=== PATIENT | female | born 1945 | race Caucasian/White ===

== ENCOUNTER 2024-12-17 13:37 | Outpatient (REF) | payer MEDICARE, SELFPAY ==
--- NOTE | ~2024-12-17 | XR_ITS ---
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 4 views lumbar spine Comparison: None Findings: Dextroscoliosis. Osteopenia. No acute fracture. Multilevel spondylosis with diffuse osteophytosis, facet arthropathy and degenerative disc disease. Intervertebral foraminal narrowing, pronounced at L4-L5 and L5-S1. Large colonic stool burden. IMPRESSION: Chronic changes without acute findings. This document has been electronically signed by: Ian Jackson MD on 12/18/2024 05:56:04
--- OUTSIDE RECORDS SUMMARY | 2024-12-17 15:54 | XMS_ITS | Encounter Summary ---
Author Organization [facility] Address [address] [place] [address] Care Team Providers Care Shingle Weaver Name Role Phone Warner Layne MD Primary Care Provider [phone] Edgar Gillette MD Unavailable [phone] Liz Wick MD Primary Care Provider [phone] Re Agarwal MD Primary Care Provider [phone] Reason for Visit * Reason Onset Date Comments medication problems 11/28/2022 Encounter Details Date Type Department Care Team Description 11/28/2022 Telephone Internal Medicine - [place] [address] [facility], [address] [place] [address] Warner Layne MD [address] [place], [place] [id number] medication problems Social History Tobacco Use Types Packs/Day Years Used Date Smoking Tobacco: Never Smokeless Tobacco: Never Alcohol Use Standard Drinks/Week Comments No 0 (1 standard drink = 0.6 oz pur e alcohol) Sex Assigned at Date Recorded Not on file Job Start Date Occupation Industry Not on file Not on file Not on file COVID-19 Exposure Response Date Recorded In the last 10 days, have yo u been in contact with someone who was confirmed or suspected to have Coronavirus/COVID-19? No / Unsure 11/14/2022 1:32 PM EST documented as of this encounter Miscellaneous Notes * Telephone Encounter - Celine Sherman - 11/28/2022 11:[address] Layne please advise patient states their Donezapil should be 10mg advised by patients neurologist however you sent in 5mg. * Telephone Encounter - Alanna Burris - 11/28/2022 11:00 AM EST Who is calling? The patient Name of the medication Donezapil What is the specific problem or interaction? Patient states neurologist Dr. Johnson wanted her on 10mg but Dr. Layne prescribed 5mg. Please advise. If the patient is having a problem with taking the med - how long has the problem been going on? N/A documented in this encounter Plan of Treatment Not on file documented as of this encounter Visit Diagnoses Not on filedocumented in this encounter Care Teams Shingle Weaver Relationship Specialty Start Date End Date Warner Layne MD PCP - General Internal Medicine 12/27/20 04/08/23 Liz Wick MD [address] [place] [address] PCP - General Internal Medicine 04/09/23 01/20/24 Re Agarwal MD [address] [place] [id number] PCP - General Internal Medicine 01/21/24 Edgar Gillette MD General Worker Cardiology 12/02/19 documented as of this encounter
--- OUTSIDE RECORDS SUMMARY | 2024-12-17 15:54 | XMS_ITS | Encounter Summary ---
Author Organization [facility] Address [address] [place] [address] Care Team Providers Care Manager Forms Name Role Phone Warner Layne MD Primary Care Provider [phone] Melissa Tapia MD Primary Care Provider [phone] Warner Layne MD Primary Care Provider [phone] Edgar Gillette MD Unavailable [phone] Liz Wick MD Primary Care Provider [phone] Re Agarwal MD Primary Care Provider [phone] Encounter Details Date Type Department Care Team Description 11/12/2019 Release of Information Medical Records [address] [place] [id number] Abstract, Provider Social History Tobacco Use Types Packs/Day Years Used Date Smoking Tobacco: Never Smokeless Tobacco: Never Alcohol Use Standard Drinks/Week Comments No 0 (1 standard drink = 0.6 oz pur e alcohol) Sex Assigned at Date Recorded Not on file Job Start Date Occupation Industry Not on file Not on file Not on file documented as of this encounter Plan of Treatment Not on file documented as of this encounter Visit Diagnoses Not on filedocumented in this encounter Care Teams Manager Forms Relationship Specialty Start Date End Date Warner Layne MD PCP - General Internal Medicine 08/25/19 12/22/20 Melissa Tapia MD PCP - General Internal Medicine 12/23/20 12/26/20 Warner Layne MD PCP - General Internal Medicine 12/27/20 04/08/23 Liz Wick MD [address] [place] [id number] PCP - General Internal Medicine 04/09/23 01/20/24 Re Agarwal MD [address] [place] [address] PCP - General Internal Medicine 01/21/24 Edgar Gillette MD Repairer Wood Furniture Cardiology 12/02/19 documented as of this encounter
--- OUTSIDE RECORDS SUMMARY | 2024-12-17 15:54 | XMS_ITS | Encounter Summary ---
Author Organization [facility] Address [address] [place] [address] Care Team Providers Care Tax Services Intern Name Role Phone Edgar Gillette MD Unavailable [phone] Liz Wick MD Primary Care Provider [phone] Re Agarwal MD Primary Care Provider [phone] Encounter Details Date Type Department Care Team Description 05/23/2023 Hospital Medical Records [address] [place] [id number] [address] Social History Tobacco Use Types Packs/Day Years [...] suspected to have Coronavirus/COVID-19? No / Unsure 05/22/2023 11:28 AM EDT documented as of this encounter Plan of Treatment Not on file documented as of this encounter Procedures Procedure Name Priority Date/Time Associated Diagnosis Comments OUTSIDE LAB Routine 05/24/2023 OUTSIDE EKG Routine 05/23/2023 OUTSIDE LAB Routine 05/23/2023 documented in this encounter Results * OUTSIDE LAB (05/24/2023) Provider Abstract LAB * OUTSIDE LAB (05/23/2023) Provider Abstract LAB * OUTSIDE EKG (05/23/2023) Provider Abstract CARDIOLOGY documented in this encounter Visit Diagnoses Not on filedocumented in this encounter Care Teams Tax Services Intern Relationship Specialty Start Date End Date Liz Wick MD [address] [place] [address] PCP - General Internal Medicine 04/09/23 01/20/24 Re Agarwal MD [address] [place] [address] PCP - General Internal Medicine 01/21/24 Edgar Gillette MD Community Association Manager Cardiology 12/02/19 documented as of this encounter
--- OUTSIDE RECORDS SUMMARY | 2024-12-17 15:54 | XMS_ITS | Encounter Summary ---
Author Organization [facility] Address [address] [place] [address] Care Team Providers Care Business Analytics Director Name Role Phone Edgar Gillette MD Unavailable [phone] Re Agarwal MD Primary Care Provider [phone] Reason for Visit * Reason Onset Date Comments Wellness Program Manager Feedback 04/02/2024 Neurology-Dr. Leni varma Encounter Details Date Type Department Care Team Description 04/02/2024 Telephone Adult Medicine [address] [place] [address] [address] Re Agarwal MD [address] [place] [address] Wellness Program Manager Feedback (Neurology-Dr. Joaquin) Social History Tobacco Use Types Packs/Day Years Used Date Smoking Tobacco: Never Smokeless Tobacco: Never Alcohol Use Standard Drinks/Week Comments No 0 (1 standard drink = 0.6 oz pur e alcohol) Sex Assigned at Date Recorded Not on file Job Start Date Occupation Industry Not on file Not on file Not on file documented as of this encounter Miscellaneous Notes * Telephone Encounter - Sonya Marquez - 04/04/2024 3:33 PM EDT Noted. * Telephone Encounter - Re Agarwal MD - 04/04/2024 3:20 PM EDT Will discuss with patient at upcoming appointment * Telephone Encounter - Sonya Marquez - 04/02/2024 11:[address] Agarwal, Recently patient was referred to Neurology-Dr. Joaquin for dx dementia hx . 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 Joaquin is no longer accepting new patients as he will be retiring in June 2024.I have closed referral. I do see that patient had an appt scheduled on 03/25/[address] Johnson but I am unsure if patient kept that appt. Patient had also been referred to [facility] but that referral was also closed as [facility] does not see for memory issues. I am unsure how you would like to proceed. Thanks, Sonya Referrals Automotive Fuel Systems Converter documented in this encounter Plan of Treatment Not on file documented as of this encounter Visit Diagnoses Not on filedocumented in this encounter Care Teams Business Analytics Director Relationship Specialty Start Date End Date Re Agarwal MD [address] [place] [address] PCP - General Internal Medicine 01/21/24 Edgar Gillette MD Traffic Workforce Representative Cardiology 12/02/19 documented as of this encounter
--- OUTSIDE RECORDS SUMMARY | 2024-12-17 15:54 | XMS_ITS | Encounter Summary ---
Author Organization [facility] Address [address] [place] [address] Care Team Providers Care Coroner Name Role Phone Warner Layne MD Primary Care Provider [phone] Melissa Tapia MD Primary Care Provider [phone] Warner Layne MD Primary Care Provider [phone] Edgar Gillette MD Unavailable [phone] Liz Wick MD Primary Care Provider [phone] Re Agarwal MD Primary Care Provider [phone] Reason for Visit * Reason Onset Date Comments other 01/07/2020 prescriptions Encounter Details Date Type Department Care Team Description 01/07/2020 Telephone Internal Medicine - [address], [address] [place] [address] Warner Layne MD [address] [place] [address] other (prescriptions) Social History Tobacco Use Types Packs/Day Years [...] encounter Miscellaneous Notes * Telephone Encounter - Shyanne Lynn M.A. - 01/12/2020 1:02 PM EDT Letter printed placed on provider folder for review and sign, please mail to patient * Telephone Encounter - Warner Layne MD - 01/12/2020 11:05 AM EDT Letter is fine * Telephone Encounter - Shyanne Lynn M.A. - 01/12/2020 10:51 AM EDT Contacted patient for a better understanding of what she want from us and she stated that she Needsa prescription for her otc medications, for her housing coust, but what I can do is to do a letter for her housing with a list of all of her otc medications Please let me know if you want me to do this letter instead witting a script for all of her otc medication * Telephone Encounter - Shyanne Lynn M.A. - 01/07/2020 11:20 AM EST I av do not understand her request * Telephone Encounter - Pepper Shearer - 01/07/2020 10:54 AM EST [facility] in [facility] has appointment 11:15 today Caller requesting call back from provider: Is the caller the patient? YES If caller is not the patient, what is the callers name? N/A Callers relationship to patient? 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 Message forwarded to nurse. documented in this encounter Plan of Treatment Not on file documented as of this encounter Visit Diagnoses Not on filedocumented in this encounter Care Teams Coroner Relationship Specialty Start Date End Date Warner Layne MD PCP - General Internal Medicine 08/25/19 12/22/20 Melissa Tapia MD PCP - General Internal Medicine 12/23/20 12/26/20 Warner Layne MD PCP - General Internal Medicine 12/27/20 04/08/23 Liz Wick MD [address] [place] [id number] PCP - General Internal Medicine 04/09/23 01/20/24 Re Agarwal MD [address] [place] [address] [id number] PCP - General Internal Medicine 01/21/24 Edgar Gillette MD Creative Writing Teacher Cardiology 12/02/19 documented as of this encounter
--- OUTSIDE RECORDS SUMMARY | 2024-12-17 15:54 | XMS_ITS | Encounter Summary ---
Author Organization [facility] Address [address] [place] [address] Care Team Providers Care Cath Laboratory Technician Name Role Phone Edgar Gillette MD Unavailable [phone] Re Agarwal MD Primary Care Provider [phone] Encounter Details Date Type Department Care Team Description 07/08/2024 Orders Only Medical Records [address] [place] [id number] Heber Harry DO Social History Tobacco Use Types Packs/Day Years [...] Name Priority Date/Time Associated Diagnosis Comments OUTSIDE MRI/MRA Routine 07/04/2024 documented in this encounter Results * OUTSIDE MRI/MRA (07/04/2024) Heber Harry DO RADIOLOGY documented in this encounter Visit Diagnoses Not on filedocumented in this encounter Care Teams Cath Laboratory Technician Relationship Specialty Start Date End Date Re Agarwal MD [address] [place] [address] PCP - General Internal Medicine 01/21/24 Edgar Gillette MD Silverware Supervisor Cardiology 12/02/19 documented as of this encounter
--- OUTSIDE RECORDS SUMMARY | 2024-12-17 15:54 | XMS_ITS | Encounter Summary ---
Author Organization [facility] Address [address] [place] [address] Care Team Providers Care Human Resources Benefits Assistant Name Role Phone Edgar Gillette MD Unavailable [phone] Re Agarwal MD Primary Care Provider [phone] Reason for Visit * Reason Onset Date Comments Rash 09/04/2024 Encounter Details Date Type Department Care Team Description 09/04/2024 Telephone Adult Medicine [address] [address] Re Agarwal MD [address] [place] [address] Rash Social History Tobacco Use Types Packs/Day Years [...] encounter Miscellaneous Notes * Telephone Encounter - Sumaya Jamil R.N. - 09/04/2024 4:05 PM EDT Pt will come in for labs . She is aware she has a Rx at the pharmacy She will f/u if no improvement * Telephone Encounter - Sumaya Jamil R.N. - 09/04/2024 12:02 PM EDT Pt was seen 08/[address] Agarwal for rash on her hands . Was to try triamcinolone and clortrimazole , she was referred to derm . Still has trash on her hands but has now =developed rash on her back and legs Pt also C/O a dog bite and she was given doxy Pt has had a rash on her upper back /shoulders and legs for 3 days, Pt has no chest pain or SOB, she is able to speak in full sentences has no wheezing or stridor, denies any difficulty swallowing, no swelling of face mouth or tongue, she has no joint pains, no N/V/Steve fever, denies any headache or ST, she is not dizzy, rash is red , very itchy ,flat in some areasand raised on others , not painful, has not tried home care Pt finished doxy yesterday Pt is using the ointment on her hands Advised home care following the Rash Protocol. RN reinforced telephone consultation and advice. Reviewed with the patient the signs and symptoms to watch for that would require immediate attention. If symptoms change, worsen or increase in intensity, to call back immediately. Message to dr Agawral * Telephone Encounter - Madhuri Alvarez - 09/04/2024 11:53 AM EDT Symptoms patient is presenting: rash on back and both legs, very itchy For ALL patients calling to schedule any appointment (routine, sick visit, follow up, consult, etc.) in the outpatient setting please ask the following questions: ?? Do you have fever of higher than 101, sore throat with difficulty swallowing or severe shortnessof breath? NO If YES to any of these above symptoms, send a message to triage and do not book. Red dot. If no, an audio or video visit should be booked. ?? Have you had close contact with someone with Coronavirus in the last 14 days? NO ?? Have you traveled abroad? NO ?? Have you traveled recently to another state outside of [place], [place], [place], [place], [place], [place], [place]? NO o If yes, did you quarantine for 14 days or have a negative covid test? NO If yes to any of the above, patient is not to be scheduled in office until after 14 day quarantine or negative covid test. If pain or injury related was it due to an accident at work or from a motor vehicle accident? NO If yes, gather 3rd democrat insurance information Date of accident/Injury: How long has patient had these symptoms?: week PCP: Re Agarwal Payor: ANUSHA/MEDICARE PPO / Plan: [facility] MDCR-ADV PPO $0 Sape [id number] / Product Type: MEDICARE [id number] documented in this encounter Plan of Treatment Not on file documented as of this encounter Results * CHLAMYDIA DNA PROBE, URINE (09/05/2024 11:13 AM EDT) CHLAMYDIA-URIN E NEGATIVE NEGATIVE 09/05/2024 4:44 PM EDT [facility] 09/05/2024 11:1 3 AM EDT 09/05/2024 11:13 AM EDT Narrative [facility] [employer] - 09/05/2024 4:44 PM EDT Release to patient->Immediate Re Agarwal MD LAB [employer] * GONORRHEA DNA PROBE, URINE (09/05/2024 11:13 AM EDT) GC-URINE NEGATIVE NEGATIVE 09/05/2024 4:44 PM EDT [facility] 09/05/2024 11:1 3 AM EDT 09/05/2024 11:13 AM EDT Narrative [facility] [employer] - 09/05/2024 4:44 PM EDT Release to patient->Immediate Re Agarwal MD LAB [employer] * (ABNORMAL) HERPES 1&2 AB IGG (09/05/2024 8:55 AM EDT) HERPES 1 ANTIBODY IGG POSITIVE(A) NEGATIVE 09/07/2024 12:20 PM EST [facility] HSV 1 IGG QUANT 30.90(H) <0.90 INDEX 09/07/2024 12:20 PM EST [facility] [facility] HERPES 2 ANTIBODY IGG NEGATIVE NEGATIVE 09/07/2024 12:20 PM EST [facility] [employer] HSV 2 IGG QUANT 0.09 <0.90 INDEX 09/07/2024 12:20 PM EST [facility] [employer] 09/05/2024 8:55 AM EDT 09/05/2024 8:56 AM EDT Narrative [facility] - 09/07/2024 12:20 PM EST Release to patient->Immediate Re Agarwal MD [facility] * (ABNORMAL) HSV IGM AB (09/05/2024 8:55 AM EDT) HERPES 1 AND 2 ANTIBODIES, IGM POSITIVE( A) NEGATIVE 09/07/2024 12:35 PM EST [facility] [employer] HSV 1 2 IGM QUANT 1.18(H) <0.90 INDEX 09/07/2024 12:35 PM EST [facility] [employer] 09/05/2024 8:55 AM EDT 09/05/2024 8:56 AM EDT Narrative [facility] [employer] - 09/07/2024 12:35 PM EST Release to patient->Immediate Re Agarwal MD LAB [facility] * (ABNORMAL) HEPATITIS PANEL (09/05/2024 8:55 AM EDT) Hepatitis B surface antibody NEGATIVE NEGATIVE 09/05/2024 1:55 PM EDT [facility] [employer] Hepatitis B surface antigen NEGATIVE NEGATIVE 09/05/2024 2:06 PM EDT [facility] Comment: Over the counter supplements containing high doses of biotin may interfere with this assay. ??If interference is suspected, patients shoud be retested after refraining from biotin supplements for 72 hours. Hepatitis C Virus Diagnostic NEGATIVE NEGATIVE 09/05/2024 2:34 PM EDT [facility] HEPATITIS A ANTIBODY TOTAL POSITIVE(A) NEGATIVE 09/05/2024 2:40 PM EDT [facility] Comment: Over the counter supplements containing high doses of biotin may interfere with this assay. ??If interference is suspected, patients shoud be retested after refraining from biotin supplements for 72 hours. HEPATITIS B CORE ANTIBODY POSITIVE(A) NEGATIVE 09/05/2024 2:41 PM EDT [facility] 09/05/2024 8:55 AM EDT 09/05/2024 8:56 AM EDT Narrative [employer] - 09/05/2024 2:41 PM EDT Release to patient->Immediate Re Agarwal MD LAB Performing Organization Address City/[facility]/ZIP Co de Phone Number [facility] * CHG ANTIBODY HIV-1&HIV-2 SINGLE RESULT (09/05/2024 8:55 AM EDT) [facility] HIV 1&2 ANTIBODY SCREEN NEGATIVE NEGATIVE 09/05/2024 2:35 PM EDT [facility] Comment: This assay is a 4th generation assay allowing for earlier detection of HIV infection by detecting the presence of the HIV-1 p24 antigen as well as the traditional antibodies to HIV type 1 (including group O) and type 2. ??Use of a 4th generation assay is the current CDC recommendation for HIV screening. 09/05/2024 8:55 AM EDT 09/05/2024 8:56 AM EDT Narrative [employer] - 09/05/2024 2:35 PM EDT Release to patient->Immediate Re Agarwal MD LAB [employer] documented in this encounter Visit Diagnoses Diagnosis Rash- Primary Rash and other nonspecific skin eruption Rash Rash and other nonspecific skin eruption documented in this encounter Care Teams Human Resources Benefits Assistant Relationship Specialty Start Date End Date Re Agarwal MD [address] [place] [id number] PCP - General Internal Medicine 01/21/24 Edgar Gillette MD Department Secretary Cardiology 12/02/19 documented as of this encounter
--- OUTSIDE RECORDS SUMMARY | 2024-12-17 15:54 | XMS_ITS | Encounter Summary ---
Author Organization [facility] Address [address] [place] [address] Care Team Providers Care Sales And Merchandising Representative Name Role Phone Warner Layne MD Primary Care Provider [phone] Edgar Gillette MD Unavailable [phone] Liz Wick MD Primary Care Provider [phone] Re Agarwal MD Primary Care Provider [phone] Encounter Details Date Type Department Care Team Description 05/20/2021 Telephone Adult Medicine [address] [address] Warner Layne MD [address] [place], [place] [id number] Social History Tobacco Use Types Packs/Day Years Used Date Smoking Tobacco: Never Smokeless Tobacco: Never Alcohol Use Standard Drinks/Week Comments No 0 (1 standard drink = 0.6 oz pur e alcohol) Sex Assigned at Date Recorded Not on file Job Start Date Occupation Industry Not on file Not on file Not on file COVID-19 Exposure Response Date Recorded In the last month, have you been in contact with someone who was confirmed or suspected to have Coronavirus / COVID-19? No / Unsure 04/28/2021 3:29 PM EDT documented as of this encounter Plan of Treatment Not on file documented as of this encounter Visit Diagnoses Not on filedocumented in this encounter Care Teams Sales And Merchandising Representative Relationship Specialty Start Date End Date Warner Layne MD PCP - General Internal Medicine 12/27/20 04/08/23 Liz Wick MD [address] [place] [address] PCP - General Internal Medicine 04/09/23 01/20/24 Re Agarwal MD [address] [place] [address] PCP - General Internal Medicine 01/21/24 Edgar Gillette MD Assistant Public Defender Cardiology 12/02/19 documented as of this encounter
--- OUTSIDE RECORDS SUMMARY | 2024-12-17 15:54 | XMS_ITS | Encounter Summary ---
Author Organization [facility] Address [address] [place] [address] Care Team Providers Care Associate Professor Of Theology Name Role Phone Warner Layne MD Primary Care Provider Melissa Tapia MD Primary Care Provider Warner Layne MD Primary Care Provider [phone] Edgar Gillette MD Unavailable [phone] Liz Wick MD Primary Care Provider [phone] Re Agarwal MD Primary Care Provider Reason for Visit * Reason Comments E-prescribe Rx Request Encounter Details Date Type Department Care Team Description 06/21/2020 Refill Internal Medicine - [address], [address] [place] [address] Pj Sunshine MD E-prescribe Rx Request Social History Tobacco Use Types Packs/Day Years [...] encounter Miscellaneous Notes * Telephone Encounter - Frances BlackmonP.NHeriberto - 06/25/2020 12:56 PM EDT Lab Results Component Value Date NA 140 04/27/2020 K 4.7 04/27/2020 CO2 26 04/27/2020 CL 107 04/27/2020 BUN 29 04/27/2020 CREAT 1.25 04/27/2020 GLU 102 04/27/2020 CA 10.0 04/27/2020 GFR 42 04/27/2020 * Telephone Encounter - Jillian Macias - 06/24/2020 4:36 PM EDT 02/25/2020 Left vociemail to call and schedule documented in this encounter Plan of Treatment Not on file documented as of this encounter Visit Diagnoses Not on filedocumented in this encounter Care Teams Associate Professor Of Theology Relationship Specialty Start Date End Date Warner Layne MD PCP - General Internal Medicine 08/25/19 12/22/20 Melissa Tapia MD PCP - General Internal Medicine 12/23/20 12/26/20 Warner Layne MD PCP - General Internal Medicine 12/27/20 04/08/23 Liz Wick MD [address] [place] [address] PCP - General Internal Medicine 04/09/23 01/20/24 Re Agarwal MD [address] [place] [address] PCP - General Internal Medicine 01/21/24 Edgar Gillette MD Jigman Cardiology 12/02/19 documented as of this encounter
--- OUTSIDE RECORDS SUMMARY | 2024-12-17 15:54 | XMS_ITS | Encounter Summary ---
Author Organization [facility] Address [address] [place] [address] Care Team Providers Care Supervisor Sandblaster Name Role Phone Edgar Gillette MD Unavailable [phone] Re Agarwal MD Primary Care Provider [phone] Encounter Details Date Type Department Care Team Description 06/03/2024 Rock Breaker Report Medical Records [address] [place] [address] Heber Harry DO Social History Tobacco Use [...] on filedocumented in this encounter Care Teams Supervisor Sandblaster Relationship Specialty Start Date End Date Re Agarwal MD [address] [place] [address] PCP - General Internal Medicine 01/21/24 Edgar Gillette MD Running Instructor Cardiology 12/02/19 documented as of this encounter
--- OUTSIDE RECORDS SUMMARY | 2024-12-17 15:54 | XMS_ITS | Encounter Summary ---
Author Organization [facility] Address [address] [place] [address] Care Team Providers Care Net Software Engineer Name Role Phone Warner Layne MD Primary Care Provider Melissa Tapia MD Primary Care Provider Warner Layne MD Primary Care Provider Edgar Gillette MD Unavailable [phone] Liz Wick MD Primary Care Provider Re Agarwal MD Primary Care Provider Reason for Visit * Reason Comments E-prescribe Rx Request Encounter Details Date Type Department Care Team Description 08/25/2020 Refill Internal Medicine - [address], [address] [place] [address] Warner Layne MD [address] [place] [address] E-prescribe Rx Request Social History Tobacco Use [...] encounter Miscellaneous Notes * Telephone Encounter - Reena Knowles M.A. - 08/27/2020 1:14 PM EDT Lab Results Component Value Date NA 140 04/27/2020 K 4.7 04/27/2020 CO2 26 04/27/2020 CL 107 04/27/2020 BUN 29 04/27/2020 CREAT 1.25 04/27/2020 GLU 102 04/27/2020 ALB 4.1 04/27/2020 SGOT 43 04/27/2020 SGPT 52 04/27/2020 TBILI 0.3 04/27/2020 ALKPHOS 114 04/27/2020 TP 7.9 04/27/2020 CA 10.0 04/27/2020 GFR 42 04/27/2020 * Telephone Encounter - Lydia Castillo - 08/27/2020 10:54 AM EDT [id number] documented in this encounter Plan of Treatment Not on file documented as of this encounter Visit Diagnoses Not on filedocumented in this encounter Care Teams Net Software Engineer Relationship Specialty Start Date End Date Warner Layne MD PCP - General Internal Medicine 08/25/19 12/22/20 Melissa Tapia MD PCP - General Internal Medicine 12/23/20 12/26/20 Warner Layne MD PCP - General Internal Medicine 12/27/20 04/08/23 Liz Wick MD [address] [place] [address] PCP - General Internal Medicine 04/09/23 01/20/24 Re Agarwal MD [address] [place] [address] PCP - General Internal Medicine 01/21/24 Edgar Gillette MD Oyster Culturist Cardiology 12/02/19 documented as of this encounter
--- OUTSIDE RECORDS SUMMARY | 2024-12-17 15:54 | XMS_ITS | Encounter Summary ---
Author Organization [facility] Address [address] [place] [address] Care Team Providers Care Playground Worker Name Role Phone Warner Layne MD Primary Care Provider [phone] Edgar Gillette MD Unavailable [phone] Liz Wick MD Primary Care Provider [phone] Re Agarwal MD Primary Care Provider [phone] Encounter Details Date Type Department Care Team Description 07/19/2021 Pilot Plant Research Technician Report Medical Records [address] [place] [address] Heber Harry DO Social History Tobacco Use [...] have Coronavirus / COVID-19? No / Unsure 06/28/2021 1:12 PM EDT documented as of this encounter Plan of Treatment Not on file documented as of this encounter Visit Diagnoses Not on filedocumented in this encounter Care Teams Playground Worker Relationship Specialty Start Date End Date Warner Layne MD PCP - General Internal Medicine 12/27/20 04/08/23 Liz Wick MD [address] [place], [place] [phone] PCP - General Internal Medicine 04/09/23 01/20/24 Re Agarwal MD [address] [place] [address] PCP - General Internal Medicine 01/21/24 Edgar Gillette MD Broadcast Supervisor Cardiology 12/02/19 documented as of this encounter
--- OUTSIDE RECORDS SUMMARY | 2024-12-17 15:54 | XMS_ITS | Clinical Summary ---
Author Organization [facility] Address [address] [place] [address] Phone Care Team Providers Care Director [employer] Name Role Phone Re Agarwal MD Primary Care Provider [phone] Allergies Active Allergy Reactions Criticality Noted Date [...] 03/14/2017 Overview (08/22/2024): 2016- urodynamic studies. Uro SYSTEMS INTEGRATION ENGINEER Venous insufficiency 03/14/2017 Overview (08/22/2024): 11/29/2015 Vascular [...] help her, in the past has seen [facility] and Dr. Harry, has [...] Patient had MRI lumbar spine 07/04/2024 at [facility] that shows severe degenerative disc disease L2-3 [...] online, it appears that Dr. Harry and [facility] did not recommend any [...] Description 10/24/2024 1:30 PM EST Consult Neurosurgery [place] [address] [place] [address] Rupinder De Los Santos PA Osteoarthritis of lumbar spine, unspecified spinal osteoarthritis complication status; Spondylosis of lumbar region without myelopathy or radiculopathy 10/21/2024 10:00 AM EST Office Visit Adult [address] [phone] Re Agarwal MD Annual physical exam (Primary Dx); Insomnia, unspecified type; Chronic midline low back pain without sciatica; Degeneration of intervertebral disc of lumbar region with discogenic back pain 09/24/2024 9:45 AM EST Office Visit Adult [address] [phone] Re Agarwal MD Osteoarthritis of lumbar spine, [...] incontinence 03/14/2017 2016- urody namic studies. Uro SYSTEMS INTEGRATION ENGINEER Venous insufficiency 03/14/2017 11/29/2015 V ascular Surgery [...] 11:30 AM EST Office Visit Adult Medicine Emily - [address] [phone] Re Agarwal MD [address] [place] [address] 08/19/2025 1:30 PM EDT Consult Nephrology [address] [phone] Wilbert Olmstead MD [address] [facility] [address] [place] [address] Health Maintenance Due Date Last [...] mmol/L LAB CHEMISTRY METHOD 10/13/2024 5:20 PM [facility] Potassium 4.7 3.5 - 5.5 mmol/L LAB CHEMISTRY METHOD 10/13/2024 5:20 PM [facility] Chloride 111(H) 96 - 110 mmol/L LAB CHEMISTRY METHOD 10/13/2024 5:20 PM [facility] CO2 26 21 - 32 mmol/L LAB CHEMISTRY METHOD 10/13/2024 5:20 PM [facility] Anion Gap 7 3 - 11 LAB CHEMISTRY METHOD 10/13/2024 5:20 PM [facility] Glucose 120(H) 70 - 100 mg/dL LAB CHEMISTRY METHOD 10/13/2024 5:20 PM [facility] BUN 31(H) 5 - 25 mg/dL LAB CHEMISTRY METHOD 10/13/2024 5:20 PM [facility] Creatinine 1.40(H) 0.50 - 1.10 mg/dL LAB CHEMISTRY METHOD 10/13/2024 5:20 PM [facility] eGFR 38(L) >=60 mL/min/1. 73m2 LAB CHEMISTRY METHOD 10/13/2024 5:20 PM [facility] Comment:Calculation based on the??Chronic Kidney Disease Epidemiology Collaboration (CKD-EPI) equation refit??without adjustment for race. BUN/Creatinine Ratio 22.1 LAB CHEMISTRY METHOD 10/13/2024 5:20 PM [facility] Calcium 10.3 8.5 - 10.5 mg/dL LAB CHEMISTRY METHOD 10/13/2024 5:20 PM [facility] Blood Venous blood specimen / Unknown Venipuncture / Unknown 10/13/2024 12:38 PM EST 10/13/2024 12:38 PM EST Re Agarwal MD LAB BLOOD ORDERABLES Final Result [facility] [address] [place] [address], [place] [phone] * Lipid panel (01/28/2024) LDL/HDL Ratio 3 [...] left femoral neck by WHO criteria. [facility] Department of Internal Medicine recommends using National [...] schedule based on joseph De La O., [facility] November 23, 2011 for patients with osteopenia [...] left femoral neck by WHO criteria. [facility] Department of Internal Medicine recommendsusing National Osteoporosis [...] Documents on File Type Date Recorded Patient Tabulating Supervisor Expl anation Health Care Decision (hx) 12/19/2017 [...] (hx) 12/19/2017 AD BURNETT DIRECTIVE Care Teams Director [employer] Relationship Specialty Start Date End Date Re Agarwal MD [address] [place] [address] PCP - General 01/21/24
--- OUTSIDE RECORDS SUMMARY | 2024-12-17 15:54 | XMS_ITS | Encounter Summary ---
Author Organization [facility] Address [address] [place] [address] Care Team Providers Care Ip Network Architect Name Role Phone Edgar Gillette MD Unavailable [phone] Liz Wick MD Primary Care Provider [phone] Re Agarwal MD Primary Care Provider [phone] Reason for Visit * Reason Comments E-prescribe Rx Request Encounter Details Date Type Department Care Team Description 05/02/2023 Refill Internal Medicine - [address], [address] [place] [address] Warner Layne MD [address] [place] [address] E-prescribe Rx Request Social History Tobacco Use [...] suspected to have Coronavirus/COVID-19? No / Unsure 05/02/2023 10:58 AM EDT documented as of this encounter Miscellaneous Notes * Telephone Encounter - Melissa Dumont PA-C - 05/03/2023 9:09 AM EDT Ok to fill. Arlin Marie * Telephone Encounter - Chanelle Ramirez M.A. - 05/03/2023 7:23 AM EDT Last office visit 04/13/23 Next office visit 10/16/23 * Telephone Encounter - Vasile Suarez - 05/02/2023 4:29 PM EDT Patient would like script to be: E-PRESCRIBED/FAXED TO PHARMACY WHEN WAS THE PATIENT'S LAST APPOINTMENT IN ADULT MEDICINE? 04/13/23 WHEN WAS THE LAST TIME THE PATIENT SAW THEIR PCP? 04/04/23 Does patient have an upcoming appointment? Yes 10/16/23 (THE MEDICATION REQUESTED IS ON THE MED LIST ABOVE) All of the medications requested were on the CURRENT MEDS list Did you check the Pharmacy information above?: YES Patient wants: 90 -day supply Is this a mail order prescription request ? NO If the refill is from a FAXED refill request what is the RX # listed on the fax? N/A Patients current insurance carrier is: Payor: ANUSHA/PPO POS / Plan: [place] PPO BLUE $10/$40 [place] [id number] / Product Type: PPO [id number] documented in this encounter Plan of Treatment Not on file documented as of this encounter Visit Diagnoses Not on filedocumented in this encounter Care Teams Ip Network Architect Relationship Specialty Start Date End Date Liz Wick MD [address] [place] [address] PCP - General Internal Medicine 04/09/23 01/20/24 Re Agarwal MD [address] [place] [address] PCP - General Internal Medicine 01/21/24 Edgar Gillette MD Sol[facility] Cardiology 12/02/19 documented as of this encounter
--- OUTSIDE RECORDS SUMMARY | 2024-12-17 15:54 | XMS_ITS | Encounter Summary ---
Author Organization [facility] Address [address] [place] [address] Care Team Providers Care Recreational Specialist Name Role Phone Edgar Gillette MD Unavailable [phone] Liz Wick MD Primary Care Provider [phone] Re Agarwal MD Primary Care Provider [phone] Encounter Details Date Type Department Care Team Description 11/07/2023 Telephone Adult Medicine [address] [address] Liz Wick MD [address] [place] [address] [phone] Social History Tobacco Use Types Packs/Day Years [...] on filedocumented in this encounter Care Teams Recreational Specialist Relationship Specialty Start Date End Date Liz Wick MD [address] [place] [id number] PCP - General Internal Medicine 04/09/23 01/20/24 Re Agarwal MD [address] [place] [address] PCP - General Internal Medicine 01/21/24 Edgar Gillette MD Arm Rest Builder Cardiology 12/02/19 documented as of this encounter
--- OUTSIDE RECORDS SUMMARY | 2024-12-17 15:54 | XMS_ITS | Encounter Summary ---
Author Organization [facility] Address [address] [place] [address] Care Team Providers Care Insole Tack Puller Hand Name Role Phone Warner Layne MD Primary Care Provider [phone] Melissa Tapia MD Primary Care Provider [phone] Warner Layne MD Primary Care Provider [phone] Edgar Gillette MD Unavailable [phone] Liz Wick MD Primary Care Provider [phone] Re Agarwal MD Primary Care Provider [phone] Encounter Details Date Type Department Care Team Description 01/10/2020 [facility] Medical Records [address] [place] [address] Vasiliy Pina, MAINTENANCE TRUCK DRIVER Social History Tobacco Use Types Packs/Day Years [...] on filedocumented in this encounter Care Teams Insole Tack Puller Hand Relationship Specialty Start Date End Date Warner Layne MD PCP - General Internal Medicine 08/25/19 12/22/20 Melissa Tapia MD PCP - General Internal Medicine 12/23/20 12/26/20 Warner Layne MD PCP - General Internal Medicine 12/27/20 04/08/23 Liz Wick MD [address] [place] [address] PCP - General Internal Medicine 04/09/23 01/20/24 Re Agarwal MD [address] [place] [address] PCP - General Internal Medicine 01/21/24 Edgar Gillette MD Immigration Manager Cardiology 12/02/19 documented as of this encounter
--- OUTSIDE RECORDS SUMMARY | 2024-12-17 15:54 | XMS_ITS | Clinical Summary ---
Author Organization [facility] Address [address] [facility] [address] [place] [address] Phone Care Team Providers Care Automotive Service Director Name Role Phone StefanoRe Primary Care Provider [phone] Allergies Active Allergy Reactions Criticality Noted Date [...] 03/14/2017 Overview (05/21/2024): 2016- urodynamic studies. Uro SPRAY TECHNICIAN Venous insufficiency 03/14/2017 Overview (05/21/2024): 11/29/2015 Vascular [...] patient's age to complete this topic Insurance [facility] PPO BLUE([id number]) [id number] MEDICAID [place] [address] [place] [address] [facility] PPO BLUE([id number]) [id number] MEDICAID [place] Care Teams Automotive Service Director Relationship Specialty Start Date End Date Re Agarwal PCP - General 02/07/24
--- OUTSIDE RECORDS SUMMARY | 2024-12-17 15:54 | XMS_ITS | Encounter Summary ---
Author Organization [facility] Address [address] [place] [address] Care Team Providers Care Pan Cleaner Name Role Phone Edgar Gillette MD Unavailable [phone] Liz Wick MD Primary Care Provider [phone] Re Agarwal MD Primary Care Provider [phone] Reason for Visit * Reason Onset Date Comments Blood Pressure Elevated 05/17/2023 Encounter Details Date Type Department Care Team Description 05/17/2023 Telephone Adult Medicine [address] [address] Liz Wick MD [address] [place] [address] [id number] Blood Pressure Elevated Social History Tobacco Use Types Packs/Day Years [...] Recorded In the last 10 days, have judy adams been in contact with someone who was confirmed or suspected to have Coronavirus/COVID-19? No / Unsure 05/18/2023 10:15 AM EDT documented as of this encounter Miscellaneous Notes * Telephone Encounter - Sumaya Jamil R.N. - 05/17/2023 11:08 AM EDT Pt states she went to [facility] and they took her bp and told her it was high ( she has alzhimers and does not recall the datails ) Bp [id number] Pt has no chest pain or SOB, denies any recent N/V/D or fever , has not had a cough. Pt has not hada headache , has no change in vision, pt has not had any weakness, or numbness, denies any dizziness, pt is oriented and speech is clear, pt has been taking all prescribed BP meds with no recent changes Advised home care following the HTN Protocol. RN reinforced telephone consultation and advice. Reviewed with the patient the signs and symptoms to watch for that would require immediate attention. Ifsymptoms change, worsen or increase in intensity, to call back immediately. Pt to see dr genoveva nixon at 10:30 * Telephone Encounter - Madhuri Nash - 05/17/2023 10:56 AM EDT Symptoms patient is presenting: PATIENT WENT TO URGENT CARE FOR ELEVATED BLOOD PRESSURE. For ALL patients calling to schedule any [...] traveled recently to another state outside of [place], [place], [place], [place], [place], [place], [place]? NO o If yes, did you quarantine [...] How long has patient had these symptoms?: 2 DAYS PCP: Liz Wick Payor: ANUSHA/PPO POS / Plan: BCBS PPO BLUE $10/$40 [place] [id number] / Product Type: PPO [id number] documented in this encounter Plan of Treatment Not on file documented as of this encounter Visit Diagnoses Not on filedocumented in this encounter Care Teams Pan Cleaner Relationship Specialty Start Date End Date Liz Wick MD [address] [place] [address] PCP - General Internal Medicine 04/09/23 01/20/24 Re Agarwal MD [address] [place] [address] PCP - General Internal Medicine 01/21/24 Edgar Gillette MD Electronic Typesetting Machine Operator Cardiology 12/02/19 documented as of this encounter
--- OUTSIDE RECORDS SUMMARY | 2024-12-17 15:54 | XMS_ITS | Encounter Summary ---
Author Organization [facility] Address [address] [place] [address] Care Team Providers Care Dip Brazier Name Role Phone Warner Layne MD Primary Care Provider Melissa Tapia MD Primary Care Provider Warner Layne MD Primary Care Provider [phone] Edgar Gillette MD Unavailable Liz Wick MD Primary Care Provider [phone] Re Agarwal MD Primary Care Provider [phone] Reason for Visit * Reason Onset Date Comments refill request 09/29/2019 Encounter Details Date Type Department Care Team Description 09/29/2019 Refill Adult Med - [place] [address] [place], [place] [phone] Warner Layne MD [address] [place], [place] [phone] refill request Social History Tobacco Use Types Packs/Day Years [...] encounter Miscellaneous Notes * Telephone Encounter - Luma Jarvis - 09/29/2019 1:15 PM EST Patient would like script to be: E-PRESCRIBED/FAXED TO PHARMACY When was the patients last office visit in Adult Medicine?: 08/25/19 When was the last time the patient saw their PCP? Same as above Does patient have an upcoming appointment? Yes 02/25/20 (THE MEDICATION IS NOT ON THE MED LIST AND IS IDENTIFIED BELOW): {MED LIST:[id number]) Med name: lisinopril Dosage: 10-12.5mg # of tablets: 30 Local pharmacy with request for 30 -day supply Instructions: 1 tab day Did you check the pharmacy information above?: YES Patients current insurance carrier: Payor: [facility]/MEDICARE PPO / Plan: [facility] MDCR- ADV PPO $20/$40 [place] / Product Type: MEDICARE [id number] documented in this encounter Plan of Treatment Not on file documented as of this encounter Visit Diagnoses Not on filedocumented in this encounter Care Teams Dip Brazier Relationship Specialty Start Date End Date Warner Layne MD PCP - General Internal Medicine 08/25/19 12/22/20 Melissa Tapia MD PCP - General Internal Medicine 12/23/20 12/26/20 Warner Layne MD PCP - General Internal Medicine 12/27/20 04/08/23 Liz Wick MD [address] [place] [address] [id number] PCP - General Internal Medicine 04/09/23 01/20/24 Re Agarwal MD [address] [place] [address] [phone] PCP - General Internal Medicine 01/21/24 Edgar Gillette MD Substation Operator Automatic Cardiology 12/02/19 documented as of this encounter
--- OUTSIDE RECORDS SUMMARY | 2024-12-17 15:54 | XMS_ITS | Encounter Summary ---
Author Organization [facility] Address [address] [place] [address] Care Team Providers Care Commercial Decorator Name Role Phone Edgar Gillette MD Unavailable [phone] Re Agarwal MD Primary Care Provider [phone] Reason for Visit * Reason Onset Date Comments Carpal Tunnel Syndrome 07/31/2024 Encounter Details Date Type Department Care Team Description 07/31/2024 Telephone Adult Medicine [address] [address] Re Agarwal MD [address] [place] [address] Carpal Tunnel Syndrome Social History Tobacco Use Types Packs/Day Years [...] Miscellaneous Notes * Telephone Encounter - Sumaya Loulou Parmar - 07/31/2024 2:18 PM EDT Pt was seen by dr Agarwal 1 mo ago for back pain, she does have hx of right carpal tunnel, is C/O numbness in Er entire hand , this is not new , she has had numbness in her hand and a burning pain for years, was seen by dr reyes in 10/2023 and had an injection, had some relief after the injection Pt is asking for a new referral to see dr reyes Pt has no chest pain or SOB, denies any N/V/D or fever, she has no other joint pains, her hand is not hot red or swollen, she is able to use her hand and has nl ROM but has burring pain if she moves her hand , has had this for many months, C/O tingling in her entire hand from the wrist down Does pt need to be seen for this, last visit with dr Agarwal was 1 mo ago * Telephone Encounter - Honey Hassan - 07/31/2024 1:31 PM EDT Symptoms patient is presenting: Patient calling in states she has RT hand carpal tunnel and wants to know if provider will refer her to a specialist. Requests call back For ALL patients calling to schedule any [...] traveled recently to another state outside of [place], [place], [place], [place], [place], [place], [place]? NO o If yes, did you quarantine [...] How long has patient had these symptoms?: PCP: Re Agarwal Payor: [employer]/MEDICARE PPO / Plan: [facility] MDCR-ADV PPO $0 [employer] [id number] / Product Type: MEDICARE [id number] documented in this encounter Plan of Treatment Not on file documented as of this encounter Visit Diagnoses Not on filedocumented in this encounter Care Teams Commercial Decorator Relationship Specialty Start Date End Date Re Agarwal MD [address] [place] [address] PCP - General Internal Medicine 01/21/24 Edgar Gillette MD Production Leader Cardiology 12/02/19 documented as of this encounter
--- OUTSIDE RECORDS SUMMARY | 2024-12-17 15:54 | XMS_ITS | Encounter Summary ---
Author Organization [facility] Address [address] [place] [address] Care Team Providers Care Termite Helper Name Role Phone Edgar Gillette MD Unavailable [phone] Re gAarwal MD Primary Care Provider [phone] Reason for Visit * Reason Onset Date Comments medication problems 06/20/2024 ramelteon (R OZEREM) 8 MG tablet Encounter Details Date Type Department Care Team Description 06/20/2024 Telephone Adult Medicine [address] [address] Re Agarwal MD [address] [place] [id number] medication problems (ramelteon (ROZEREM) 8 MG tablet) Social History Tobacco Use Types Packs/Day Years [...] encounter Miscellaneous Notes * Telephone Encounter - Re Agarwal MD - 07/22/2024 7:58 AM EDT Melatonin 10 mg daily prn insomnia sent * Telephone Encounter - Monty Ramirez - 06/20/2024 2:07 PM EDT INCOMING FAX FROM [facility] Name of the medication ramelteon (ROZEREM) 8 MG tablet What is the specific problem or interaction? Pharmacy requesting an alternative as this med isnt covered If the patient is having a problem with taking the med - how long has the problem been going on? N/A documented in this encounter Plan of Treatment Not on file documented as of this encounter Visit Diagnoses Not on filedocumented in this encounter Care Teams Termite Helper Relationship Specialty Start Date End Date Re Agarwal MD [address] [place] [address] PCP - General Internal Medicine 01/21/24 Edgar Gillette MD Lightning Rod Installer Cardiology 12/02/19 documented as of this encounter
--- OUTSIDE RECORDS SUMMARY | 2024-12-17 15:54 | XMS_ITS | Encounter Summary ---
Author Organization [facility] Address [address] [place] [address] Care Team Providers Care Insurance And Benefits Clerk Name Role Phone Warner Layne MD Primary Care Provider [phone] Edgar Gillette MD Unavailable [phone] Liz Wick MD Primary Care Provider [phone] Re Agarwal MD Primary Care Provider [phone] Reason for Referral * EXTERNAL (Priority) - [facility]: Authorized/Booked Specialty Diagnoses / Procedures Referred By Contac t Referred To Contact Cardiology Procedures REFERRAL TO CARDIOLOGY Warner Layne MD [address] [place] [address] [facility] Referral ID Status Reason Start Date Expiration Date V isits Requested Visits Authorized [id number] [facility]: Authorized/B ooked 05/20/2021 05/20/2022 1 1 Reason for Visit * Reason Onset Date Comments Advice 05/20/2021 Provider Call Back 05/20/2021 Encounter Details Date Type Department Care Team Description 05/20/2021 Telephone Adult Medicine [address] [address] Warner Layne MD [address] [place] [address] Advice; Provider Call Back Social History Tobacco Use Types Packs/Day Years [...] PM EDT documented as of this encounter Miscellaneous Notes * Telephone Encounter - Pilar Pa M.A. - 05/20/2021 3:27 PM EDT Please advice. * Telephone Encounter - Abbey Ricardo - 05/20/2021 1:48 PM EDT Caller requesting call back from provider: Is the caller the patient? YES If caller is not the patient, what is the callers name? Callers relationship to patient? If person calling is not the patient themselves, is there a verbal release in FYI or permanent comments for this person: NO Reason for call back: Wants to be tested for bicuspid aorta stenosis, her sister has it and, she was told that is heridatary. Please advice. Caller offered to speak with the nurse for assistance: YES Response: documented in this encounter Plan of Treatment Not on file documented as of this encounter Visit Diagnoses Not on filedocumented in this encounter Care Teams Insurance And Benefits Clerk Relationship Specialty Start Date End Date Warner Layne MD PCP - General Internal Medicine 12/27/20 04/08/23 Liz Wick MD [address] [place] [address] PCP - General Internal Medicine 04/09/23 01/20/24 Re Agarwal MD [address] [place] [address] PCP - General Internal Medicine 01/21/24 Edgar Gillette MD Development Team Lead Cardiology 12/02/19 documented as of this encounter
--- OUTSIDE RECORDS SUMMARY | 2024-12-17 15:54 | XMS_ITS | Encounter Summary ---
Author Organization [facility] Address [address] [place] [address] Care Team Providers Care Heavy Equipment Service Manager Name Role Phone Warner Layne MD Primary Care Provider [phone] Melissa Tapia MD Primary Care Provider [phone] Warner Layne MD Primary Care Provider [phone] Edgar Gillette MD Unavailable [phone] Liz Wick MD Primary Care Provider [phone] Re Agarwal MD Primary Care Provider [phone] Reason for Visit * Reason Comments E-prescribe Rx Request Encounter Details Date Type Department Care Team Description 01/16/2020 Refill Internal Medicine - [address], [address] [place] [address] Warner Layne MD [address] [place] [address] E-prescribe Rx Request Social History Tobacco Use [...] Telephone Encounter - Reena Knowles M.A. - 01/16/2020 2:49 PM EDT Refil sent to pcp * Telephone Encounter - Leigha Jalloh - 01/16/2020 1:30 PM EDT Patient would like script to be: E-PRESCRIBED/FAXED TO PHARMACY WHEN WAS THE PATIENT'S LAST APPOINTMENT IN ADULT MEDICINE? 01/14/2020 WHEN WAS THE LAST TIME THE PATIENT SAW THEIR PCP? Same as above Does patient have an upcoming appointment? Yes 02/25/2020 (THE MEDICATION REQUESTED IS ON THE MED LIST ABOVE) All of the medications requested were on the CURRENT MEDS list Did you check the Pharmacy information above?: YES Patient wants: 30 -day supply Is this a mail order prescription request ? NO If the refill is from a FAXED refill request what is the RX # listed on the fax? N/A Patients current insurance carrier is: Payor: [facility]/MEDICARE PPO / Plan: [facility] MDCR-ADV PPO $20/$40 [place] / Product Type: MEDICARE [id number] documented in this encounter Plan of Treatment Not on file documented as of this encounter Visit Diagnoses Not on filedocumented in this encounter Care Teams Heavy Equipment Service Manager Relationship Specialty Start Date End Date Warner Layne MD PCP - General Internal Medicine 08/25/19 12/22/20 Melissa Tapia MD PCP - General Internal Medicine 12/23/20 12/26/20 Warner Layne MD PCP - General Internal Medicine 12/27/20 04/08/23 Liz Wick MD [address] [place] [address] PCP - General Internal Medicine 04/09/23 01/20/24 Re Agarwal MD [address] [place] [address] PCP - General Internal Medicine 01/21/24 Edgar Gillette MD Medical Transcription Supervisor Cardiology 12/02/19 documented as of this encounter
--- OUTSIDE RECORDS SUMMARY | 2024-12-17 15:54 | XMS_ITS | Encounter Summary ---
Author Organization [facility] Address [address] [place] [address] Care Team Providers Care Art Director Name Role Phone Warner Layne MD Primary Care Provider Melissa Tapia MD Primary Care Provider Warner Layne MD Primary Care Provider [phone] Edgar Gillette MD Unavailable [phone] Liz Wick MD Primary Care Provider [phone] Re Agarwal MD Primary Care Provider Reason for Visit * Reason Comments E-prescribe Rx Request Encounter Details Date Type Department Care Team Description 07/07/2020 Refill Internal Medicine - [address], [address] [place] [address] Warner Layne MD [address] [place] [address] E-prescribe Rx Request Social History Tobacco Use [...] Telephone Encounter - Reena Knowles M.A. - 07/07/2020 3:14 PM EDT Lab Results Component Value Date NA 140 04/27/2020 K 4.7 04/27/2020 CO2 26 04/27/2020 CL 107 04/27/2020 BUN 29 04/27/2020 CREAT 1.25 04/27/2020 GLU 102 04/27/2020 ALB 4.1 04/27/2020 SGOT 43 04/27/2020 SGPT 52 04/27/2020 TBILI 0.3 04/27/2020 ALKPHOS 114 04/27/2020 TP 7.9 04/27/2020 CA 10.0 04/27/2020 GFR 42 04/27/2020 * Telephone Encounter - Eliane Miller - 07/07/2020 3:09 PM EDT JOSE 02/25/2020 NOV Could not leave a message on patient's phone, rang a lot then asked for an access code - need Return in about 4 months (around 06/26/2020). 90 day supply documented in this encounter Plan of Treatment Not on file documented as of this encounter Visit Diagnoses Not on filedocumented in this encounter Care Teams Art Director Relationship Specialty Start Date End Date Warner Layne MD PCP - General Internal Medicine 08/25/19 12/22/20 Melissa Tapia MD PCP - General Internal Medicine 12/23/20 12/26/20 Warner Layne MD PCP - General Internal Medicine 12/27/20 04/08/23 Liz Wick MD [address] [place] [address] PCP - General Internal Medicine 04/09/23 01/20/24 Re Agarwal MD [address] [place] [address] PCP - General Internal Medicine 01/21/24 Edgar Gillette MD Concession Cashier Cardiology 12/02/19 documented as of this encounter
--- OUTSIDE RECORDS SUMMARY | 2024-12-17 15:54 | XMS_ITS | Encounter Summary ---
Author Organization [facility] Address [address] [place] [address] Care Team Providers Care Lay Out And Detail Drafter Name Role Phone Warner Layne MD Primary Care Provider [phone] Edgar Gillette MD Unavailable [phone] Liz Wick MD Primary Care Provider [phone] Re Agarwal MD Primary Care Provider [phone] Reason for Visit * Reason Comments E-prescribe Rx Request Encounter Details Date Type Department Care Team Description 05/04/2021 Refill Internal Medicine - [place] [address] [facility], [address] [place] [address] Warner Layne MD [address] [place], [place] [id number] E-prescribe Rx Request Social History Tobacco Use [...] encounter Miscellaneous Notes * Telephone Encounter - Mimi Ware - 05/04/2021 8:44 AM EDT [place] 04/28/21Sep no appt booked documented in this encounter Plan of Treatment Not on file documented as of this encounter Visit Diagnoses Not on filedocumented in this encounter Care Teams Lay Out And Detail Drafter Relationship Specialty Start Date End Date Warner Layne MD PCP - General Internal Medicine 12/27/20 04/08/23 Liz Wick MD [address] [place] [address] PCP - General Internal Medicine 04/09/23 01/20/24 Re Agarwal MD [address] [place] [address] PCP - General Internal Medicine 01/21/24 Edgar Gillette MD Oracle R12 Developer Cardiology 12/02/19 documented as of this encounter
--- OUTSIDE RECORDS SUMMARY | 2024-12-17 15:54 | XMS_ITS | Encounter Summary ---
Author Organization [facility] Address [address] [place] [address] Care Team Providers Care Solar Mechanical Engineer Name Role Phone Edgar Gillette MD Unavailable [phone] Liz Wick MD Primary Care Provider [phone] Re Agarwal MD Primary Care Provider [phone] Encounter Details Date Type Department Care Team Description 10/17/2023 Framing Manager Report Medical Records [address] [place] [id number] [place] [address] Orthopedic, Surgeons Social History Tobacco Use Types Packs/Day Years [...] suspected to have Coronavirus/COVID-19? No / Unsure 09/18/2023 12:53 PM EST documented as of this encounter Plan of Treatment Not on file documented as of this encounter Visit Diagnoses Not on filedocumented in this encounter Care Teams Solar Mechanical Engineer Relationship Specialty Start Date End Date Liz Wick MD [address] [place] [id number] PCP - General Internal Medicine 04/09/23 01/20/24 Re Agarwal MD [address] [place] [address] [id number] PCP - General Internal Medicine 01/21/24 Edgar Gillette MD Hollock Maker Cardiology 12/02/19 documented as of this encounter
--- OUTSIDE RECORDS SUMMARY | 2024-12-17 15:54 | XMS_ITS | Encounter Summary ---
Author Organization [facility] Address [address] [place] [address] Care Team Providers Care Scarfer Operator Name Role Phone Bonnie Florez MD Primary Care Provider Unavail able Krista Warren MD Primary Care Provider Sparkle vailable Warner Layne MD Primary Care Provider [phone] Warner Layne MD Primary Care Provider [phone] Melissa Tapia MD Primary Care Provider Warner Layne MD Primary Care Provider Edgar Gillette MD Unavailable [phone] Liz Wick MD Primary Care Provider [phone] Re Agarwal MD Primary Care Provider [phone] Encounter Details Date Type Department Care Team Description 12/25/2016 Release of Information Medical Records [address] [place] [address] Abstract, Provider Social History Tobacco Use Types Packs/Day Years Used Date Smoking Tobacco: Never Smokeless Tobacco: Never Alcohol Use Standard Drinks/Week Comments Not Asked 0 (1 standard drink = 0.6 oz pur e alcohol) Sex Assigned at Date Recorded Not on file Job Start Date Occupation Industry Not on file Not on file Not on file documented as of this encounter Plan of Treatment Not on file documented as of this encounter Visit Diagnoses Not on filedocumented in this encounter Care Teams Scarfer Operator Relationship Specialty Start Date End Date Bonnie Florez MD PCP - General Internal Medicine 12/20/16 12/11/17 Krista Warren MD PCP - General Internal Medicine 10/10/18 Warner Layne MD PCP - General Internal Medicine 08/25/19 12/22/20 Warner Layne MD PCP - General 12/12/17 10/09/18 Melissa Tapia MD PCP - General Internal Medicine 12/23/20 12/26/20 Warner Layne MD PCP - General Internal Medicine 12/27/20 04/08/23 Liz Wick MD [address] [place] [id number] PCP - General Internal Medicine 04/09/23 01/20/24 Re Agarwal MD [address] [place] [address] PCP - General Internal Medicine 01/21/24 Edgar Gillette MD Shell Trim Operator Cardiology 12/02/19 documented as of this encounter
--- OUTSIDE RECORDS SUMMARY | 2024-12-17 15:54 | XMS_ITS | Encounter Summary ---
Author Organization [facility] Address [address] [place] [address] Care Team Providers Care Skill Labor Name Role Phone Warner Layne MD Primary Care Provider [phone] Edgar Gillette MD Unavailable [phone] Liz Wick MD Primary Care Provider [phone] Re Agarwal MD Primary Care Provider [phone] Reason for Visit * Reason Onset Date Comments refill request 05/10/2022 Encounter Details Date Type Department Care Team Description 05/10/2022 Refill Internal Medicine - [address], [address] [place] [address] Warner Layne MD [address] [place] [address] refill request Social History Tobacco Use Types [...] encounter Miscellaneous Notes * Telephone Encounter - Grant Ruff M.A. - 05/10/2022 11:16 AM EDT Rx last filled on 11/09/21 w/ refill rx pended fwd to dr layne * Telephone Encounter - Coleen Matute - 05/10/2022 10:53 AM EDT [place] 12/16/21 Next 05/15/22 documented in this encounter Plan of Treatment Not on file documented as of this encounter Visit Diagnoses Not on filedocumented in this encounter Care Teams Skill Labor Relationship Specialty Start Date End Date Warner Layne MD PCP - General Internal Medicine 12/27/20 04/08/23 Liz Wick MD [address] [place] [address] PCP - General Internal Medicine 04/09/23 01/20/24 Re Agarwal MD [address] [place] [address] PCP - General Internal Medicine 01/21/24 Edgar Gillette MD Medical Anthropology Director Cardiology 12/02/19 documented as of this encounter
--- OUTSIDE RECORDS SUMMARY | 2024-12-17 15:54 | XMS_ITS | Encounter Summary ---
Author Organization [facility] Address [address] [place] [address] Care Team Providers Care Hat Designer Name Role Phone Edgar Gillette MD Unavailable [phone] Liz Wick MD Primary Care Provider [phone] Re Agarwal MD Primary Care Provider [phone] Reason for Visit * Reason Comments E-prescribe Rx Request pantoprazole (PRO TONIX) 40 MG tablet Encounter Details Date Type Department Care Team Description 08/25/2023 Refill Adult Medicine [address] [address] Re Agarwal MD [address] [place] [address] [id number] E-prescribe Rx Request (pantoprazole (PROTONIX) 40 MG tablet) Social History Tobacco Use Types [...] suspected to have Coronavirus/COVID-19? No / Unsure 08/09/2023 8:57 AM EDT documented as of this encounter Miscellaneous Notes * Telephone Encounter - Riya Lerma M.A. - 08/30/2023 1:49 PM EDT refused * Telephone Encounter - Monty Ramirez - 08/30/2023 11:57 AM EDT Patient would like script to be: E-PRESCRIBED/FAXED TO PHARMACY WHEN WAS THE PATIENT'S LAST APPOINTMENT IN ADULT MEDICINE? 07/25/2023 WHEN WAS THE LAST TIME THE PATIENT SAW THEIR PCP? 06/01/2023 Does patient have an upcoming appointment? Yes 10/16/2023 (THE MEDICATION REQUESTED IS ON THE MED LIST ABOVE) All of the medications requested were on the CURRENT MEDS list Did you check the Pharmacy information above?: YES Patient wants: 90-day supply Is this a mail order prescription request ? NO If the refill is from a FAXED refill request what is the RX # listed on the fax? N/A Patients current insurance carrier is: Payor: [facility]/MEDICARE PPO / Plan: [facility] MDCR-ADV PPO $20/$40 [place] / Product Type: MEDICARE [id number] documented in this encounter Plan of Treatment Not on file documented as of this encounter Visit Diagnoses Diagnosis Primary hypertension Unspecified essential hypertension documented in this encounter Care Teams Hat Designer Relationship Specialty Start Date End Date Liz Wick MD [address] [place] [address] PCP - General Internal Medicine 04/09/23 01/20/24 Re Agarwal MD [address] [place] [address] PCP - General Internal Medicine 01/21/24 Edgar Gillette MD Wood Veneer Taper Cardiology 12/02/19 documented as of this encounter
--- OUTSIDE RECORDS SUMMARY | 2024-12-17 15:54 | XMS_ITS | Encounter Summary ---
Author Organization [facility] Address [address] [place] [address] Care Team Providers Care Mill Helper Name Role Phone Krista Warren MD Primary Care Provider Sparkle eddble Warner Layne MD Primary Care Provider Melissa Tapia MD Primary Care Provider Warner Layne MD Primary Care Provider Edgar Gillette MD Unavailable [phone] Liz Wick MD Primary Care Provider [phone] Re Agarwal MD Primary Care Provider [phone] Encounter Details Date Type Department Care Team Description 05/09/2019 Orders Only Gastroenterology - [place] [address] [facility] [address] [place] [id number] Rancho Tanner MD Flank pain Social History Tobacco Use Types Packs/Day Years [...] Procedure Name Priority Date/Time Associated Diagnosis Comments [facility] RENAL FUNCTION PANEL Routine 04/07/2019 Flank pain documented in this encounter Results * RENAL FUNCTION PANEL (04/07/2019) 04/07/2019 Rancho Tanner MD LAB [facility] [employer] documented in this encounter Visit Diagnoses Diagnosis Flank pain Abdominal pain, unspecified site documented in this encounter Care Teams Mill Helper Relationship Specialty Start Date End Date Krista Warren MD PCP - General Internal Medicine 10/10/18 Warner Layne MD PCP - General Internal Medicine 08/25/19 12/22/20 Melissa Tapia MD PCP - General Internal Medicine 12/23/20 12/26/20 Warner Layne MD PCP - General Internal Medicine 12/27/20 04/08/23 Liz Wick MD [address] [place] [address] [id number] PCP - General Internal Medicine 04/09/23 01/20/24 Re Agarwal MD [address] [place] [address] [id number] PCP - General Internal Medicine 01/21/24 Edgar Gillette MD Cement Handler Cardiology 12/02/19 documented as of this encounter
--- OUTSIDE RECORDS SUMMARY | 2024-12-17 15:54 | XMS_ITS | Encounter Summary ---
Author Organization [facility] Address [address] [place] [address] Care Team Providers Care Returned Goods Receiving Clerk Name Role Phone Warner Layne MD Primary Care Provider [phone] Edgar Gillette MD Unavailable [phone] Liz Wick MD Primary Care Provider [phone] Re Agarwal MD Primary Care Provider [phone] Reason for Visit * Reason Comments E-prescribe Rx Request Encounter Details Date Type Department Care Team Description 03/28/2021 Refill Internal Medicine - [address], [address] [place] [address] Warner Layne MD [address] [place], [place] [id number] E-prescribe Rx Request Social History Tobacco Use [...] on filedocumented in this encounter Care Teams Returned Goods Receiving Clerk Relationship Specialty Start Date End Date Warner Layne MD PCP - General Internal Medicine 12/27/20 04/08/23 Liz Wick MD [address] [place] [address] PCP - General Internal Medicine 04/09/23 01/20/24 Re Agarwal MD [address] [place] [address] PCP - General Internal Medicine 01/21/24 Edgar Gillette MD Engineering Lab Technician Cardiology 12/02/19 documented as of this encounter
--- OUTSIDE RECORDS SUMMARY | 2024-12-17 15:54 | XMS_ITS | Encounter Summary ---
Author Organization [facility] Address [address] [place] [address] Care Team Providers Care Oncology Transplant Network Manager Name Role Phone Warner Layne MD Primary Care Provider [phone] Edgar Gillette MD Unavailable [phone] Liz Wick MD Primary Care Provider [phone] Re Agarwal MD Primary Care Provider [phone] Encounter Details Date Type Department Care Team Description 06/14/2022 Commercial Real Estate Manager Report Medical Records [address] [place] [address] Carter Koenig Social History Tobacco Use Types Packs/Day Years [...] In the last 10 days, have judy u been in contact with someone who was confirmed or suspected to have Coronavirus/COVID-19? No / Unsure 05/15/2022 12:44 PM EDT documented as of this encounter Plan of Treatment Not on file documented as of this encounter Visit Diagnoses Not on filedocumented in this encounter Care Teams Oncology Transplant Network Manager Relationship Specialty Start Date End Date Warner Layne MD PCP - General Internal Medicine 12/27/20 04/08/23 Liz Wick MD [address] [place], [place] [phone] PCP - General Internal Medicine 04/09/23 01/20/24 Re Agarwal MD [address] [place] [address] PCP - General Internal Medicine 01/21/24 Edgar Gillette MD Deicer Finisher Cardiology 12/02/19 documented as of this encounter
--- OUTSIDE RECORDS SUMMARY | 2024-12-17 15:54 | XMS_ITS | Encounter Summary ---
Author Organization [facility] Address [address] [place] [address] Care Team Providers Care Publication Director Name Role Phone Edgar Gillette MD Unavailable [phone] Liz oTmas MD Primary Care Provider [phone] Re Agarwal MD Primary Care Provider [phone] Encounter Details Date Type Department Care Team Description 05/18/2023 Telephone Adult Medicine [address] [address] Liz Tomas MD [address] [place] [address] Social History Tobacco Use Types Packs/Day Years [...] Telephone Encounter - Sumaya Jamil R.N. - 05/18/2023 11:59 AM EDT Pt is here today for [facility] f/u , she had e;elevated BP at the [facility], pt is not sure about which meds she has been taking and she does not have meds with her , pt has had ongoing issues with confusion ( sees dr stoddard for dementia ) pt finds it difficult to respond and is not sure which meds she has been taking, has BP cuff at home but pt is not reliable to monitor her BP and access care if elevated . Spoke with sister in law jose, she is aware that pt is not taking meds as prescribed, she has all the meds in a drawer , she is definitely not taking her Aricept ( pt does not feel she needs it ) andis taking Prilosec but has no heartburn . She may or may not be taking atenolol Family to come in with her next week with meds and some kind of pill box, dr tomas with go over meds and we will set her up to assist her monitor meds and BP. She has homemaking help form [employer] and jose will call to see if she can get a GAS GOLF CART REPAIRER to help monitor her meds and BP readings Appointment for 05/22 at 11:30 documented in this encounter Plan of Treatment Not on file documented as of this encounter Visit Diagnoses Not on filedocumented in this encounter Care Teams Publication Director Relationship Specialty Start Date End Date Liz Tomas MD [address] [place] [address] PCP - General Internal Medicine 04/09/23 01/20/24 Re Agarwal MD [address] [place] [address] PCP - General Internal Medicine 01/21/24 Edgar Gillette MD Food And Beverage Intern Cardiology 12/02/19 documented as of this encounter
--- OUTSIDE RECORDS SUMMARY | 2024-12-17 15:54 | XMS_ITS | Encounter Summary ---
Author Organization [facility] Address [address] [place] [address] Care Team Providers Care Bean Picker Machine Operator Name Role Phone Krista Warren MD Primary Care Provider Sparkle evailable Warner Layne MD Primary Care Provider Melissa Tapia MD Primary Care Provider [phone] Warner Layne MD Primary Care Provider [phone] Edgar Gillette MD Unavailable [phone] Liz Wick MD Primary Care Provider [phone] Re Agarwal MD Primary Care Provider [phone] Encounter Details Date Type Department Care Team Description 05/01/2019 Transfer Records Medical Records [address] [place] [address] Gene Scales II Social History Tobacco Use Types Packs/Day Years [...] on filedocumented in this encounter Care Teams Bean Picker Machine Operator Relationship Specialty Start Date End Date Krista Warren MD PCP - General Internal Medicine 10/10/18 Warner Layne MD PCP - General Internal Medicine 08/25/19 12/22/20 Melissa Tapia MD PCP - General Internal Medicine 12/23/20 12/26/20 Warner Layne MD PCP - General Internal Medicine 12/27/20 04/08/23 Liz Wick MD [address] [place] [address] PCP - General Internal Medicine 04/09/23 01/20/24 Re Agarwal MD [address] [place] [address] PCP - General Internal Medicine 01/21/24 Edgar Gillette MD Secretary Cardiology 12/02/19 documented as of this encounter
--- OUTSIDE RECORDS SUMMARY | 2024-12-17 15:54 | XMS_ITS | Encounter Summary ---
Author Organization [facility] Address [address] [place] [address] Care Team Providers Care Neckties Painter Name Role Phone Edgar Gillette MD Unavailable [phone] Liz Wick MD Primary Care Provider [phone] Re Agarwal MD Primary Care Provider [phone] Encounter Details Date Type Department Care Team Description 10/22/2023 Pruner Report Medical Records [address] [place] [address] [facility] Social History Tobacco Use Types Packs/Day Years [...] on filedocumented in this encounter Care Teams Neckties Painter Relationship Specialty Start Date End Date Liz Wick MD [address] [place] [address] [phone] PCP - General Internal Medicine 04/09/23 01/20/24 Re Agarwal MD [address] [place] [address] [phone] PCP - General Internal Medicine 01/21/24 Edgar Gillette MD Associate Product Integrity Engineer Cardiology 12/02/19 documented as of this encounter
--- OUTSIDE RECORDS SUMMARY | 2024-12-17 15:54 | XMS_ITS | Encounter Summary ---
Author Organization [facility] Address [address] [place] [address] Care Team Providers Care Human Resources District Manager Name Role Phone Edgar Gillette MD Unavailable [phone] Re Agarwal MD Primary Care Provider Encounter Details Date Type Department Care Team Description 08/27/2024 Refill Adult Medicine [address] [address] Re Agarwal MD [address] [place] [address] Social History Tobacco Use Types Packs/Day Years [...] on filedocumented in this encounter Care Teams Human Resources District Manager Relationship Specialty Start Date End Date Re Agarwal MD [address] [place] [address] PCP - General Internal Medicine 01/21/24 Edgar Gillette MD Sleeper Cutter Cardiology 12/02/19 documented as of this encounter
--- OUTSIDE RECORDS SUMMARY | 2024-12-17 15:54 | XMS_ITS | Encounter Summary ---
Author Organization [facility] Address [address] [place] [address] Care Team Providers Care Lead Oracle Developer Name Role Phone Edgar Gillette MD Unavailable [phone] Liz Wick MD Primary Care Provider Re Agarwal MD Primary Care Provider [phone] Encounter Details Date Type Department Care Team Description 09/28/2023 Orders Only Medical Records [address] [place] [address] Social History Tobacco Use Types Packs/Day Years [...] Name Priority Date/Time Associated Diagnosis Comments OUTSIDE CT Routine 08/29/2023 OUTSIDE PLAIN FILM Routine 08/29/2023 documented in this encounter Results * OUTSIDE PLAIN FILM (08/29/2023) Chaz Chappell MD RADIOLOGY * OUTSIDE CT (08/29/2023) [employer] RADIOLOGY documented in this encounter Visit Diagnoses Not on filedocumented in this encounter Care Teams Lead Oracle Developer Relationship Specialty Start Date End Date Liz Wick MD [address] [place] [address] PCP - General Internal Medicine 04/09/23 01/20/24 Re Agarwal MD [address] [place] [address] PCP - General Internal Medicine 01/21/24 Edgar Gillette MD Call Worker Person Cardiology 12/02/19 documented as of this encounter
--- OUTSIDE RECORDS SUMMARY | 2024-12-17 15:54 | XMS_ITS | Encounter Summary ---
Author Organization [facility] Address [address] [place] [address] Care Team Providers Care Methods And Procedures Analyst Name Role Phone Warner Layne MD Primary Care Provider [phone] Melissa Tapia MD Primary Care Provider [phone] Warner Layne MD Primary Care Provider [phone] Edgar Gillette MD Unavailable [phone] Liz Wick MD Primary Care Provider [phone] Re Agarwal MD Primary Care Provider [phone] Reason for Visit * Reason Comments E-prescribe Rx Request Encounter Details Date Type Department Care Team Description 11/10/2020 Refill Internal Medicine - [address], [address] [place] [address] Warner Layne MD [address] [place] [address] E-prescribe Rx Request Social History Tobacco Use [...] have Coronavirus / COVID-19? No / Unsure 11/10/2020 10:20 AM EST documented as of this encounter Miscellaneous Notes * Telephone Encounter - Reena Knowles M.A. - 11/11/2020 11:50 AM EST Lab Results Component Value Date NA 141 10/12/2020 K 5.1 10/12/2020 CO2 30 10/12/2020 CL 106 10/12/2020 BUN 18 10/12/2020 CREAT 1.10 10/12/2020 GLU 97 10/12/2020 ALB 4.1 10/12/2020 SGOT 17 10/12/2020 SGPT 25 10/12/2020 TBILI 0.2 10/12/2020 ALKPHOS 81 10/12/2020 TP 7.8 10/12/2020 CA 10.2 10/12/2020 GFR 48 10/12/2020 * Telephone Encounter - Coleen Leyva - 11/11/2020 11:30 AM EST [place] 10/11/2020 Call patient no voice message available. FYI documented in this encounter Plan of Treatment Not on file documented as of this encounter Visit Diagnoses Not on filedocumented in this encounter Care Teams Methods And Procedures Analyst Relationship Specialty Start Date End Date Warner Layne MD PCP - General Internal Medicine 08/25/19 12/22/20 Melissa Tapia MD PCP - General Internal Medicine 12/23/20 12/26/20 Warner Layne MD PCP - General Internal Medicine 12/27/20 04/08/23 Liz Wick MD [address] [place] [address] [phone] PCP - General Internal Medicine 04/09/23 01/20/24 Re Agarwal MD [address] [place] [address] PCP - General Internal Medicine 01/21/24 Edgar Gillette MD Architectural Drafting Instructor Cardiology 12/02/19 documented as of this encounter
--- OUTSIDE RECORDS SUMMARY | 2024-12-17 15:54 | XMS_ITS | Encounter Summary ---
Author Organization [facility] Address [address] [place] [address] Care Team Providers Care Parts Driver Name Role Phone Edgar Gillette MD Unavailable [phone] Liz Wick MD Primary Care Provider [phone] Re Agarwal MD Primary Care Provider [phone] Reason for Visit * Reason Onset Date Comments Medication 09/05/2023 Encounter Details Date Type Department Care Team Description 09/05/2023 Telephone Adult Medicine [address] [address] Liz Wick MD [address] [place] [address] Medication Social History Tobacco Use Types Packs/Day Years [...] encounter Miscellaneous Notes * Telephone Encounter - Connie Crum M.A. - 09/06/2023 8:[address] Delano for FYI * Telephone Encounter - Jagruti Randle - 09/05/2023 3:59 PM EDT Atenolol was not prescribe by us. It was on patient med list. Only changes that was made at last visit was her Atorvastatin which was cut down to 20 mg. * Telephone Encounter - Connie Crum M.A. - 09/05/2023 3:29 PM EDT Please confirm if you want patient on amlodopine or atenolol. No new scripts were sent in at her appt on 08/09, but amlodopine was taken off her list and atenolol was added. Please send replies to the [place] for: Adult Medicine [facility] * Telephone Encounter - Connie Crum M.A. - 09/05/2023 3:23 PM EDT Call to patient, she only has 2 prescription bottles at home. Amlopidine Atorvastatin Pantoprazole No atenolol or donepezil. Awaiting call back from [facility] to confirm if this was changed in error. * Telephone Encounter - Madhuri Nash - 09/05/2023 1:45 PM EDT Patient is calling and wants to know if the provider want her to contiue taking Amlodipine and if provider will keep rpescribing it. documented in this encounter Plan of Treatment Not on file documented as of this encounter Visit Diagnoses Not on filedocumented in this encounter Care Teams Parts Driver Relationship Specialty Start Date End Date Liz Wick MD [address] [place] [address] PCP - General Internal Medicine 04/09/23 01/20/24 Re Agarwal MD [address] [place] [address] PCP - General Internal Medicine 01/21/24 Edgar Gillette MD Malted Milk Mixer Cardiology 12/02/19 documented as of this encounter
--- OUTSIDE RECORDS SUMMARY | 2024-12-17 15:55 | XMS_ITS | Encounter Summary ---
Author Organization [facility] Address [address] [place] [address] Care Team Providers Care Foreign Service Teacher Name Role Phone Edgar Gillette MD Unavailable [phone] Liz Wick MD Primary Care Provider [phone] Re Agarwal MD Primary Care Provider [phone] Encounter Details Date Type Department Care Team Description 05/23/2023 Hospital Medical Records [address] [place] [address] Jeniffer Allred NP Social History Tobacco Use Types Packs/Day Years [...] on filedocumented in this encounter Care Teams Foreign Service Teacher Relationship Specialty Start Date End Date Liz Wick MD [address] [place] [address] PCP - General Internal Medicine 04/09/23 01/20/24 Re Agarwal MD [address] [place] [address] [phone] PCP - General Internal Medicine 01/21/24 Edgar Gillette MD Gas Regulator Repairer Helper Cardiology 12/02/19 documented as of this encounter
--- OUTSIDE RECORDS SUMMARY | 2024-12-17 15:55 | XMS_ITS | Encounter Summary ---
Author Organization [facility] Address [address] [place] [address] Care Team Providers Care Conveyor Monitor Name Role Phone Virgie Concepcion MD Primary Care Provider Bonnie Florez MD Primary Care Provider Unavail able Krista Warren MD Primary Care Provider Sparkle vailable Warner Layne MD Primary Care Provider [phone] Warner Layne MD Primary Care Provider [phone] Melissa Tapia MD Primary Care Provider Warner Layne MD Primary Care Provider Edgar Gillette MD Unavailable [phone] Liz Wick MD Primary Care Provider [phone] Re Agarwal MD Primary Care Provider [phone] Encounter Details Date Type Department Care Team Description 03/31/2016 Hospital Medical Records [address] [place] [address] Oleksandr, Fernandez Social History Tobacco Use Types Packs/Day Years [...] on filedocumented in this encounter Care Teams Conveyor Monitor Relationship Specialty Start Date End Date Virgie Concepcion MD [address] [place] [address] PCP - General 09/04/1999 12/19/16 Bonnie Florez MD [address] [place] [address] 16948 PCP - General Internal Medicine 12/20/16 12/11/17 Krista Warren MD [address] [place] [address] 22988 PCP - General Internal Medicine 10/10/18 08/24/19 Warner Layne MD [address] [place] [address]53 PCP - General Internal Medicine 08/25/19 12/22/20 Warner Layne MD [address] [place] [address] 29525 PCP - General 12/12/17 10/09/18 Melissa Tapia MD [address] [place] [address] 09178 PCP - General Internal Medicine 12/23/20 12/26/20 Warner Layne MD [address] [place] [address] 46057 PCP - General Internal Medicine 12/27/20 04/08/23 Liz Wick MD [address] [place] [address] 40627 PCP - General Internal Medicine 04/09/23 01/20/24 Re Agarwal MD [address] [place] [address] PCP - General Internal Medicine 01/21/24 Edgar Gillette MD [address] [place] [address] Plastic Outfitter Cardiology 12/02/19 documented as of this encounter
--- OUTSIDE RECORDS SUMMARY | 2024-12-17 15:55 | XMS_ITS | Encounter Summary ---
Author Organization [facility] Address [address] [place] [address] Care Team Providers Care Director Talent Management Name Role Phone Virgie Concepcion MD Primary Care Provider [phone] Bonnie Florez MD Primary Care Provider Unavail able Krista Warren MD Primary Care Provider Sparkle vailable Warner Layne MD Primary Care Provider [phone] Warner Layne MD Primary Care Provider [phone] Melissa Tapia MD Primary Care Provider Warner Layne MD Primary Care Provider Edgar Gillette MD Unavailable [phone] Liz Wick MD Primary Care Provider [phone] Re Agarwal MD Primary Care Provider [phone] Encounter Details Date Type Department Care Team Description 06/13/2016 Hospital Medical Records [address] [place] [address] Ben Cook Social History Tobacco Use Types Packs/Day Years [...] on filedocumented in this encounter Care Teams Director Talent Management Relationship Specialty Start Date End Date Virgie Concepcion MD [address] [place] [address] PCP - General 09/04/1999 12/19/16 Bonnie Florez MD [address] [place] [address] 42032 PCP - General Internal Medicine 12/20/16 12/11/17 Krista Warren MD [address] [place] [address] 14613 PCP - General Internal Medicine 10/10/18 08/24/19 Warner Layne MD [address] [place] [address] 655[address] PCP - General Internal Medicine 08/25/19 12/22/20 Warner Layne MD [address] [place] [address] 12110 PCP - General 12/12/17 10/09/18 Melissa Tapia MD [address] [place] [address] 08935 PCP - General Internal Medicine 12/23/20 12/26/20 Warner Layne MD [address] [place] [address] 44548 PCP - General Internal Medicine 12/27/20 04/08/23 Liz Wick MD [address] [place] [address] 60533 PCP - General Internal Medicine 04/09/23 01/20/24 Re Agarwal MD [address] [place] [address] 31949 PCP - General Internal Medicine 01/21/24 Edgar Gillette MD [address] [place] [address] Industrial Economics Teacher Cardiology 12/02/19 documented as of this encounter
--- OUTSIDE RECORDS SUMMARY | 2024-12-17 15:55 | XMS_ITS | Encounter Summary ---
Author Organization [facility] Address [address] [place] [address] Care Team Providers Care Dishwashing Machine Operator Name Role Phone Edgar Gillette MD Unavailable [phone] Liz Wick MD Primary Care Provider [phone] Re Agarwal MD Primary Care Provider [phone] Encounter Details Date Type Department Care Team Description 05/24/2023 Hospital Medical Records [address] [place] [address] Miki James Social History Tobacco Use Types Packs/Day Years [...] on filedocumented in this encounter Care Teams Dishwashing Machine Operator Relationship Specialty Start Date End Date Liz Wick MD [address] [place] [address] [phone] PCP - General Internal Medicine 04/09/23 01/20/24 Re Agarwal MD [address] [place] [address] [phone] PCP - General Internal Medicine 01/21/24 Edgar Gillette MD Paint Crew Supervisor Cardiology 12/02/19 documented as of this encounter
--- OUTSIDE RECORDS SUMMARY | 2024-12-17 15:55 | XMS_ITS | Encounter Summary ---
Author Organization [facility] Address [address] [place] [address] Care Team Providers Care Professor Of Philosophy Name Role Phone Melissa Tapia MD Primary Care Provider [phone] Warner Layne MD Primary Care Provider [phone] Edgar Gillette MD Unavailable [phone] Liz Wick MD Primary Care Provider [phone] Re Agarwal MD Primary Care Provider [phone] Encounter Details Date Type Department Care Team Description 12/23/2020 Railroad Hand Report Medical Records [address] [place] [address] Kevin Joaquin MD Social History Tobacco Use Types Packs/Day Years [...] on filedocumented in this encounter Care Teams Professor Of Philosophy Relationship Specialty Start Date End Date Melissa Tapia MD PCP - General Internal Medicine 12/23/20 12/26/20 Warner Layne MD PCP - General Internal Medicine 12/27/20 04/08/23 Liz Wick MD [address] [place] [address] [phone] PCP - General Internal Medicine 04/09/23 01/20/24 Re Agarwal MD [address] [place] [address]327 PCP - General Internal Medicine 01/21/24 Edgar Gillette MD Residential Sales Cardiology 12/02/19 documented as of this encounter
--- OUTSIDE RECORDS SUMMARY | 2024-12-17 15:55 | XMS_ITS | Encounter Summary ---
Author Organization [facility] Address [address] [place] [address] Care Team Providers Care Supervisor Throwing Department Name Role Phone Warner Layne MD Primary Care Provider [phone] Edgar Gillette MD Unavailable [phone] Liz Wick MD Primary Care Provider [phone] Re Agarwal MD Primary Care Provider [phone] Reason for Visit * Reason Onset Date Comments Appointment-Internal Referral 02/14/2021 ysiatry Encounter Details Date Type Department Care Team Description 02/14/2021 Telephone Internal Medicine - [place] [address] [facility], [address] [place] [address] Warner Layne MD [address] [place], [place] [phone] Appointment-Internal Referral (Physiatry) Social History Tobacco Use Types Packs/Day Years [...] encounter Miscellaneous Notes * Telephone Encounter - Nicole Cortez - 02/14/2021 4:27 PM EDT Pt declined alexandre went to see Dr. Daley at [facility]. No appointment wanted in Physiatry. documented in this encounter Plan of Treatment Not on file documented as of this encounter Visit Diagnoses Not on filedocumented in this encounter Care Teams Supervisor Throwing Department Relationship Specialty Start Date End Date Warner Layne MD PCP - General Internal Medicine 12/27/20 04/08/23 Liz Wick MD [address] [place] [address] PCP - General Internal Medicine 04/09/23 01/20/24 Re Agarwal MD [address] [place] [address] PCP - General Internal Medicine 01/21/24 Edgar Gillette MD Credit Manager Cardiology 12/02/19 documented as of this encounter
--- OUTSIDE RECORDS SUMMARY | 2024-12-17 15:55 | XMS_ITS | Encounter Summary ---
Author Organization [facility] Address [address] [place] [address] Care Team Providers Care Clothing Trades Workers Name Role Phone Warner Lanye MD Primary Care Provider Melissa Tapia MD Primary Care Provider Warner Layne MD Primary Care Provider [phone] Edgar Gillette MD Unavailable [phone] Liz Wick MD Primary Care Provider [phone] Re Agarwal MD Primary Care Provider [phone] Reason for Visit * Reason Comments E-prescribe Rx Request Encounter Details Date Type Department Care Team Description 10/22/2020 Refill Internal Medicine - [address], [address] [place] [address] Warner Layne MD [address] [place] [address] E-prescribe Rx Request Social History Tobacco Use [...] have Coronavirus / COVID-19? No / Unsure 10/11/2020 1:03 PM EST documented as of this encounter Miscellaneous Notes * Telephone Encounter - Reena Knowles M.A. - 10/27/2020 10:00 AM EST Lab Results Component Value Date NA 141 10/12/2020 K 5.1 10/12/2020 CO2 30 10/12/2020 CL 106 10/12/2020 BUN 18 10/12/2020 CREAT 1.10 10/12/2020 GLU 97 10/12/2020 ALB 4.1 10/12/2020 SGOT 17 10/12/2020 SGPT 25 10/12/2020 TBILI 0.2 10/12/2020 ALKPHOS 81 10/12/2020 TP 7.8 10/12/2020 CA 10.2 10/12/2020 GFR 48 10/12/2020 * Telephone Encounter - Ernestine Wells - 10/27/2020 9:56 AM EST JOSE 10.11.20Sep No schedule out yet to book 30 day supply documented in this encounter Plan of Treatment Not on file documented as of this encounter Visit Diagnoses Not on filedocumented in this encounter Care Teams Clothing Trades Workers Relationship Specialty Start Date End Date Warner Layne MD PCP - General Internal Medicine 08/25/19 12/22/20 Melissa Tapia MD PCP - General Internal Medicine 12/23/20 12/26/20 Warner Layne MD PCP - General Internal Medicine 12/27/20 04/08/23 Liz Wick MD [address] [place] [address] PCP - General Internal Medicine 04/09/23 01/20/24 Re Agarwal MD [address] [place] [address] PCP - General Internal Medicine 01/21/24 Edgar Gillette MD Dater Assembler Cardiology 12/02/19 documented as of this encounter
== END 2024-12-17 13:38 | disposition home or self-care (01) ==
LOC: HO.HOSX 13:37
PROVIDERS: PCP Internal Medicine; Visit Provider Neurological Surgery
DX: M51.360 Other intervertebral disc degeneration, lumbar region with discogenic back pain only (principal); M46.1 Sacroiliitis, not elsewhere classified
CPT/HCPCS: 72110; 99202

== ENCOUNTER 2024-12-17 13:37 | Outpatient (AMB) | payer MEDICARE, SELFPAY ==
[2024-12-17 14:10] VITALS: BMI 21.9
--- NOTE | 2024-12-17 14:10 | A.SPINEOV_ITS ---
Vital Signs 12/17/24 14:10 Height 5 ft 7 in Weight 140 lb BMI 21.9 Intake Visit Reasons: DDD Intake Note: Ms. Sheldon is here today c/o severe back pain. Talent Partner Required: No Allergies ampicillin Allergy (Unknown, Verified 07/14/20 00:00) penicillin V Allergy (Unknown, Verified 07/14/20 00:00) Sulfa (Sulfonamide Antibiotics) Allergy (Unknown, Verified 07/14/20 00:00) Motrin Allergy (Unknown, Uncoded 07/14/20 00:00) Physical Exam Vital Signs: BMI result Body Mass Index 21.9 Assessment & Plan Assessment & Plan (1) Lumbar degenerative disc disease: Code(s): M51.369 - Other intervertebral disc degeneration, lumbar region without mention of lumbar back pain or lower extremity pain Category: Medical Qualifiers: Disc-related pain type: discogenic back pain only Qualified Code(s): M51.360 - Other intervertebral disc degeneration, lumbar region with discogenic back pain only Plan: Dear colleague On 12/17/2024, I saw Candy Sheldon, self-referred patient with a chief complaint of chronic back pain. HPI: This 79-year-old female suffering from excruciating back pain. It started approximately 10 years ago and since then the symptoms have progressed. She states that the pain is in the lumbar area going up to the thoracolumbar junction. The pain is always present. Flexion-extension are painful. Sitting for prolonged period of time is painful. Getting in out of a car is very painful. Sleeping on her sides is painful. She denies radiating pain down her legs. She tried injections in the past but is not sure what type of injections. She is currently taking naproxen which provide minimal relief. She has tried physical therapy in the past with had to be discontinued due to pain. PMH: Hypertension Medications: Naproxen Allergies: Novocain Social history: Lives by herself. Nonsmoker Physical Exam: Pleasant female in obvious agony. Height 5'7 weight 140 lb. No neurological deficits for motor or sensation. Straight leg raise produces pain in the right SI joint area. This pain on palpation of the bilateral SI joint regions. SI joint provocative tests are positive, more right than left. Radiological Studies: MRI done at [facility] on 07/17/2024 was compared to an MRI of March 2017 and show a stable severe degenerative disc disease L2-3 and L3-4 and a stable retrolisthesis at L2-L3. Dynamic x-rays today show a minimal degenerative scoliosis at L2-3, L3-4. Impression/Plan: This patient is suffering from chronic intractable back pain with a MRI showing stable severe degenerative disc disease L2-3 and L3-4. Hist ory and physical exam are more compatible with sacroiliitis. I would like to refer for a right SI joint block to confirm the diagnosis. Thank you for allowing me to participate in your patients care. total time spent was 50 minutes in counseling ,coordination of plan, personal review of imaging, surgical decision making and subsequent plan Shar Weeks MD, PhD Spine Fellowship Trained Neurosurgeon Director, [facility] (2) Bilateral sacroiliitis: Code(s): M46.1 - Sacroiliitis, not elsewhere classified Category: Medical Plan: f Orders: Orders XR lumbar spine 4V min Today M51.369 - Other intervertebral disc degeneration, lumbar region without mention of lumbar back pain or lower extremity pain Referrals Pain Management Referral M46.1 - Sacroiliitis, not elsewhere classified Coding Level of Care Code New Pt Level 4 (35929) Diagnoses Degeneration of intervertebral disc of lumbar region with discogenic back pain M51.360 Disc-related pain type: discogenic back pain only Bilateral sacroiliitis M46.1
--- OUTSIDE RECORDS SUMMARY | 2024-12-17 14:59 | XMS_ITS | Clinical Summary ---
Author Organization [facility] Address [address] [place] [address] Phone Care Team Providers Care Children'S Author Name Role Phone Re Agarwal MD Primary Care Provider Allergies Active Allergy Reactions Criticality Noted Date Comments Genaro Inhibitors 01/07/2020 Acetaminophen 11/16/2017 Raises liver function per pt Ampicillin 12/22/2016 Aspartame Other 12/22/2016 Upset stomach Clindamycin 04/04/2023 diarrhea Ibuprofen 11/16/2017 Nitrofurantoin 04/04/2023 diarrhea Penicillins 12/22/2016 Procaine Swelling 08/07/2019 Sertraline 04/04/2023 Sulfamethoxazole-Trimethopri m Anaphylaxis High 03/14/2017 Upset stomach Medications acetaminophen (TYLENOL 8 HOUR) 650 mg 8 hr tablet Take 1 Tablet by mouth every 8 hours as needed for Pain. 4 Active ascorbic acid (VITAMIN C) 250 MG chewable tablet Take by mouth. Activ e cyclobenzaprine (FLEXERIL) 5 mg tablet Take 1 Tablet by mouth daily as needed for Muscle spasms. 4 Active diclofenac (VOLTAREN) 50 mg EC tablet TAKE 1 TABLET BY MOUTH TWICE A DAY NEEDED FOR PAIN 4 Active gluc/chondr-msm 7/C/kory/boron (GLUCOSAMINE-CH ONDR, BOSWELLIA, ORAL) Take 2 Caps by mouth daily. Active MULTIVITAMIN ORAL Take 1 Tab by mouth daily. Active pantoprazole (PROTONIX) 40 mg EC tablet TAKE 1 TABLET BY MOUTH EVERY DAY 90 tablet 1 4 Active diclofenac (VOLTAREN) 1 % topical gel Apply 2 g topically 2 (two) times a day if needed (PAIN). 60 g 2 4 12/23/19 25 Active atenoloL (TENORMIN) 25 mg tablet TAKE 1 TABLET BY MOUTH EVERY DAY 90 tablet 5 Active traZODone (DESYREL) 50 mg tablet Take 1 tablet (50 mg total) by mouth at bedtime as needed for sleep. 30 tablet 2 4 01/20/20 25 Active lidocaine (LIDODERM) 5 % patchIndication s:Chronic midline low back pain without sciatica Apply 1 patch topically 1 (one) time each day if needed for mild pain or moderate pain. Apply to painful area 12 hours per day, remove for 12 hours. 30 each 2 4 Active amLODIPine (NORVASC) 5 mg tablet Take 1 tablet (5 mg total) by mouth 1 (one) time each day. 4 Active Active Problems Problem Noted Date Diagnosed Date Chronic low back pain 09/24/2024 Insomnia 09/24/2024 Dementia 01/25/2024 Small vessel disease, cerebrovascular 01/25/2024 Right carpal tunnel syndrome 05/04/2023 Trigger index finger of right hand 05/04/2023 Situational syncope 09/01/2021 Dark stools 08/11/2021 Syncope 08/11/2021 Cough 01/07/2020 Epistaxis 01/07/2020 C2 cervical fracture 08/29/2019 Overview (08/22/2024): After a fall 06/2016. Osteopenia 04/25/2017 Overview (08/22/2024): On recent DEXA 04/25/2017. Prior h/o osteoperosis Cataract 03/14/2017 Chronic left hip pain 03/14/2017 Fibromyalgia 03/14/2017 Hyperlipidemia 03/14/2017 Osteoarthritis 03/14/2017 Overview (08/22/2024): Lumbosacral Spine, Hips, Knees Short-term memory loss 03/14/2017 Overview (08/22/2024): 2008 - plan for Neuroscience referral.? Referral in 2016 Urinary incontinence 03/14/2017 Overview (08/22/2024): 2016- urodynamic studies. 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 Compression stockings Essential hypertension, benign 12/22/2016 Gastroesophageal reflux disease 12/22/2016 Severe episode of recurrent major depressive disorder, without psychotic features 12/22/2016 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 Assessment & Plan (10/24/2024 4:21 PM EST): Patient describes progressively worsening back pain since the 1970s, it is fairly central but also radiates across the transverse low back. She is fairly inactive due to the back pain, states most of the day she is either lying down on her sofa or sitting on the sofa, but does get up a few times throughout the day, occasionally does the stairs. She denies any radicular leg symptoms. She has issues with memory, was not able to answer most questions about her prior treatments, but did state years ago she had physical therapy that did not help her, in the past has seen [facility] and Dr. Harry, has had SI joint injections, lumbar cortisone injections, radiofrequency nerve root ablation, she states they have not helped her. She was prescribed Voltaren 50 mg twice daily which helps a little. She has not used the Voltaren gel, does not use lidocaine patches or any topical txs like Biofreeze. She rates her pain as a constant 10/10 all day long, she denies having pain in the morning that gets somewhat better after she is moving around for a while, states she literally just has 10 out of 10 pain in the morning and gets worse through the day. Patient had MRI lumbar spine 07/04/2024 at [facility] that shows severe degenerative disc disease L2-3 and L3-4, left foraminal L2-3 disc herniation, diffuse disc bulging L4-5 and L5-S1, multilevel facet arthropathy. No significant central stenosis. I reviewed the MRI images in detail with the patient and her family member on the computer. Dr. Grewal reviewed the MRI today as well. Ms. Salmon has severe constant daily low back pain, seems also to have bilateral SI joint pain. When she was here I had mention she may want to call Dr. Harry to see if she could get SI joint injections, after she left and I reviewed more notes online, it appears that Dr. Harry and [facility] did not recommend any additional injections since she did not see improvement with prior injections. They were recommending medical management. We talked about multiple conservative treatment options she could try like PT, aquatic PT, acupuncture, name provided. Patient has little interest in PT, states she would not do the exercises, will consider acupuncture. We talked about the importance of trying to stay active, good core strength to help back pain. Patient does not have any radicular leg symptoms that would be consistent with her foraminal stenosis, has multilevel degenerative changes that are contributing to her back pain, Dr. Grewal is not recommending any surgical intervention. All questions answered. I asked them to call with any additional questions or concerns. Encounters Date Type Department Care Team Description 10/24/2024 1:30 PM EST Consult Neurosurgery [place] [address] [place] [address] Rupinder De Los Santos PA Osteoarthritis of lumbar spine, unspecified spinal osteoarthritis complication status; Spondylosis of lumbar region without myelopathy or radiculopathy 10/21/2024 10:00 AM EST Office Visit Adult [address] [phone] Re Agarwal MD Annual physical exam (Primary Dx); Insomnia, unspecified type; Chronic midline low back pain without sciatica; Degeneration of intervertebral disc of lumbar region with discogenic back pain 09/24/2024 9:45 AM EST Office Visit Adult [address] [phone] Re Agarwal MD Osteoarthritis of lumbar spine, unspecified spinal osteoarthritis complication status (Primary Dx); Primary hypertension; Chronic low back pain, unspecified back pain laterality, unspecified whether sciatica present; Insomnia, unspecified type; Hyperlipidemia, unspecified hyperlipidemia type from Last 3 Months Immunizations Name Administration Dates Next Due Influenza trivalent, 0.5mL ( Fluad) 65yo and older 07/09/2019,08/06/2018,10/01/2017 Influenza trivalent, 0.5mL, preservative free (Fluarix; FluLaval; Fluzone) ages 6mo and older (Afluria) 3 years and older 06/30/2020 Moderna SARS-CoV-2 COVID-19, mRNA, LNP-S, preservative free 07/19/2022 Pneumococcal conjugate 13 va lent (Prevnar 13, PCV13) 2mo and older 07/09/2019 Pneumococcal polysaccharide 23 valent (Pneumovax 23) 2yo and older 05/17/2016 Surgical History Surgery Date Site/Laterality Comments BLADDER SUSPENSION 03/31/2016 COLONOSCOPY 2009 10 year repeat OTHER SURGICAL HISTORY 10/2015 Left WEDGE EXCISION SKIN NAIL FOLD CARPAL TUNNEL RELEASE Bilateral NECK SURGERY APPENDECTOMY SHOULDER SURGERY Left TONSILLECTOMY COLONOSCOPY 03/11/2019 Normal COLONOSCOPY 12/18/2017 hemorrhoids found on peranal exam, redundant colon. No specimens collected. Medical History Medical History Date Comments Family history of breast cancer 03/14/2017 Mother, sister Cataract 03/14/2017 Chronic left hip pain 03/14/2017 Short-term memory loss 03/14/2017 : 2008 - plan for Neuroscience referral.? Referral in 2015 Essential hypertension, benign 12/22/2016 Fibromyalgia 03/14/2017 Gastroesophageal reflux disease 12/22/2016 Hyperlipidemia 03/14/2017 Severe episode of recurrent major depressive disorder, without psychotic features (CMS/HCC) 12/22/2016 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 Urinary incontinence 03/14/2017 2016- urody namic studies. Uro MATERIAL CLERK Venous insufficiency 03/14/2017 11/29/2015 V ascular Surgery consult. Compression stockings Osteoarthritis 03/14/2017 Lumbosacral Spin e, Hips, Knees Osteopenia 04/25/2017 : On recent DEXA 04/25/2017. Prior h/o osteoperosis C2 cervical fracture (CMS/HCC) 08/29/2019 A fter a fall 06/2016. Family History Medical History Relation Name Comments Heart attack Brother Hypertension Father Bone Cancer, CA D Heart attack Mother DM, Breast Canc er Breast cancer Sister Relation Name Status Comments Brother Father Mother Sister Alive Social History Tobacco Use Types Packs/Day Years Used Date Smoking Tobacco: Never Smokeless Tobacco: Never Tobacco Cessation:Counseling Given: Not Answered Alcohol Use Standard Drinks/Week Comments No 0 (1 standard drink = 0.6 oz pur e alcohol) Comments Unknown Sex and Gender Information Value Date Recorded Sex Assigned at Not on file Legal Sex Female 2:07 PM EST Gender Identity Not on file Sexual Orientation Not on file Obstetrics History Last Filed Vital Signs Vital Sign Reading Time Taken Comments Blood Pressure 150/66 10/21/2024 10:03 AM EST Pulse 66 10/21/2024 10:03 AM EST Temperature 36.7 ??C (98 ??F) 10/21/2024 10:03 AM EST Respiratory Rate 12 10/21/2024 10:03 AM EST Oxygen Saturation - - Inhaled Oxygen Concentration - - Weight 66.9 kg (147 lb 6.4 oz) 10/24/2024 1:31 P M EST Height 162.6 cm (5' 4 ) 10/24/2024 1:31 PM EST Body Mass Index 25.3 10/24/2024 1:31 PM EST Plan of Treatment Upcoming Encounters Date Type Department Care Team (Late st Contact Info) Description 12/30/2024 11:30 AM EST Office Visit Adult Medicine [place] - [address] [phone] Re Agarwal MD [address] [place] [address] 08/19/2025 1:30 PM EDT Consult Nephrology [address] [phone] Wilbert Olmstead MD [address] [facility] [address] [place] [address] Health Maintenance Due Date Last Done Comments DTaP,Tdap,and Td Vaccines (1 - Tdap) 1952 Zoster Vaccines (1 of 2) 1995 RSV Immunization Patients 60+ Years Old (1 - 1-dose 75+ series) 2020 Depression Screening 10/14/2022 Falls Risk Assessment 10/14/2022 Hepatitis C Screening 10/14/2022 Medicare Annual Wellness Visit 10/14/2022 Social Influencers of Health Screening 10/14/2022 COVID-19 Vaccine ( season) 2024 05/28/2024, 09/03/2023, 07/19/2022, Additional history exists Influenza Vaccine (#1) 2025 , 07/09/2019, 08/06/2018, Additional history exists Postponed from 07/06/2024 (Patient Refused) Hypertension/CHF/CAD Annual BMP Blood Test 10/13/2025 10/13/2024, 08/27/2024, 08/15/2024, Additional history exists Osteoporosis Screening (Bone Density Screening) 04/25/2027 04/25/2017 Cholesterol Screening (Lipid Panel) 01/27/2029 01/28/2024 Pneumococcal Vaccine: 50+ Years Completed 07/09/2019, 05/17/2016 HIB Vaccines Aged Out No longer eligi ble based on patient's age to complete this topic HPV Vaccines Aged Out No longer eligi ble based on patient's age to complete this topic Hepatitis A Vaccines Aged Out No long er eligible based on patient's age to complete this topic Hepatitis B Vaccines Aged Out No long er eligible based on patient's age to complete this topic IPV Vaccines Aged Out No longer eligi ble based on patient's age to complete this topic MMR Vaccines Aged Out No longer eligi ble based on patient's age to complete this topic Meningococcal ACWY Vaccine Aged Out N o longer eligible based on patient's age to complete this topic Meningococcal B Vacine Aged Out No lo nger eligible based on patient's age to complete this topic RSV Immunization Patients Under 20 months Aged Out No longer eligible based on patient's age to complete this topic Varicella Vaccines Aged Out No longer eligible based on patient's age to complete this topic Procedures Procedure Name Priority Date/Time Associated Diagnosis Comments BASIC METABOLIC PANEL Routine 10/13/2024 12:38 PM EST Elevated serum creatinine LIPID PANEL Routine 01/28/2024 DXA BONE DENSITY STUDY 1+ SITS AXIAL SKEL Routine 04/25/2017 11:43 AM EDT Other specified personal risk factors, not elsewhere classified from Last 3 Months or Most Recently Relevant to Health Maintenance Results * (ABNORMAL) Basic metabolic panel (10/13/2024 12:38 PM EST) Sodium 144 133 - 145 mmol/L LAB CHEMISTRY METHOD 10/13/2024 5:20 PM [facility] Potassium 4.7 3.5 - 5.5 mmol/L LAB CHEMISTRY METHOD 10/13/2024 5:20 PM [facility] Chloride 111(H) 96 - 110 mmol/L LAB CHEMISTRY METHOD 10/13/2024 5:20 PM [facility] CO2 26 21 - 32 mmol/L LAB CHEMISTRY METHOD 10/13/2024 5:20 PM [facility] Anion Gap 7 3 - 11 LAB CHEMISTRY METHOD 10/13/2024 5:20 PM [facility] Glucose 120(H) 70 - 100 mg/dL LAB CHEMISTRY METHOD 10/13/2024 5:20 PM [facility] BUN 31(H) 5 - 25 mg/dL LAB CHEMISTRY METHOD 10/13/2024 5:20 PM [facility] Creatinine 1.40(H) 0.50 - 1.10 mg/dL LAB CHEMISTRY METHOD 10/13/2024 5:20 PM [facility] eGFR 38(L) >=60 mL/min/1. 73m2 LAB CHEMISTRY METHOD 10/13/2024 5:20 PM [facility] Comment:Calculation based on the??Chronic Kidney Disease Epidemiology Collaboration (CKD-EPI) equation refit??without adjustment for race. BUN/Creatinine Ratio 22.1 LAB CHEMISTRY METHOD 10/13/2024 5:20 PM [facility] Calcium 10.3 8.5 - 10.5 mg/dL LAB CHEMISTRY METHOD 10/13/2024 5:20 PM [facility] Blood Venous blood specimen / Unknown Venipuncture / Unknown 10/13/2024 12:38 PM EST 10/13/2024 12:38 PM EST Re Agarwal MD LAB BLOOD ORDERABLES Final Result [facility] [address] [place] [address], [place] [phone] * Lipid panel (01/28/2024) LDL/HDL Ratio 3 0 - 4 Triglycerides 84 0 - 150 mg/dL Cholesterol 131 0 - 200 mg/dL HDL 51 >=40 mg/dL LDL Cholesterol 64 0 - 100 mg/dL Blood Venous blood specimen / Unknown Nathan Provider LAB BLOOD ORDERABLES Tori l Result * DXA BONE DENSITY STUDY 1+ SITS AXIAL SKEL (04/25/2017 11:43 AM EDT) Anatomical Region Laterality Modality Bone Densitometr y 04/23/2017 2:19 PM EDT Narrative 04/25/2017 1:10 PM EDT DEXA SCAN: Lumbar Spine T-score is -0.4. ?? (SD relative to 20-29 y/o adult) Z-score is +1.9. ??(SD relative to age matched peers) This is considered normal bone density by WHO criteria. Left Femoral Neck T-score is -1.2. Z-score is +0.7. This is considered osteopenia by WHO criteria. Comparison exam(s): None available. IMPRESSION: Normal bone density throughout the lumbar spine with osteopenia measured at the left femoral neck by WHO criteria. The [facility] Department of Internal Medicine recommends using National Osteoporosis Foundation (NOF) guidelines in treatment decisions related to osteoporosis. NOF guidelines suggest considering treatment for postmenopausal women and men aged 50 or older presenting with the following: History of hip or vertebral fracture. T-score = -2.5 (DXA) at the femoral neck, total hip, or spine, after appropriate evaluation to exclude secondary causes. Low bone mass (T-score between -1.0 and -2.5 at the femoral neck or spine) AND a 10-year probability of a hip fracture = 3% OR a 10-year probability of a major osteoporosis-related fracture = 20% based on the [place]-adapted WHO algorithm Please note that all treatment decisions require clinical judgment and consideration of individual patient factors, including patient preferences, co-morbidities, previous drug use, risk factors not captured in the FRAX model (e.g., frailty, falls, vitamin D deficiency, increased bone turnover, interval significant decline in bone density) and possible under- or over-estimation of fracture risk by FRAX. Optional alternative screening schedule based on joseph De La O., [facility] November 23, 2011 for patients with osteopenia (based on hip BMD T-score) is as follows: * ??advanced osteopenia (T scores -2.00 to -2.49), BMD testing every year * ??moderate osteopenia (T scores -1.50 to -1.99), BMD testing every 5 years mild osteopenia or normal BMD (T scores -1.50 and higher), BMD testing every 15 years Procedure Note Lay Orellana, - 12/10/2023 DEXA SCAN: Lumbar Spine T-score is -0.4. (SD relative to 20-29 y/o adult) Z-score is +1.9. (SD relative to age matched peers) This is considered normal bone density by WHO criteria. Left Femoral Neck T-score is -1.2. Z-score is +0.7. This is considered osteopenia by WHO criteria. Comparison exam(s): None available. IMPRESSION: Normal bone density throughout the lumbar spine with osteopenia measuredat the left femoral neck by WHO criteria. The [facility] Department of Internal Medicine recommendsusing National Osteoporosis Foundation (NOF) guidelines in treatment decisions related toosteoporosis. NOF guidelines suggest considering treatment for postmenopausal women and menaged 50 or older presenting with the following: History of hip or vertebral fracture. T-score = -2.5 (DXA) at the femoral neck, total hip, or spine, afterappropriate evaluation to exclude secondary causes. Low bone mass (T-score between -1.0 and -2.5 at the femoral neck or spine)AND a 10-year probability of a hip fracture = 3% OR a 10-year probability of a majorosteoporosis-related fracture = 20% based on the [place]-adapted WHO algorithm Please note that all treatment decisions require clinical judgment andconsideration of individual patient factors, including patient preferences, co- morbidities,previous drug use, risk factors not captured in the FRAX model (e.g., frailty, falls, vitaminD deficiency, increased bone turnover, interval significant decline in bone density) andpossible under- or over-estimation of fracture risk by FRAX. Optional alternative screening schedule based on rosalina De La O al., NEJMJanuary 2011 for patients with osteopenia (based on hip BMD T-score) is as follows: * advanced osteopenia (T scores -2.00 to -2.49), BMD testing every year * moderate osteopenia (T scores -1.50 to -1.99), BMD testing every 5years mild osteopenia or normal BMD (T scores -1.50 and higher), BMD testingevery 15 years Bonnie Florez MD IMG DXA PROCEDURES Final Res ult from Last 3 Months or Most Recently Relevant to Health Maintenance Insurance BLUE CROSS - [place] MEDICARE ADVANTAGE Advance Directives Documents on File Type Date Recorded Patient Carbonation Tester Expl anation Health Care Decision (hx) 12/19/2017 AD BURNETT DIRECTIVE Health Care Decision (hx) 12/19/2017 AD BURNETT DIRECTIVE Health Care Decision (hx) 12/19/2017 AD BURNETT DIRECTIVE Health Care Decision (hx) 12/19/2017 AD BURNETT DIRECTIVE Health Care Decision (hx) 12/19/2017 AD BURNETT DIRECTIVE Health Care Decision (hx) 12/19/2017 AD BURNETT DIRECTIVE Health Care Decision (hx) 12/19/2017 AD BURNETT DIRECTIVE Health Care Decision (hx) 12/19/2017 AD BURNETT DIRECTIVE Health Care Decision (hx) 12/19/2017 AD BURNETT DIRECTIVE Health Care Decision (hx) 12/19/2017 AD BURNETT DIRECTIVE Health Care Decision (hx) 12/19/2017 AD BURNETT DIRECTIVE Health Care Decision (hx) 12/19/2017 AD BURNETT DIRECTIVE Care Teams Children'S Author Relationship Specialty Start Date End Date Re Agarwal MD [address] [place] [address] PCP - General 01/21/24
--- OUTSIDE RECORDS SUMMARY | 2024-12-17 14:59 | XMS_ITS | Clinical Summary ---
Author Organization [facility] Address [address] [facility] [address] [place] [address] Phone Care Team Providers Care Mail Forwarding System Markup Clerk Name Role Phone StefanoRe Primary Care Provider [phone] Allergies Active Allergy Reactions Criticality Noted Date Comments Genaro Inhibitors 01/07/2020 Acetaminophen 11/16/2017 Raises liver function per pt Raises liver function per pt Clindamycin 04/04/2023 diarrhea Ibuprofen 11/16/2017 Other Reaction(s): upset stomach Nitrofurantoin 04/04/2023 diarrhea Penicillins 12/22/2016 Other Reaction(s): stomach upset Procaine Swelling 08/07/2019 Sertraline 04/04/2023 Sulfamethoxazole-Trimethopri m Anaphylaxis High 03/14/2017 Other Reaction(s): stomach upset Upset stomach Medications losartan (COZAAR) 25 MG tablet Take 1 tablet by mouth 1 (one) time each day 01/25/2024 Active atenolol (TENORMIN) 25 MG tablet Take 1 tablet by mouth 1 (one) time each day 07/05/2017 Active pantoprazole (PROTONIX) 40 MG EC tablet Take 1 tablet by mouth 1 (one) time each day 09/19/2023 Active donepezil (ARICEPT) 10 MG tablet Take 1 tablet by mouth at bed time 09/12/2023 Active atorvastatin (LIPITOR) 20 MG tablet Take 1 tablet by mouth 1 (one) time each day 08/09/2023 Active ascorbic acid (VITAMIN C) 250 MG chewable tablet Chew 250 mg 1 (one) time each day Active Glucosamine-Cho ndroit-Vit C-Mn (Glucosamine Chondr 1500 Complx) capsule Take 2 capsules by mouth 1 (one) time each day Active MULTIPLE VITAMIN PO Take 1 tablet by mouth 1 (one) time each day Active Apoaequorin (PREVAGEN PO) Take 1 tablet by mouth 1 (one) time each day Active Active Problems Problem Noted Date Diagnosed Date Spinal stenosis 05/21/2024 Stage 3 chronic kidney disease, not otherwise sp ecified 05/21/2024 Hypertension 05/21/2024 Unspecified dementia, unspec ified severity, without behavioral disturbance, psychotic disturbance, mood disturbance, and anxiety 01/25/2024 Urinary incontinence 03/14/2017 Overview (05/21/2024): 2016- urodynamic studies. 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 Compression stockings Family History Medical History Relation Comments Heart disease Brother myocardial infar ction Cancer Father Bone Heart disease Father coronary artery disease Hypertension Father Cancer Mother Breast Diabetes Mother Heart disease Mother Myocardial infar ction Cancer Sister Breast Relation Status Comments Brother Father Mother Sister Social History Tobacco Use Types Packs/Day Years Used Date Smoking Tobacco: Never Smokeless Tobacco: Never Tobacco Cessation:Counseling Given: Not Answered Alcohol Use Standard Drinks/Week Comments Never 0 (1 standard drink = 0.6 oz pur e alcohol) Comments Unknown Sex and Gender Information Value Date Recorded Sex Assigned at Not on file Legal Sex Female 11:07 AM EDT Gender Identity Not on file Sexual Orientation Not on file Last Filed Vital Signs Vital Sign Reading Time Taken Comments Blood Pressure 165/77 05/22/2024 10:49 AM EDT Pulse 68 05/22/2024 10:49 AM EDT Temperature - - Respiratory Rate - - Oxygen Saturation 98% 05/22/2024 10:49 AM EDT Inhaled Oxygen Concentration - - Weight 71.3 kg (157 lb 3.2 oz) 05/22/2024 10:49 AM EDT Height 160 cm (5' 3 ) 05/22/2024 10:49 AM EDT Body Mass Index 27.85 05/22/2024 10:49 AM EDT Plan of Treatment Health Maintenance Due Date Last Done Comments Influenza Vaccine (#1) 2024 0, 07/09/2019, 08/06/2018, Additional history exists Pneumococcal Vaccine: 65+ Years Completed 07/09/2019, 05/17/2016 Hepatitis B Vaccine Aged Out No longe r eligible based on patient's age to complete this topic Insurance [facility] PPO BLUE([id number]) [id number] MEDICAID [place] [address] [place] [address] [facility] PPO BLUE([id number]) [id number] MEDICAID [place] Care Teams Mail Forwarding System Markup Clerk Relationship Specialty Start Date End Date Re Agarwal PCP - General 02/07/24
== END 2024-12-17 15:31 | disposition home or self-care (01) ==
PROVIDERS: PCP Internal Medicine; Visit Provider Neurological Surgery
DX: M51.360 Other intervertebral disc degeneration, lumbar region with discogenic back pain only (principal); M46.1 Sacroiliitis, not elsewhere classified
CPT/HCPCS: 99204

== ENCOUNTER → 2024-12-17 15:00 | Outpatient (BNV) | payer MEDICARE, SELFPAY | PROVIDERS: PCP Internal Medicine; Visit Provider Radiology Diagnostic Radiology | DX: M51.369 Other intervertebral disc degeneration, lumbar region without mention of lumbar back pain or lower extremity pain (principal) | CPT/HCPCS: 72110 ==

== ENCOUNTER 2025-01-02 09:38 | Outpatient (AMB) | payer MEDICARE, SELFPAY ==
--- NOTE | 2025-01-02 09:39 | MHC.OFFVIS ---
Vital Signs 01/02/25 09:41 Height 5 ft 7 in Weight 139 lb BMI 21.8 BP 153/53 H Blood Pressure Location Lt brachial Position Sitting Respiration 16 Pulse 56 Pulse Source Pulse Oximeter Pulse Oximetry (%) 98 Oxygen Delivery Method Room Air Intake Visit Reasons: Sacroiliitis, not elsewhere classified Cafeteria Cook Required: No Carburetor Rebuilder: Carburetor Rebuilder Present Accompanied by: Nelson Anglin Allergies ampicillin Allergy (Severe, Verified 01/02/25 09:43) Unknown penicillin V Allergy (Unknown, Verified 01/02/25 09:43) Unknown Sulfa (Sulfonamide Antibiotics) Allergy (Unknown, Verified 01/02/25 09:43) Unknown Medication List - Last Reconciled 01/02/25 by Jodee Jacques LPN atenolol 25 mg PO DAILY atorvastatin 20 mg PO DAILY pantoprazole mg PO DAILY trazodone 50 mg PO BEDTIME HPI HPI Sacroiliitis, not elsewhere classified: Details: History of Present Illness The patient is a 79-year-old female presenting with concerns related to chronic back pain and sacroiliitis. Her condition originated roughly 10 years ago, with gradual worsening over time. It is especially severe when the patient is seated for extended durations or when attempting to maneuver in and out of vehicles. Sleep quality is impacted due to pain when lying on either side. Despite ongoing use of naproxen, pain relief has been insufficient, and prior physical therapy did not result in improved outcomes. A notable finding from her spine clinic evaluation was significant disc degeneration and scoliosis at L2-3 and L3-4, alongside positive sacroiliac joint-related maneuvers indicating right-sided predominance in pain manifestation. Based on the cumulative findings, the patient was recommended for a diagnostic SI joint injection to better address the issue. During today?s visit, she was quite adamant on receiving on injection right here in the office therefore an alternative intervention using trigger point injections was proposed and undertaken to provide temporary symptomatic relief. Pain Description - Onset: Approximately 10 years ago - Quality: Excruciating and persistent - Location: Primarily low back, with exacerbation noted in right sacroiliac area - Worsened by: Prolonged sitting, getting in and out of a car, and sleeping on sides - Relieved by: Temporarily, following trigger point injections - Impact on function: Affects ability to sit for long periods and maneuver in vehicles, affecting sleep Physical Exam - Musculoskeletal- Tenderness to sueprficial palpation in the lumbar and sacroiliac joint areas, primarily on the right. Results - Sacroiliac joint maneuvers: Positive on the right side - Imaging: Severe degenerative disc disease and scoliosis noted at L2-3, L3-4 Pain Management - Affect: Patient expressed distress over pain interference with daily activities and recent emotional stressors. - Analgesia: Currently using naproxen with minimal relief. - Adverse Effects: Not discussed explicitly. - Activities of Daily Living: Pain limits mobility and comfort in various daily activities including sitting and sleeping. - Aberrant Drug Related Behaviors: No aberrant drug behaviors noted or discussed. PMH: Hypertension Medications: Naproxen Allergies: Novocain Social history: Lives by herself. Nonsmoker Physical Exam Vital Signs: Last Vital Signs Pulse 56 01/02/25 09:41 Resp 16 01/02/25 09:41 BP 153/53 H 01/02/25 09:41 Pulse Ox 98 01/02/25 09:41 Oxygen Delivery Method Room Air 01/02/25 09:41 BMI result Body Mass Index 21.8 Office Procedures Injection Trigger Point Multi Trigger Point Injections, Bilateral Pre-procedure diagnosis: Myofascial pain Post-procedure diagnosis: Myofascial pain Site and number of trigger points: Iliocostalis, multifidus, lat dorsi Solution: Total volume administered 10 ml (9 ml ropivacaine 0.25% + Kenalog 20mg) The procedure, its benefits, and its risks were explained to the patient and all questions were answered. A pulse oximeter monitor was attached and the patient was monitored throughout the procedure. Prior to the start of the procedure, a ?time out? was performed to confirm correct patient, procedure, and laterality. Trigger points were identified by manual palpation and marked. The skin was cleaned with Chloraprep. A 1.5 inch 25 G needle was used. Each of the trigger points were approximated and elevated in the direction away from the body. Dry needling then took place for five seconds. Approximately 0.5 ml to 1 ml of injectate was delivered to the trigger point followed by dry needling for five seconds. This process was repeated at each trigger point site. The patient tolerated the procedure well. The patient tolerated the procedure well, without complication. The patient denied any numbness, paresthesias, or weakness. Post-procedure vitals were recorded as part of the nursing discharge note in electronic medical record. Following a period of observation, the patient was discharged in stable condition with written discharge instructions. Trigger Point Multiple: 03492- Trigger point injection =/>3 Assessment & Plan Assessment & Plan (1) Bilateral sacroiliitis: Code(s): M46.1 - Sacroiliitis, not elsewhere classified Category: Medical (2) Lumbar degenerative disc disease: Code(s): M51.369 - Other intervertebral disc degeneration, lumbar region without mention of lumbar back pain or lower extremity pain Category: Medical Qualifiers: Disc-related pain type: discogenic back pain only Qualified Code(s): M51.360 - Other intervertebral disc degeneration, lumbar region with discogenic back pain only (3) Myofascial low back pain: Code(s): M54.50 - Low back pain, unspecified Category: Medical Plan Plan In today's session, I focused on addressing the patient's chronic sacroiliac pain exacerbated by underlining degenerative disc disease and scoliosis. Trigger point injections were provided in the office to help alleviate her symptoms in the short term. Arrangements for a diagnostic SI joint injection will be made to further assess and confirm the source of her chronic pain condition, pending insurance approval. Based upon the patient's response to today's interventions and future procedures, additional pain management strategies will be reevaluated. Patient was informed and verbally consented to the use of an ambient scribe for clinic note documentation during this visit. Discussion Notes During the consultation, I explained the rationale behind today's focus on trigger point injections as an interim measure for her sacroiliac joint pain. We discussed the procedural steps, potential outcomes, and the requirement for insurance clearance before the formal right SI joint injection. I clarified the distinction between today's procedure and a [id number] injection planned at the hospital. The patient was informed of potential timelines and expected changes post-treatment. I expressed empathy, acknowledging her current emotional state, particularly due to recent familial loss, committing to support her through phased interventions. Patient Instructions - Monitor pain levels and note any improvement following today?s injection. - Continue with current pain medication as prescribed. - Follow up with our office if symptoms worsen or do not improve as expected. - Await communication from our office regarding scheduling for the diagnostic sacroiliac joint injection. - Engage in daily activities as tolerated, avoiding those exacerbating the pain. - Consideration for emotional support services considering recent distressing events. Coding Level of Care Code New Pt Level 4 (75764) Diagnoses Bilateral sacroiliitis M46.1 Degeneration of intervertebral disc of lumbar region with discogenic back pain M51.360 Disc-related pain type: discogenic back pain only Myofascial low back pain M54.50 CPT Codes Details - Trigger Point Multiple: 77628- Trigger point injection =/>3 ([id number])
[2025-01-02 09:41] VITALS: BP 153/53; PULSE 56; RESP 16; O2SAT 98; BMI 21.8
--- OUTSIDE RECORDS SUMMARY | 2025-01-02 10:24 | XMS_ITS | Encounter Summary ---
Author Organization [facility] Address [address] [place] [address] Care Team Providers Care Flag Football Coach Name Role Phone Edgar Gillette MD Unavailable [phone] Liz Wick MD Primary Care Provider Re Agarwal MD Primary Care Provider [phone] Reason for Visit * Reason Onset Date Comments REFERRAL 09/18/2023 vna Encounter Details Date Type Department Care Team Description 09/18/2023 Telephone Adult Medicine [address] [address] Liz Wick MD [address] [place] [address] [phone] REFERRAL (vna) Social History Tobacco Use Types Packs/Day Years [...] encounter Miscellaneous Notes * Telephone Encounter - Darron Gonzalez L.P.NHeriberto - 09/18/2023 1:52 PM EST Home care referral received Waiting for office note to process referral documented in this encounter Plan of Treatment Not on file documented as of this encounter Visit Diagnoses Not on filedocumented in this encounter Care Teams Flag Football Coach Relationship Specialty Start Date End Date Liz Wick MD [address] [place] [address] PCP - General Internal Medicine 04/09/23 01/20/24 Re Agarwal MD [address] [place] [address] PCP - General Internal Medicine 01/21/24 Edgar Gillette MD Oracle Fusion Middleware Developer Cardiology 12/02/19 documented as of this encounter
--- OUTSIDE RECORDS SUMMARY | 2025-01-02 10:24 | XMS_ITS | Encounter Summary ---
Author Organization [facility] Address [address] [place] [address] Care Team Providers Care Spark Plug Tester Name Role Phone Warner Layne MD Primary Care Provider [phone] Melissa Tapia MD Primary Care Provider [phone] Warner Layne MD Primary Care Provider [phone] Edgar Gillette MD Unavailable [phone] Liz Wick MD Primary Care Provider [phone] Re Agarwal MD Primary Care Provider [phone] Encounter Details Date Type Department Care Team Description 12/02/2019 Sas Clinical Programmer Report Medical Records [address] [place] [address] Edgar Gillette MD [address] [place] [address] Social History Tobacco Use Types Packs/Day Years [...] on filedocumented in this encounter Care Teams Spark Plug Tester Relationship Specialty Start Date End Date Warner Layne MD PCP - General Internal Medicine 08/25/19 12/22/20 Melissa Tapia MD PCP - General Internal Medicine 12/23/20 12/26/20 Warner Layne MD PCP - General Internal Medicine 12/27/20 04/08/23 Liz Wick MD [address] [place] [address] PCP - General Internal Medicine 04/09/23 01/20/24 Re Agarwal MD [address] [place] [address] PCP - General Internal Medicine 01/21/24 Edgar Gillette MD Casing Wringer Operator Cardiology 12/02/19 documented as of this encounter
--- OUTSIDE RECORDS SUMMARY | 2025-01-02 10:24 | XMS_ITS | Encounter Summary ---
Author Organization [facility] Address [address] [place] [address] Care Team Providers Care Exhaust And Muffler Fitter Name Role Phone Warner Layne MD Primary Care Provider [phone] Melissa Tapia MD Primary Care Provider [phone] Warner Layne MD Primary Care Provider [phone] Edgar Gillette MD Unavailable [phone] Liz Wick MD Primary Care Provider [phone] Re Agarwal MD Primary Care Provider [phone] Reason for Visit * Reason Onset Date Comments other 01/07/2020 prescriptions Encounter Details Date Type Department Care Team Description 01/07/2020 Telephone Internal Medicine - [address], [address] [place] [address] Warner Layne MD [address] [place] [address] other (prescriptions) Social History Tobacco Use Types [...] - 01/07/2020 10:54 AM EST Patient in [facility] has appointment 11:15 today Caller requesting call [...] the counter medications that 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 Message forwarded to nurse. documented in this encounter Plan of Treatment Not on file documented as of this encounter Visit Diagnoses Not on filedocumented in this encounter Care Teams Exhaust And Muffler Fitter Relationship Specialty Start Date End Date Warner Layne MD PCP - General Internal Medicine 08/25/19 12/22/20 Melissa Tapia MD PCP - General Internal Medicine 12/23/20 12/26/20 Warner Layne MD PCP - General Internal Medicine 12/27/20 04/08/23 Liz Wick MD [address] [place] [address] [id number] PCP - General Internal Medicine 04/09/23 01/20/24 Re Agarwal MD [address] [place] [address] [id number] PCP - General Internal Medicine 01/21/24 Edgar Gillette MD Human Resources Benefits Manager Cardiology 12/02/19 documented as of this encounter
--- OUTSIDE RECORDS SUMMARY | 2025-01-02 10:24 | XMS_ITS | Encounter Summary ---
Author Organization [facility] Address [address] [place] [address] Care Team Providers Care Set Off Blocker Name Role Phone Warner Layne MD Primary Care Provider [phone] Melissa Tapia MD Primary Care Provider [phone] Warner Layne MD Primary Care Provider [phone] Edgar Gillette MD Unavailable [phone] Liz Wick MD Primary Care Provider [phone] Re Agarwal MD Primary Care Provider [phone] Reason for Visit * Reason Comments E-prescribe Rx Request Encounter Details Date Type Department Care Team Description 01/16/2020 Refill Internal Medicine - [address], [address] [place] [address] Warner Layne MD [address] [place] [address] E-prescribe Rx Request Social History Tobacco Use [...] N/A Patients current insurance carrier is: Payor: [facility]/MEDICARE PPO / Plan: [facility] MDCR-ADV PPO $20/$40 [place] / Product Type: MEDICARE [id number] documented in this encounter Plan of Treatment Not on file documented as of this encounter Visit Diagnoses Not on filedocumented in this encounter Care Teams Set Off Blocker Relationship Specialty Start Date End Date Warner Layne MD PCP - General Internal Medicine 08/25/19 12/22/20 Melissa Tapia MD PCP - General Internal Medicine 12/23/20 12/26/20 Warner Layne MD PCP - General Internal Medicine 12/27/20 04/08/23 Liz Wick MD [address] [place] [address] PCP - General Internal Medicine 04/09/23 01/20/24 Re Agarwal MD [address] [place] [address] PCP - General Internal Medicine 01/21/24 Edgar Gillette MD Putty Tinter Maker Cardiology 12/02/19 documented as of this encounter
--- OUTSIDE RECORDS SUMMARY | 2025-01-02 10:24 | XMS_ITS | Encounter Summary ---
Author Organization [facility] Address [address] [place] [address] Care Team Providers Care Kiln Repairer Name Role Phone Edgar Gillette MD Unavailable [phone] Liz Tomas MD Primary Care Provider [phone] Re Agarwal MD Primary Care Provider [phone] Encounter Details Date Type Department Care Team Description 05/18/2023 Telephone Adult Medicine [address] [address] Liz Tomas MD [address] [place] [address] Social History Tobacco Use Types Packs/Day Years [...] AM EDT Pt is here today for [facility] f/u , she had e;elevated BP at the [facility], pt is not sure about which meds [...] to see if she can get a SAP SENIOR DEVELOPER to help monitor her meds and BP readings Appointment for 05/22 at 11:30 documented in this encounter Plan of Treatment Not on file documented as of this encounter Visit Diagnoses Not on filedocumented in this encounter Care Teams Kiln Repairer Relationship Specialty Start Date End Date Liz Tomas MD [address] [place] [address] PCP - General Internal Medicine 04/09/23 01/20/24 Re Agarwal MD [address] [place] [address] PCP - General Internal Medicine 01/21/24 Edgar Gillette MD Mechanical Estimator Cardiology 12/02/19 documented as of this encounter
--- OUTSIDE RECORDS SUMMARY | 2025-01-02 10:24 | XMS_ITS | Encounter Summary ---
Author Organization [facility] Address [address] [place] [address] Care Team Providers Care Farm Operations Manager Name Role Phone Warner Layne MD Primary Care Provider [phone] Edgar Gillette MD Unavailable [phone] Liz Wick MD Primary Care Provider [phone] Re Agarwal MD Primary Care Provider [phone] Reason for Visit * Reason Comments E-prescribe Rx Request Encounter Details Date Type Department Care Team Description 09/17/2021 Refill Internal Medicine - [place] [address] [facility], [address] [place] [address] Warner Layne MD [address] [place] [address] E-prescribe Rx Request Social History Tobacco Use [...] have Coronavirus / COVID-19? No / Unsure 09/16/2021 7:31 AM EST documented as of this encounter Miscellaneous Notes * Telephone Encounter - Cristal Babb - 09/19/2021 11:50 AM EST BP Readings from Last 3 Encounters: 09/16/21 (!) 150/70 09/02/21 133/69 09/01/21 (!) 148/80 * Telephone Encounter - Alanna Burris - 09/19/2021 10:38 AM EST [place] 09/02/21 documented in this encounter Plan of Treatment Not on file documented as of this encounter Visit Diagnoses Not on filedocumented in this encounter Care Teams Farm Operations Manager Relationship Specialty Start Date End Date Warner Layne MD PCP - General Internal Medicine 12/27/20 04/08/23 Liz Wick MD [address] [place] [address] PCP - General Internal Medicine 04/09/23 01/20/24 Re Agarwal MD [address] [place] [address] PCP - General Internal Medicine 01/21/24 Edgar Gillette MD Ground Water Pump Installer Cardiology 12/02/19 documented as of this encounter
--- OUTSIDE RECORDS SUMMARY | 2025-01-02 10:24 | XMS_ITS | Encounter Summary ---
Author Organization [facility] Address [address] [place] [address] Care Team Providers Care Paraoptometric Name Role Phone Warner Layne MD Primary Care Provider [phone] Melissa Tapia MD Primary Care Provider Warner Layne MD Primary Care Provider [phone] Edgar Gillette MD Unavailable [phone] Liz Wick MD Primary Care Provider [phone] Re Agarwal MD Primary Care Provider [phone] Encounter Details Date Type Department Care Team Description 01/09/2020 Hospital Medical Records [address] [place] [address] Social History Tobacco Use Types Packs/Day Years [...] Name Priority Date/Time Associated Diagnosis Comments OUTSIDE EKG Routine 01/09/2020 OUTSIDE PLAIN FILM Routine 01/09/2020 documented in this encounter Results * OUTSIDE PLAIN FILM (01/09/2020) Provider Abstract RADIOLOGY * OUTSIDE EKG (01/09/2020) Provider Abstract CARDIOLOGY documented in this encounter Visit Diagnoses Not on filedocumented in this encounter Care Teams Paraoptometric Relationship Specialty Start Date End Date Warner Layne MD PCP - General Internal Medicine 08/25/19 12/22/20 Melissa Tapia MD PCP - General Internal Medicine 12/23/20 12/26/20 Warner Layne MD PCP - General Internal Medicine 12/27/20 04/08/23 Liz Wick MD [address] [place] [address] [id number] PCP - General Internal Medicine 04/09/23 01/20/24 Re Agarwal MD [address] [place] [address] PCP - General Internal Medicine 01/21/24 Edgar Gillette MD College Athlete Cardiology 12/02/19 documented as of this encounter
--- OUTSIDE RECORDS SUMMARY | 2025-01-02 10:24 | XMS_ITS | Encounter Summary ---
Author Organization [facility] Address [address] [place] [address] Care Team Providers Care Mandarin Chinese Teacher Name Role Phone Edgar Gillette MD Unavailable [phone] Re Agarwal MD Primary Care Provider [phone] Reason for Visit * Reason Onset Date Comments medication problems 06/20/2024 ramelteon (R OZEREM) 8 MG tablet Encounter Details Date Type Department Care Team Description 06/20/2024 Telephone Adult Medicine [address] [address] Re Agarwal MD [address] [place] [address] medication problems (ramelteon (ROZEREM) 8 MG tablet) [...] on filedocumented in this encounter Care Teams Mandarin Chinese Teacher Relationship Specialty Start Date End Date Re Agarwal MD [address] [place] [address] PCP - General Internal Medicine 01/21/24 Edgar Gillette MD Executive Sous Chef Cardiology 12/02/19 documented as of this encounter
--- OUTSIDE RECORDS SUMMARY | 2025-01-02 10:24 | XMS_ITS | Encounter Summary ---
Author Organization [facility] Address [address] [place] [address] Care Team Providers Care Electrical Engineering Manager Name Role Phone Warner Layne MD Primary Care Provider [phone] Edgar Gillette MD Unavailable [phone] Liz Wick MD Primary Care Provider [phone] Re Agarwal MD Primary Care Provider [phone] Encounter Details Date Type Department Care Team Description 08/31/2021 Orders Only Internal Medicine - [place] [address] [facility], [address] [place] [address] Warner Layne MD [address] [place], [place] [id number] Social History Tobacco Use Types Packs/Day Years [...] have Coronavirus / COVID-19? No / Unsure 09/01/2021 1:30 PM EDT documented as of this encounter Plan of Treatment Not on file documented as of this encounter Visit Diagnoses Not on filedocumented in this encounter Care Teams Electrical Engineering Manager Relationship Specialty Start Date End Date Warner Layne MD PCP - General Internal Medicine 12/27/20 04/08/23 Liz Wick MD [address] [place] [address] PCP - General Internal Medicine 04/09/23 01/20/24 Re Agarwal MD [address] [place] [address] PCP - General Internal Medicine 01/21/24 Edgar Gillette MD Customer Support Associate Cardiology 12/02/19 documented as of this encounter
--- OUTSIDE RECORDS SUMMARY | 2025-01-02 10:24 | XMS_ITS | Encounter Summary ---
Author Organization [facility] Address [address] [place] [address] Care Team Providers Care Geriatric Physician Name Role Phone Warner Layne MD Primary Care Provider Melissa Tapia MD Primary Care Provider Warner Layne MD Primary Care Provider [phone] Edgar Gillette MD Unavailable [phone] Liz Wick MD Primary Care Provider [phone] Re Agarwal MD Primary Care Provider Reason for Visit * Reason Comments E-prescribe Rx Request Encounter Details Date Type Department Care Team Description 07/07/2020 Refill Internal Medicine - [address], [address] [place] [address] Warner Layne MD [address] [place] [address] E-prescribe Rx Request Social History Tobacco Use [...] on filedocumented in this encounter Care Teams Geriatric Physician Relationship Specialty Start Date End Date Warner Layne MD PCP - General Internal Medicine 08/25/19 12/22/20 Melissa Tapia MD PCP - General Internal Medicine 12/23/20 12/26/20 Warner Layne MD PCP - General Internal Medicine 12/27/20 04/08/23 Liz Wick MD [address] [place] [address] PCP - General Internal Medicine 04/09/23 01/20/24 Re Agarwal MD [address] [place] [address] PCP - General Internal Medicine 01/21/24 Edgar Gillette MD [facility] 12/02/19 documented as of this encounter
--- OUTSIDE RECORDS SUMMARY | 2025-01-02 10:24 | XMS_ITS | Encounter Summary ---
Author Organization [facility] Address [address] [place] [address] Care Team Providers Care Research Clerk Name Role Phone Warner Layne MD Primary Care Provider [phone] Edgar Gillette MD Unavailable [phone] Liz Wick MD Primary Care Provider [phone] Re Agarwal MD Primary Care Provider [phone] Reason for Visit * Reason Comments E-prescribe Rx Request Encounter Details Date Type Department Care Team Description 06/14/2022 Refill Internal Medicine - [address], [address] [place] [address] Warner Layne MD [address] [place] [address] E-prescribe Rx Request Social History Tobacco Use [...] encounter Miscellaneous Notes * Telephone Encounter - Alberta Jackson - 06/15/2022 9:01 AM EDT Last ordered: 6 months ago by Warner Layne MD Last refill: 12/16/2021 * Telephone Encounter - Tracey Fernandez - 06/15/2022 8:52 AM EDT JOSE 05/15/22 NOV 10/16/22 documented in this encounter Plan of Treatment Not on file documented as of this encounter Visit Diagnoses Not on filedocumented in this encounter Care Teams Research Clerk Relationship Specialty Start Date End Date Warner Layne MD PCP - General Internal Medicine 12/27/20 04/08/23 Liz Wick MD [address] [place] [address] PCP - General Internal Medicine 04/09/23 01/20/24 Re Agarwal MD [address] [place] [address] PCP - General Internal Medicine 01/21/24 Edgar Gillette MD Abrasive Grader Cardiology 12/02/19 documented as of this encounter
--- OUTSIDE RECORDS SUMMARY | 2025-01-02 10:24 | XMS_ITS | Encounter Summary ---
Author Organization [facility] Address [address] [place] [address] Care Team Providers Care Residential Pest Control Technician Name Role Phone Warner Layne MD Primary Care Provider [phone] Edgar Gillette MD Unavailable [phone] Liz Wick MD Primary Care Provider [phone] Re Agarwal MD Primary Care Provider [phone] Encounter Details Date Type Department Care Team Description 11/28/2022 Orders Only Internal Medicine - [place] [address] [facility], [address] [place] [address] Warner Layne MD [address] [place], [place] [id number] Social History Tobacco Use Types Packs/Day Years [...] on filedocumented in this encounter Care Teams Residential Pest Control Technician Relationship Specialty Start Date End Date Warner Layne MD PCP - General Internal Medicine 12/27/20 04/08/23 Liz Wick MD [address] [place] [address] PCP - General Internal Medicine 04/09/23 01/20/24 Re Agarwal MD [address] [place] [address] PCP - General Internal Medicine 01/21/24 Edgar Gillette MD Lining Ironer Cardiology 12/02/19 documented as of this encounter
--- OUTSIDE RECORDS SUMMARY | 2025-01-02 10:24 | XMS_ITS | Clinical Summary ---
Author Organization [facility] Address [address] [facility] [address] [place] [address] Phone Care Team Providers Care Motion Picture Equipment Supervisor Name Role Phone StefanoeR Primary Care Provider [phone] Allergies Active Allergy Reactions Criticality Noted Date [...] 03/14/2017 Overview (05/21/2024): 2016- urodynamic studies. 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
--- OUTSIDE RECORDS SUMMARY | 2025-01-02 10:24 | XMS_ITS | Encounter Summary ---
Author Organization [facility] Address [address] [place] [address] Care Team Providers Care Supervisor Boiler Repair Name Role Phone Warner Layne MD Primary Care Provider [phone] Edgar Gillette MD Unavailable [phone] Liz Wick MD Primary Care Provider [phone] Re Agarwal MD Primary Care Provider [phone] Encounter Details Date Type Department Care Team Description 08/30/2022 Orders Only Internal Medicine - [place] [address] [facility], [address] [place] [address] Warner Layne MD [address] [place], [place] [id number] Social History Tobacco Use Types Packs/Day Years [...] suspected to have Coronavirus/COVID-19? No / Unsure 08/14/2022 10:44 AM EDT documented as of this encounter Plan of Treatment Not on file documented as of this encounter Visit Diagnoses Not on filedocumented in this encounter Care Teams Supervisor Boiler Repair Relationship Specialty Start Date End Date Warner Layne MD PCP - General Internal Medicine 12/27/20 04/08/23 Liz Wick MD [address] [place] [address] PCP - General Internal Medicine 04/09/23 01/20/24 Re Agarwal MD [address] [place] [address] PCP - General Internal Medicine 01/21/24 Edgar Gillette MD Pole Peeling Machine Operator Helper Cardiology 12/02/19 documented as of this encounter
--- OUTSIDE RECORDS SUMMARY | 2025-01-02 10:24 | XMS_ITS | Encounter Summary ---
Author Organization [facility] Address [address] [place] [address] Care Team Providers Care Cloth Bale Header Name Role Phone Edgar Gillette MD Unavailable [phone] Re Agarwal MD Primary Care Provider [phone] Encounter Details Date Type Department Care Team Description 06/03/2024 Cutting Pressman Report Medical Records [address] [place] [address] Heber Harry DO Social History Tobacco Use [...] on filedocumented in this encounter Care Teams Cloth Bale Header Relationship Specialty Start Date End Date Re Agarwal MD [address] [place] [address] PCP - General Internal Medicine 01/21/24 Edgar Gillette MD Incoming Freight Clerk Cardiology 12/02/19 documented as of this encounter
--- OUTSIDE RECORDS SUMMARY | 2025-01-02 10:24 | XMS_ITS | Clinical Summary ---
Author Organization [facility] Address [address] [place] [address] Care Team Providers Care Wafer Fab Technician Name Role Phone Edgar Gillette MD Unavailable [phone] Re Agarwal MD Primary Care Provider [phone] Allergies Active Allergy Reactions Severity Noted Date Comments Genaro Inhibitors 01/07/2020 Acetaminophen 11/16/2017 Raises liver function per pt Ampicillin 12/22/2016 Sulfamethoxazole W/Trimethoprim Anaphylaxis 03/14/2017 Upset stomach Clindamycin 04/04/2023 diarrhea Ibuprofen 11/16/2017 Aspartame-Fd&C Yellow #6-Ibuprofen OTHER 12/22/2016 Upset stomach Nitrofurantoin 04/04/2023 diarrhea Procaine Swelling/Edema 08/07/2019 Penicillins 12/22/2016 Sertraline 04/04/2023 Medications Medication Sig Dispensed Refills Start Date End Date Status Multiple Vitamin (MULTIVITAMINS OR) Take 1 Tab by mouth daily. 0 Active Glucosamine-Chondroit -Vit C-Mn (GLUCOSAMINE CHONDR 1500 COMPLX) Cap Take 2 Caps by mouth daily. 0 Active Ascorbic Acid (Vitamin C) 250 MG Chew Tab Take by mouth. 0 Active pantoprazole (PROTONIX) 40 MG tablet TAKE 1 TABLET BY MOUTH EVERY DAY 90 Tablet 1 03/10/2024 Active atenolol (TENORMIN) 25 MG tablet Take 1 Tablet by mouth daily. 90 Tablet 1 05/26/2024 Active OMEPRAZOLE OR Take by mouth. 0 Active cyclobenzaprine (FLEXERIL) 5 MG tablet Take 1 Tablet by mouth daily as needed for Muscle spasms. 20 Tablet 0 06/17/2024 Active atorvastatin (LIPITOR) 20 MG tabletIndications:Mix ed hyperlipidemia TAKE 1 TABLET BY MOUTH EVERY DAY 90 Tablet 1 08/15/2024 Active triamcinolone (KENALOG) 0.5 % ointment Apply 1 g topically 2 times daily. 60 g 1 08/27/2024 Active ramelteon (ROZEREM) 8 MG tablet Take 1 Tablet by mouth at bedtime as needed for Sleep. 90 Tablet 0 08/27/2024 Active Diclofenac Sodium 1 % Gel Apply 1 Applicator topically 2 times daily as needed (pain). 100 g 3 08/27/2024 Active acetaminophen (Tylenol 8 Hour Arthritis Pain) 650 MG CR tablet Take 1 Tablet by mouth every 8 hours as needed for Pain. 90 Tablet 1 08/27/2024 Active Melatonin 10 MG Tab Take 1 Tablet by mouth daily. 90 Tablet 0 08/28/2024 Active clotrimazole (LOTRIMIN) 1 % cream 1 g BID for rash of left hand 30 g 1 09/03/2024 08/29/2025 Active Active Problems Problem Noted Date Chronic insomnia 08/27/2024 Dog bite 08/27/2024 Small vessel disease, cerebrovascular Dementia 01/25/2024 Right carpal tunnel syndrome 05/04/2023 Trigger index finger of right hand 05/04 Family history of premature CAD 09/01/20 Situational syncope 09/01/2021 Syncope 08/11/2021 Dark stools 08/11/2021 Epistaxis 01/07/2020 Cough 01/07/2020 C2 cervical fracture 08/29/2019 Overview: After a fall 06/2016. Osteopenia 04/25/2017 Overview: On recent DEXA 04/25/2017. Prior h/o osteoperosis Osteoarthritis 03/14/2017 Overview: Lumbosacral Spine, Hips, Knees Family history of breast cancer 03/14/20 17 Overview: Mother, sister Hyperlipidemia 03/14/2017 Cataract 03/14/2017 Chronic left hip pain 03/14/2017 Short-term memory loss 03/14/2017 Overview: 2008 - plan for Neuroscience referral.? Referral in 2016 Urinary incontinence 03/14/2017 Overview: 2016- urodynamic studies. 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 Compression stockings Severe episode of recurrent major depressive disorder, without psychotic features 12/22/2016 Essential hypertension, benign 7 Spondylosis of lumbar region without mye lopathy or radiculopathy 12/22/2016 Gastroesophageal reflux disease 12/22/19 17 Resolved Problems Problem Noted Date Resolved Date Colonoscopy refused 09/04/2017 08/07/2019 Overview: Patient was referred, they rescheduled and never contacted GI again. All attempts exhausted Osteoporosis 12/22/2016 04/25/2017 Immunizations Name Administration Dates Next Due COVID-19 (Pfizer) 09/03/2023 Influenza (>6 Months) Split Preservative Free 06/30/2020 Influenza vaccine high dose age 65 and over 02/2019,08/06/2018,10/01/2017 Pneumoccoccal(Adult) Polysaccharide PPSV23 05/17 Pneumococcal Conjugate PCV-13 07/09/2019 Family History Medical History Relation Name Comments [place] Brother Hypertension Father Bone Cancer, CA D [place] Mother DM, Breast Canc er CA Breast Sister Relation Name Status Comments Brother Father [...] file Not on file Not on file Last Filed Vital Signs Vital Sign Reading Time Taken Comments Blood Pressure 140/64 08/27/2024 8:12 AM EDT Pulse 68 08/27/2024 8:12 AM EDT Temperature 36.4 ??C (97.5 ??F) 08/27/2024 8:12 AM ED T Respiratory Rate 12 08/27/2024 8:12 AM EDT Oxygen Saturation 97% 06/17/2024 9:57 AM EDT Inhaled Oxygen Concentration - - Weight 70.3 kg (155 lb) 08/27/2024 8:12 AM EDT Height 160 cm (5' 3 ) 08/27/2024 8:12 AM EDT Body Mass Index 27.46 08/27/2024 8:12 AM EDT Plan of Treatment Health Maintenance Due Date Last Done Comments MAMMOGRAM 05/24/2017 05/24/2016 (Refused) BONE DENSITY SCREENING 04/25/2019 7, 04/25/2017, 01/15/2013 (External Completion) Covid-19 Vaccine ( season) 2024 09/03/2023, 07/19/2022 BMI CHECK/ADVISE 11/05/2024 08/27/2024, , 04/29/2024, Additional history exists INFLUENZA (#1) 2025 06/30/2020, 02/2019, 08/06/2018, Additional history exists Postponed from 07/06/2024 (Patient Refused) SHINGLES VACCINE (1 of 2) 10/21/2025 Po stponed from 1995 (Other Circumstances) DTAP/TDAP/TD (2 - Td or Tdap) 04/23/2027 04/23/2017 (Refused) CHOLESTEROL SCREENING 01/27/2029 01/28/2024 , 06/15/2023, 08/14/2022, Additional history exists PNEUMOCOCCAL VACCINE Completed 07/09/2019, 05/17/20 16 Care Teams Wafer Fab Technician Relationship Specialty Start Date End Date Re Agarwal MD [address] [place] [address] PCP - General Internal Medicine 01/21/24 Edgar Gillette MD Student Records Specialist Cardiology 12/02/19
--- OUTSIDE RECORDS SUMMARY | 2025-01-02 10:24 | XMS_ITS | Encounter Summary ---
Author Organization [facility] Address [address] [place] [address] Care Team Providers Care Nursery Rn Name Role Phone Warner Layne MD Primary Care Provider [phone] Edgar Gillette MD Unavailable [phone] Liz Wick MD Primary Care Provider [phone] Re Agarwal MD Primary Care Provider [phone] Encounter Details Date Type Department Care Team Description 06/14/2022 Cage/Vault Supervisor Report Medical Records [address] [place] [address] Carter Koenig Social History Tobacco Use Types [...] on filedocumented in this encounter Care Teams Nursery Rn Relationship Specialty Start Date End Date Warner Layne MD PCP - General Internal Medicine 12/27/20 04/08/23 Liz Wick MD [address] [place], [place] [phone] PCP - General Internal Medicine 04/09/23 01/20/24 Re Agarwal MD [address] [place] [address] PCP - General Internal Medicine 01/21/24 Edgar Gillette MD It Architecture Analyst Cardiology 12/02/19 documented as of this encounter
--- OUTSIDE RECORDS SUMMARY | 2025-01-02 10:24 | XMS_ITS | Encounter Summary ---
Author Organization [facility] Address [address] [place] [address] Care Team Providers Care Oncology Pharmacist Name Role Phone Edgar Gillette MD Unavailable [phone] Re Agarwal MD Primary Care Provider [phone] Reason for Visit * Reason Onset Date Comments Carpal Tunnel Syndrome 07/31/2024 Encounter Details Date Type Department Care Team Description 07/31/2024 Telephone Adult Medicine [address] [address] Re Agarwal MD [address] [place] [address] Carpal Tunnel Syndrome Social History Tobacco Use [...] traveled recently to another state outside of [place], [place], [place], [place], [place], [place], [place]? NO o If yes, did you quarantine [...] vehicle accident? NO If yes, gather 3rd green party insurance information Date of accident/Injury: How long has patient had these symptoms?: PCP: Re Agarwal Payor: [employer]/MEDICARE PPO / Plan: [facility] MDCR-ADV PPO $0 [employer] [id number] / Product Type: MEDICARE [id number] documented in this encounter Plan of Treatment Not on file documented as of this encounter Visit Diagnoses Not on filedocumented in this encounter Care Teams Oncology Pharmacist Relationship Specialty Start Date End Date Re Agarwal MD [address] [place] [address] PCP - General Internal Medicine 01/21/24 Edgar Gillette MD Wet Mixer Cardiology 12/02/19 documented as of this encounter
--- OUTSIDE RECORDS SUMMARY | 2025-01-02 10:24 | XMS_ITS | Encounter Summary ---
Author Organization [facility] Address [address] [place] [address] Care Team Providers Care Leather Finisher Name Role Phone Warner Layne MD Primary Care Provider Melissa Tapia MD Primary Care Provider [phone] Warner Layne MD Primary Care Provider [phone] Edgar Gillette MD Unavailable [phone] Liz Wick MD Primary Care Provider [phone] Re Agarwal MD Primary Care Provider Encounter Details Date Type Department Care Team Description 09/21/2020 Greeting Card Editor Report Medical Records [address] [place] [address] Abstract, Provider Social History Tobacco Use Types [...] on filedocumented in this encounter Care Teams Leather Finisher Relationship Specialty Start Date End Date Warner Layne MD PCP - General Internal Medicine 08/25/19 12/22/20 Melissa Tapia MD PCP - General Internal Medicine 12/23/20 12/26/20 Warner Layne MD PCP - General Internal Medicine 12/27/20 04/08/23 Liz Wick MD [address] [place] [address] PCP - General Internal Medicine 04/09/23 01/20/24 Re Agarwal MD [address] [place] [address] PCP - General Internal Medicine 01/21/24 Edgar Gillette MD Assembler Trim Cardiology 12/02/19 documented as of this encounter
--- OUTSIDE RECORDS SUMMARY | 2025-01-02 10:24 | XMS_ITS | Encounter Summary ---
Author Organization [facility] Address [address] [place] [address] Care Team Providers Care Load Manager Name Role Phone Edgar Gillette MD Unavailable [phone] Re Agarwal MD Primary Care Provider [phone] Encounter Details Date Type Department Care Team Description 07/08/2024 Orders Only Medical Records [address] [place] [address] Heber Harry DO Social History Tobacco Use [...] on filedocumented in this encounter Care Teams Load Manager Relationship Specialty Start Date End Date Re Agarwal MD [address] [place] [address] PCP - General Internal Medicine 01/21/24 Edgar Gillette MD Social Worker Assistant Cardiology 12/02/19 documented as of this encounter
--- OUTSIDE RECORDS SUMMARY | 2025-01-02 10:24 | XMS_ITS | Encounter Summary ---
Author Organization [facility] Address [address] [place] [address] Care Team Providers Care Customer Agent Name Role Phone Warner Layne MD Primary Care Provider [phone] Edgar Gillette MD Unavailable [phone] Liz Wick MD Primary Care Provider [phone] Re Agarwal MD Primary Care Provider [phone] Reason for Visit * Reason Comments E-prescribe Rx Request Encounter Details Date Type Department Care Team Description 11/06/2021 Refill Internal Medicine - [place] [address] [facility], [address] [place] [address] Warner Layne MD [address] [place], [place] [id number] E-prescribe Rx Request Social History Tobacco Use [...] encounter Miscellaneous Notes * Telephone Encounter - Giulia Huggins - 11/07/2021 1:50 PM EST Patient would like script to be: E-PRESCRIBED/FAXED TO PHARMACY WHEN WAS THE PATIENT'S LAST APPOINTMENT WITH THE PRESCRIBING PROVIDER? 09-02-2021 Does patient have an upcoming appointment? No will schedule today (THE MEDICATION REQUESTED IS ON THE MED LIST ABOVE) Did you check the Pharmacy information above?: YES Patient wants: 90 -day supply Is this a mail order prescription request ? NO Patients current insurance carrier is: [place] / Plan: BCBS PPO BLUE $10/$40 [place] [id number] / Product Type: PPO [id number] documented in this encounter Plan of Treatment Not on file documented as of this encounter Visit Diagnoses Not on filedocumented in this encounter Care Teams Customer Agent Relationship Specialty Start Date End Date Warner Layne MD PCP - General Internal Medicine 12/27/20 04/08/23 Liz Wick MD [address] [place] [address] PCP - General Internal Medicine 04/09/23 01/20/24 Re Agarwal MD [address] [place] [address] PCP - General Internal Medicine 01/21/24 Edgar Gillette MD Machining Technician Cardiology 12/02/19 documented as of this encounter
--- OUTSIDE RECORDS SUMMARY | 2025-01-02 10:24 | XMS_ITS | Encounter Summary ---
Author Organization [facility] Address [address] [place] [address] Care Team Providers Care Milking Machine Technician Name Role Phone Edgar Gillette MD Unavailable [phone] Liz Wick MD Primary Care Provider [phone] Re Agarwal MD Primary Care Provider [phone] Reason for Visit * Reason Comments E-prescribe Rx Request pantoprazole (PRO TONIX) 40 MG tablet Encounter Details Date Type Department Care Team Description 08/25/2023 Refill Adult Medicine [address] [address] Re Agarwal MD [address] [place] [address] [id number] E-prescribe Rx Request (pantoprazole (PROTONIX) 40 MG [...] N/A Patients current insurance carrier is: Payor: [facility]/MEDICARE PPO / Plan: [facility] MDCR-ADV PPO $20/$40 [place] / Product Type: MEDICARE [id number] documented in this encounter Plan of Treatment Not on file documented as of this encounter Visit Diagnoses Diagnosis Primary hypertension Unspecified essential hypertension documented in this encounter Care Teams Milking Machine Technician Relationship Specialty Start Date End Date Liz Wick MD [address] [place] [address] PCP - General Internal Medicine 04/09/23 01/20/24 Re Agarwal MD [address] [place] [address] PCP - General Internal Medicine 01/21/24 Edgar Gillette MD Industrial Paramedic Cardiology 12/02/19 documented as of this encounter
--- OUTSIDE RECORDS SUMMARY | 2025-01-02 10:24 | XMS_ITS | Encounter Summary ---
Author Organization [facility] Address [address] [place] [address] Care Team Providers Care Fx Artist Name Role Phone Warner Layne MD Primary Care Provider [phone] Edgar Gillette MD Unavailable [phone] Liz Wick MD Primary Care Provider [phone] Re Agarwal MD Primary Care Provider [phone] Reason for Visit * Reason Onset Date Comments refill request 05/30/2022 Encounter Details Date Type Department Care Team Description 05/30/2022 Refill Internal Medicine - [place] [address] [facility], [address] [place] [address] Warner Layne MD [address] [place], [place] [phone] refill request Social History Tobacco Use Types [...] encounter Miscellaneous Notes * Telephone Encounter - Eliane Miller - 05/31/2022 10:26 AM EDT Patient called office regarding the prescription for Celebrex. Patient spoke to pharmacy who told her script still reads 1 tablet a day for pain. Patient would like it noted that on somedays when thepain is worse she has to take an additional tablet. Patient asks if the directions need to reflect this - two as needed? Pharmacy told patient to contact PCP regarding this. Please revise the directions on prescription so patient can knot picker cloth from pharmacy today. * Telephone Encounter - Alberta Jackson - 05/30/2022 12:59 PM EDT 90 day script pended * Telephone Encounter - Giulia Huggins - 05/30/2022 12:02 PM EDT Patient states dr. Layne was only going to order this medication once as patient receives this medication from spine doctor However patient did not keep appt with specialist and request dr. Layne reorder celebrex 200 mg againPatient would like script to be: E-PRESCRIBED/FAXED TO PHARMACY WHEN WAS THE PATIENT'S LAST APPOINTMENT WITH THE PRESCRIBING PROVIDER? 05-15-2022 Does patient have an upcoming appointment? Yes 10-16-2022 (THE MEDICATION REQUESTED IS ON THE MED LIST ABOVE) One or some of the medications requested were on the HISTORICAL MED list Did you check the Pharmacy information above?: Patient wants: 90 -day supply Is this a mail order prescription request ? NO Patients current insurance carrier is: Payor: ANUSHA/PPO POS / Plan: KAMILA VILCHISO BLUE $10/$40 [place] [id number] / Product Type: PPO [id number] documented in this encounter Plan of Treatment Not on file documented as of this encounter Visit Diagnoses Not on filedocumented in this encounter Care Teams Fx Artist Relationship Specialty Start Date End Date Warner Layne MD PCP - General Internal Medicine 12/27/20 04/08/23 Liz Wick MD [address] [place] [address] PCP - General Internal Medicine 04/09/23 01/20/24 Re Agarwal MD [address] [place] [address] PCP - General Internal Medicine 01/21/24 Edgar Gillette MD Four Slide Machine Setter Cardiology 12/02/19 documented as of this encounter
--- OUTSIDE RECORDS SUMMARY | 2025-01-02 10:24 | XMS_ITS | Encounter Summary ---
Author Organization [facility] Address [address] [place] [address] Care Team Providers Care Husbandry Technician Name Role Phone Edgar Gillette MD Unavailable [phone] Liz Wick MD Primary Care Provider [phone] Re Agarwal MD Primary Care Provider [phone] Reason for Visit * Reason Onset Date Comments other 09/18/2023 Encounter Details Date Type Department Care Team Description 09/18/2023 Telephone Adult Medicine [address] [phone] Liz Wick MD [address] [place] [address] [phone] other Social History Tobacco Use Types Packs/Day Years [...] encounter Miscellaneous Notes * Telephone Encounter - Jacinda Babb - 09/18/2023 3:53 PM EST Spoke to patient previous to obtain information for orthopedica visit, Patient will see Dr Jules Daley on 10/17 at [facility] * Telephone Encounter - Pepper Cohn - 09/18/2023 3:08 PM EST Patient states she had seen Dr Wick today and she asked her to call back with some information butpatient can't remember what she wanted her to call back for or about ?? She is asking that someone call her back to help documented in this encounter Plan of Treatment Not on file documented as of this encounter Visit Diagnoses Not on filedocumented in this encounter Care Teams Husbandry Technician Relationship Specialty Start Date End Date Liz Wick MD [address] [place] [address] PCP - General Internal Medicine 04/09/23 01/20/24 Re Agarwal MD [address] [place] [address] PCP - General Internal Medicine 01/21/24 Edgar Gillette MD Scratcher Tender Cardiology 12/02/19 documented as of this encounter
--- OUTSIDE RECORDS SUMMARY | 2025-01-02 10:24 | XMS_ITS | Encounter Summary ---
Author Organization [facility] Address [address] [place] [address] Care Team Providers Care Deicer Tester Name Role Phone Warner Layne MD Primary Care Provider [phone] Melissa Tapia MD Primary Care Provider [phone] Warner Layne MD Primary Care Provider [phone] Edgar Gillette MD Unavailable [phone] Liz Wick MD Primary Care Provider [phone] Re Agarwal MD Primary Care Provider [phone] Encounter Details Date Type Department Care Team Description 01/09/2020 [facility] Medical Records [address] [place] [address] Nargis Celaya Social History Tobacco Use Types Packs/Day Years [...] on filedocumented in this encounter Care Teams Deicer Tester Relationship Specialty Start Date End Date Warner Layne MD PCP - General Internal Medicine 08/25/19 12/22/20 Melissa Tapia MD PCP - General Internal Medicine 12/23/20 12/26/20 Warner Layne MD PCP - General Internal Medicine 12/27/20 04/08/23 Liz Wick MD [address] [place] [address] PCP - General Internal Medicine 04/09/23 01/20/24 Re Agarwal MD [address] [place] [address] PCP - General Internal Medicine 01/21/24 Edgar Gillette MD Security Inspector Cardiology 12/02/19 documented as of this encounter
--- OUTSIDE RECORDS SUMMARY | 2025-01-02 10:24 | XMS_ITS | Encounter Summary ---
Author Organization [facility] Address [address] [place] [address] Care Team Providers Care Electronic Technologist Name Role Phone Edgar Gillette MD Unavailable [phone] Liz Wick MD Primary Care Provider [phone] Re Agarwal MD Primary Care Provider [phone] Encounter Details Date Type Department Care Team Description 11/07/2023 Telephone Adult Medicine [address] [address] Liz Wick MD [address] [place] [address] [phone] Social History Tobacco Use Types Packs/Day Years [...] on filedocumented in this encounter Care Teams Electronic Technologist Relationship Specialty Start Date End Date Lzi Wick MD [address] [place] [address] [phone] PCP - General Internal Medicine 04/09/23 01/20/24 Re Agarwal MD [address] [place] [address] PCP - General Internal Medicine 01/21/24 Edgar Gillette MD Business Continuity Management Director Cardiology 12/02/19 documented as of this encounter
--- OUTSIDE RECORDS SUMMARY | 2025-01-02 10:24 | XMS_ITS | Encounter Summary ---
Author Organization [facility] Address [address] [place] [address] Care Team Providers Care Cut Off Worker Name Role Phone Edgar Gillette MD Unavailable [phone] Liz Wick MD Primary Care Provider [phone] Re Agarwal MD Primary Care Provider [phone] Encounter Details Date Type Department Care Team Description 09/20/2023 Telephone Adult Medicine [address] [address] Liz Wick MD [address] [place] [address] Social History Tobacco Use Types Packs/Day Years [...] Telephone Encounter - Sumaya Jamil R.N. - 09/20/2023 11:11 AM EST Pt is aware that [facility] cannot come in to see pt , she is not homebound. * Telephone Encounter - German Mix - 09/20/2023 11:07 AM EST Patient calling back * Telephone Encounter - Darron Gonzalez L.P.N. - 09/20/2023 10:36 AM EST Spoke with Yessy at [facility] the nurse when out this morning the patient is not home bound Refuses sajan home bound Under insurance regulations patient has to discharge Patient must be homebound in order to receive home care services You may want to consider outpatient PT and OT You would need to send a referral documented in this encounter Plan of Treatment Not on file documented as of this encounter Visit Diagnoses Not on filedocumented in this encounter Care Teams Cut Off Worker Relationship Specialty Start Date End Date Liz Wick MD [address] [place] [address] PCP - General Internal Medicine 04/09/23 01/20/24 Re Agarwal MD [address] [place] [address] PCP - General Internal Medicine 01/21/24 Edgar Gillette MD Gospel Singer Cardiology 12/02/19 documented as of this encounter
--- OUTSIDE RECORDS SUMMARY | 2025-01-02 10:24 | XMS_ITS | Encounter Summary ---
Author Organization [facility] Address [address] [place] [address] Care Team Providers Care Manager Salt Name Role Phone Warner Layne MD Primary Care Provider [phone] Edgar Gillette MD Unavailable [phone] Liz Wick MD Primary Care Provider [phone] Re Agarwal MD Primary Care Provider [phone] Reason for Visit * Reason Onset Date Comments Medication 01/04/2023 Encounter Details Date Type Department Care Team Description 01/04/2023 Telephone Internal Medicine - [address], [address] [place] [address] Warner Layne MD [address] [place] [address] Medication Social History Tobacco Use Types Packs/Day [...] * Telephone Encounter - Giulia Huggins - 01/09/2023 9:53 AM EST Contacted patient and scheduled appt audio re: NOT sleeping * Telephone Encounter - Warner Layne MD - 01/08/2023 4:35 PM EST Book an audio/video visit with any provider soon or go to an urgent care * Telephone Encounter - Carmen Cortez MA - 01/08/2023 3:[address] Layne pt needs medication for her difficulty sleeping * Telephone Encounter - Giulia Huggins - 01/08/2023 3:04 PM EST Was a medication ordered for patient with sleep issues? * Telephone Encounter - Giulia Huggins - 01/05/2023 3:07 PM EST Unable to sleep - needs a medication sent today - requested this yesterday * Telephone Encounter - Suzanne Brandon - 01/05/2023 2:26 PM EST Patient called back about this. Would like something to help her sleep. * Telephone Encounter - Giulia Huggins - 01/05/2023 10:27 AM EST Patient called again today - - no response from yesterday Unable to sleep - request medication today - Contact patient once med Is sent * Telephone Encounter - Giulia Huggins - 01/04/2023 9:51 AM EST Patient called difficulty sleep for the past 3 weeks- What medication can be perscribed for her - she did try over the counter medication Contact patient today. documented in this encounter Plan of Treatment Not on file documented as of this encounter Visit Diagnoses Not on filedocumented in this encounter Care Teams Manager Salt Relationship Specialty Start Date End Date Warner Layne MD PCP - General Internal Medicine 12/27/20 04/08/23 Liz Wick MD [address] [place] [address] PCP - General Internal Medicine 04/09/23 01/20/24 Re Agarwal MD [address] [place] [address] PCP - General Internal Medicine 01/21/24 Edgar Gillette MD Roll On Worker Cardiology 12/02/19 documented as of this encounter
--- OUTSIDE RECORDS SUMMARY | 2025-01-02 10:24 | XMS_ITS | Encounter Summary ---
Author Organization [facility] Address [address] [place] [address] Care Team Providers Care Plastics Engineering Teacher Name Role Phone Edgar Gillette MD Unavailable [phone] Liz Wick MD Primary Care Provider [phone] Re Agarwal MD Primary Care Provider [phone] Reason for Visit * Reason Comments E-prescribe Rx Request atenolol (TENORMI N) 25 MG tablet Encounter Details Date Type Department Care Team Description 10/31/2023 Refill Adult Medicine [facility] [address] [place] [address] Melissa Dumont PA-C [address] [place] [address] [phone] E-prescribe Rx Request (atenolol (TENORMIN) 25 MG tablet) Social History Tobacco Use Types [...] Telephone Encounter - Riya Lerma M.A. - 10/31/2023 1:39 PM EST Lab Results Component Value Date NA 139 06/15/2023 K 5.2 06/15/2023 CO2 29 06/15/2023 CL 106 06/15/2023 BUN 23 06/15/2023 CREAT 1.06 06/15/2023 GLU 101 06/15/2023 CA 9.9 06/15/2023 GFR 54 06/15/2023 Pending appt 12/2023 Last appt 10/16/23 * Telephone Encounter - Monty Ramirez - 10/31/2023 1:31 PM EST REFILL NOT APPROPRIATE documented in this encounter Plan of Treatment Not on file documented as of this encounter Visit Diagnoses Not on filedocumented in this encounter Care Teams Plastics Engineering Teacher Relationship Specialty Start Date End Date Liz Wick MD [address] [place] [address] PCP - General Internal Medicine 04/09/23 01/20/24 Re Agarwal MD [address] [place] [address] PCP - General Internal Medicine 01/21/24 Edgar Gillette MD Account Executive Cardiology 12/02/19 documented as of this encounter
--- OUTSIDE RECORDS SUMMARY | 2025-01-02 10:25 | XMS_ITS | Encounter Summary ---
Author Organization [facility] Address [address] [place] [address] Care Team Providers Care Supervisor Coin Machine Name Role Phone Warner Layne MD Primary Care Provider [phone] Edgar Gillette MD Unavailable [phone] Liz Wick MD Primary Care Provider [phone] Re Agarwal MD Primary Care Provider [phone] Reason for Visit * Reason Comments E-prescribe Rx Request Encounter Details Date Type Department Care Team Description 03/28/2021 Refill Internal Medicine - [address], [address] [place] [address] Warner Layne MD [address] [place], [place] [phone] E-prescribe Rx Request Social History Tobacco Use [...] filedocumented in this encounter Care Teams Supervisor Coin Machine Relationship Specialty Start Date End Date Warner Layne MD PCP - General Internal Medicine 12/27/20 04/08/23 Liz Wick MD [address] [place] [address] PCP - General Internal Medicine 04/09/23 01/20/24 Re Agarwal MD [address] [place] [address] PCP - General Internal Medicine 01/21/24 Edgar Gillette MD Director Safety Council Cardiology 12/02/19 documented as of this encounter
--- OUTSIDE RECORDS SUMMARY | 2025-01-02 10:25 | XMS_ITS | Encounter Summary ---
Author Organization [facility] Address [address] [place] [address] Care Team Providers Care Tailings Dam Laborer Name Role Phone Virgie Concepcion MD Primary Care Provider Bonnie Florez MD Primary Care Provider Unavail able Krista Warren MD Primary Care Provider Sparkle vailable Warner Layne MD Primary Care Provider [phone] Warner Layne MD Primary Care Provider [phone] Melissa Tapia MD Primary Care Provider Warner Layne MD Primary Care Provider Edgar Gillette MD Unavailable [phone] Liz Wick MD Primary Care Provider [phone] Re Agarwal MD Primary Care Provider [phone] Encounter Details Date Type Department Care Team Description 03/31/2016 Hospital Medical Records [address] [place] [address] Oleksandr, Fernandez Social History Tobacco Use Types [...] on filedocumented in this encounter Care Teams Tailings Dam Laborer Relationship Specialty Start Date End Date Virgie Concepcion MD [address] [place] [address] PCP - General 09/04/1999 12/19/16 Bonnie Florez MD [address] [place] [address] PCP - General Internal Medicine 12/20/16 12/11/17 Krista Warren MD [address] [place] [address] PCP - General Internal Medicine 10/10/18 08/24/19 Warner Layne MD [address] [place] [address] PCP - General Internal Medicine 08/25/19 12/22/20 Warner Layne MD [address] [place] [address] PCP - General 12/12/17 10/09/18 Melissa Tapia MD [address] [place] [address] PCP - General Internal Medicine 12/23/20 12/26/20 Warner Layne MD [address] [place] [address] PCP - General Internal Medicine 12/27/20 04/08/23 Liz Wick MD [address] [place] [address] PCP - General Internal Medicine 04/09/23 01/20/24 Re Agarwal MD [address] [place] [address] PCP - General Internal Medicine 01/21/24 Edgar Gillette MD [address] [place] [address] Chief Payroll Clerk Cardiology 12/02/19 documented as of this encounter
--- OUTSIDE RECORDS SUMMARY | 2025-01-02 10:25 | XMS_ITS | Encounter Summary ---
Author Organization [facility] Address [address] [place] [address] Care Team Providers Care Melangeur Operator Name Role Phone Warner Layne MD Primary Care Provider [phone] Edgar Gillette MD Unavailable [phone] Liz Wick MD Primary Care Provider [phone] Re Agarwal MD Primary Care Provider [phone] Encounter Details Date Type Department Care Team Description 02/10/2021 Drafter Geological Report Medical Records [address] [place] [address] Jules Daley Social History Tobacco Use Types Packs/Day Years [...] have Coronavirus / COVID-19? No / Unsure 01/12/2021 10:20 AM EST documented as of this encounter Plan of Treatment Not on file documented as of this encounter Visit Diagnoses Not on filedocumented in this encounter Care Teams Melangeur Operator Relationship Specialty Start Date End Date Warner Layne MD PCP - General Internal Medicine 12/27/20 04/08/23 Liz Wick MD [address] [place], [place] [phone] PCP - General Internal Medicine 04/09/23 01/20/24 Re Agarwal MD [address] [place] [address] PCP - General Internal Medicine 01/21/24 Edgar Gillette MD Switch Operators Supervisor Cardiology 12/02/19 documented as of this encounter
--- OUTSIDE RECORDS SUMMARY | 2025-01-02 10:25 | XMS_ITS | Encounter Summary ---
Author Organization [facility] Address [address] [place] [address] Care Team Providers Care Solutions Architect Consultant Name Role Phone Edgar Gillette MD Unavailable [phone] Liz Wick MD Primary Care Provider [phone] Re Agarwal MD Primary Care Provider [phone] Encounter Details Date Type Department Care Team Description 05/23/2023 Hospital Medical Records [address] [place] [address] Miki James Social History Tobacco Use Types [...] on filedocumented in this encounter Care Teams Solutions Architect Consultant Relationship Specialty Start Date End Date Liz Wick MD [address] [place] [address] [phone] PCP - General Internal Medicine 04/09/23 01/20/24 Re Agarwal MD [address] [place] [address] [id number] PCP - General Internal Medicine 01/21/24 Edgar Gillette MD Pressure Tester Cardiology 12/02/19 documented as of this encounter
--- OUTSIDE RECORDS SUMMARY | 2025-01-02 10:25 | XMS_ITS | Encounter Summary ---
Author Organization [facility] Address [address] [place] [address] Care Team Providers Care Gis Technician Name Role Phone Krista Warren MD Primary Care Provider Sparkle eddble Warner Layne MD Primary Care Provider [phone] Melissa Tapia MD Primary Care Provider [phone] Warner Layne MD Primary Care Provider [phone] Edgar Gillette MD Unavailable [phone] Liz Wick MD Primary Care Provider [phone] Re Agarwal MD Primary Care Provider [phone] Encounter Details Date Type Department Care Team Description 10/17/2018 Transfer Records Medical Records [address] [place] [address] Abstract, Provider Social History Tobacco Use Types [...] on filedocumented in this encounter Care Teams Gis Technician Relationship Specialty Start Date End Date Krista Warren MD PCP - General Internal Medicine 10/10/18 Warner Layne MD PCP - General Internal Medicine 08/25/19 12/22/20 Melissa Tapia MD PCP - General Internal Medicine 12/23/20 12/26/20 Warner Layne MD PCP - General Internal Medicine 12/27/20 04/08/23 Liz Wick MD [address] [place] [address] PCP - General Internal Medicine 04/09/23 01/20/24 Re Agarwal MD [address] [place] [address] PCP - General Internal Medicine 01/21/24 Edgar Gillette MD Assistant Bookkeeper Cardiology 12/02/19 documented as of this encounter
--- OUTSIDE RECORDS SUMMARY | 2025-01-02 10:25 | XMS_ITS | Encounter Summary ---
Author Organization [facility] Address [address] [place] [address] Care Team Providers Care Dance Critic Name Role Phone Warner Layne MD Primary Care Provider [phone] Edgar Gillette MD Unavailable [phone] Liz Wick MD Primary Care Provider [phone] Re Agarwal MD Primary Care Provider [phone] Reason for Visit * Reason Onset Date Comments Appointment-Internal Referral 02/14/2021 ysiatry Encounter Details Date Type Department Care Team Description 02/14/2021 Telephone Internal Medicine - [place] [address] [facility], [address] [place] [address] Warner Layne MD [address] [place], [place] [phone] Appointment-Internal Referral (Physiatry) Social History Tobacco Use [...] alexandre went to see Dr. Daley at [facility]. No appointment wanted in Physiatry. documented in this encounter Plan of Treatment Not on file documented as of this encounter Visit Diagnoses Not on filedocumented in this encounter Care Teams Dance Critic Relationship Specialty Start Date End Date Warner Layne MD PCP - General Internal Medicine 12/27/20 04/08/23 Liz Wick MD [address] [place] [address] PCP - General Internal Medicine 04/09/23 01/20/24 Re Agarwal MD [address] [place] [address] PCP - General Internal Medicine 01/21/24 Edgar Gillette MD Pantograph I Engraver Cardiology 12/02/19 documented as of this encounter
--- OUTSIDE RECORDS SUMMARY | 2025-01-02 10:25 | XMS_ITS | Encounter Summary ---
Author Organization [facility] Address [address] [place] [address] Care Team Providers Care Bottle House Quality Control Technician Name Role Phone Warner Layne MD Primary Care Provider [phone] Edgar Gillette MD Unavailable [phone] Liz Wick MD Primary Care Provider [phone] Re Agarwal MD Primary Care Provider [phone] Reason for Visit * Reason Onset Date Comments refill request 03/28/2021 Encounter Details Date Type Department Care Team Description 03/28/2021 Telephone Internal Medicine - [place] [address] [facility], [address] [place] [address] Warner Layne MD [address] [place], [place] [phone] refill request Social History Tobacco Use Types [...] encounter Miscellaneous Notes * Telephone Encounter - Jose Alejandro Trinidad - 03/28/2021 2:18 PM EDT [place] 02/09/21 Nov 04/28/21 BP Readings from Last 3 Encounters: 01/12/21 (!) 150/80 11/16/20 (!) 154/64 11/10/20 110/80 * Telephone Encounter - Mimi Ware - 03/28/2021 10:11 AM EDT [place] 02/09/21 Nov 04/28/21 documented in this encounter Plan of Treatment Not on file documented as of this encounter Visit Diagnoses Not on filedocumented in this encounter Care Teams Bottle House Quality Control Technician Relationship Specialty Start Date End Date Warner Layne MD PCP - General Internal Medicine 12/27/20 04/08/23 Liz Wick MD [address] [place] [address] PCP - General Internal Medicine 04/09/23 01/20/24 Re Agarwal MD [address] [place] [address] PCP - General Internal Medicine 01/21/24 Edgar Gillette MD Commercial Art Instructor Cardiology 12/02/19 documented as of this encounter
--- OUTSIDE RECORDS SUMMARY | 2025-01-02 10:25 | XMS_ITS | Encounter Summary ---
Author Organization [facility] Address [address] [place] [address] Care Team Providers Care Vaccine Key Customer Leader Name Role Phone Warner Layne MD Primary Care Provider [phone] Edgar Gillette MD Unavailable [phone] Liz Wick MD Primary Care Provider [phone] Re Agarwal MD Primary Care Provider [phone] Encounter Details Date Type Department Care Team Description 05/20/2021 Telephone Adult Medicine [address] [address] Warner Layne MD [address] [place], [place] [id number] Social History Tobacco Use Types Packs/Day Years [...] on filedocumented in this encounter Care Teams Vaccine Key Customer Leader Relationship Specialty Start Date End Date Warner Layne MD PCP - General Internal Medicine 12/27/20 04/08/23 Liz Wick MD [address] [place] [address] PCP - General Internal Medicine 04/09/23 01/20/24 Re Agarwal MD [address] [place] [address] PCP - General Internal Medicine 01/21/24 Edgar Gillette MD Fixed Income Manager Cardiology 12/02/19 documented as of this encounter
--- OUTSIDE RECORDS SUMMARY | 2025-01-02 10:25 | XMS_ITS | Encounter Summary ---
Author Organization [facility] Address [address] [place] [address] Care Team Providers Care Cork Mixer Name Role Phone Edgar Gillette MD Unavailable [phone] Liz Wick MD Primary Care Provider [phone] Re Agarwal MD Primary Care Provider [phone] Encounter Details Date Type Department Care Team Description 05/23/2023 Orders Only Medical Records [address] [place] [address] Abstract, Provider Social History Tobacco Use Types [...] Date/Time Associated Diagnosis Comments OUTSIDE CT Routine 05/23/2023 OUTSIDE PLAIN FILM Routine 05/23/2023 documented in this encounter Results * OUTSIDE CT (05/23/2023) Provider Abstract RADIOLOGY * OUTSIDE PLAIN FILM (05/23/2023) Provider Abstract RADIOLOGY documented in this encounter Visit Diagnoses Not on filedocumented in this encounter Care Teams Cork Mixer Relationship Specialty Start Date End Date Liz Wick MD [address] [place] [address] PCP - General Internal Medicine 04/09/23 01/20/24 Re Agarwal MD [address] [place] [address] PCP - General Internal Medicine 01/21/24 Edgar Gillette MD Manager Corporate Marketing Cardiology 12/02/19 documented as of this encounter
--- OUTSIDE RECORDS SUMMARY | 2025-01-02 10:25 | XMS_ITS | Encounter Summary ---
Author Organization [facility] Address [address] [place] [address] Care Team Providers Care Wood Polisher Name Role Phone Krista Warren MD Primary Care Provider Sparkle eddble Warner Layne MD Primary Care Provider Melissa Tapia MD Primary Care Provider Warner Layne MD Primary Care Provider Edgar Gillette MD Unavailable [phone] Liz Wick MD Primary Care Provider [phone] Re Agarwal MD Primary Care Provider [phone] Encounter Details Date Type Department Care Team Description 05/09/2019 Orders Only Gastroenterology - [place] [address] [facility] [address] [place] [phone] Rancho Tanner MD Flank pain Social History [...] Procedure Name Priority Date/Time Associated Diagnosis Comments [facility] RENAL FUNCTION PANEL Routine 04/07/2019 Flank pain documented in this encounter Results * RENAL FUNCTION PANEL (04/07/2019) 04/07/2019 Rancho Tanner MD LAB [facility] [employer] documented in this encounter Visit Diagnoses Diagnosis Flank pain Abdominal pain, unspecified site documented in this encounter Care Teams Wood Polisher Relationship Specialty Start Date End Date Krista Warren MD PCP - General Internal Medicine 10/10/18 Warner Layne MD PCP - General Internal Medicine 08/25/19 12/22/20 Melissa Tapia MD PCP - General Internal Medicine 12/23/20 12/26/20 Warner Layne MD PCP - General Internal Medicine 12/27/20 04/08/23 Liz Wick MD [address] [place] [address] [id number] PCP - General Internal Medicine 04/09/23 01/20/24 Re Agarwal MD [address] [place] [address] [phone] PCP - General Internal Medicine 01/21/24 Edgar Gillette MD Pipeline Maintenance Supervisor Cardiology 12/02/19 documented as of this encounter
--- OUTSIDE RECORDS SUMMARY | 2025-01-02 10:25 | XMS_ITS | Encounter Summary ---
Author Organization [facility] Address [address] [place] [address] Care Team Providers Care Jute Bag Cutting Machine Operator Name Role Phone Edgar Gillette MD Unavailable [phone] Liz Wick MD Primary Care Provider [phone] Re Agarwal MD Primary Care Provider [phone] Encounter Details Date Type Department Care Team Description 05/16/2023 Drawer Liner Report Medical Records [address] [place] [address] Abstract, Provider Social History Tobacco Use Types [...] on filedocumented in this encounter Care Teams Jute Bag Cutting Machine Operator Relationship Specialty Start Date End Date Liz Wick MD [address] [place] [address] [phone] PCP - General Internal Medicine 04/09/23 01/20/24 Re Agarwal MD [address] [place] [phone] PCP - General Internal Medicine 01/21/24 Edgar Gillette MD Industrial Hygiene Engineer Cardiology 12/02/19 documented as of this encounter
--- OUTSIDE RECORDS SUMMARY | 2025-01-02 10:25 | XMS_ITS | Clinical Summary ---
Author Organization [facility] Address [address] [place] [address] Phone Care Team Providers Care Filemaker Developer Name Role Phone Re Agarwal MD Primary [...] every 8 hours as needed for Pain. 04/29/20 24 Active ascorbic acid (VITAMIN C) 250 MG chewable tablet Take by mouth. Active cyclobenzaprine (FLEXERIL) 5 mg tablet Take 1 Tablet by mouth daily as needed for Muscle spasms. 06/17/20 24 Active diclofenac (VOLTAREN) 50 mg EC tablet TAKE 1 TABLET BY MOUTH TWICE A DAY NEEDED FOR PAIN 08/13/20 24 Active gluc/chondr-msm 7/C/kory/boron (GLUCOSAMINE-MAURA , DESTINY, ORAL) Take 2 Caps by mouth daily. Active MULTIVITAMIN ORAL Take 1 Tab by mouth daily. Active pantoprazole (PROTONIX) 40 mg EC tablet TAKE 1 TABLET BY MOUTH EVERY DAY 90 tablet 1 09/16/20 24 Active lidocaine (LIDODERM) 5 % patchIndications: Chronic midline low back pain without sciatica Apply 1 patch topically 1 (one) time each day if needed for mild pain or moderate pain. Apply to painful area 12 hours per day, remove for 12 hours. 30 each 2 10/21/20 24 Active atenoloL (TENORMIN) 25 mg tablet TAKE 1 TABLET BY MOUTH EVERY DAY 90 tablet 12/30/19 Active atorvastatin (LIPITOR) 20 mg tabletIndications :Mixed hyperlipidemia TAKE 1 TABLET BY MOUTH EVERY DAY 90 tablet 1 12/29/19 25 Active traZODone (DESYREL) 50 mg tablet Take 1 tablet (50 mg total) by mouth at bedtime as needed for sleep. 30 tablet 2 12/30/19 25 2024 Active amLODIPine (NORVASC) 5 mg tablet Take 1 tablet (5 mg total) by mouth 1 (one) time each day. 90 each 12/30/19 25 2024 Active diclofenac (VOLTAREN) 1 % topical gel Apply 2 g topically 2 (two) times a day if needed (PAIN). 60 g 2 09/24/20 24 2024 atenoloL (TENORMIN) 25 mg tablet TAKE 1 TABLET BY MOUTH EVERY DAY 90 tablet 11/11/19 25 2024 Discontinued traZODone (DESYREL) 50 mg tablet Take 1 tablet (50 mg total) by mouth at bedtime as needed for sleep. 30 tablet 2 10/21/20 24 2024 Discontinued(R eorder) amLODIPine (NORVASC) 5 mg tablet Take 1 tablet (5 mg total) by mouth 1 (one) time each day. 12/08/19 24 2024 Discontinued(R eorder) Active Problems Problem Noted Date Diagnosed Date [...] plan for Neuroscience referral.? Referral in 2015 Urinary incontinence 03/14/2017 Overview (08/22/2024): 2015- urodynamic studies. Uro HAND CLERICAL VERIFIER Venous insufficiency 03/14/2017 Overview (08/22/2024): 11/29/2015 Vascular [...] help her, in the past has seen [facility] and Dr. Harry, has [...] Patient had MRI lumbar spine 07/04/2024 at [facility] that shows severe degenerative disc disease L2-3 [...] online, it appears that Dr. Harry and [facility] did not recommend any [...] Encounters Date Type Department Care Team Description 12/30/2024 11:30 AM EST Office Visit Adult Medicine [address] [address] Re Agarwal MD Essential hypertension, benign (Primary Dx); Insomnia, unspecified type; Hyperlipidemia, unspecified hyperlipidemia type 10/24/2024 1:30 PM EST Consult Neurosurgery [facility] [address] [place] [phone] Rupinder De Los Santos PA Osteoarthritis of lumbar spine, unspecified spinal osteoarthritis complication status; Spondylosis of lumbar region without myelopathy or radiculopathy 10/21/2024 10:00 AM EST Office Visit [address] [address] Re Agarwal MD Annual physical exam (Primary Dx); Insomnia, unspecified type; Chronic midline low back pain without sciatica; Degeneration of intervertebral disc of lumbar region with discogenic back pain from Last 3 Months Immunizations Name Administration [...] pain 03/14/2017 Short-term memory loss 03/14/2017 : 2009 - plan for Neuroscience referral.? Referral in 2016 Essential hypertension, benign 12/22/2016 Fibromyalgia 03/14/2017 Gastroesophageal reflux disease 12/22/2016 Hyperlipidemia 03/14/2017 Severe episode of recurrent major depressive disorder, without psychotic features (CMS/HCC) 12/22/2016 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 Urinary incontinence 03/14/2017 2016- urody namic studies. Uro HAND CLERICAL VERIFIER Venous insufficiency 03/14/2017 11/29/2015 V ascular Surgery [...] Sign Reading Time Taken Comments Blood Pressure 162/69 12/30/2024 11:47 AM EST Pulse 55 12/30/2024 11:10 AM EST Temperature 36.4 ??C (97.6 ??F) 12/30/2024 11:[address] Respiratory Rate 12 12/30/2024 11:10 AM EST Oxygen Saturation - - Inhaled Oxygen Concentration - - Weight 64 kg (141 lb) 12/30/2024 11:10 AM EST Height 162.6 cm (5' 4 ) 12/30/2024 11:10 AM EST Body Mass Index 24.2 12/30/2024 11:10 AM EST Plan of Treatment Upcoming Encounters Date Type Department Care Team (Late st Contact Info) Description 08/19/2025 1:30 PM EDT [facility] [address] [place] [phone] Wilbert Olmstead MD [address] [facility] [address] [place] [phone] Health Maintenance Due Date Last Done Comments DTaP,Tdap,and Td Vaccines (1 - Tdap) 1964 Zoster Vaccines (1 of 2) 1995 RSV [...] Basic metabolic panel (10/13/2024 12:38 PM EST) Pathologist [facility] Sodium 144 133 - 145 mmol/L LAB CHEMISTRY METHOD 10/13/2024 5:20 PM [facility] Potassium 4.7 3.5 - 5.5 mmol/L LAB CHEMISTRY METHOD 10/13/2024 5:20 PM [facility] Chloride 111(H) 96 - 110 mmol/L LAB CHEMISTRY METHOD 10/13/2024 5:20 PM [facility] CO2 26 21 - 32 mmol/L LAB CHEMISTRY METHOD 10/13/2024 5:20 PM [facility] Anion Gap 7 3 - 11 LAB CHEMISTRY METHOD 10/13/2024 5:20 PM [facility] Glucose 120(H) 70 - 100 mg/dL LAB CHEMISTRY METHOD 10/13/2024 5:20 PM [facility] BUN 31(H) 5 - 25 mg/dL LAB CHEMISTRY METHOD 10/13/2024 5:20 PM [facility] Creatinine 1.40(H) 0.50 - 1.10 mg/dL LAB CHEMISTRY METHOD 10/13/2024 5:20 PM [facility] eGFR 38(L) >=60 mL/min/1. 73m2 LAB CHEMISTRY METHOD 10/13/2024 5:20 PM [facility] Comment:Calculation based on the??Chronic Kidney Disease Epidemiology Collaboration (CKD-EPI) equation refit??without adjustment for race. BUN/Creatinine Ratio 22.1 LAB CHEMISTRY METHOD 10/13/2024 5:20 PM EST [facility] Calcium 10.3 8.5 - 10.5 mg/dL LAB CHEMISTRY METHOD 10/13/2024 5:20 PM EST [facility] Blood Venous blood specimen / Unknown Venipuncture / Unknown 10/13/2024 12:38 PM EST 10/13/2024 12:38 PM EST Re Agarwal MD LAB BLOOD ORDERABLES Final Result [facility] [address] [place] [address], [place] [phone] * Lipid panel (01/28/2024) LDL/HDL Ratio 3 0 - 4 Triglycerides 84 0 - 150 mg/dL Cholesterol 131 0 - 200 mg/dL HDL 51 >=40 mg/dL LDL Cholesterol 64 0 - 100 mg/dL Blood Venous blood specimen / Unknown Nathan Montano MD LAB BLOOD ORDERABLES Tori l Result * [...] left femoral neck by WHO criteria. [facility] Department of Internal Medicine recommends using [...] schedule based on joseph De La O., [facility] November 23, 2011 for patients with osteopenia (based on hip BMD T-score) is as follows: * ??advanced osteopenia (T scores -2.00 to -2.49), BMD testing every year * ??moderate osteopenia (T scores -1.50 to -1.99), BMD testing every 5 years mild osteopenia or normal BMD (T scores -1.50 and higher), BMD testing every 15 years Procedure Note Lay Orellana, DO - 12/10/2023 DEXA SCAN: Lumbar Spine T-score [...] left femoral neck by WHO criteria. [facility] Department of Internal Medicine recommendsusing National [...] based on rosalina De La O al., [facility] for patients with osteopenia (based on hip BMD T-score) is as follows: * advanced osteopenia (T scores -2.00 to -2.49), BMD testing every year * moderate osteopenia (T scores -1.50 to -1.99), BMD testing every 5years mild osteopenia or normal BMD (T scores -1.50 and higher), BMD testingevery 15 years Bonnie Florez MD IM DXA PROCEDURES Final Res ult from Last 3 Months or Most Recently Relevant to Health Maintenance Insurance [employer]UE [employer] - [place] MEDICARE ADVANTAGE Advance Directives Documents on File Type Date Recorded Patient Maintenance Planner Expl anation Health Care Decision (hx) 12/19/2017 [...] (hx) 12/19/2017 AD BURNETT DIRECTIVE Care Teams Filemaker Developer Relationship Specialty Start Date End Date Re Agarwal MD [address] [place] [address] PCP - General 01/21/24
--- OUTSIDE RECORDS SUMMARY | 2025-01-02 10:25 | XMS_ITS | Encounter Summary ---
Author Organization [facility] Address [address] [place] [address] Care Team Providers Care Forming And Assembling Supervisor Name Role Phone Edgar Gillette MD Unavailable [phone] Liz Wick MD Primary Care Provider [phone] Re Agarwal MD Primary Care Provider [phone] Encounter Details Date Type Department Care Team Description 05/23/2023 Hospital Medical Records [address] [place] [id number] [place] [address] Social History Tobacco Use Types Packs/Day Years [...] on filedocumented in this encounter Care Teams Forming And Assembling Supervisor Relationship Specialty Start Date End Date Liz Wick MD [address] [place] [address] PCP - General Internal Medicine 04/09/23 01/20/24 Re Agarwal MD [address] [place] [address] PCP - General Internal Medicine 01/21/24 Edgar Gillette MD Transmission Supervisor Cardiology 12/02/19 documented as of this encounter
--- OUTSIDE RECORDS SUMMARY | 2025-01-02 10:25 | XMS_ITS | Encounter Summary ---
Author Organization [facility] Address [address] [place] [address] Care Team Providers Care Picking Belt Operator Name Role Phone Virgie Concepcion MD Primary Care Provider [phone] Bonnie Florez MD Primary Care Provider Unavail able Krista Warren MD Primary Care Provider Sparkle vailable Warner Layne MD Primary Care Provider Warner Layne MD Primary Care Provider Melissa Tapia MD Primary Care Provider Warner Layne MD Primary Care Provider Edgar Gillette MD Unavailable Liz Wick MD Primary Care Provider Re Agarwal MD Primary Care Provider Encounter Details Date Type Department Care Team Description 06/09/2013 SCAN Medical Records [address] [place] [address] Abstract, Provider Social History Tobacco Use Types Packs/Day Years Used Date Smoking Tobacco: Never Assessed Sex Assigned at Date Recorded Not on file Job Start Date Occupation Industry Not on file Not on file Not on file documented as of this encounter Plan of Treatment Not on file documented as of this encounter Procedures Procedure Name Priority Date/Time Associated Diagnosis Comments OUTSIDE VASCULAR STUDY Routine 06/09/2013 documented in this encounter Results * OUTSIDE VASCULAR STUDY (06/09/2013) Provider Default CARDIOLOGY documented in this encounter Visit Diagnoses Not on filedocumented in this encounter Care Teams Picking Belt Operator Relationship Specialty Start Date End Date Virgie Concepcion MD [address] [place] [address] PCP - General 09/04/1999 12/19/16 Bonnie Florez MD [address] [place] [address] PCP - General Internal Medicine 12/20/16 12/11/17 Krista Warren MD [address] [place] [address] PCP - General Internal Medicine 10/10/18 08/24/19 Warner Layne MD [address] [place] [address] PCP - General Internal Medicine 08/25/19 12/22/20 Warner Layne MD [address] [place] [address] PCP - General 12/12/17 10/09/18 Melissa Tapia MD [address] [place] [address] PCP - General Internal Medicine 12/23/20 12/26/20 Warner Layne MD [address] [place] [address] PCP - General Internal Medicine 12/27/20 04/08/23 Liz Wick MD [address] [place] [address] PCP - General Internal Medicine 04/09/23 01/20/24 Re Agarwal MD [address] [place] [address] PCP - General Internal Medicine 01/21/24 Edgar Gillette MD [address] [place] [address] Criminal Investigator Cardiology 12/02/19 documented as of this encounter
--- OUTSIDE RECORDS SUMMARY | 2025-01-02 10:25 | XMS_ITS | Encounter Summary ---
Author Organization [facility] Address [address] [place] [address] Care Team Providers Care Position Classifier Name Role Phone Virgie Concepcion MD Primary Care Provider Bonnie Florez MD Primary Care Provider Unavail able Krista Warren MD Primary Care Provider Sparkle vailable Warner Layne MD Primary Care Provider [phone] Warner Layne MD Primary Care Provider [phone] Mleissa Tapia MD Primary Care Provider Warner Layne MD Primary Care Provider Edgar Gillette MD Unavailable [phone] Liz Wick MD Primary Care Provider [phone] Re Agarwal MD Primary Care Provider [phone] Encounter Details Date Type Department Care Team Description 03/21/2016 Hospital Medical Records [address] [place] [address] Oleksandr, Fernandez Social History Tobacco Use Types [...] on filedocumented in this encounter Care Teams Position Classifier Relationship Specialty Start Date End Date Virgie Concepcion MD [address] [place] [address] PCP - General 09/04/1999 12/19/16 Bonnie Florez MD [address] [place] [address] PCP - General Internal Medicine 12/20/16 12/11/17 Krista Warren MD [address] [place] [address] PCP - General Internal Medicine 10/10/18 08/24/19 Warner Layne MD [address] [place] [address] PCP - General Internal Medicine 08/25/19 12/22/20 Warner Layne MD [address] [place] [address] PCP - General 12/12/17 10/09/18 Melissa Tapia MD [address] [place] [address] PCP - General Internal Medicine 12/23/20 12/26/20 Warner Layne MD [address] [place] [address] PCP - General Internal Medicine 12/27/20 04/08/23 Liz Wick MD [address] [place] [address] PCP - General Internal Medicine 04/09/23 01/20/24 Re Agarwal MD [address] [place] [address] PCP - General Internal Medicine 01/21/24 Edgar Gillette MD [address] [place] [address] Multicultural Services Librarian Cardiology 12/02/19 documented as of this encounter
--- OUTSIDE RECORDS SUMMARY | 2025-01-02 10:25 | XMS_ITS | Encounter Summary ---
Author Organization [facility] Address [address] [place] [address] Care Team Providers Care Button Breaker Name Role Phone Warner Layne MD Primary Care Provider Melissa Tapia MD Primary Care Provider [phone] Warner Layne MD Primary Care Provider [phone] Edgar Gillette MD Unavailable [phone] Liz Wick MD Primary Care Provider [phone] Re Agarwal MD Primary Care Provider [phone] Reason for Visit * Reason Comments E-prescribe Rx Request Encounter Details Date Type Department Care Team Description 10/22/2020 Refill Internal Medicine - [address], [address] [place] [address] Warner Layne MD [address] [place] [address] E-prescribe Rx Request Social History Tobacco Use [...] Miscellaneous Notes * Telephone Encounter - Reena Knolwes M.A. - 10/27/2020 10:00 AM EST Lab [...] on filedocumented in this encounter Care Teams Button Breaker Relationship Specialty Start Date End Date Warner Layne MD PCP - General Internal Medicine 08/25/19 12/22/20 Melissa Tapia MD PCP - General Internal Medicine 12/23/20 12/26/20 Warner Layne MD PCP - General Internal Medicine 12/27/20 04/08/23 Liz Wick MD [address] [place] [address] PCP - General Internal Medicine 04/09/23 01/20/24 Re Agarwal MD [address] [place] [address] PCP - General Internal Medicine 01/21/24 Edgar Gillette MD Washroom Cleaner Cardiology 12/02/19 documented as of this encounter
--- OUTSIDE RECORDS SUMMARY | 2025-01-02 10:25 | XMS_ITS | Encounter Summary ---
Author Organization [facility] Address [address] [place] [address] Care Team Providers Care Hands And Dial Inspector Name Role Phone Warner Layne MD Primary Care Provider [phone] Edgar Gillette MD Unavailable [phone] Liz Wick MD Primary Care Provider [phone] Re Agarwal MD Primary Care Provider [phone] Reason for Visit * Reason Comments E-prescribe Rx Request Encounter Details Date Type Department Care Team Description 06/19/2021 Refill Internal Medicine - [place] [address] [facility], [address] [place] [address] Warner Layne MD [address] [place] [address] E-prescribe Rx Request Social History Tobacco Use [...] Miscellaneous Notes * Telephone Encounter - Cristal THOMAS - 06/23/2021 10:41 AM EDT BP Readings from Last 3 Encounters: 04/28/21 (!) 148/80 01/12/21 (!) 150/80 11/16/20 (!) 154/64 * Telephone Encounter - Yvonne TuckerlionBraden - 06/22/2021 3:29 PM EDT [place] 06/03/21 documented in this encounter Plan of Treatment Not on file documented as of this encounter Visit Diagnoses Not on filedocumented in this encounter Care Teams Hands And Dial Inspector Relationship Specialty Start Date End Date Warner Layne MD PCP - General Internal Medicine 12/27/20 04/08/23 Liz Wick MD [address] [place] [address] PCP - General Internal Medicine 04/09/23 01/20/24 Re Agarwal MD [address] [place] [address] PCP - General Internal Medicine 01/21/24 Edgar Gillette MD Acetylene Cutter Cardiology 12/02/19 documented as of this encounter
--- OUTSIDE RECORDS SUMMARY | 2025-01-02 10:25 | XMS_ITS | Encounter Summary ---
Author Organization [facility] Address [address] [place] [address] Care Team Providers Care Machine Assembler Supervisor Name Role Phone Melissa Tapia MD Primary Care Provider [phone] Warner Layne MD Primary Care Provider [phone] Edgar Gillette MD Unavailable [phone] Liz Wick MD Primary Care Provider [phone] Re Agarwal MD Primary Care Provider [phone] Encounter Details Date Type Department Care Team Description 12/23/2020 Retail Sales Advisor Report Medical Records [address] [place] [address] Kevin Joaquin MD Social History Tobacco Use [...] on filedocumented in this encounter Care Teams Machine Assembler Supervisor Relationship Specialty Start Date End Date Melissa Tapia MD PCP - General Internal Medicine 12/23/20 12/26/20 Warner Layne MD PCP - General Internal Medicine 12/27/20 04/08/23 Liz Wick MD [address] [place] [address] [phone] PCP - General Internal Medicine 04/09/23 01/20/24 Re Agarwal MD [address] [place] [address] PCP - General Internal Medicine 01/21/24 Edgar Gillette MD Customer Energy Specialist Cardiology 12/02/19 documented as of this encounter
--- OUTSIDE RECORDS SUMMARY | 2025-01-02 10:25 | XMS_ITS | Encounter Summary ---
Author Organization [facility] Address [address] [place] [address] Care Team Providers Care Manager Business Intelligence Name Role Phone Bonnie Florez MD Primary Care Provider Unavail able Krista Warren MD Primary Care Provider Sparkle vailable Warner Layne MD Primary Care Provider [phone] Warner Layne MD Primary Care Provider [phone] Melissa Tapia MD Primary Care Provider Warner Layne MD Primary Care Provider Edgar Gillette MD Unavailable [phone] Liz Wick MD Primary Care Provider [phone] Re Agarwal MD Primary Care Provider [phone] Encounter Details Date Type Department Care Team Description 12/25/2016 Release of Information Medical Records [address] [place] [id number] Abstract, Provider Social History Tobacco Use Types [...] filedocumented in this encounter Care Teams Manager Business Intelligence Relationship Specialty Start Date End Date Bonnie [...] Internal Medicine 12/27/20 04/08/23 Liz Wick MD [address] [place] [address] [id number] PCP - General Internal Medicine 04/09/23 01/20/24 Re Agarwal MD [address] [place] [address] PCP - General Internal Medicine 01/21/24 Edgar Gillette MD Telescope Operator Cardiology 12/02/19 documented as of this encounter
--- OUTSIDE RECORDS SUMMARY | 2025-01-02 10:25 | XMS_ITS | Encounter Summary ---
Author Organization [facility] [place] [address] Care Team Providers Care Punch Machine Operator Name Role Phone Re Agarwal MD Primary Care Provider [phone] Reason for Visit * Reason Comments Follow-up Discuss refills Encounter Details Date Type Department Care Team (Late st Contact Info) Description 12/30/2024 11:30 AM EST Office Visit Adult Medicine [facility] [place] [address] [place] [address] Re Agarwal MD [address] [place] [address] Essential hypertension, benign (Primary Dx); Insomnia, unspecified type; Hyperlipidemia, unspecified hyperlipidemia type Social History Tobacco Use Types Packs/Day Years Used Date Smoking Tobacco: Never Smokeless Tobacco: Never Alcohol Use Standard Drinks/Week Comments No 0 (1 standard drink = 0.6 oz pur e alcohol) Comments Unknown Sex and Gender Information Value Date Recorded Sex Assigned at Not on file Legal Sex Female 2:07 PM EST Gender Identity Not on file Sexual Orientation Not on file documented as of this encounter Last Filed Vital Signs Vital Sign Reading [...] Mass Index 24.2 12/30/2024 11:10 AM EST documented in this encounter Patient Instructions * Attachments The following attachments cannot be sent through Care Everywhere. * Diet: DASH (Honduran) * Grieving (Actual/Anticipated) (Honduran) documented in this encounter Ordered Prescriptions Prescription Sig Dispense Quantity Refills Last Filled Start Date End Date amLODIPine (NORVASC) 5 mg tablet Take 1 tablet (5 mg total) by mouth 1 (one) time each day. 90 each 12/30/2024 traZODone (DESYREL) 50 mg tablet Take 1 tablet (50 mg total) by mouth at bedtime as needed for sleep. 30 tablet 2 12/30/2024 5 documented in this encounter Progress Notes * Re Agarwal MD - 12/30/2024 11:30 AM EST PLEASE CALL OFFICE IF BLOOD PRESSURE GREATER THAN 140/90 MEASURE BLOOD PRESSURE DAILY (SIT RELAXED FOR 15 MINUTES BEFORE MEASURING BLOOD PRESSURE) AND WRITEDOWN THE BLOOD PRESSURE READINGS * Re Agarwal MD - 12/30/2024 11:30 AM EST CHIEF COMPLAINT: Follow-up (Discuss refills) IDENTIFIER: Candy Sheldon is a 79 y.o. old female. HPI: 79 yo F comes for follow up: HTN Insmonia Hyperlipidemia ROS: The remainder of review of systems is noncontributory. PAST MEDICAL HISTORY: Patient Active Problem List Diagnosis Date Noted Chronic low back pain 09/24/2024 Insomnia 09/24/2024 Dementia ([facility]) 01/25/2024 Small vessel disease, cerebrovascular 01/25/2024 Right carpal tunnel syndrome 05/04/2023 Trigger index finger of right hand 05/04/2023 Situational syncope 09/01/2021 Dark stools 08/11/2021 Syncope 08/11/2021 Cough 01/07/2020 Epistaxis 01/07/2020 C2 cervical fracture ([facility] [place]) 08/29/2019 Osteopenia 04/25/2017 Cataract 03/14/2017 Chronic left hip pain 03/14/2017 Fibromyalgia 03/14/2017 Hyperlipidemia 03/14/2017 Osteoarthritis 03/14/2017 Short-term memory loss 03/14/2017 Urinary incontinence 03/14/2017 Venous insufficiency 03/14/2017 Essential hypertension, benign 12/22/2016 Gastroesophageal reflux disease 12/22/2016 Severe episode of recurrent major depressive disorder, without psychotic features ([facility]) 12/22/2016 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 SOCIAL HISTORY: Social History Tobacco Use Smoking status: Never Smokeless tobacco: Never Substance Use Topics Alcohol use: No FAMILY HISTORY: Family Status Relation Name Status Mother (Not Specified) Father (Not Specified) Brother (Not Specified) Sister Alive No partnership data on file Family History Problem Relation Name Age of Onset Heart attack Mother DM, Breast Cancer Hypertension Father Bone Cancer, CAD Heart attack Brother Breast cancer Sister ACTIVE MEDICATIONS: Outpatient Medications Marked as Taking for the 12/30/24 encounter (Office Visit) with Re Agarwal MD Medication Sig Dispense Refill acetaminophen (TYLENOL 8 HOUR) 650 mg 8 hr tablet Take 1 Tablet by mouth every 8 hours as needed for Pain. amLODIPine (NORVASC) 5 mg tablet Take 1 tablet (5 mg total) by mouth 1 (one) time each day. 90 each0 ascorbic acid (VITAMIN C) 250 MG chewable tablet Take by mouth. atorvastatin (LIPITOR) 20 mg tablet TAKE 1 TABLET BY MOUTH EVERY DAY 90 tablet 1 cyclobenzaprine (FLEXERIL) 5 mg tablet Take 1 Tablet by mouth daily as needed for Muscle spasms. diclofenac (VOLTAREN) 50 mg EC tablet TAKE 1 TABLET BY MOUTH TWICE A DAY NEEDED FOR PAIN gluc/chondr-msm 7/C/kory/boron (GLUCOSAMINE-CHONDR, BOSWELLIA, ORAL) Take 2 Caps by mouth daily. lidocaine (LIDODERM) 5 % patch Apply 1 patch topically 1 (one) time each day if needed for mild pain or moderate pain. Apply to painful area 12 hours per day, remove for 12 hours. 30 each 2 MULTIVITAMIN ORAL Take 1 Tab by mouth daily. pantoprazole (PROTONIX) 40 mg EC tablet TAKE 1 TABLET BY MOUTH EVERY DAY 90 tablet 1 traZODone (DESYREL) 50 mg tablet Take 1 tablet (50 mg total) by mouth at bedtime as needed for sleep. 30 tablet 2 [DISCONTINUED] amLODIPine (NORVASC) 5 mg tablet Take 1 tablet (5 mg total) by mouth 1 (one) time each day. [DISCONTINUED] atenoloL (TENORMIN) 25 mg tablet TAKE 1 TABLET BY MOUTH EVERY DAY 90 tablet 0 [DISCONTINUED] traZODone (DESYREL) 50 mg tablet Take 1 tablet (50 mg total) by mouth at bedtime as needed for sleep. 30 tablet 2 ALLERGIES: Sulfamethoxazole-trimethoprim, Genaro inhibitors, Acetaminophen, Ampicillin, Aspartame, Clindamycin, Ibuprofen, Nitrofurantoin, Penicillins, Procaine, and Sertraline PHYSICAL EXAM: Blood pressure (!) 162/69, pulse 55, temperature 36.4 ??C (97.6 ??F), resp. rate 12, height 1.626 m(64 ), weight 64 kg (141 lb). Body mass index is 24.2 kg/m??. BMI is 18.5 to 24.9 (within the normal range) and will be followed APPEARANCE: Alert and in no acute distress HEART: RRR with normal S1 and S2, no murmurs, no gallops, no JVD appreciated LUNG: clear to auscultation bilaterally IMPRESSION: 1. Essential hypertension, benign 2. Insomnia, unspecified type 3. Hyperlipidemia, unspecified hyperlipidemia type PLAN: 79 yo F comes for follow up: HTN Insmonia Hyperlipidemia #Hypertension, uncontrolled #Hyperlipidemia #Insomnia Plan: Patient will continue with amlodipine 5 mg daily for hypertension (refill sent) Patient will continue with atenolol 25 mg daily (refill sent) for hypertension Patient will continue with Lipitor 20 mg daily for hyperlipidemia Patient was given refill for trazodone 50 mg nightly as needed for insomnia #Grieving Plan: Patient given information regarding grieving (patient's son recently ) No orders of the defined types were placed in this encounter. ADDITIONAL ORDERS: None Re Agarwal MD on 12/30/2024 at 1:01 PM EST documented in this encounter Plan of Treatment Upcoming Encounters Date Type Department Care Team (Late st Contact Info) Description 08/19/2025 1:30 PM EDT Consult Nephrology - [place] [address] [place] [address] Wilbert Olmstead MD [address] [place] [address] documented as of this encounter Visit Diagnoses Diagnosis Essential hypertension, benign- Primary Insomnia, unspecified type Hyperlipidemia, unspecified hyperlipidemia type documented in this encounter Discontinued Medications Medication Sig Discontinue Reason Start Date End Da te traZODone (DESYREL) 50 mg tablet Take 1 tablet (50 mg total) by mouth at bedtime as needed for sleep. Reorder 10/21/2024 12/30/2024 amLODIPine (NORVASC) 5 mg tablet Take 1 tablet (5 mg total) by mouth 1 (one) time each day. Reorder 12/08/2023 12/30/2024 documented as of this encounter Care Teams Punch Machine Operator Relationship Specialty Start Date End Date Re Agarwal MD [address] [place] [address] PCP - General 01/21/24 documented as of this encounter
== END 2025-01-02 10:42 | disposition home or self-care (01) ==
PROVIDERS: PCP Internal Medicine; Referring Provider Neurological Surgery; Visit Provider Internal Medicine
DX: M46.1 Sacroiliitis, not elsewhere classified (principal); M51.360 Other intervertebral disc degeneration, lumbar region with discogenic back pain only; M79.18 Myalgia, other site
CPT/HCPCS: 20553; 99204

== ENCOUNTER → 2025-01-02 09:38 | Outpatient (BNVA) | payer MEDICARE, SELFPAY | PROVIDERS: PCP Internal Medicine; Referring Provider Neurological Surgery; Visit Provider Internal Medicine | DX: M46.1 Sacroiliitis, not elsewhere classified (principal); M79.18 Myalgia, other site; M51.360 Other intervertebral disc degeneration, lumbar region with discogenic back pain only; M54.50 Low back pain, unspecified | CPT/HCPCS: 20553; 99202; J2795; J3301 ==

== ENCOUNTER 2025-03-19 06:15 | Outpatient (REF) | payer MEDICARE, SELFPAY ==
--- NOTE | ~2025-03-19 | FL_ITS ---
EXAMINATION: FL GUIDANCE ONLY HISTORY: M46.1 - Sacroiliitis, not elsewhere classified COMPARISON: None available. TECHNIQUE: Fluoroscopy time: 0.1 minutes. Cumulative Dose: 2.97 mGy. DAP: 0.0235 mGym2 Images: 2. FINDINGS: Fluoroscopic spot films of the pelvis demonstrate a needle in the region of the the right sacroiliac joint. FL/FL guidance in treatment room IMPRESSION: Fluoroscopy during procedure. Please see procedure report for additional information. Electronically signed by: Ben Mejia MD 03/19/2025 11:46 AM EDT
--- OUTSIDE RECORDS SUMMARY | 2025-03-19 06:18 | XMS_ITS | Encounter Summary ---
Author Organization [facility] Address [address] [place] [address] Care Team Providers Care Video Production Assistant Name Role Phone Edgar Gillette MD Unavailable [phone] Liz Wick MD Primary Care Provider [phone] Re Agarwal MD Primary Care Provider [phone] Encounter Details Date Type Department Care Team Description 11/07/2023 Telephone Adult Medicine [address] [address] Liz Wick MD [address] [place] [address] [phone] Social History Tobacco Use Types Packs/Day Years [...] on filedocumented in this encounter Care Teams Video Production Assistant Relationship Specialty Start Date End Date Liz Wick MD [address] [place] [address] [phone] PCP - General Internal Medicine 04/09/23 01/20/24 Re Agarwal MD [address] [place] [address] PCP - General Internal Medicine 01/21/24 Edgar Gillette MD Polarity Tester Cardiology 12/02/19 documented as of this encounter
--- OUTSIDE RECORDS SUMMARY | 2025-03-19 06:18 | XMS_ITS | Encounter Summary ---
Author Organization [facility] Address [address] [place] [address] Care Team Providers Care Correctional Officer Captain Name Role Phone Warner Layne MD Primary Care Provider [phone] Edgar Gillette MD Unavailable [phone] Liz Wick MD Primary Care Provider [phone] Re Agarwal MD Primary Care Provider [phone] Reason for Referral * EXTERNAL (Priority) - [facility]: Authorized/Booked Specialty Diagnoses / Procedures Referred By Contac t Referred To Contact Cardiology Procedures REFERRAL TO CARDIOLOGY Warner Layne MD [address] [place] [address] [facility] Referral ID Status Reason Start Date Expiration Date V isits Requested Visits Authorized [id number] [facility]: Authorized/B ooked 05/20/2021 05/20/2022 1 1 Reason for Visit * Reason Onset Date Comments Advice 05/20/2021 Provider Call Back 05/20/2021 Encounter Details Date Type Department Care Team Description 05/20/2021 Telephone Adult Medicine [address] [address] Warner Layne MD [address] [place] [address] Advice; Provider Call Back Social History Tobacco [...] on filedocumented in this encounter Care Teams Correctional Officer Captain Relationship Specialty Start Date End Date Warner Layne MD PCP - General Internal Medicine 12/27/20 04/08/23 Liz Wick MD [address] [place] [address] PCP - General Internal Medicine 04/09/23 01/20/24 Re Agarwal MD [address] [place] [address] PCP - General Internal Medicine 01/21/24 Edgar Gillette MD School Principal Cardiology 12/02/19 documented as of this encounter
--- OUTSIDE RECORDS SUMMARY | 2025-03-19 06:18 | XMS_ITS | Encounter Summary ---
Author Organization [facility] Address [address] [place] [address] Care Team Providers Care Leasing Coordinator Name Role Phone Edgar Gillette MD Unavailable [phone] Liz Wick MD Primary Care Provider [phone] Re Agarwal MD Primary Care Provider [phone] Encounter Details Date Type Department Care Team Description 10/17/2023 Electroplater Apprentice Report Medical Records [address] [place] [address] [place] [address] Orthopedic, Surgeons Social History Tobacco Use Types [...] on filedocumented in this encounter Care Teams Leasing Coordinator Relationship Specialty Start Date End Date Liz Wick MD [address] [place] [address] [phone] PCP - General Internal Medicine 04/09/23 01/20/24 Re Agarwal MD [address] [place] [address] [phone] PCP - General Internal Medicine 01/21/24 Edgar Gillette MD Range Operator Cardiology 12/02/19 documented as of this encounter
--- OUTSIDE RECORDS SUMMARY | 2025-03-19 06:18 | XMS_ITS | Encounter Summary ---
Author Organization [facility] Address [address] [place] [address] Care Team Providers Care Oxyhydrogen Welder Name Role Phone Warner Layne MD Primary Care Provider [phone] Edgar Gillette MD Unavailable [phone] Liz Wick MD Primary Care Provider [phone] Re Agarwal MD Primary Care Provider [phone] Reason for Visit * Reason Comments E-prescribe Rx Request Encounter Details Date Type Department Care Team Description 06/10/2022 Refill Internal Medicine - [place] [address] [facility], [address] [place], [place] [id number] Grace Shin PA-C [address] [place] [phone] E-prescribe Rx Request Social History Tobacco Use [...] * Telephone Encounter - Cristal Babb - 06/12/2022 2:48 PM EDT BP Readings from Last 3 Encounters: 05/15/22 (!) 148/78 12/16/21 (!) 142/68 09/16/21 (!) 150/70 * Telephone Encounter - Aida Prasad - 06/12/2022 2:01 PM EDT [place]-05/15/2022 Nov-10/16/2022 documented in this encounter Plan of Treatment Not on file documented as of this encounter Visit Diagnoses Not on filedocumented in this encounter Care Teams Oxyhydrogen Welder Relationship Specialty Start Date End Date Warner Layne MD PCP - General Internal Medicine 12/27/20 04/08/23 Liz Wick MD [address] [place] [address] PCP - General Internal Medicine 04/09/23 01/20/24 Re Agarwal MD [address] [place] [address] PCP - General Internal Medicine 01/21/24 Edgar Gillette MD Casing Tester Cardiology 12/02/19 documented as of this encounter
--- OUTSIDE RECORDS SUMMARY | 2025-03-19 06:18 | XMS_ITS | Encounter Summary ---
Author Organization [facility] Address [address] [place] [address] Care Team Providers Care Retail Selling Specialist Name Role Phone Warner Layne MD Primary Care Provider [phone] Edgar Gillette MD Unavailable [phone] Liz Wick MD Primary Care Provider [phone] Re Agarwal MD Primary Care Provider [phone] Encounter Details Date Type Department Care Team Description 06/14/2022 Fluid Power Mechanic Report Medical Records [address] [place] [address] Carter Koenig Social History Tobacco Use Types [...] on filedocumented in this encounter Care Teams Retail Selling Specialist Relationship Specialty Start Date End Date Warner Layne MD PCP - General Internal Medicine 12/27/20 04/08/23 Liz Wick MD [address] [place], [place] [phone] PCP - General Internal Medicine 04/09/23 01/20/24 Re Agarwal MD [address] [place] [address] PCP - General Internal Medicine 01/21/24 Edgar Gillette MD Transcription Typist Cardiology 12/02/19 documented as of this encounter
--- OUTSIDE RECORDS SUMMARY | 2025-03-19 06:18 | XMS_ITS | Encounter Summary ---
Author Organization [facility] Address [address] [place] [address] Care Team Providers Care Wheelman Name Role Phone Edgar Gillette MD Unavailable [phone] Liz Wick MD Primary Care Provider [phone] Re Agarwal MD Primary Care Provider [phone] Reason for Visit * Reason Onset Date Comments other 09/18/2023 Encounter Details Date Type Department Care Team Description 09/18/2023 Telephone Adult Medicine [address] [phone] Liz Wick MD [address] [place] [address] [phone] other Social History Tobacco Use Types Packs/Day [...] see Dr Jules Daley on 10/17 at [facility] * Telephone Encounter - Pepper Cohn [...] on filedocumented in this encounter Care Teams Wheelman Relationship Specialty Start Date End Date Liz Wick MD [address] [place] [address] PCP - General Internal Medicine 04/09/23 01/20/24 Re Agarwal MD [address] [place] [address] PCP - General Internal Medicine 01/21/24 Edgar Gillette MD Focused Factory Manager Cardiology 12/02/19 documented as of this encounter
--- OUTSIDE RECORDS SUMMARY | 2025-03-19 06:18 | XMS_ITS | Encounter Summary ---
Author Organization [facility] Address [address] [place] [address] Care Team Providers Care Applied Technologist Name Role Phone Warner Layne MD Primary Care Provider Melissa Tapia MD Primary Care Provider Warner Layne MD Primary Care Provider [phone] Edgar Gillette MD Unavailable [phone] Liz Wick MD Primary Care Provider [phone] Re Agarwal MD Primary Care Provider Reason for Visit * Reason Comments E-prescribe Rx Request Encounter Details Date Type Department Care Team Description 06/21/2020 Refill Internal Medicine - [address], [address] [place] [address] Pj Sunshine MD E-prescribe Rx Request Social [...] on filedocumented in this encounter Care Teams Applied Technologist Relationship Specialty Start Date End Date Warner Layne MD PCP - General Internal Medicine 08/25/19 12/22/20 Melissa Tapia MD PCP - General Internal Medicine 12/23/20 12/26/20 Warner Layne MD PCP - General Internal Medicine 12/27/20 04/08/23 Liz Wick MD [address] [place] [address] PCP - General Internal Medicine 04/09/23 01/20/24 Re Agarwal MD [address] [place] [address] PCP - General Internal Medicine 01/21/24 Edgar Gillette MD Cnc Lathe Programmer Cardiology 12/02/19 documented as of this encounter
--- OUTSIDE RECORDS SUMMARY | 2025-03-19 06:18 | XMS_ITS | Encounter Summary ---
Author Organization [facility] Address [address] [place] [address] Care Team Providers Care Immigration Case Manager Name Role Phone Warner Layne MD Primary Care Provider [phone] Edgar Gillette MD Unavailable [phone] Liz Wick MD Primary Care Provider [phone] Re Agarwal MD Primary Care Provider [phone] Reason for Visit * Reason Onset Date Comments refill request 05/30/2022 Encounter Details Date Type Department Care Team Description 05/30/2022 Refill Internal Medicine - [place] [address] [facility], [address] [place] [address] Warner Layne MD [address] [place], [place] [phone] refill request Social History Tobacco Use Types [...] the directions on prescription so patient can car pick up driver from pharmacy today. * Telephone Encounter - [...] POS / Plan: [employer]IL[employer] BLUE $10/$40 [place] [id number] / Product Type: PPO [id number] documented in this encounter Plan of Treatment Not on file documented as of this encounter Visit Diagnoses Not on filedocumented in this encounter Care Teams Immigration Case Manager Relationship Specialty Start Date End Date Warner Layne MD PCP - General Internal Medicine 12/27/20 04/08/23 Liz Wick MD [address] [place] [address] PCP - General Internal Medicine 04/09/23 01/20/24 Re Agarwal MD [address] [place] [address] PCP - General Internal Medicine 01/21/24 Edgar Gillette MD Financial Recording Clerk Cardiology 12/02/19 documented as of this encounter
--- OUTSIDE RECORDS SUMMARY | 2025-03-19 06:18 | XMS_ITS | Encounter Summary ---
Author Organization [facility] Address [address] [place] [address] Care Team Providers Care Building Rigger Name Role Phone Edgar Gillette MD Unavailable [phone] Liz Wick MD Primary Care Provider [phone] Re Agarwal MD Primary Care Provider [phone] Encounter Details Date Type Department Care Team Description 09/28/2023 Orders Only Medical Records [address] [place] [address] Social History Tobacco Use Types Packs/Day Years [...] Chappell MD RADIOLOGY * OUTSIDE CT (08/29/2023) [facility] RADIOLOGY documented in this encounter Visit Diagnoses Not on filedocumented in this encounter Care Teams Building Rigger Relationship Specialty Start Date End Date Liz Wick MD [address] [place] [address] PCP - General Internal Medicine 04/09/23 01/20/24 Re Agarwal MD [address] [place] [address] PCP - General Internal Medicine 01/21/24 Edgar Gillette MD Armature Coil Winder Cardiology 12/02/19 documented as of this encounter
--- OUTSIDE RECORDS SUMMARY | 2025-03-19 06:18 | XMS_ITS | Clinical Summary ---
Author Organization [facility] Address [address] [place] [address] Care Team Providers Care Scrum Product Owner Name Role Phone Edgar Gillette MD Unavailable [phone] Re Agarwal MD Primary Care Provider [phone] Allergies Active Allergy Reactions Severity Noted Date [...] incontinence 03/14/2017 Overview: 2016- urodynamic studies. Uro SUPERVISOR LAST MODEL DEPARTMENT Fibromyalgia 03/14/2017 Venous insufficiency 03/14/2017 Overview: 11/29/2015 [...] Family History Medical History Relation Name Comments [place] Brother Hypertension Father Bone Cancer, [place] D [place] Mother DM, Breast Canc er [place] Breast [...] 08/27/2024, , 04/29/2024, Additional history exists INFLUENZA (Season Ended) 2025 020, 07/09/2019, 08/06/2018, Additional history exists SHINGLES VACCINE (1 of 2) 10/21/2025 Po stponed from 1995 (Other Circumstances) DTAP/TDAP/TD (2 - Td or Tdap) 04/23/2027 04/23/2017 (Refused) CHOLESTEROL SCREENING 01/27/2029 01/28/2024 , 06/15/2023, 08/14/2022, Additional history exists PNEUMOCOCCAL VACCINE Completed 07/09/2019, 05/17/20 16 Care Teams Scrum Product Owner Relationship Specialty Start Date End Date Re Agarwal MD [address] [place] [address] PCP - General Internal Medicine 01/21/24 Edgar Gillette MD Solaris Administrator Cardiology 12/02/19
--- OUTSIDE RECORDS SUMMARY | 2025-03-19 06:18 | XMS_ITS | Encounter Summary ---
Author Organization [facility] Address [address] [place] [address] Care Team Providers Care Millinery Department Manager Name Role Phone Warner Layne MD Primary Care Provider [phone] Melissa Tapia MD Primary Care Provider [phone] Warner Layne MD Primary Care Provider [phone] Edgar Gillette MD Unavailable [phone] Liz Wick MD Primary Care Provider [phone] Re Agarwal MD Primary Care Provider [phone] Reason for Visit * Reason Comments E-prescribe Rx Request Encounter Details Date Type Department Care Team Description 01/16/2020 Refill Internal Medicine - [address], [address] [place] [address] Warner Layne MD [address] [place] [address] E-prescribe Rx Request Social History Tobacco Use [...] N/A Patients current insurance carrier is: Payor: [facility]/MEDICARE PPO / Plan: [facility] MDCR-ADV PPO $20/$40 [place] / Product Type: MEDICARE [id number] documented in this encounter Plan of Treatment Not on file documented as of this encounter Visit Diagnoses Not on filedocumented in this encounter Care Teams Millinery Department Manager Relationship Specialty Start Date End Date Warner Layne MD PCP - General Internal Medicine 08/25/19 12/22/20 Melissa Tapia MD PCP - General Internal Medicine 12/23/20 12/26/20 Warner Layne MD PCP - General Internal Medicine 12/27/20 04/08/23 Liz Wick MD [address] [place] [address] PCP - General Internal Medicine 04/09/23 01/20/24 Re Agarwal MD [address] [place] [address] PCP - General Internal Medicine 01/21/24 Edgar Gillette MD Pin Inserter Regulator Cardiology 12/02/19 documented as of this encounter
--- OUTSIDE RECORDS SUMMARY | 2025-03-19 06:18 | XMS_ITS | Encounter Summary ---
Author Organization [facility] Address [address] [place] [address] Care Team Providers Care Cook Helper Pastry Name Role Phone Warner Layne MD Primary Care Provider [phone] Edgar Gillette MD Unavailable [phone] Liz Wick MD Primary Care Provider [phone] Re Agarwal MD Primary Care Provider [phone] Encounter Details Date Type Department Care Team Description 08/17/2022 Telephone Internal Medicine - [place] [address] [facility], [address] [place] [address] Warner Layne MD [address] [place], [place] [id number] Social History Tobacco Use Types Packs/Day Years [...] encounter Miscellaneous Notes * Telephone Encounter - Latha Diaz M.A. - 08/17/2022 1:55 PM EDT [place] [facility] [place] documented in this encounter Plan of Treatment Not on file documented as of this encounter Visit Diagnoses Not on filedocumented in this encounter Care Teams Cook Helper Pastry Relationship Specialty Start Date End Date Warner Layne MD PCP - General Internal Medicine 12/27/20 04/08/23 Liz Wick MD [address] [place] [address] [id number] PCP - General Internal Medicine 04/09/23 01/20/24 Re Agarwal MD [address] [place] [address] PCP - General Internal Medicine 01/21/24 Edgar Gillette MD Distribution Lead Cardiology 12/02/19 documented as of this encounter
--- OUTSIDE RECORDS SUMMARY | 2025-03-19 06:18 | XMS_ITS | Encounter Summary ---
Author Organization [facility] Address [address] [place] [address] Care Team Providers Care Blast Furnace Supervisor Name Role Phone Edgar Gillette MD Unavailable [phone] Re Agarwal MD Primary Care Provider [phone] Reason for Visit * Reason Onset Date Comments Nurse Triage Follow-up 08/26/2024 Deep red rashes left hand on her thumb and middle fingers Encounter Details Date Type Department Care Team Description 08/26/2024 Telephone Adult Medicine [address] [address] Re Agarwal MD [address] [place] [address] Nurse Triage Follow-up (Deep red rashes left hand on her thumb and middle fingers ) Social History Tobacco Use Types Packs/Day Years [...] Telephone Encounter - Sumaya Jamil R.N. - 08/26/2024 1:57 PM EDT Pt has had a rash on her hands for 2 weeks . Has dry irritated skin which is painful Pt has no chest pain or SOB, she is able to speak in full sentences has no wheezing or stridor, denies any difficulty swallowing, no swelling of face mouth or tongue, she has no joint pains, no N/V/Steve fever, denies any headache or ST, she is not dizzy, rash is red , itchy ,flat in some areas and raised on others , not painful, has tried home care Pt denies any new meds, foods or products Advised home care following the Rash Protocol. RN reinforced telephone consultation and advice. Reviewed with the patient the signs and symptoms to watch for that would require immediate attention. If symptoms change, worsen or increase in intensity, to call back immediately. Pt to see dr Agarwal tomorrow at 8:45 * Telephone Encounter - Karen Hightower - 08/26/2024 1:19 PM EDT Pt is calling due to having two deep red rashes on her left hand she states they have been there for two weeks and that she has tried everything over the counter. Pt states that the rashes are amlittle painful the phone got cought off so I could not finish asking her. documented in this encounter Plan of Treatment Not on file documented as of this encounter Visit Diagnoses Not on filedocumented in this encounter Care Teams Blast Furnace Supervisor Relationship Specialty Start Date End Date Re Agarwal MD [address] [place] [address] PCP - General Internal Medicine 01/21/24 Edgar Gillette MD Collar Separator Cardiology 12/02/19 documented as of this encounter
--- OUTSIDE RECORDS SUMMARY | 2025-03-19 06:18 | XMS_ITS | Encounter Summary ---
Author Organization [facility] Address [address] [place] [address] Care Team Providers Care Brick Washer Name Role Phone Edgar Gillette MD Unavailable [phone] Liz Wick MD Primary Care Provider [phone] Re Agarwal MD Primary Care Provider [phone] Encounter Details Date Type Department Care Team Description 05/23/2023 Hospital Medical Records [address] [place] [id number] [place] [address] Social History Tobacco Use Types Packs/Day Years [...] on filedocumented in this encounter Care Teams Brick Washer Relationship Specialty Start Date End Date Liz Wick MD [address] [place] [address] PCP - General Internal Medicine 04/09/23 01/20/24 Re Agarwal MD [address] [place] [address] PCP - General Internal Medicine 01/21/24 Edgar Gillette MD Picc Nurse Cardiology 12/02/19 documented as of this encounter
--- OUTSIDE RECORDS SUMMARY | 2025-03-19 06:18 | XMS_ITS | Encounter Summary ---
Author Organization [facility] Address [address] [place] [address] Care Team Providers Care Product Safety Lead Name Role Phone Edgar Gillette MD Unavailable [phone] Liz Wick MD Primary Care Provider [phone] Re Agarwal MD Primary Care Provider [phone] Encounter Details Date Type Department Care Team Description 05/23/2023 Orders Only Medical Records [address] [place] [address] Abstract, Provider Social History Tobacco Use Types [...] on filedocumented in this encounter Care Teams Product Safety Lead Relationship Specialty Start Date End Date Liz Wick MD [address] [place] [address] PCP - General Internal Medicine 04/09/23 01/20/24 Re Agarwal MD [address] [place] [address] PCP - General Internal Medicine 01/21/24 Edgar Gillette MD Marketing/Sales Person Cardiology 12/02/19 documented as of this encounter
--- OUTSIDE RECORDS SUMMARY | 2025-03-19 06:18 | XMS_ITS | Encounter Summary ---
Author Organization [facility] Address [address] [place] [address] Care Team Providers Care Hydraulic Pile Hammer Operator Name Role Phone Warner Layne MD Primary Care Provider Melissa Tapia MD Primary Care Provider Warner Layne MD Primary Care Provider [phone] Edgar Gillette MD Unavailable [phone] Liz Wick MD Primary Care Provider [phone] Re Agarwal MD Primary Care Provider [phone] Reason for Visit * Reason Onset Date Comments refill request 09/29/2019 Encounter Details Date Type Department Care Team Description 09/29/2019 Refill Adult Med - [place] [address] [place], [place] [phone] Warner Layne MD [address] [place], [place] [phone] refill request Social History Tobacco Use Types [...] MED LIST AND IS IDENTIFIED BELOW): {MED LIST:58790) Med name: lisinopril Dosage: 10-12.5mg # of tablets: 30 Local pharmacy with request for 30 -day supply Instructions: 1 tab day Did you check the pharmacy information above?: YES Patients current insurance carrier: Payor: [facility]/MEDICARE PPO / Plan: [facility] MDCR- ADV PPO $20/$40 [place] / Product Type: MEDICARE [id number] documented in this encounter Plan of Treatment Not on file documented as of this encounter Visit Diagnoses Not on filedocumented in this encounter Care Teams Hydraulic Pile Hammer Operator Relationship Specialty Start Date End Date Warner Layne MD PCP - General Internal Medicine 08/25/19 12/22/20 Melissa Tapia MD PCP - General Internal Medicine 12/23/20 12/26/20 Warner Layne MD PCP - General Internal Medicine 12/27/20 04/08/23 Liz Wick MD [address] [place] [address] [phone] PCP - General Internal Medicine 04/09/23 01/20/24 Re Agarwal MD [address] [place] [address] [phone] PCP - General Internal Medicine 01/21/24 Edgar Gillette MD Industrial Workers Cardiology 12/02/19 documented as of this encounter
--- OUTSIDE RECORDS SUMMARY | 2025-03-19 06:18 | XMS_ITS | Encounter Summary ---
Author Organization [facility] Address [address] [place] [address] Care Team Providers Care Woven Paper Hat Mender Name Role Phone Warner Layne MD Primary Care Provider [phone] Melissa Tapia MD Primary Care Provider [phone] Warner Layne MD Primary Care Provider [phone] Edgar Gillette MD Unavailable [phone] Liz Wick MD Primary Care Provider [phone] Re Agarwal MD Primary Care Provider [phone] Encounter Details Date Type Department Care Team Description 01/09/2020 [facility] Medical Records [address] [place] [address] Nargis Celaya Social History Tobacco Use Types [...] on filedocumented in this encounter Care Teams Woven Paper Hat Mender Relationship Specialty Start Date End Date Warner Layne MD PCP - General Internal Medicine 08/25/19 12/22/20 Melissa Tapia MD PCP - General Internal Medicine 12/23/20 12/26/20 Warner Layne MD PCP - General Internal Medicine 12/27/20 04/08/23 Liz Wick MD [address] [place] [address] PCP - General Internal Medicine 04/09/23 01/20/24 Re Agarwal MD [address] [place] [address] PCP - General Internal Medicine 01/21/24 Edgar Gillette MD Ultrasonic Hand Solderer Cardiology 12/02/19 documented as of this encounter
--- OUTSIDE RECORDS SUMMARY | 2025-03-19 06:18 | XMS_ITS | Encounter Summary ---
Author Organization [facility] Address [address] [place] [address] Care Team Providers Care Stemhole Borer Name Role Phone Warner Layne MD Primary Care Provider [phone] Edgar Gillette MD Unavailable [phone] Liz Wick MD Primary Care Provider [phone] Re Agarwal MD Primary Care Provider [phone] Encounter Details Date Type Department Care Team Description 02/10/2021 Nut Chopper Report Medical Records [address] [place] [address] Jules Daley Social History Tobacco Use Types [...] on filedocumented in this encounter Care Teams Stemhole Borer Relationship Specialty Start Date End Date Warner Layne MD PCP - General Internal Medicine 12/27/20 04/08/23 Liz Wick MD [address] [place], [place] [phone] PCP - General Internal Medicine 04/09/23 01/20/24 Re Agarwal MD [address] [place] [address] PCP - General Internal Medicine 01/21/24 Edgar Gillette MD Hole Digger Cardiology 12/02/19 documented as of this encounter
--- OUTSIDE RECORDS SUMMARY | 2025-03-19 06:18 | XMS_ITS | Encounter Summary ---
Author Organization [facility] Address [address] [place] [address] Care Team Providers Care Automation/Controls Manager Name Role Phone Edgar Gillette MD Unavailable [phone] Liz Wick MD Primary Care Provider [phone] Re Agarwal MD Primary Care Provider [phone] Encounter Details Date Type Department Care Team Description 05/16/2023 Wool Hat Finisher Report Medical Records [address] [place] [address] Abstract, Provider Social History Tobacco Use Types [...] on filedocumented in this encounter Care Teams Automation/Controls Manager Relationship Specialty Start Date End Date Liz Wick MD [address] [place] [address] [phone] PCP - General Internal Medicine 04/09/23 01/20/24 Re Agarwal MD [address] [place] [address] PCP - General Internal Medicine 01/21/24 Edgar Gillette MD Elastic Attacher Coverstitch Cardiology 12/02/19 documented as of this encounter
--- OUTSIDE RECORDS SUMMARY | 2025-03-19 06:18 | XMS_ITS | Encounter Summary ---
Author Organization [facility] Address [address] [place] [address] Care Team Providers Care Adjunct Physical Education Instructor Name Role Phone Edgar Gillette MD Unavailable [phone] Liz Wick MD Primary Care Provider [phone] Re Agarwal MD Primary Care Provider [phone] Reason for Visit * Reason Comments E-prescribe Rx Request atenolol (TENORMI N) 25 MG tablet Encounter Details Date Type Department Care Team Description 10/31/2023 Refill Adult Medicine [facility] [address] [place] [address] Melissa Dumont PA-C [address] [place] [address] [phone] E-prescribe Rx Request (atenolol (TENORMIN) 25 MG [...] on filedocumented in this encounter Care Teams Adjunct Physical Education Instructor Relationship Specialty Start Date End Date Liz Wick MD [address] [place] [address] PCP - General Internal Medicine 04/09/23 01/20/24 Re Agarwal MD [address] [place] [address] PCP - General Internal Medicine 01/21/24 Edgar Gillette MD Wheelage Clerk Cardiology 12/02/19 documented as of this encounter
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
--- OUTSIDE RECORDS SUMMARY | 2025-03-19 06:18 | XMS_ITS | Encounter Summary ---
Author Organization [facility] Address [address] [place] [address] Care Team Providers Care Agricultural Real Estate Agent Name Role Phone Edgar Gillette MD Unavailable [phone] Re Agarwal MD Primary Care Provider [phone] Encounter Details Date Type Department Care Team Description 07/14/2024 Small Animal Veterinarian Report Medical Records [address] [place] [address] Heber Harry DO Social History Tobacco Use [...] on filedocumented in this encounter Care Teams Agricultural Real Estate Agent Relationship Specialty Start Date End Date Re Agarwal MD [address] [place] [address] PCP - General Internal Medicine 01/21/24 Egdar Gillette MD Credit Specialist Cardiology 12/02/19 documented as of this encounter
--- OUTSIDE RECORDS SUMMARY | 2025-03-19 06:18 | XMS_ITS | Encounter Summary ---
Author Organization [facility] Address [address] [place] [address] Care Team Providers Care Property Custodian Name Role Phone Warner Layne MD Primary Care Provider Melissa Tapia MD Primary Care Provider Warner Layne MD Primary Care Provider Edgar Gillette MD Unavailable [phone] Liz Wick MD Primary Care Provider Re Agarwal MD Primary Care Provider Encounter Details Date Type Department Care Team Description 05/19/2020 Telephone Vascular Surgery - [place] [address] [facility] [address] [place] [address] Avery Sage MD [facility] [address] [facility] [address] [place] [address] Social History Tobacco Use Types Packs/Day Years [...] on filedocumented in this encounter Care Teams Property Custodian Relationship Specialty Start Date End Date Warner Layne MD PCP - General Internal Medicine 08/25/19 12/22/20 Melissa Tapia MD PCP - General Internal Medicine 12/23/20 12/26/20 Warner Layne MD PCP - General Internal Medicine 12/27/20 04/08/23 Liz Wick MD [address] [place] [address] PCP - General Internal Medicine 04/09/23 01/20/24 Re Agarwal MD [address] [place] [address] PCP - General Internal Medicine 01/21/24 Edgar Gillette MD Management Psychologist Cardiology 12/02/19 documented as of this encounter
--- OUTSIDE RECORDS SUMMARY | 2025-03-19 06:18 | XMS_ITS | Encounter Summary ---
Author Organization [facility] Address [address] [place] [address] Care Team Providers Care Educational Technology Coordinator Name Role Phone Virgie Concepcion MD Primary Care Provider Bonnie Florez MD Primary Care Provider Unavail able Krista Warren MD Primary Care Provider Sparkle vailable Warner Layne MD Primary Care Provider Warner Layne MD Primary Care Provider Melissa Tapia MD Primary Care Provider Warner Layne MD Primary Care Provider Edgar Gillette MD Unavailable [phone] Liz Wick MD Primary Care Provider Re Agarwal MD Primary Care Provider Encounter Details Date Type Department Care Team Description 06/09/2013 [facility]AN Medical Records [address] [place] [address] Abstract, Provider Social History Tobacco Use Types [...] on filedocumented in this encounter Care Teams Educational Technology Coordinator Relationship Specialty Start Date End Date Virgie Concepcion MD [address] [place] [address] PCP - General 09/04/1999 12/19/16 Bonnie Florez MD [address] [place] [address] PCP - General Internal Medicine 12/20/16 12/11/17 Krista Warren MD [address] [place] [address] PCP - General Internal Medicine 10/10/18 08/24/19 Warner Layne MD [address] [place] [address] PCP - General Internal Medicine 08/25/19 12/22/20 Warner Layne MD [address] [place] [address] PCP - General 12/12/17 10/09/18 Melissa Tapia MD [address] [place] [address] PCP - General Internal Medicine 12/23/20 12/26/20 Warner Layne MD [address] [place] [address]75 PCP - General Internal Medicine 12/27/20 04/08/23 Liz Wick MD [address] [place] [address] PCP - General Internal Medicine 04/09/23 01/20/24 Re Agarwal MD [address] [place] [address] PCP - General Internal Medicine 01/21/24 Edgar Gillette MD [address] [place] [address] Plastic Production Machine Setter Cardiology 12/02/19 documented as of this encounter
--- OUTSIDE RECORDS SUMMARY | 2025-03-19 06:18 | XMS_ITS | Encounter Summary ---
Author Organization [facility] Address [address] [place] [address] Care Team Providers Care Java Tech Lead Name Role Phone Warner Layne MD Primary Care Provider Melissa Tapia MD Primary Care Provider Warner Layne MD Primary Care Provider [phone] Edgar Gillette MD Unavailable [phone] Liz Wick MD Primary Care Provider [phone] Re Agarwal MD Primary Care Provider [phone] Reason for Visit * Reason Comments E-prescribe Rx Request Encounter Details Date Type Department Care Team Description 12/22/2020 Refill Internal Medicine - [address], [address] [place] [address] Warner Layne MD [address] [place] [address] E-prescribe Rx Request Social History Tobacco Use [...] Miscellaneous Notes * Telephone Encounter - Frances Hadley L.P.N. - 12/28/2020 8:40 AM EST BP Readings from Last 5 Encounters: 11/16/20 (!) 154/64 11/10/20 110/80 12/08/20 (!) 165/90 10/11/20 138/80 06/03/20 118/74 Lab Results Component Value Date NA 141 10/12/2020 K 5.1 10/12/2020 CO2 30 10/12/2020 CL 106 10/12/2020 BUN 18 10/12/2020 CREAT 1.10 10/12/2020 GLU 97 10/12/2020 CA 10.2 10/12/2020 GFR 48 10/12/2020 * Telephone Encounter - Leigha Jalloh - 12/27/2020 4:06 PM EST Patient would like script to be: E-PRESCRIBED/FAXED TO PHARMACY WHEN WAS THE PATIENT'S LAST APPOINTMENT IN ADULT MEDICINE? 10/11/2020 WHEN WAS THE LAST TIME THE PATIENT SAW THEIR PCP? Same as above Does patient have an upcoming appointment? Yes 01/07/2021 (THE MEDICATION REQUESTED IS ON THE MED [...] N/A Patients current insurance carrier is: [place] / Plan: [facility] MDCR-ADV PPO $20/$40 [place] / Product Type: MEDICARE [id number] documented in this encounter Plan of Treatment Not on file documented as of this encounter Visit Diagnoses Not on filedocumented in this encounter Care Teams Java Tech Lead Relationship Specialty Start Date End Date Warner Layne MD PCP - General Internal Medicine 08/25/19 12/22/20 Melissa Tapia MD PCP - General Internal Medicine 12/23/20 12/26/20 Warner Layne MD PCP - General Internal Medicine 12/27/20 04/08/23 Liz Wick MD [address] [place] [address] [phone] PCP - General Internal Medicine 04/09/23 01/20/24 Re Agarwal MD [address] [place] [address] PCP - General Internal Medicine 01/21/24 Edgar Gillette MD Licensed Acupuncturist Cardiology 12/02/19 documented as of this encounter
--- OUTSIDE RECORDS SUMMARY | 2025-03-19 06:18 | XMS_ITS | Encounter Summary ---
Author Organization [facility] Address [address] [place] [address] Care Team Providers Care Pickle Pumper Name Role Phone Warner Layne MD Primary Care Provider Melissa Tapia MD Primary Care Provider [phone] Warner Layne MD Primary Care Provider [phone] Edgar Gillette MD Unavailable [phone] Liz Wick MD Primary Care Provider [phone] Re Agarwal MD Primary Care Provider Encounter Details Date Type Department Care Team Description 09/21/2020 Launch Manager Report Medical Records [address] [place] [address] Abstract, Provider Social History Tobacco Use Types [...] on filedocumented in this encounter Care Teams Pickle Pumper Relationship Specialty Start Date End Date Warner Layne MD PCP - General Internal Medicine 08/25/19 12/22/20 Melissa Tapia MD PCP - General Internal Medicine 12/23/20 12/26/20 Warner Layne MD PCP - General Internal Medicine 12/27/20 04/08/23 Liz Wick MD [address] [place] [address] PCP - General Internal Medicine 04/09/23 01/20/24 Re Agarwal MD [address] [place] [address] PCP - General Internal Medicine 01/21/24 Edgar Gillette MD Address Change Clerk Cardiology 12/02/19 documented as of this encounter
--- OUTSIDE RECORDS SUMMARY | 2025-03-19 06:18 | XMS_ITS | Encounter Summary ---
Author Organization [facility] Address [address] [place] [address] Care Team Providers Care Horticultural Services Supervisor Name Role Phone Virgie Concepcion MD Primary Care Provider Bonnie Florez MD Primary Care Provider Unavail able Krista Warren MD Primary Care Provider Sparkle vailable Warner Layne MD Primary Care Provider [phone] Warner Layne MD Primary Care Provider [phone] Melissa Tapia MD Primary Care Provider Warner Layne MD Primary Care Provider Edgar Gillette MD Unavailable [phone] Liz Wick MD Primary Care Provider [phone] Re Agarwal MD Primary Care Provider [phone] Encounter Details Date Type Department Care Team Description 03/31/2016 Hospital Medical Records [address] [place] [address] Oleksandr, Fernandez Social History Tobacco Use Types [...] on filedocumented in this encounter Care Teams Horticultural Services Supervisor Relationship Specialty Start Date End Date Virgie Concepcion MD [address] [place] [address] PCP - General 09/04/1999 12/19/16 Bonnie Florez MD [address] [place] [address] PCP - General Internal Medicine 12/20/16 12/11/17 Krista Warren MD [address] [place] [address] PCP - General Internal Medicine 10/10/18 08/24/19 Warner Layne MD [address] [place] [address] PCP - General Internal Medicine 08/25/19 12/22/20 Warner Layne MD [address] [place] [address] 57696 PCP - General 12/12/17 10/09/18 Melissa Tapia MD [address] [place] [address] 388[address] PCP - General Internal Medicine 12/23/20 12/26/20 Warner Layne MD [address] [place] [address] PCP - General Internal Medicine 12/27/20 04/08/23 Liz Wick MD [address] [place] [address] PCP - General Internal Medicine 04/09/23 01/20/24 Re Agarwal MD [address] [place] [address] PCP - General Internal Medicine 01/21/24 Edgar Gillette MD [address] [place] [address] Buffing Wheel Presser Cardiology 12/02/19 documented as of this encounter
--- OUTSIDE RECORDS SUMMARY | 2025-03-19 06:18 | XMS_ITS | Encounter Summary ---
Author Organization [facility] Address [address] [place] [address] Care Team Providers Care Drive Worker Name Role Phone Virgie Concepcion MD Primary Care Provider Bonnie Florez MD Primary Care Provider Unavail able Krista Warren MD Primary Care Provider Sparkle vailable Warner Layne MD Primary Care Provider Warner Layne MD Primary Care Provider [phone] Melissa Tapia MD Primary Care Provider Warner Layne MD Primary Care Provider Edgar Gillette MD Unavailable [phone] Liz Wick MD Primary Care Provider [phone] Re Agarwal MD Primary Care Provider [phone] Encounter Details Date Type Department Care Team Description 03/21/2016 Hospital Medical Records [address] [place] [address] Oleksandr, Fernandez Social History Tobacco Use Types [...] on filedocumented in this encounter Care Teams Drive Worker Relationship Specialty Start Date End Date Virgie Concepcion MD [address] [place] [address] 84906 PCP - General 09/04/1999 12/19/16 Bonnie Florez MD [address] [place] [address] 66725 PCP - General Internal Medicine 12/20/16 12/11/17 Krista Warren MD [address] [place] [address] 76516 PCP - General Internal Medicine 10/10/18 08/24/19 Warner Layne MD [address] [place] [address] 77752 PCP - General Internal Medicine 08/25/19 12/22/20 Warner Layne MD [address] [place] [address] 02285 PCP - General 12/12/17 10/09/18 Melissa Tapia MD [address] [place] [address] 46113 PCP - General Internal Medicine 12/23/20 12/26/20 Warner Layne MD [address] [place] [address] 54730 PCP - General Internal Medicine 12/27/20 04/08/23 Liz Wick MD [address] [place] [address] 47991 PCP - General Internal Medicine 04/09/23 01/20/24 Re Agarwal MD [address] [place] [address] 03497 PCP - General Internal Medicine 01/21/24 Edgar Gillette MD [address] [place] [address] Technical Support Engineer Cardiology 12/02/19 documented as of this encounter
--- OUTSIDE RECORDS SUMMARY | 2025-03-19 06:18 | XMS_ITS | Encounter Summary ---
Author Organization [facility] Address [address] [place] [address] Care Team Providers Care Conductor Freight Name Role Phone Warner Layne MD Primary Care Provider [phone] Edgar Gillette MD Unavailable [phone] Liz Wick MD Primary Care Provider [phone] Re Agarwal MD Primary Care Provider [phone] Encounter Details Date Type Department Care Team Description 04/18/2022 Crystalizer Tender Report Medical Records [address] [place] [address] Ben Cook Social History Tobacco Use Types [...] on filedocumented in this encounter Care Teams Conductor Freight Relationship Specialty Start Date End Date Warner Layne MD PCP - General Internal Medicine 12/27/20 04/08/23 Liz Wick MD [address] [place] [address] 52748 PCP - General Internal Medicine 04/09/23 01/20/24 Re Agarwal MD [address] [place] [address] [id number] PCP - General Internal Medicine 01/21/24 Edgar Gillette MD Youth Care Specialist Cardiology 12/02/19 documented as of this encounter
--- OUTSIDE RECORDS SUMMARY | 2025-03-19 06:18 | XMS_ITS | Encounter Summary ---
Author Organization [facility] Address [address] [place] [address] Care Team Providers Care Housekeeping Manager Name Role Phone Edgar Gillette MD Unavailable [phone] Liz Wick MD Primary Care Provider [phone] Re Agarwal MD Primary Care Provider [phone] Reason for Visit * Reason Comments E-prescribe Rx Request Encounter Details Date Type Department Care Team Description 09/19/2023 Refill Adult Medicine [address] [address] Re Agarwal MD [address] [place] [address] E-prescribe Rx Request Social History Tobacco Use [...] Telephone Encounter - Melissa Dumont PA-C - 09/19/2023 2:43 PM EST Ok to fill. FrankArlin * Telephone Encounter - Chanelle Ramirez M.A. - 09/19/2023 2:24 PM EST Last office visit 09/18/23 Next office visit 10/16/23 documented in this encounter Plan of Treatment Not on file documented as of this encounter Visit Diagnoses Not on filedocumented in this encounter Care Teams Housekeeping Manager Relationship Specialty Start Date End Date Liz Wick MD [address] [place] [address] 10848 PCP - General Internal Medicine 04/09/23 01/20/24 Re Agarwal MD [address] [place] [address] 37842 PCP - General Internal Medicine 01/21/24 Edgar Gillette MD Liberal Arts Dean Cardiology 12/02/19 documented as of this encounter
--- OUTSIDE RECORDS SUMMARY | 2025-03-19 06:18 | XMS_ITS | Encounter Summary ---
Author Organization [facility] Address [address] [place] [address] Care Team Providers Care Hip Hop Dancer Name Role Phone Edgar Gillette MD Unavailable [phone] Liz Wick MD Primary Care Provider [phone] Re Agarwal MD Primary Care Provider [phone] Reason for Visit * Reason Onset Date Comments Medication 09/10/2023 Provider Call Back 09/10/2023 Encounter Details Date Type Department Care Team Description 09/10/2023 Telephone Adult Medicine [address] [address] Liz Wick MD [address] [place] [address] [phone] Medication; Provider Call Back Social History Tobacco Use [...] suspected to have Coronavirus/COVID-19? No / Unsure 09/12/2023 2:48 PM EST documented as of this encounter Miscellaneous Notes * Telephone Encounter - Nicole Lawson L.P.N. - 09/11/2023 12:50 PM EST Pt needs an er fu there are no apt in her care team Please advise if I can us a non care team slot Pt needs to be seen sooner than later * Telephone Encounter - Patricia Dumont PA-C - 09/11/2023 12:46 PM EST Appt will only be for medication and she will absolutely need to bring in all her med bottles with her to appt. * Telephone Encounter - Nicole Lawson L.P.N. - 09/11/2023 12:11 PM EST Spoke with pt she is confused about her meds She states she fell a few times a couple weeks ago She states her neck And shoulder are bothering her She did hit her head states she was seen at the er [facility] had ct scan Was neg states she has a hard time remembering things Pt states she thinks it was the later part of aug was not sure Will you see her for er fu as well as a med check apt There are no sooner apt to book with care team please let me know * Telephone Encounter - Patricia Dumont PA-C - 09/11/2023 12:06 PM EST I have sent a prescription for amlodipine 2.5 mg daily. I also called patient's pharmacy to inquireabout her medication filling habits. It appears that she filled Aricept on 07/24 for 3-month supply,atorvastatin in May for 3 months, atenolol in May for 3 months, amlodipine in June for 3 months, Protonix in June for 3 months as well. Pharmacist states most recently, she has filled prescriptions for ibuprofen and amoxicillin. Patient will need sooner appointment to review her medications and check her blood pressure. Patient will need to bring in all of her medication bottles that she has at home to this visit. * Telephone Encounter - Jacinda Babb - 09/11/2023 10:05 AM EST Spoke to patient Blood pressure was 147 / 64 She took it again it was 136/65 States she has not taken anything for bp as she has none left please advise * Telephone Encounter - Jacinda Babb - 09/11/2023 9:13 AM EST Call to patient she states she has taken blood pressure, but doesn't know what the numbers mean, when asked what they were, she states she does not know. I advised patient to take her bp with her machine and I will contact her back. She then asks me if anyone is going to do anything about her bloodpressure? I expalined to her, thus is why I asked her to check her bp-reitrated I will call her baack and the numbers I was looking for etc * Telephone Encounter - Liz Wick MD - 09/10/2023 11:54 AM EST Patient had requested atenolol which was not on her medication list, she was meant to be on amlodipine but patient insisted that she was on atenolol and there was a confusion regarding what medication she is actually on and if it was changed by cardiology. Upon talking to cardiology patient broughtin a list which mention atenolol while she was meant to be on amlodipine so we are not really sure what patient is exactly taking due to her history of dementia. We have tried to talk to her family however we have not been able to get in touch with any of her family members. Since there is a confusion regarding patient's medications, I would advise her to bring in her medication bottles that she has at home. Has she checked her blood pressure at home? If it is elevated then we can start amlodipine 2.5 daily until she sees us * Telephone Encounter - Chanelle Ramirez M.A. - 09/10/2023 11:[address] Wick, Pt does not know why she is not on blood pressure medication anymore. PLEASE SEE PATRICIA DUMONT'S NOTE FROM 07/25/23 Should pt be on Amlodipine? * Telephone Encounter - Eusebia Roblero - 09/10/2023 10:51 AM EST Caller requesting call back from provider: Is the caller the patient? YES If caller is not the patient, what is the callers name? N/A Callers relationship to patient? N/A If person calling is not the patient themselves, is there a verbal release in FYI or permanent comments for this person: NO Reason for call back: Patient states sheb has no medication prescribed snymore for BP. Would like acall back to discuss why. Caller offered to speak with the nurse for assistance: YES Response: Patient offered to speak with nurse for assistance and patient agreed. Message forwarded to nurse. documented in this encounter Plan of Treatment Not on file documented as of this encounter Visit Diagnoses Not on filedocumented in this encounter Care Teams Hip Hop Dancer Relationship Specialty Start Date End Date Liz Wick MD [address] [place] [address] PCP - General Internal Medicine 04/09/23 01/20/24 Re Agarwal MD [address] [place] [address] PCP - General Internal Medicine 01/21/24 Edgar Gillette MD Fiber Design Engineer Cardiology 12/02/19 documented as of this encounter
--- OUTSIDE RECORDS SUMMARY | 2025-03-19 06:18 | XMS_ITS | Encounter Summary ---
Author Organization [facility] Address [address] [place] [address] Care Team Providers Care Residential Collections Name Role Phone Warner Layne MD Primary Care Provider [phone] Melissa Tapia MD Primary Care Provider [phone] Warner Layne MD Primary Care Provider [phone] Edgar Gillette MD Unavailable [phone] Liz Wick MD Primary Care Provider [phone] Re Agarwal MD Primary Care Provider [phone] Encounter Details Date Type Department Care Team Description 11/12/2019 Release of Information Medical Records [address] [place] [address] Abstract, Provider Social History Tobacco Use Types [...] filedocumented in this encounter Care Teams Residential Collections Relationship Specialty Start Date End Date Warner Layne MD PCP - General Internal Medicine 08/25/19 12/22/20 Melissa Tapia MD PCP - General Internal Medicine 12/23/20 12/26/20 Warner Layne MD PCP - General Internal Medicine 12/27/20 04/08/23 Liz Wick MD [address] [place] [address] 89693 PCP - General Internal Medicine 04/09/23 01/20/24 Re Agarwal MD [address] [place] [address]41 PCP - General Internal Medicine 01/21/24 Edgar Gillette MD Sewer Pipe Press Operator Cardiology 12/02/19 documented as of this encounter
--- OUTSIDE RECORDS SUMMARY | 2025-03-19 06:18 | XMS_ITS | Encounter Summary ---
Author Organization [facility] Address [address] [place] [address] Care Team Providers Care Icebox Man Name Role Phone Warner Layne MD Primary Care Provider Melissa Tapia MD Primary Care Provider Warner Layne MD Primary Care Provider Edgar Gillette MD Unavailable [phone] Liz Wick MD Primary Care Provider Re Agarwal MD Primary Care Provider Reason for Visit * Reason Comments E-prescribe Rx Request Encounter Details Date Type Department Care Team Description 08/25/2020 Refill Internal Medicine - [address], [address] [place] [address] Warner Layne MD [address] [place] [address] E-prescribe Rx Request Social History Tobacco Use [...] on filedocumented in this encounter Care Teams Icebox Man Relationship Specialty Start Date End Date Warner Layne MD PCP - General Internal Medicine 08/25/19 12/22/20 Melissa Tapia MD PCP - General Internal Medicine 12/23/20 12/26/20 Warner Layne MD PCP - General Internal Medicine 12/27/20 04/08/23 Liz Wick MD [address] [place] [address] PCP - General Internal Medicine 04/09/23 01/20/24 Re Agarwal MD [address] [place] [address]598 PCP - General Internal Medicine 01/21/24 Edgar Gillette MD Cracker Sprayer Cardiology 12/02/19 documented as of this encounter
--- OUTSIDE RECORDS SUMMARY | 2025-03-19 06:18 | XMS_ITS | Encounter Summary ---
Author Organization [facility] Address [address] [place] [address] Care Team Providers Care Bingo Attendant Name Role Phone Warner Layne MD Primary Care Provider [phone] Edgar Gillette MD Unavailable [phone] Liz Wick MD Primary Care Provider [phone] Re Agarwal MD Primary Care Provider [phone] Encounter Details Date Type Department Care Team Description 08/30/2022 Orders Only Internal Medicine - [place] [address] [facility], [address] [place] [address] Warner Layne MD [address] [place], [place] [id number] Social History Tobacco Use Types Packs/Day Years [...] on filedocumented in this encounter Care Teams Bingo Attendant Relationship Specialty Start Date End Date Warner Layne MD PCP - General Internal Medicine 12/27/20 04/08/23 Liz Wick MD [address] [place] [address] PCP - General Internal Medicine 04/09/23 01/20/24 Re Agarwal MD [address] [place] [address] PCP - General Internal Medicine 01/21/24 Edgar Gillette MD Diet Attendant Cardiology 12/02/19 documented as of this encounter
--- OUTSIDE RECORDS SUMMARY | 2025-03-19 06:18 | XMS_ITS | Encounter Summary ---
Author Organization [facility] Address [address] [place] [address] Care Team Providers Care Shaving Machine Operator Name Role Phone Virgie Concepcion MD Primary Care Provider Bonnie Florez MD Primary Care Provider Unavail able Krista Warren MD Primary Care Provider Sparkle vailable Warner Layne MD Primary Care Provider [phone] Warner Layne MD Primary Care Provider [phone] Melissa Tapia MD Primary Care Provider Warner Layne MD Primary Care Provider Edgar Gillette MD Unavailable [phone] Liz Wick MD Primary Care Provider [phone] Re Agarwal MD Primary Care Provider [phone] Encounter Details Date Type Department Care Team Description 03/31/2016 Hospital Medical Records [address] [place] [address] Oleksandr, Fernandez Social History Tobacco Use Types [...] on filedocumented in this encounter Care Teams Shaving Machine Operator Relationship Specialty Start Date End Date Virgie Concepcion MD [address] [place] [address] PCP - General 09/04/1999 12/19/16 Bonnie Florez MD [address] [place] [address]157 PCP - General Internal Medicine 12/20/16 12/11/17 Krista Warren MD [address] [place] [address] PCP - General Internal Medicine 10/10/18 08/24/19 Warner Layne MD [address] [place] [address]2744 PCP - General Internal Medicine 08/25/19 12/22/20 Warner Layne MD [address] [place] [address] 92438 PCP - General 12/12/17 10/09/18 Melissa Tapia MD [address] [place] [address] 29123 PCP - General Internal Medicine 12/23/20 12/26/20 Warner Layne MD [address] [place] [address] 07726 PCP - General Internal Medicine 12/27/20 04/08/23 Liz Wick MD [address] [place] [address] PCP - General Internal Medicine 04/09/23 01/20/24 Re Agarwal MD [address] [place] [address] 22346 PCP - General Internal Medicine 01/21/24 Edgar Gillette MD [address] [place] [address] Lasting Machine Operator Hand Method Cardiology 12/02/19 documented as of this encounter
--- OUTSIDE RECORDS SUMMARY | 2025-03-19 06:18 | XMS_ITS | Encounter Summary ---
Author Organization [facility] Address [address] [place] [address] Care Team Providers Care Second Crusher Name Role Phone Edgar Gillette MD Unavailable [phone] Liz Wick MD Primary Care Provider [phone] Re Agarwal MD Primary Care Provider [phone] Reason for Visit * Reason Comments E-prescribe Rx Request Encounter Details Date Type Department Care Team Description 05/02/2023 Refill Internal Medicine - [place] [address] [facility], [address] [place] [address] Warner Layne MD [address] [place] [address] E-prescribe Rx Request Social History Tobacco Use [...] POS / Plan: [employer] PPO BLUE $10/$40 [place] [id number] / Product Type: PPO [id number] documented in this encounter Plan of Treatment Not on file documented as of this encounter Visit Diagnoses Not on filedocumented in this encounter Care Teams Second Crusher Relationship Specialty Start Date End Date Liz Wick MD [address] [place] [address]60 PCP - General Internal Medicine 04/09/23 01/20/24 Re Agarwal MD [address] [place] [address]16 PCP - General Internal Medicine 01/21/24 Edgar Gillette MD Wood Gang Sawyer Cardiology 12/02/19 documented as of this encounter
--- OUTSIDE RECORDS SUMMARY | 2025-03-19 06:18 | XMS_ITS | Encounter Summary ---
Author Organization [facility] Address [address] [place] [address] Care Team Providers Care Brine Tank Tender Name Role Phone Warner Layne MD Primary Care Provider [phone] Edgar Gillette MD Unavailable [phone] Liz Wick MD Primary Care Provider [phone] Re Agarwal MD Primary Care Provider [phone] Reason for Visit * Reason Onset Date Comments Medication 09/11/2022 Encounter Details Date Type Department Care Team Description 09/11/2022 Telephone Internal Medicine - [place] [address] [facility], [address] [place] [address] Warner Layne MD [address] [place] [address] Medication Social History Tobacco Use Types Packs/Day [...] * Telephone Encounter - Celine Sherman - 09/12/2022 2:35 PM EST Roverto Cervantes see message down below * Telephone Encounter - Alanna Burris - 09/11/2022 11:30 AM EST Patient called, states had surgery for spine and has discontinued taking celecoxib as she is no longer in pain. FYI. documented in this encounter Plan of Treatment Not on file documented as of this encounter Visit Diagnoses Not on filedocumented in this encounter Care Teams Brine Tank Tender Relationship Specialty Start Date End Date Warner Layne MD PCP - General Internal Medicine 12/27/20 04/08/23 Liz Wick MD [address] [place] [address] [id number] PCP - General Internal Medicine 04/09/23 01/20/24 Re Agarwal MD [address] [place] [address]90 PCP - General Internal Medicine 01/21/24 Edgar Gillette MD Hoisting Engineer Pile Driving Cardiology 12/02/19 documented as of this encounter
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
--- OUTSIDE RECORDS SUMMARY | 2025-03-19 06:18 | XMS_ITS | Encounter Summary ---
Author Organization [facility] Address [address] [place] [address] Care Team Providers Care Door Puller Name Role Phone Warner Layne MD Primary Care Provider Melissa Tapia MD Primary Care Provider [phone] Warner Layne MD Primary Care Provider [phone] Edgar Gillette MD Unavailable [phone] Liz Wick MD Primary Care Provider [phone] Re Agarwal MD Primary Care Provider [phone] Encounter Details Date Type Department Care Team Description 10/13/2020 Orders Only Internal Medicine - [address], [address] [place] [address] Warner Layne MD [address] [place] [address] Social History Tobacco Use Types Packs/Day Years [...] on filedocumented in this encounter Care Teams Door Puller Relationship Specialty Start Date End Date Warner Layne MD PCP - General Internal Medicine 08/25/19 12/22/20 Melissa Tapia MD PCP - General Internal Medicine 12/23/20 12/26/20 Warner Layne MD PCP - General Internal Medicine 12/27/20 04/08/23 Liz Wick MD [address] [place] [address] [id number] PCP - General Internal Medicine 04/09/23 01/20/24 Re Agarwal MD [address] [place] [address] [phone] PCP - General Internal Medicine 01/21/24 Edgar Gillette MD Appliance Counselor Cardiology 12/02/19 documented as of this encounter
--- OUTSIDE RECORDS SUMMARY | 2025-03-19 06:19 | XMS_ITS | Encounter Summary ---
Author Organization [facility] Address [address] [place] [address] Care Team Providers Care Tube Building Machine Operator Name Role Phone Bonnie Florez MD Primary Care Provider Unavail able Krista Warren MD Primary Care Provider Sparkle vailable Warner Layne MD Primary Care Provider [phone] Warner Layne MD Primary Care Provider [phone] Melissa Tapia MD Primary Care Provider Warner Layne MD Primary Care Provider Edgar Gillette MD Unavailable [phone] Liz Wick MD Primary Care Provider [phone] Re Agarwal MD Primary Care Provider [phone] Encounter Details Date Type Department Care Team Description 12/25/2016 Release of Information Medical Records [address] [place] [address] Abstract, Provider Social History Tobacco Use Types [...] on filedocumented in this encounter Care Teams Tube Building Machine Operator Relationship Specialty Start Date End [...] Internal Medicine 12/27/20 04/08/23 Liz Wick MD [address] [place] [address] [id number] PCP - General Internal Medicine 04/09/23 01/20/24 Re Agarwal MD [address] [place] [address] PCP - General Internal Medicine 01/21/24 Edgar Gillette MD Manager Generation Cardiology 12/02/19 documented as of this encounter
--- OUTSIDE RECORDS SUMMARY | 2025-03-19 06:19 | XMS_ITS | Encounter Summary ---
Author Organization [facility] Address [address] [place] [address] Care Team Providers Care Order Administrator Name Role Phone Krista Warren MD Primary Care Provider Sparkle evailable Warner Layne MD Primary Care Provider Melissa Tapia MD Primary Care Provider [phone] Warner Layne MD Primary Care Provider [phone] Edgar Gillette MD Unavailable [phone] Liz Wick MD Primary Care Provider [phone] Re Agarwal MD Primary Care Provider [phone] Encounter Details Date Type Department Care Team Description 05/01/2019 Transfer Records Medical Records [address] [place] [id number] Gene Scales II Social History Tobacco Use [...] on filedocumented in this encounter Care Teams Order Administrator Relationship Specialty Start Date End Date Krista Warren MD PCP - General Internal Medicine 10/10/18 Warner Layne MD PCP - General Internal Medicine 08/25/19 12/22/20 Melissa Tapia MD PCP - General Internal Medicine 12/23/20 12/26/20 Warner Layne MD PCP - General Internal Medicine 12/27/20 04/08/23 Liz Wick MD [address] [place] [address] PCP - General Internal Medicine 04/09/23 01/20/24 Re Agarwal MD [address] [place] [address] PCP - General Internal Medicine 01/21/24 Edgar Gillette MD Pollution Control Technician Cardiology 12/02/19 documented as of this encounter
--- OUTSIDE RECORDS SUMMARY | 2025-03-19 06:19 | XMS_ITS | Clinical Summary ---
Author Organization [facility] Address [address] [place] [address] Phone Care Team Providers Care Call Or Contact Centre Manager Name Role Phone Re Agarwal MD Primary [...] NEEDED FOR PAIN 08/13/20 24 Active gluc/chondr-msm 7/C/kroy/boron (GLUCOSAMINE-MAURA , DESTINY, ORAL) Take 2 Caps by mouth daily. Active MULTIVITAMIN ORAL Take 1 Tab by mouth daily. Active lidocaine (LIDODERM) 5 % patchIndications: Chronic midline low back pain without sciatica Apply 1 patch topically 1 (one) time each day if needed for mild pain or moderate pain. Apply to painful area 12 hours per day, remove for 12 hours. 30 each 2 10/21/20 24 Active atenoloL (TENORMIN) 25 mg tablet TAKE 1 TABLET BY MOUTH EVERY DAY 90 tablet 12/30/19 25 Active atorvastatin (LIPITOR) 20 mg tabletIndications :Mixed hyperlipidemia TAKE 1 TABLET BY MOUTH EVERY DAY 90 tablet 1 12/29/19 25 Active traZODone (DESYREL) 50 mg tablet Take 1 tablet (50 mg total) by mouth at bedtime as needed for sleep. 30 tablet 2 12/30/19 25 025 Active amLODIPine (NORVASC) 5 mg tablet TAKE 1 TABLET BY MOUTH 1 TIME EACH DAY. 90 tablet 02/21/20 25 Active pantoprazole (PROTONIX) 40 mg EC tablet TAKE 1 TABLET BY MOUTH EVERY DAY 90 tablet 02/21/20 25 Active hydrALAZINE (APRESOLINE) 25 mg tablet Take 1 tablet (25 mg total) by mouth 3 (three) times a day. 270 each 03/03/20 25 026 Active pantoprazole (PROTONIX) 40 mg EC tablet TAKE 1 TABLET BY MOUTH EVERY DAY 90 tablet 1 09/16/20 24 025 Discontinued amLODIPine (NORVASC) 5 mg tablet Take 1 tablet (5 mg total) by mouth 1 (one) time each day. 90 each 12/30/19 25 025 Discontinued Active Problems Problem Noted Date Diagnosed Date History of depression 02/27/2025 Elevated serum creatinine 02/27/2025 Prediabetes 02/27/2025 Pedal edema 02/27/2025 Hand paresthesia 02/27/2025 Leg swelling 02/27/2025 Chronic low back pain 09/24/2024 Insomnia 09/24/2024 Dementia ([facility] V24, [facility] V28) 01/25/2024 Small vessel disease, cerebrovascular 01/25/2024 Right carpal tunnel syndrome 05/04/2023 Trigger index finger of right hand 05/04/2023 Situational syncope 09/01/2021 Dark stools 08/11/2021 Syncope 08/11/2021 Cough 01/07/2020 Epistaxis 01/07/2020 C2 cervical fracture ([facility] V24, [facility] V28) 08/29/2019 Overview (08/22/2024): After a fall 06/2016. Osteopenia 04/25/2017 Overview (08/22/2024): On recent DEXA 04/25/2017. Prior h/o osteoperosis Cataract 03/14/2017 Chronic left hip pain 03/14/2017 Fibromyalgia 03/14/2017 Hyperlipidemia 03/14/2017 Osteoarthritis 03/14/2017 Overview (08/22/2024): Lumbosacral Spine, Hips, Knees Short-term memory loss 03/14/2017 Overview (08/22/2024): 2008 - plan for Neuroscience referral.? Referral in 2015 Urinary incontinence 03/14/2017 Overview (08/22/2024): 2015- urodynamic studies. Uro PEARL GLUE DRIER Venous insufficiency 03/14/2017 Overview (08/22/2024): 11/29/2015 Vascular Surgery consult. Compression stockings Essential hypertension, benign 12/22/2016 Gastroesophageal reflux disease 12/22/2016 Severe episode of recurrent major depressive disorder, without psychotic features ([facility] V24, [facility] V28) 12/22/2016 Spondylosis of lumbar region without myelopathy [...] help her, in the past has seen [facility] and Dr. Azimov, has had SI joint injections, lumbar cortisone [...] Patient had MRI lumbar spine 07/04/2024 at [facility] that shows severe degenerative disc disease [...] online, it appears that Dr. Harry and spine and sports did not recommend any [...] Encounters Date Type Department Care Team Description 03/12/2025 Telephone Neurosurgery [place] - [address] [place] [address] Allegra Mc MA Appointment (Received referral from PCP office for consultation. Called Pt and scheduled with PA 03/04/25. Pt was unable to keep appt as she was very ill vomiting that morning. Family called and asked to cancel and reschedule in several days. Called Pt today, 03/12/25 to reschedule. Pt stated she was going to [place] for injection, she believed. She declined making appt at this time. Asked that she call, should she like, in future. ) 03/02/2025 10:45 AM EDT - 03/02/2025 11:59 PM EDT Hospital Encounter Radiology Department - [address] [phone] Leg swelling Discharge Disposition: Home or Self Care 03/02/2025 Telephone Adult [address] [phone] Re Agarwal MD provider call back 02/27/2025 9:30 AM EDT - 02/27/2025 11:59 PM EDT Hospital Encounter XRAY [address] [phone] Pain in both hands; Hand paresthesia Discharge Disposition: Home or Self Care 02/27/2025 8:30 AM EDT Office Visit [address] [phone] Re Agarwal MD Primary hypertension (Primary Dx); Gastroesophageal reflux disease, unspecified whether esophagitis present; History of depression; Chronic midline low back pain without sciatica; Osteoarthritis of lumbar spine, unspecified spinal osteoarthritis complication status; Elevated serum creatinine; Prediabetes; Pain in both hands; Hand paresthesia; Leg swelling; Hyperlipidemia, unspecified hyperlipidemia type; Pedal edema; Memory loss 12/30/2024 11:30 AM EST Office Visit [address] [phone] Re Agarwal MD Essential hypertension, benign (Primary [...] recurrent major depressive disorder, without psychotic features ([facility] V24, [facility] V28) 12/22/2016 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 Urinary incontinence 03/14/2017 2016- urody namic studies. Uro PEARL GLUE DRIER Venous insufficiency 03/14/2017 11/29/2015 V ascular Surgery consult. Compression stockings Osteoarthritis 03/14/2017 Lumbosacral Spin e, Hips, Knees Osteopenia 04/25/2017 : On recent DEXA 04/25/2017. Prior h/o osteoperosis C2 cervical fracture (CMS/ C V24, [facility] V28) 08/29/2019 After a fall 06/2016. Family History Medical History [...] Sign Reading Time Taken Comments Blood Pressure 132/60 02/27/2025 8:59 AM EDT Pulse 60 02/27/2025 8:20 AM EDT Temperature 36.3 ??C (97.4 ??F) 02/27/2025 8:20 AM ED T Respiratory Rate 12 12/30/2024 11:10 AM EST Oxygen Saturation - - Inhaled Oxygen Concentration - - Weight 66.7 kg (147 lb) 02/27/2025 8:20 AM EDT Height 162.6 cm (5' 4 ) 02/27/2025 8:20 AM EDT Body Mass Index 25.23 02/27/2025 8:20 AM EDT Plan of Treatment Upcoming Encounters Date Type Department Care Team (Late st Contact Info) Description 05/29/2025 10:00 AM EDT Office Visit [facility] - [address] [phone] Re Agarwal MD [address] [place] [address] 06/04/2025 10:30 AM EDT Telemedicine [facility] [place] [facility] [address] [place] [phone] Marce Lemons MD [address] [place] [address] 08/19/2025 1:30 PM EDT Consult Nephrology - [address] [phone] Wilbert Olmstead MD [address] [facility] [address] [place] [phone] Health Maintenance Due Date Last Done Comments DTaP,Tdap,and Td Vaccines (1 - Tdap) 1964 Zoster Vaccines (1 of 2) 1995 RSV Immunization Adult Patients (1 - 1-dose 75+ series) 2020 Depression Screening 10/14/2022 Falls Risk Assessment 10/14/2022 Hepatitis C Screening 10/14/2022 Medicare Annual Wellness Visit 10/14/2022 Social Influencers of Health Screening 10/14/2022 COVID-19 Vaccine ( season) 2024 05/28/2024, 09/03/2023, 07/19/2022, Additional history exists Influenza Vaccine (Season Ended) 2025 06/30/2020, 07/09/2019, 08/06/2018, Additional history exists Hypertension/CHF/CAD Annual BMP Blood Test 02/25/2026 02/25/2025, 10/13/2024, 08/27/2024, Additional history exists Osteoporosis Screening (Bone Density Screening) 04/25/2027 04/25/2017 Cholesterol Screening (Lipid Panel) 02/25/2030 02/25/2025, 01/28/2024 Pneumococcal Vaccine: 50+ Years Completed 07/09/2019, [...] age to complete this topic Meningococcal B Vaccine Aged Out No l onger eligible based on patient's age to complete this topic RSV Immunization Patients Under 20 months Aged Out No longer eligible based on patient's age to complete this topic Varicella Vaccines Aged Out No longer eligible based on patient's age to complete this topic Procedures Procedure Name Priority Date/Time Associated Diagnosis Comments VAS US DUPLEX LOWER EXT VENOUS BILAT STAT 03/02/2025 11:12 AM EDT Leg swelling MICROALBUMIN CREATININE URINE RATIO Routine 02/27/2025 10:09 AM EDT Elevated serum creatinine XR HAND 3+ VIEWS BILAT Routine 9:51 AM EDT Pain in both hands Hand paresthesia COMPREHENSIVE METABOLIC PANEL Routine 02/25/2025 12:36 PM EDT Annual physical exam LIPID PANEL WITH REFLEX TO DIRECT LDL Routine 02/25/2025 12:36 PM EDT Annual physical exam THYROID STIMULATING HORMONE WITH REFLEX TO FREE T4 AND FREE T3 Routine 02/25/2025 12:36 PM EDT Annual physical exam HEMOGLOBIN A1C Routine 02/25/2025 12:36 PM EDT Annual physical exam DXA BONE DENSITY STUDY 1+ SITS AXIAL SKEL Routine 04/25/2017 11:43 AM EDT Other specified personal risk factors, not elsewhere classified from Last 3 Months or Most Recently Relevant to Health Maintenance Results * Vascular US duplex lower extremity venous bilateral (03/02/2025 11:12 AM EDT) Anatomical Region Laterality Modality Vascular, Abdomen Ultrasound 03/02/2025 11:1 5 AM EDT Impressions 03/02/2025 11:16 AM EDT No evidence of femoro-popliteal deep venous thrombosis bilaterally. -------- FINAL REPORT -------- Dictated By: Bennett Ochoa Dictated Date: 03/02/2025 11:15 ET Assigned Physician: Bennett Ochoa Reviewed and Electronically Signed By: Bennett Ochoa Signed Date: 03/02/2025 11:16 ET Workstation ID: [id number] Transcribed By: Self Edit Transcribed Date: 03/02/2025 11:15 ET Narrative 03/02/2025 11:16 AM EDT EXAM: GRAYSCALE, COLOR AND DOPPLER VENOUS ULTRASOUND OF THE BILATERAL LOWER EXTREMITIES History: leg swelling evaluate DVT Comparison: No prior similar exams are available for comparison. Technique: Hung-scale, color and pulsed wave Doppler images were obtained. FINDINGS: Unremarkable respiratory variation is present in the common femoral veins. Normal venous flow and compression is demonstrated in the common femoral veins, femoral veins and popliteal veins to the level of the trifurcation. The visualized posterior tibial veins and peroneal veins are patent. Procedure Note Bennett Ochoa MD - 03/02/2025 EXAM: GRAYSCALE, COLOR AND DOPPLER VENOUS ULTRASOUND OF THE BILATERALLOWER EXTREMITIES History: leg swelling evaluate DVT Comparison: No prior similar exams are available for comparison. Technique: Hung-scale, color and pulsed wave Doppler images wereobtained. FINDINGS: Unremarkable respiratory variation is present in the common femoral veins.Normal venous flow and compression is demonstrated in the common femoralveins, femoral veins and popliteal veins to the level of the trifurcation.The visualized posterior tibial veins and peroneal veins are patent. IMPRESSION: No evidence of femoro-popliteal deep venous thrombosis bilaterally. -------- FINAL REPORT -------- Dictated By: Bennett Ochoa Dictated Date: 03/02/2025 11:15 ET Assigned Physician: Bennett Ochoa Reviewed and Electronically Signed By: Bennett Ochoa Signed Date: 03/02/2025 11:16 ET Workstation ID: [id number] Transcribed By: Self Edit Transcribed Date: 03/02/2025 11:15 ET us Re Agarwal MD CV VASCULAR PROCEDURES Tori l Result * Microalbumin creatinine urine ratio (02/27/2025 10:09 AM EDT) Creatinine, Urine 106.0 mg/dL LAB CHEMISTRY METHOD 02/27/2025 2:26 PM EDT [facility] Microalb, Ur 25.5 0.0 - 29.0 mg/L LAB CHEMISTRY METHOD 02/27/2025 2:26 PM EDT [facility] Microalb/Creat Ratio 24 <30 mg/g creat LAB CHEMISTRY METHOD 02/27/2025 2:26 PM EDT [facility] Urine Urine specimen obtained by clean catch procedure / Unknown Non-blood Collection / Unknown 02/27/2025 10:09 AM EDT 02/27/2025 10:09 AM EDT us Re Agarwal MD LAB URINE ORDERABLES Final Result [facility] [address] [place] [address], [place] [phone] * XR Hand 3+ Views bilat (02/27/2025 9:51 AM EDT) Anatomical Region Laterality Modality Upper Extremities, Hand Bilateral Radiogra phic Imaging 02/27/2025 11:2 8 AM EDT Narrative 02/27/2025 11:30 AM EDT Bilateral hands, 3 views of each. History paresthesia. There is no evidence of acute fractures or dislocations. There are are subtle soft tissue calcifications in the regions of the metacarpophalangeal joints ??of the right second third fourth and fifth fingers and left fourth finger. There are mild degenerative changes in the DIP joints of multiple digits. There are mild degenerative changes in the first carpometacarpal joints, slightly more prominent on the right. CONCLUSIONS: No evidence of fractures or dislocations. Mild multisite degenerative changes. Subtle periarticular soft tissue calcifications in the region of the metacarpophalangeal joints as detailed. -------- FINAL REPORT -------- Dictated By: Leandra Recio Dictated Date: 02/27/2025 11:28 ET Assigned Physician: Leandra Recio Reviewed and Electronically Signed By: Leandra Recio Signed Date: 02/27/2025 11:30 ET Workstation ID: [id number] Transcribed By: Self Edit Transcribed Date: 02/27/2025 11:28 ET Procedure Note Leandra Recio MD - 02/27/2025 Bilateral hands, 3 views of each. History paresthesia. There is no evidence of acute fractures or dislocations. There are aresubtle soft tissue calcifications in the regions of themetacarpophalangeal joints of the right second third fourth and fifthfingers and left fourth finger. There are mild degenerative changes in theDIP joints of multiple digits. There are mild degenerative changes in thefirst carpometacarpal joints, slightly more prominent on the right. CONCLUSIONS: No evidence of fractures or dislocations. Mild multisitedegenerative changes. Subtle periarticular soft tissue calcifications inthe region of the metacarpophalangeal joints as detailed. -------- FINAL REPORT -------- Dictated By: Leandra Recio Dictated Date: 02/27/2025 11:28 ET Assigned Physician: Leandra Recio Reviewed and Electronically Signed By: Leandra Recio Signed Date: 02/27/2025 11:30 ET Workstation ID: [id number] Transcribed By: Self Edit Transcribed Date: 02/27/2025 11:28 ET Re Agarwal MD IMG XR PROCEDURES Final Res ult * Thyroid stimulating hormone with reflex to free t4 and free t3 (02/25/2025 12:36 PM EDT) [facility] TSH 2.73 0.40 - 4.00 mcIU/mL LAB CHEMISTRY METHOD 02/25/2025 5:23 PM EDT [facility] Blood Venous blood specimen / Unknown Venipuncture / Unknown 02/25/2025 12:36 PM EDT 02/25/2025 12:36 PM EDT Re Agarwal MD LAB BLOOD ORDERABLES Final Result [facility] [address] [place] [address], [place] [phone] * Lipid panel with reflex to direct LDL (02/25/2025 12:36 PM EDT) Cholesterol 131 0 - 200 mg/dL LAB CHEMISTRY METHOD 02/25/2025 5:02 PM EDT [facility] Triglycerides 110 0 - 150 mg/dL LAB CHEMISTRY METHOD 02/25/2025 5:02 PM EDT [facility] HDL 45 >=40 mg/dL LAB CHEMISTRY METHOD 02/25/2025 5:02 PM EDT [facility] LDL Calculated 64 0 - 100 mg/dL LAB CHEMISTRY METHOD 02/25/2025 5:02 PM EDT [facility] VLDL Cholesterol González 22 mg/dL LAB CHEMISTRY METHOD 02/25/2025 5:02 PM EDT [facility] Non HDL Chol. (LDL+VLDL) 86 <145 mg/dL LAB CHEMISTRY METHOD [facility]2025 [facility] Chol/HDL Ratio 2.9 0.0 - 4.4 LAB CHEMISTRY METHOD 02/25/2025 5:02 PM EDT [facility] Blood Venous blood specimen / Unknown Venipuncture / Unknown 02/25/2025 12:36 PM EDT 02/25/2025 12:36 PM EDT Re Agarwal MD LAB BLOOD ORDERABLES Final Result [facility] [address] [place] [address], * Hemoglobin A1c (02/25/2025 12:36 PM EDT) Pathologist [facility] Hemoglobin A1C 5.9 <6.5 % LAB CHEMISTRY METHOD 02/25/2025 8:02 PM EDT [facility] Mean Bld Glu Estim. 123 mg/dL LAB CHEMISTRY METHOD 02/25/2025 8:02 PM EDT [facility] Blood Venous blood specimen / Unknown Venipuncture / Unknown 02/25/2025 12:36 PM EDT 02/25/2025 12:36 PM EDT us Re Agarwal MD LAB BLOOD ORDERABLES Final Result [facility] [address] [place] [address], [place] [phone] * (ABNORMAL) Comprehensive metabolic panel (02/25/2025 12:36 PM EDT) Pathologist [facility] Sodium 143 133 - 145 mmol/L LAB CHEMISTRY METHOD 02/25/2025 5:01 PM [facility] Potassium 4.7 3.5 - 5.5 mmol/L LAB CHEMISTRY METHOD 02/25/2025 5:01 PM [facility] Chloride 107 96 - 110 mmol/L LAB CHEMISTRY METHOD 02/25/2025 5:01 PM [facility] CO2 30 21 - 32 mmol/L LAB CHEMISTRY METHOD 02/25/2025 5:01 PM [facility] Anion Gap 6 3 - 11 LAB CHEMISTRY METHOD 02/25/2025 5:01 PM [facility] Glucose 105(H) 70 - 100 mg/dL LAB CHEMISTRY METHOD 02/25/2025 5:01 PM [facility] BUN 34(H) 5 - 25 mg/dL LAB CHEMISTRY METHOD 02/25/2025 5:01 PM [facility] Creatinine 1.19(H) 0.50 - 1.10 mg/dL LAB CHEMISTRY METHOD 02/25/2025 5:01 PM [facility] eGFR 47(L) >=60 mL/min/1. 73m2 LAB CHEMISTRY METHOD 02/25/2025 5:01 PM [facility] Comment:Calculation based on the??Chronic Kidney Disease Epidemiology Collaboration (CKD-EPI) equation refit??without adjustment for race. BUN/Creatinine Ratio 28.6 LAB CHEMISTRY METHOD 02/25/2025 5:01 PM EDT [facility] Calcium 9.8 8.5 - 10.5 mg/dL LAB CHEMISTRY METHOD 02/25/2025 5:01 PM EDT [facility] AST (SGOT) 15 10 - 42 unit/L LAB CHEMISTRY METHOD 02/25/2025 5:01 PM [facility] ALT (SGPT) 17 10 - 60 unit/L LAB CHEMISTRY METHOD 02/25[facility]2025 5:01 PM [facility] Alkaline Phosphatase 68 42 - 121 unit/L LAB CHEMISTRY METHOD 02/25/2025 5:01 PM [facility] Total Protein 7.1 6.0 - 8.0 g/dL LAB CHEMISTRY METHOD 02/25/2025 5:01 PM [facility] Albumin 4.1 3.2 - 5.0 g/dL LAB CHEMISTRY METHOD 02/25/2025 5:01 PM [facility] Total Bilirubin 0.6 0.0 - 1.4 mg/dL LAB CHEMISTRY METHOD 02/25/2025 5:01 PM [facility] Blood Venous blood specimen / Unknown Venipuncture / Unknown 02/25/2025 12:36 PM EDT 02/25/2025 12:36 PM EDT us Re Agarwal MD LAB BLOOD ORDERABLES Final Result [facility] [address] [place] [address], * DXA BONE DENSITY STUDY 1+ SITS [...] left femoral neck by WHO criteria. [facility] Department of Internal Medicine recommends [...] testing every 15 years Procedure Note Lay Orellana DO - 12/10/2023 DEXA SCAN: Lumbar Spine [...] left femoral neck by WHO criteria. The [facility] Department of Internal Medicine recommendsusing [...] schedule based on joseph De La O., NEJJanuary 2011 for patients with osteopenia (based on [...] Documents on File Type Date Recorded Patient Workers Compensation Examiner Expl anation Health Care Decision (hx) 12/19/2017 [...] (hx) 12/19/2017 AD BURNETT DIRECTIVE Care Teams Call Or Contact Centre Manager Relationship Specialty Start Date End Date Re Agarwal MD [address] [facility] [place] [address] PCP - General 01/21/24
--- OUTSIDE RECORDS SUMMARY | 2025-03-19 06:19 | XMS_ITS | Encounter Summary ---
Author Organization [facility] Address [address] [place] [address] Care Team Providers Care Infantry Operations Specialist Name Role Phone Bonnie Florez MD Primary Care Provider Unavail able Krista Warren MD Primary Care Provider Sparkle vailable Warner Layne MD Primary Care Provider [phone] Warner Layne MD Primary Care Provider [phone] Melissa Tapia MD Primary Care Provider Warner Layne MD Primary Care Provider [phone] Edgar Gillette MD Unavailable [phone] Liz Wick MD Primary Care Provider [phone] Re Agarwal MD Primary Care Provider [phone] Encounter Details Date Type Department Care Team Description 02/14/2017 Accounting Intern Report Medical Records [address] [place] [id number] Dangelo Elkins MD Social History Tobacco Use Types Packs/Day [...] on filedocumented in this encounter Care Teams Infantry Operations Specialist Relationship Specialty Start Date End Date Bonnie [...] Internal Medicine 12/27/20 04/08/23 Liz Wick MD [address] [place] [id number] PCP - General Internal Medicine 04/09/23 01/20/24 Re Agarwal MD [address] [place] [address] PCP - General Internal Medicine 01/21/24 Edgar Gillette MD Resource Conservation Manager Cardiology 12/02/19 documented as of this encounter
--- OUTSIDE RECORDS SUMMARY | 2025-03-19 06:19 | XMS_ITS | Encounter Summary ---
Author Organization [facility] Address [address] [place] [address] Care Team Providers Care Broadcast Designer Name Role Phone Warner Layne MD Primary Care Provider [phone] Edgar Gillette MD Unavailable [phone] Liz Wick MD Primary Care Provider [phone] Re Agarwal MD Primary Care Provider [phone] Encounter Details Date Type Department Care Team Description 07/19/2021 Glass Technician/Installer Report Medical Records [address] [place] [id number] Heber Harry DO Social History Tobacco Use [...] on filedocumented in this encounter Care Teams Broadcast Designer Relationship Specialty Start Date End Date Warner Layne MD PCP - General Internal Medicine 12/27/20 04/08/23 Liz Wick MD [address] [place], [place] [id number] PCP - General Internal Medicine 04/09/23 01/20/24 Re Agarwal MD [address] [place] [id number] PCP - General Internal Medicine 01/21/24 Edgar Gillette MD [place] [facility] 12/02/19 documented as of this encounter
--- OUTSIDE RECORDS SUMMARY | 2025-03-19 06:19 | XMS_ITS | Encounter Summary ---
Author Organization [facility] Address [address] [place] [address] Care Team Providers Care Special Agent Fbi Name Role Phone Krista Warren MD Primary Care Provider Sparkle eddble Warner Layne MD Primary Care Provider Melissa Tapia MD Primary Care Provider Warner Layne MD Primary Care Provider Edgar Gillette MD Unavailable [phone] Liz Wick MD Primary Care Provider [phone] Re Agarwal MD Primary Care Provider [phone] Encounter Details Date Type Department Care Team Description 05/09/2019 Orders Only Gastroenterology - [place] 175 [facility] [address] [place] [id number] Rancho Tanner MD Flank pain Social History [...] Procedure Name Priority Date/Time Associated Diagnosis Comments [facility] RENAL FUNCTION PANEL Routine 04/07/2019 Flank pain documented in this encounter Results * RENAL FUNCTION PANEL (04/07/2019) 04/07/2019 Rancho Tanner MD LAB [facility] [place] [address] documented in this encounter Visit Diagnoses Diagnosis Flank pain Abdominal pain, unspecified site documented in this encounter Care Teams Special Agent Fbi Relationship Specialty Start Date End Date Krista Warren MD PCP - General Internal Medicine 10/10/18 Warner Layne MD PCP - General Internal Medicine 08/25/19 12/22/20 Melissa Tapia MD PCP - General Internal Medicine 12/23/20 12/26/20 Warner Layne MD PCP - General Internal Medicine 12/27/20 04/08/23 Liz Wick MD [address] [place] [address] [id number] PCP - General Internal Medicine 04/09/23 01/20/24 Re Agarwal MD [address] [place] [address] [phone] PCP - General Internal Medicine 01/21/24 Edgar Gillette MD Bacteriologist Food Cardiology 12/02/19 documented as of this encounter
== END 2025-03-19 06:16 | disposition home or self-care (01) ==
LOC: CF 06:15
PROVIDERS: Visit Provider Internal Medicine
DX: M46.1 Sacroiliitis, not elsewhere classified (principal)
CPT/HCPCS: 27096; J2003; J2795

== ENCOUNTER 2025-03-19 09:21 | Outpatient (AMB) | payer MEDICARE, SELFPAY ==
--- NOTE | 2025-03-19 09:29 | MHC.OFFVIS ---
Vital Signs 03/19/25 09:30 03/19/25 10:40 BP 166/78 H 140/76 H Blood Pressure Location Lt brachial Lt brachial Position Sitting Sitting Respiration 16 16 Pulse 58 60 Pulse Source Pulse Oximeter Pulse Oximeter Pulse Oximetry (%) 99 100 Oxygen Delivery Method Room Air Room Air Intake Visit Reasons: Right Dx SIJ inj Coordinator Of Rehabilitation Services Required: No Allergies ampicillin Allergy (Severe, Verified 03/19/25 09:32) Unknown penicillin V Allergy (Unknown, Verified 03/19/25 09:32) Unknown Sulfa (Sulfonamide Antibiotics) Allergy (Unknown, Verified 03/19/25 09:32) Unknown Medication List - Last Reconciled 03/19/25 by Jodee Jacques LPN atenolol 25 mg PO DAILY atorvastatin 20 mg PO DAILY pantoprazole mg PO DAILY trazodone 50 mg PO BEDTIME HPI HPI Right Dx SIJ inj: Details: Patient presents for scheduled procedure. Denies any recent cough, cold, infection, fever or other significant changes in medical history since last office visit. Reports pain on the left side and would like to proceed with a left diagnostic injection today. She has previously received ropivacaine without any problems. Physical Exam Vital Signs: Last Vital Signs Pulse 58 03/19/25 09:30 Resp 16 03/19/25 09:30 BP 166/78 H 03/19/25 09:30 Pulse Ox 99 03/19/25 09:30 Oxygen Delivery Method Room Air 03/19/25 09:30 Office Procedures AMB Joint Injection/Aspiration Joint Injection/Aspiration Details: Sacroiliac Joint Injection, Left The procedure, its benefits, and its risks were explained and written informed consent was obtained from the patient. Immediately prior to starting the procedure, a time-out safety check was conducted. The patient's identification, procedure name, procedure site, and procedure laterality were confirmed with the patient. ? Patient was placed prone on the fluoroscopy table and the lumbosacral area was prepped using ChloraPrep and draped with sterile draped in standard fashion. The C-arm was rotated in a contralateral oblique fashion until the medial border of the iliac crest no longer foreshadowed the posterior sacroiliac joint line. The skin and subcutaneous tissue was anesthetized using 1 mL of 0.75% plain lidocaine with 1.5-inch 25-gauge needle in the middle region of the joint line.? A 3.5-inch 22-gauge spinal needle with small bend on the tip was slowly advanced towards the joint line, coaxial to the x-ray beam. Once bony content was obtained, the needle was easily slid into the intra-articular space.? Intra-articular needle position was confirmed using lateral fluoroscopy.? A total volume of 2.5mL 0.5% of ropivacaine was injected intra-articularly. The stylet was reinserted and needle was removed. The patient tolerated the procedure well. Patient denied any lower extremity weakness or numbness. Patient was observed for 30 min and was discharged after fulfilling the standard discharge criteria. Coding 24762 - Sacroiliac Procedure code (CPT) selection complete Assessment & Plan Assessment & Plan (1) Bilateral sacroiliitis: Code(s): M46.1 - Sacroiliitis, not elsewhere classified Category: Medical Plan Patient is status post left diagnostic sacroiliac joint injection. Patient tolerated procedure well and was discharged home in stable condition with discharge instructions. All questions were answered. We will follow-up via telephone or in clinic to assess response to therapy. A follow-up appointment was made during today's visit. Orders: Orders [place] guidance in treatment room Today Criselda Warren APRN, CREDIT ADMINISTRATION MANAGER M46.1 - Sacroiliitis, not elsewhere classified AMB Joint Injection/Aspiration Today Delgado Smith MD M46.1 - Sacroiliitis, not elsewhere classified Coding Level of Care Code Procedure Only Diagnoses Bilateral sacroiliitis M46.1 CPT Codes Coding - Joint 9: 59680 - Sacroiliac ([id number])
[2025-03-19 09:30] VITALS: BP 166/78; PULSE 58; RESP 16; O2SAT 99
--- OUTSIDE RECORDS SUMMARY | 2025-03-19 09:56 | XMS_ITS | Encounter Summary ---
Author Organization [facility] Address [address] [place] [address] Care Team Providers Care Bottom Brusher Name Role Phone Warner Layne MD Primary Care Provider [phone] Edgar Gillette MD Unavailable [phone] Liz Wick MD Primary Care Provider [phone] Re Agarwal MD Primary Care Provider [phone] Encounter Details Date Type Department Care Team Description 08/17/2022 Telephone Internal Medicine - [place] 175 [facility], [address] [place] [address] Warner Layne MD [address] [place], [place] [phone] Social History Tobacco Use Types Packs/Day Years [...] 08/17/2022 1:55 PM EDT Unable to leave [facility], phone just rang documented in this encounter Plan of Treatment Not on file documented as of this encounter Visit Diagnoses Not on filedocumented in this encounter Care Teams Bottom Brusher Relationship Specialty Start Date End Date Warner Layne MD PCP - General Internal Medicine 12/27/20 04/08/23 Liz Wick MD [address] [place] [address] [id number] PCP - General Internal Medicine 04/09/23 01/20/24 Re Agarwal MD [address] [place] [address] PCP - General Internal Medicine 01/21/24 Edgar Gillette MD Casing In Line Setter Cardiology 12/02/19 documented as of this encounter
--- OUTSIDE RECORDS SUMMARY | 2025-03-19 09:56 | XMS_ITS | Encounter Summary ---
Author Organization [facility] Address [address] [place] [address] Care Team Providers Care Tubing Assembler Name Role Phone Warner Layne MD Primary Care Provider [phone] Melissa Tapia MD Primary Care Provider [phone] Warner Layne MD Primary Care Provider [phone] Edgar Gillette MD Unavailable [phone] Liz Wick MD Primary Care Provider [phone] Re Agarwal MD Primary Care Provider [phone] Encounter Details Date Type Department Care Team Description 12/02/2019 Senior Clinician Report Medical Records [address] [place] [address] Edgar Gillette MD [address] [place] [address] Social History Tobacco Use Types Packs/Day Years [...] on filedocumented in this encounter Care Teams Tubing Assembler Relationship Specialty Start Date End Date Warner Layne MD PCP - General Internal Medicine 08/25/19 12/22/20 Melissa Tapia MD PCP - General Internal Medicine 12/23/20 12/26/20 Warner Layne MD PCP - General Internal Medicine 12/27/20 04/08/23 Liz Wick MD [address] [place] [address] PCP - General Internal Medicine 04/09/23 01/20/24 Re Agarwal MD [address] [place] [address] PCP - General Internal Medicine 01/21/24 Edgar Gillette MD Typesetting Machine Operator/Tender Cardiology 12/02/19 documented as of this encounter
--- OUTSIDE RECORDS SUMMARY | 2025-03-19 09:56 | XMS_ITS | Encounter Summary ---
Author Organization [facility] Address [address] [place] [address] Care Team Providers Care Full Service Vending Driver Name Role Phone Edgar Gillette MD Unavailable [phone] Re Agarwal MD Primary Care Provider [phone] Encounter Details Date Type Department Care Team Description 06/03/2024 Enrober Report Medical Records [address] [place] [address] Heber Harry DO Social History Tobacco Use [...] on filedocumented in this encounter Care Teams Full Service Vending Driver Relationship Specialty Start Date End Date Re Agarwal MD [address] [place] [address] PCP - General Internal Medicine 01/21/24 Edgar Gillette MD Statistical Methods Professor Cardiology 12/02/19 documented as of this encounter
--- OUTSIDE RECORDS SUMMARY | 2025-03-19 09:56 | XMS_ITS | Encounter Summary ---
Author Organization [facility] Address [address] [place] [address] Care Team Providers Care Surveyor Name Role Phone Edgar Gillette MD Unavailable [phone] Liz Wick MD Primary Care Provider [phone] Re Agarwal MD Primary Care Provider [phone] Encounter Details Date Type Department Care Team Description 10/17/2023 Foot Specialist Report Medical Records [address] [place] [id number] [place] [address] Orthopedic, Surgeons Social History Tobacco Use Types [...] on filedocumented in this encounter Care Teams Surveyor Relationship Specialty Start Date End Date Liz Wick MD [address] [place] [address] [id number] PCP - General Internal Medicine 04/09/23 01/20/24 Re Agarwal MD [address] [place] [address] [phone] PCP - General Internal Medicine 01/21/24 Edgar Gillette MD Sr. Operations Manager Cardiology 12/02/19 documented as of this encounter
--- OUTSIDE RECORDS SUMMARY | 2025-03-19 09:56 | XMS_ITS | Encounter Summary ---
Author Organization [facility] Address [address] [place] [address] Care Team Providers Care Facilities Clerk Name Role Phone Warner Layne MD Primary Care Provider [phone] Edgar Gillette MD Unavailable [phone] Liz Wick MD Primary Care Provider [phone] Re Agarwal MD Primary Care Provider [phone] Reason for Visit * Reason Comments E-prescribe Rx Request Encounter Details Date Type Department Care Team Description 06/14/2022 Refill Internal Medicine - [address], [address] [place] [address] Warner Layne MD [address] [place] [address] E-prescribe Rx Request Social History Tobacco Use [...] on filedocumented in this encounter Care Teams Facilities Clerk Relationship Specialty Start Date End Date Warner Layne MD PCP - General Internal Medicine 12/27/20 04/08/23 Liz Wick MD [address] [place] [address] PCP - General Internal Medicine 04/09/23 01/20/24 Re Agarwal MD [address] [place] [address] PCP - General Internal Medicine 01/21/24 Edgar Gillette MD Whitewasher Cardiology 12/02/19 documented as of this encounter
--- OUTSIDE RECORDS SUMMARY | 2025-03-19 09:56 | XMS_ITS | Encounter Summary ---
Author Organization [facility] Address [address] [place] [address] Care Team Providers Care Underwear Finisher Name Role Phone Warner Layne MD Primary Care Provider [phone] Edgar Gillette MD Unavailable [phone] Liz Wick MD Primary Care Provider [phone] Re Agarwal MD Primary Care Provider [phone] Reason for Visit * Reason Onset Date Comments refill request 05/10/2022 Encounter Details Date Type Department Care Team Description 05/10/2022 Refill Internal Medicine - [address], [address] [place] [address] Warner Layne MD [address] [place] [address] refill request Social History Tobacco Use Types [...] on filedocumented in this encounter Care Teams Underwear Finisher Relationship Specialty Start Date End Date Warner Layne MD PCP - General Internal Medicine 12/27/20 04/08/23 Liz Wick MD [address] [place] [address] PCP - General Internal Medicine 04/09/23 01/20/24 Re Agarwal MD [address] [place] [address] PCP - General Internal Medicine 01/21/24 Edgar Gillette MD Aws Solution Architect Cardiology 12/02/19 documented as of this encounter
--- OUTSIDE RECORDS SUMMARY | 2025-03-19 09:56 | XMS_ITS | Encounter Summary ---
Author Organization [facility] Address [address] [place] [address] Care Team Providers Care Act English Tutor Name Role Phone Edgar Gillette MD Unavailable [phone] Liz Wick MD Primary Care Provider [phone] Re Agarwal MD Primary Care Provider [phone] Encounter Details Date Type Department Care Team Description 10/22/2023 Pot Operator Report Medical Records [address] [place] [address] [address] [facility] Social History Tobacco Use Types [...] on filedocumented in this encounter Care Teams Act English Tutor Relationship Specialty Start Date End Date Liz Wick MD [address] [place] [address] PCP - General Internal Medicine 04/09/23 01/20/24 Re Agarwal MD [address] [place] [address] [phone] PCP - General Internal Medicine 01/21/24 Edgar Gillette MD Coffee Farmer Cardiology 12/02/19 documented as of this encounter
--- OUTSIDE RECORDS SUMMARY | 2025-03-19 09:56 | XMS_ITS | Encounter Summary ---
Author Organization [facility] Address [address] [place] [address] Care Team Providers Care Seam Closer Name Role Phone Warner Layne MD Primary Care Provider [phone] Edgar Gillette MD Unavailable [phone] Liz Wick MD Primary Care Provider [phone] Re Agarwal MD Primary Care Provider [phone] Reason for Visit * Reason Onset Date Comments refill request 05/30/2022 Encounter Details Date Type Department Care Team Description 05/30/2022 Refill Internal Medicine - [place] 175 [facility], [address] [place] [address] Warner Layne MD [address] [place], [place] [id number] refill request Social History Tobacco Use Types [...] the directions on prescription so patient can package pick up from pharmacy today. * Telephone Encounter - [...] POS / Plan: [employer] BLUE $10/$40 [place] [id number] / Product Type: PPO [id number] documented in this encounter Plan of Treatment Not on file documented as of this encounter Visit Diagnoses Not on filedocumented in this encounter Care Teams Seam Closer Relationship Specialty Start Date End Date Warner Layne MD PCP - General Internal Medicine 12/27/20 04/08/23 Liz Wick MD [address] [place] [address] PCP - General Internal Medicine 04/09/23 01/20/24 Re Agarwal MD [address] [place] [address] PCP - General Internal Medicine 01/21/24 Edgar Gillette MD Laborer Petroleum Refinery Cardiology 12/02/19 documented as of this encounter
--- OUTSIDE RECORDS SUMMARY | 2025-03-19 09:56 | XMS_ITS | Encounter Summary ---
Author Organization [facility] Address [address] [place] [address] Care Team Providers Care Sql Tech Name Role Phone Edgar Gillette MD Unavailable [phone] Liz Wick MD Primary Care Provider [phone] Re Agarwal MD Primary Care Provider [phone] Reason for Visit * Reason Comments E-prescribe Rx Request Encounter Details Date Type Department Care Team Description 09/19/2023 Refill Adult Medicine [address] [address] Re Agarwal MD [address] [place] [address] E-prescribe Rx Request Social History Tobacco Use [...] on filedocumented in this encounter Care Teams Sql Tech Relationship Specialty Start Date End Date Liz Wick MD [address] [place] [address] PCP - General Internal Medicine 04/09/23 01/20/24 Re Agarwal MD [address] [place] [address] PCP - General Internal Medicine 01/21/24 Edgar Gillette MD Irrigation Manager Cardiology 12/02/19 documented as of this encounter
--- OUTSIDE RECORDS SUMMARY | 2025-03-19 09:56 | XMS_ITS | Encounter Summary ---
Author Organization [facility] Address [address] [place] [address] Care Team Providers Care Mental Health Aides Teacher Name Role Phone Warner Layne MD Primary Care Provider [phone] Edgar Gillette MD Unavailable [phone] Liz Wick MD Primary Care Provider [phone] Re Agarwal MD Primary Care Provider [phone] Reason for Visit * Reason Comments E-prescribe Rx Request Encounter Details Date Type Department Care Team Description 09/17/2021 Refill Internal Medicine - [place] 175 [facility], [address] [place] [address] Warner Layne MD [address] [place] [address] E-prescribe Rx Request Social History Tobacco Use [...] on filedocumented in this encounter Care Teams Mental Health Aides Teacher Relationship Specialty Start Date End Date Warner Layne MD PCP - General Internal Medicine 12/27/20 04/08/23 Liz Wick MD [address] [place] [address] PCP - General Internal Medicine 04/09/23 01/20/24 Re Agarwal MD [address] [place] [address] PCP - General Internal Medicine 01/21/24 Edgar Gillette MD Wire Products Inspector Cardiology 12/02/19 documented as of this encounter
--- OUTSIDE RECORDS SUMMARY | 2025-03-19 09:56 | XMS_ITS | Encounter Summary ---
Author Organization [facility] Address [address] [place] [address] Care Team Providers Care Insulation Technician Name Role Phone Edgar Gillette MD Unavailable [phone] Liz Wick MD Primary Care Provider [phone] Re Agarwal MD Primary Care Provider [phone] Reason for Visit * Reason Onset Date Comments other 09/18/2023 Encounter Details Date Type Department Care Team Description 09/18/2023 Telephone Adult Medicine [address] [phone] Liz Wick MD [address] [place] [address] [phone] other Social History Tobacco Use Types Packs/Day [...] see Dr Jules Daley on 10/17 at [facility] * Telephone Encounter - Pepper Cohn - [...] on filedocumented in this encounter Care Teams Insulation Technician Relationship Specialty Start Date End Date Liz Wick MD [address] [place] [address] PCP - General Internal Medicine 04/09/23 01/20/24 Re Agarwal MD [address] [place] [address] PCP - General Internal Medicine 01/21/24 Edgar Gillette MD Air Cargo Ground Crew Supervisor Cardiology 12/02/19 documented as of this encounter
--- OUTSIDE RECORDS SUMMARY | 2025-03-19 09:56 | XMS_ITS | Clinical Summary ---
Author Organization [facility] Address [address] [facility] [address] [place] [address] Phone Care Team Providers Care Technical Business Systems Analyst Name Role Phone StefanoRe Primary Care Provider [phone] Allergies Active Allergy Reactions Criticality Noted Date [...] 03/14/2017 Overview (05/21/2024): 2016- urodynamic studies. 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 WORKER Venous insufficiency 03/14/2017 Overview (05/21/2024): 11/29/2015 Vascular [...] Due Date Last Done Comments Influenza Vaccine (Season Ended) 2025 06/30/2020, 07/09/2019, 08/06/2018, Additional history exists Pneumococcal Vaccine: 50+ Years Completed 07/09/2019, 05/17/2016 Hepatitis B Vaccine Aged Out No longe r eligible based on patient's age to complete this topic Insurance [address] [place] [address] [facility] PPO Blue([id number]) Member Subscriber Plan / Payer (Ef fective 2009-Present) Name:Candy Sheldon Relation to Subscriber:Self Name:Candy Sheldon Payer ID:[id number] (NAIC) Type:Not on file Address: [facility] [address] [place] [id number] Medicaid [place] [address] [place] [address] [facility] PPO Blue([id number]) Medicaid [place] Care Teams Technical Business Systems Analyst Relationship Specialty Start Date End Date Re Agarwal PCP - General 02/07/24
--- OUTSIDE RECORDS SUMMARY | 2025-03-19 09:56 | XMS_ITS | Encounter Summary ---
Author Organization [facility] Address [address] [place] [address] Care Team Providers Care Dictaphone Mechanic Name Role Phone Edgar Gillette MD Unavailable [phone] Liz Wick MD Primary Care Provider [phone] Re Agarwal MD Primary Care Provider [phone] Reason for Visit * Reason Comments E-prescribe Rx Request pantoprazole (PRO TONIX) 40 MG tablet Encounter Details Date Type Department Care Team Description 08/25/2023 Refill Adult Medicine [address] [address] Re Agarwal MD [address] [place] [address] [phone] E-prescribe Rx Request (pantoprazole (PROTONIX) 40 MG [...] N/A Patients current insurance carrier is: Payor: [facility]/MEDICARE PPO / Plan: [facility] MDCR-ADV PPO $20/$40 [place] / Product Type: MEDICARE [id number] documented in this encounter Plan of Treatment Not on file documented as of this encounter Visit Diagnoses Diagnosis Primary hypertension Unspecified essential hypertension documented in this encounter Care Teams Dictaphone Mechanic Relationship Specialty Start Date End Date Liz Wick MD [address] [place] [address] PCP - General Internal Medicine 04/09/23 01/20/24 Re Agarwal MD [address] [place] [address] PCP - General Internal Medicine 01/21/24 Edgar Gillette MD Syrup Filterer Cardiology 12/02/19 documented as of this encounter
--- OUTSIDE RECORDS SUMMARY | 2025-03-19 09:56 | XMS_ITS | Encounter Summary ---
Author Organization [facility] Address [address] [place] [address] Care Team Providers Care Tobacco Dipper Name Role Phone Warner Layne MD Primary Care Provider [phone] Edgar Gillette MD Unavailable [phone] Liz Wick MD Primary Care Provider [phone] Re Agarwal MD Primary Care Provider [phone] Encounter Details Date Type Department Care Team Description 06/14/2022 Dynamometer Tester Report Medical Records [address] [place] [address] Carter Koenig Social History Tobacco Use Types [...] on filedocumented in this encounter Care Teams Tobacco Dipper Relationship Specialty Start Date End Date Warner Layne MD PCP - General Internal Medicine 12/27/20 04/08/23 Liz Wick MD [address] [place], [place] [phone] PCP - General Internal Medicine 04/09/23 01/20/24 Re Agarwal MD [address] [place] [address] PCP - General Internal Medicine 01/21/24 Edgar Gillette MD Commanding Officer Garage Cardiology 12/02/19 documented as of this encounter
--- OUTSIDE RECORDS SUMMARY | 2025-03-19 09:56 | XMS_ITS | Encounter Summary ---
Author Organization [facility] Address [address] [place] [address] Care Team Providers Care Rotary Adjuster Name Role Phone Edgar Gillette MD Unavailable [phone] Liz Wick MD Primary Care Provider [phone] Re Agarwal MD Primary Care Provider [phone] Reason for Visit * Reason Onset Date Comments Medication 09/10/2023 Provider Call Back 09/10/2023 Encounter Details Date Type Department Care Team Description 09/10/2023 Telephone Adult Medicine [address] [address] Liz Wick MD [address] [place] [address] [id number] Medication; Provider Call Back Social History Tobacco [...] on filedocumented in this encounter Care Teams Rotary Adjuster Relationship Specialty Start Date End Date Liz Wick MD [address] [place] [address] PCP - General Internal Medicine 04/09/23 01/20/24 Re Agarwal MD [address] [place] [address] PCP - General Internal Medicine 01/21/24 Edgar Gillette MD Offset Plate Maker Cardiology 12/02/19 documented as of this encounter
--- OUTSIDE RECORDS SUMMARY | 2025-03-19 09:56 | XMS_ITS | Encounter Summary ---
Author Organization [facility] Address [address] [place] [address] Care Team Providers Care Dairy Manager Name Role Phone Warner Layne MD Primary Care Provider [phone] Melissa Tapia MD Primary Care Provider [phone] Warner Layne MD Primary Care Provider [phone] Edgar Gillette MD Unavailable [phone] Liz Wick MD Primary Care Provider [phone] Re Agarwal MD Primary Care Provider [phone] Encounter Details Date Type Department Care Team Description 11/12/2019 Release of Information Medical Records [address] [place] [address] Abstract, Provider Social History Tobacco Use Types [...] on filedocumented in this encounter Care Teams Dairy Manager Relationship Specialty Start Date End Date Warner Layne MD PCP - General Internal Medicine 08/25/19 12/22/20 Melissa Tapia MD PCP - General Internal Medicine 12/23/20 12/26/20 Warner Layne MD PCP - General Internal Medicine 12/27/20 04/08/23 Liz Wick MD [address] [place] [address] PCP - General Internal Medicine 04/09/23 01/20/24 Re Agarwal MD [address] [place] [address] PCP - General Internal Medicine 01/21/24 Edgar Gillette MD Pan Cleaner Cardiology 12/02/19 documented as of this encounter
--- OUTSIDE RECORDS SUMMARY | 2025-03-19 09:56 | XMS_ITS | Encounter Summary ---
Author Organization [facility] Address [address] [place] [address] Care Team Providers Care Mold Cleaner Name Role Phone Edgar Gillette MD Unavailable [phone] Liz Wick MD Primary Care Provider [phone] Re Agarwal MD Primary Care Provider [phone] Encounter Details Date Type Department Care Team Description 09/28/2023 Orders Only Medical Records [address] [place] [address] Social History Tobacco Use Types Packs/Day Years [...] Chappell MD RADIOLOGY * OUTSIDE CT (08/29/2023) [facility] RADIOLOGY documented in this encounter Visit Diagnoses Not on filedocumented in this encounter Care Teams Mold Cleaner Relationship Specialty Start Date End Date Liz Wick MD [address] [place] [address] PCP - General Internal Medicine 04/09/23 01/20/24 Re Agarwal MD [address] [place] [address] PCP - General Internal Medicine 01/21/24 Edgar Gillette MD Human Services Instructor Cardiology 12/02/19 documented as of this encounter
--- OUTSIDE RECORDS SUMMARY | 2025-03-19 09:56 | XMS_ITS | Encounter Summary ---
Author Organization [facility] Address [address] [place] [address] Care Team Providers Care Bullet Lubricating Machine Operator Name Role Phone Edgar Gillette MD Unavailable [phone] Re Agarwal MD Primary Care Provider [phone] Reason for Visit * Reason Onset Date Comments Electricians Top Helper Feedback 04/02/2024 Neurology-Dr. Leni varma Encounter Details Date Type Department Care Team Description 04/02/2024 Telephone Adult Medicine [address] [address] Re Agarwal MD [address] [place] [address] Electricians Top Helper Feedback (Neurology-Dr. Joaquin) Social History Tobacco Use [...] Neurology-Dr. Joaquin for dx dementia hx . [facility] dept has been informed that Dr. Joaquin is no longer accepting new patients as he will be retiring in June 2024.I have closed referral. I do see that patient had an appt scheduled on 03/25/[address] Johnson but I am unsure if patient kept that appt. Patient had also been referred to [facility] but that referral was also closed as [facility] does not see for memory issues. I am unsure how you would like to proceed. Thanks, Sonya Referrals Manager Of Security documented in this encounter Plan of Treatment Not on file documented as of this encounter Visit Diagnoses Not on filedocumented in this encounter Care Teams Bullet Lubricating Machine Operator Relationship Specialty Start Date End Date Re Agarwal MD [address] [place] [address] PCP - General Internal Medicine 01/21/24 Edgar Gillette MD Casino Runner Cardiology 12/02/19 documented as of this encounter
--- OUTSIDE RECORDS SUMMARY | 2025-03-19 09:57 | XMS_ITS | Encounter Summary ---
Author Organization [facility] Address [address] [place] [address] Care Team Providers Care Senior Investment Analyst Name Role Phone Warner Layne MD Primary Care Provider [phone] Edgar Gillette MD Unavailable [phone] Liz Wick MD Primary Care Provider [phone] Re Agarwal MD Primary Care Provider [phone] Reason for Visit * Reason Onset Date Comments medication problems 11/28/2022 Encounter Details Date Type Department Care Team Description 11/28/2022 Telephone Internal Medicine - [place] [facility], [address] [place] [address] Warner Layne MD [address] [place], [place] [id number] medication problems Social History Tobacco Use Types [...] on filedocumented in this encounter Care Teams Senior Investment Analyst Relationship Specialty Start Date End Date Warner Layne MD PCP - General Internal Medicine 12/27/20 04/08/23 Liz Wick MD [address] [place] [address] PCP - General Internal Medicine 04/09/23 01/20/24 Re Agarwal MD [address] [place] [address] PCP - General Internal Medicine 01/21/24 Edgar Gillette MD Offset Plate Maker Cardiology 12/02/19 documented as of this encounter
--- OUTSIDE RECORDS SUMMARY | 2025-03-19 09:57 | XMS_ITS | Encounter Summary ---
Author Organization [facility] Address [address] [place] [address] Care Team Providers Care Study Coordinator Name Role Phone Krista Warren MD Primary Care Provider Sparkle evailable Warner Layne MD Primary Care Provider Melissa Tapia MD Primary Care Provider [phone] Warner Layne MD Primary Care Provider [phone] Edgar Gillette MD Unavailable [phone] Liz Wick MD Primary Care Provider [phone] Re Agarwal MD Primary Care Provider [phone] Encounter Details Date Type Department Care Team Description 05/01/2019 Transfer Records Medical Records [address] [place] [address] Gene Scales II Social History Tobacco Use [...] on filedocumented in this encounter Care Teams Study Coordinator Relationship Specialty Start Date End Date Krista Warren MD PCP - General Internal Medicine 10/10/18 Warner Layne MD PCP - General Internal Medicine 08/25/19 12/22/20 Melissa Tapia MD PCP - General Internal Medicine 12/23/20 12/26/20 Warner Layne MD PCP - General Internal Medicine 12/27/20 04/08/23 Liz Wick MD [address] [place] [address] PCP - General Internal Medicine 04/09/23 01/20/24 Re Agarwal MD [address] [place] [address] PCP - General Internal Medicine 01/21/24 Edgar Gillette MD Dog Behaviorist Cardiology 12/02/19 documented as of this encounter
--- OUTSIDE RECORDS SUMMARY | 2025-03-19 09:57 | XMS_ITS | Encounter Summary ---
Author Organization [facility] Address [address] [place] [address] Care Team Providers Care Paving Contractor Name Role Phone Edgar Gillette MD Unavailable [phone] Liz Wick MD Primary Care Provider [phone] Re Agarwal MD Primary Care Provider [phone] Encounter Details Date Type Department Care Team Description 05/23/2023 Orders Only Medical Records [address] [place] [address] Abstract, Provider Social History Tobacco Use Types [...] on filedocumented in this encounter Care Teams Paving Contractor Relationship Specialty Start Date End Date Liz Wick MD [address] [place] [address] PCP - General Internal Medicine 04/09/23 01/20/24 Re Agarwal MD [address] [place] [address] PCP - General Internal Medicine 01/21/24 Edgar Gillette MD Air Chipper Cardiology 12/02/19 documented as of this encounter
--- OUTSIDE RECORDS SUMMARY | 2025-03-19 09:57 | XMS_ITS | Encounter Summary ---
Author Organization [facility] Address [address] [place] [address] Care Team Providers Care Technology Risk Intern Name Role Phone Warner Layne MD Primary Care Provider [phone] Melissa Tapia MD Primary Care Provider [phone] Warner Layne MD Primary Care Provider [phone] Edgar Gillette MD Unavailable [phone] Liz Wick MD Primary Care Provider [phone] Re Agarwal MD Primary Care Provider [phone] Encounter Details Date Type Department Care Team Description 12/21/2020 Button Attaching Machine Operator Report Medical Records [address] [place] [address] Kevin Joaquin MD Social History Tobacco Use [...] on filedocumented in this encounter Care Teams Technology Risk Intern Relationship Specialty Start Date End Date Warner Layne MD PCP - General Internal Medicine 08/25/19 12/22/20 Melissa Tapia MD PCP - General Internal Medicine 12/23/20 12/26/20 Warner Layne MD PCP - General Internal Medicine 12/27/20 04/08/23 Liz Wick MD [address] [place] [address] PCP - General Internal Medicine 04/09/23 01/20/24 Re Agarwal MD [address] [place] [address] PCP - General Internal Medicine 01/21/24 Edgar Gillette MD Hazardous Material Technician Cardiology 12/02/19 documented as of this encounter
--- OUTSIDE RECORDS SUMMARY | 2025-03-19 09:57 | XMS_ITS | Encounter Summary ---
Author Organization [facility] Address [address] [place] [address] Care Team Providers Care Printed Circuit Board Panels Plater Name Role Phone Bonnie Florez MD Primary Care Provider Unavail able Krista Warren MD Primary Care Provider Sparkle vailable Warner Layne MD Primary Care Provider [phone] Warner Layne MD Primary Care Provider [phone] Melissa Tapia MD Primary Care Provider Warner Layne MD Primary Care Provider Edgar Gillette MD Unavailable [phone] Liz Wick MD Primary Care Provider [phone] Re Agarwal MD Primary Care Provider [phone] Encounter Details Date Type Department Care Team Description 12/25/2016 Release of Information Medical Records [address] [place] [address] Abstract, Provider Social History Tobacco Use Types [...] on filedocumented in this encounter Care Teams Printed Circuit Board Panels Plater Relationship Specialty Start Date End Date Bonnie [...] Medicine 12/27/20 04/08/23 Liz Wick MD [address] [place] [address] [id number] PCP - General Internal Medicine 04/09/23 01/20/24 Re Agarwal MD [address] [place] [address] PCP - General Internal Medicine 01/21/24 Edgar Gillette MD Simulation Tech Cardiology 12/02/19 documented as of this encounter
--- OUTSIDE RECORDS SUMMARY | 2025-03-19 09:57 | XMS_ITS | Encounter Summary ---
Author Organization [facility] Address [address] [place] [address] Care Team Providers Care Retail And Restaurant Name Role Phone Edgar Gillette MD Unavailable [phone] Re Agarwal MD Primary Care Provider [phone] Encounter Details Date Type Department Care Team Description 07/08/2024 Orders Only Medical Records [address] [place] [address] Heber Harry DO Social History Tobacco Use [...] filedocumented in this encounter Care Teams Retail And Restaurant Relationship Specialty Start Date End Date Re Agarwal MD [address] [place] [address] PCP - General Internal Medicine 01/21/24 Edgar Gillette MD Cylinder Handler Cardiology 12/02/19 documented as of this encounter
--- OUTSIDE RECORDS SUMMARY | 2025-03-19 09:57 | XMS_ITS | Encounter Summary ---
Author Organization [facility] Address [address] [place] [address] Care Team Providers Care Postulant Name Role Phone Virgie Concepcion MD Primary Care Provider Bonnie Florez MD Primary Care Provider Unavail able Krista Warren MD Primary Care Provider Sparkle vailable Warner Layne MD Primary Care Provider [phone] Warner Layne MD Primary Care Provider [phone] Melissa Tapia MD Primary Care Provider Warner Layne MD Primary Care Provider Edgar Gillette MD Unavailable [phone] Liz Wick MD Primary Care Provider [phone] Re Agarwal MD Primary Care Provider [phone] Encounter Details Date Type Department Care Team Description 03/31/2016 Hospital Medical Records [address] [place] [address] Oleksandr, Fernandez Social History Tobacco Use Types [...] on filedocumented in this encounter Care Teams Postulant Relationship Specialty Start Date End Date Virgie Concepcion MD [address] [place] [address] PCP - General 09/04/1999 12/19/16 Bonnie Florez MD [address] [place] [address] PCP - General Internal Medicine 12/20/16 12/11/17 Krista Warren MD [address] [place] [address] PCP - General Internal Medicine 10/10/18 08/24/19 Warner Layne MD [address] [place] [address] PCP - General Internal Medicine 08/25/19 12/22/20 Warner Layne MD [address] [place] [address] PCP - General 12/12/17 10/09/18 Melissa Tapia MD [address] [place] [address] PCP - General Internal Medicine 12/23/20 12/26/20 Warner Layne MD [address] [place] [address] PCP - General Internal Medicine 12/27/20 04/08/23 Liz Wick MD [address] [place] [address] PCP - General Internal Medicine 04/09/23 01/20/24 Re Agarwal MD [address] [place] [address] PCP - General Internal Medicine 01/21/24 Edgar Gillette MD [address] [place] [address] Weaver Axminster Cardiology 12/02/19 documented as of this encounter
--- OUTSIDE RECORDS SUMMARY | 2025-03-19 09:57 | XMS_ITS | Encounter Summary ---
Author Organization [facility] Address [address] [place] [address] Care Team Providers Care Chronometer Tester Name Role Phone Warner Layne MD Primary Care Provider [phone] Edgar Gillette MD Unavailable [phone] Liz Wick MD Primary Care Provider [phone] Re Agarwal MD Primary Care Provider [phone] Encounter Details Date Type Department Care Team Description 11/28/2022 Orders Only Internal Medicine - [place] [address] [facility], [address] [place] [address] Warner Layne MD [address] [place], [place] [id number] Social History Tobacco Use Types Packs/Day Years [...] on filedocumented in this encounter Care Teams Chronometer Tester Relationship Specialty Start Date End Date Warner Layne MD PCP - General Internal Medicine 12/27/20 04/08/23 Liz Wick MD [address] [place] [address] PCP - General Internal Medicine 04/09/23 01/20/24 Re Agarwal MD [address] [place] [address] PCP - General Internal Medicine 01/21/24 Edgar Gillette MD Floor Layer Tile Cardiology 12/02/19 documented as of this encounter
--- OUTSIDE RECORDS SUMMARY | 2025-03-19 09:57 | XMS_ITS | Encounter Summary ---
Author Organization [facility] Address [address] [place] [address] Care Team Providers Care Bridge Toll Collector Name Role Phone Warner Layne MD Primary Care Provider Melissa Tapia MD Primary Care Provider Warner Layne MD Primary Care Provider [phone] Edgar Gillette MD Unavailable [phone] Liz Wick MD Primary Care Provider [phone] Re Agarwal MD Primary Care Provider Reason for Visit * Reason Comments E-prescribe Rx Request Encounter Details Date Type Department Care Team Description 06/21/2020 Refill Internal Medicine - [address], [address] [place] [address] Pj Sunshine MD E-prescribe Rx Request Social [...] on filedocumented in this encounter Care Teams Bridge Toll Collector Relationship Specialty Start Date End Date Warner Layne MD PCP - General Internal Medicine 08/25/19 12/22/20 Melissa Tapia MD PCP - General Internal Medicine 12/23/20 12/26/20 Warner Layne MD PCP - General Internal Medicine 12/27/20 04/08/23 Liz Wick MD [address] [place] [address] PCP - General Internal Medicine 04/09/23 01/20/24 Re Agarwal MD [address] [place] [address] PCP - General Internal Medicine 01/21/24 Edgar Gillette MD Varnish Dipper Cardiology 12/02/19 documented as of this encounter
--- OUTSIDE RECORDS SUMMARY | 2025-03-19 09:57 | XMS_ITS | Encounter Summary ---
Author Organization [facility] Address [address] [place] [address] Care Team Providers Care Access Services Assistant Name Role Phone Edgar Gillette MD Unavailable [phone] Re Agarwal MD Primary Care Provider [phone] Reason for Visit * Reason Onset Date Comments medication problems 06/20/2024 ramelteon (R OZEREM) 8 MG tablet Encounter Details Date Type Department Care Team Description 06/20/2024 Telephone Adult Medicine [address] [address] Re Agarwal MD [address] [place] [address] medication problems (ramelteon (ROZEREM) 8 MG tablet) [...] on filedocumented in this encounter Care Teams Access Services Assistant Relationship Specialty Start Date End Date Re Agarwal MD [address] [place] [address] PCP - General Internal Medicine 01/21/24 Edgar Gillette MD Fisher Cardiology 12/02/19 documented as of this encounter
--- OUTSIDE RECORDS SUMMARY | 2025-03-19 09:57 | XMS_ITS | Encounter Summary ---
Author Organization [facility] Address [address] [place] [address] Care Team Providers Care C Iron Worker Name Role Phone Warner Layne MD Primary Care Provider [phone] Edgar Gillette MD Unavailable [phone] Liz Wick MD Primary Care Provider [phone] Re Agarwal MD Primary Care Provider [phone] Encounter Details Date Type Department Care Team Description 08/30/2022 Orders Only Internal Medicine - [place] [address] [facility], [address] [place] [address] Warner Layne MD [address] [place], [place] [address] Social History Tobacco Use Types Packs/Day Years [...] on filedocumented in this encounter Care Teams C Iron Worker Relationship Specialty Start Date End Date Warner Layne MD PCP - General Internal Medicine 12/27/20 04/08/23 Liz Wick MD [address] [place] [address] PCP - General Internal Medicine 04/09/23 01/20/24 Re Agarwal MD [address] [place] [address] PCP - General Internal Medicine 01/21/24 Edgar Gillette MD Instrumentation And Controls Technician Cardiology 12/02/19 documented as of this encounter
--- OUTSIDE RECORDS SUMMARY | 2025-03-19 09:57 | XMS_ITS | Encounter Summary ---
Author Organization [facility] Address [address] [place] [address] Care Team Providers Care Manager Retirement Name Role Phone Warner Layne MD Primary Care Provider [phone] Edgar Gillette MD Unavailable [phone] Liz Wick MD Primary Care Provider [phone] Re Agarwal MD Primary Care Provider [phone] Encounter Details Date Type Department Care Team Description 05/20/2021 Telephone Adult Medicine [address] [address] Warner Layne MD [address] [place], [place] [phone] Social History Tobacco Use Types Packs/Day Years [...] filedocumented in this encounter Care Teams Manager Retirement Relationship Specialty Start Date End Date Warner Layne MD PCP - General Internal Medicine 12/27/20 04/08/23 Liz Wick MD [address] [place] [address] PCP - General Internal Medicine 04/09/23 01/20/24 Re Agarwal MD [address] [place] [address] PCP - General Internal Medicine 01/21/24 Edgar Gillette MD Ict Business Analyst Cardiology 12/02/19 documented as of this encounter
--- OUTSIDE RECORDS SUMMARY | 2025-03-19 09:57 | XMS_ITS | Encounter Summary ---
Author Organization [facility] Address [address] [place] [address] Care Team Providers Care Nursing Clerk Name Role Phone Warner Layne MD Primary Care Provider [phone] Melissa Tapia MD Primary Care Provider [phone] Warner Layne MD Primary Care Provider [phone] Edgar Gillette MD Unavailable [phone] Liz Wick MD Primary Care Provider [phone] Re Agarwal MD Primary Care Provider [phone] Encounter Details Date Type Department Care Team Description 01/10/2020 [facility] Medical Records [address] [place] [address] Vasiliy Pina, VICE CHANCELLOR Social History Tobacco Use Types Packs/Day Years [...] on filedocumented in this encounter Care Teams Nursing Clerk Relationship Specialty Start Date End Date Warner Layne MD PCP - General Internal Medicine 08/25/19 12/22/20 Melissa Tapia MD PCP - General Internal Medicine 12/23/20 12/26/20 Warner Layne MD PCP - General Internal Medicine 12/27/20 04/08/23 Liz Wick MD [address] [place] [address] PCP - General Internal Medicine 04/09/23 01/20/24 Re Agarwal MD [address] [place] [address] PCP - General Internal Medicine 01/21/24 Edgar Gillette MD Drywaller Cardiology 12/02/19 documented as of this encounter
--- OUTSIDE RECORDS SUMMARY | 2025-03-19 09:57 | XMS_ITS | Encounter Summary ---
Author Organization [facility] Address [address] [place] [address] Care Team Providers Care Music Leader Name Role Phone Edgar Gillette MD Unavailable [phone] Liz Wick MD Primary Care Provider [phone] Re Agarwal MD Primary Care Provider [phone] Encounter Details Date Type Department Care Team Description 05/23/2023 Hospital Medical Records [address] [place] [address] Miki James Social History Tobacco Use Types [...] on filedocumented in this encounter Care Teams Music Leader Relationship Specialty Start Date End Date Liz Wick MD [address] [place] [address] [phone] PCP - General Internal Medicine 04/09/23 01/20/24 Re Agarwal MD [address] [place] [address] [id number] PCP - General Internal Medicine 01/21/24 Edgar Gillette MD Cabin Furnishings Installer Cardiology 12/02/19 documented as of this encounter
--- OUTSIDE RECORDS SUMMARY | 2025-03-19 09:57 | XMS_ITS | Encounter Summary ---
Author Organization [facility] Address [address] [place] [address] Care Team Providers Care Annual Campaign Manager Name Role Phone Edgar Gillette MD Unavailable [phone] Liz Wick MD Primary Care Provider [phone] Re Agarwal MD Primary Care Provider [phone] Encounter Details Date Type Department Care Team Description 05/23/2023 Hospital Medical Records [address] [place] [address] Jeniffer Allred NP Social History Tobacco Use [...] on filedocumented in this encounter Care Teams Annual Campaign Manager Relationship Specialty Start Date End Date Liz Wick MD [address] [place] [address] PCP - General Internal Medicine 04/09/23 01/20/24 Re Agarwal MD [address] [place] [address] [phone] PCP - General Internal Medicine 01/21/24 Edgar Gillette MD Videographer Cardiology 12/02/19 documented as of this encounter
--- OUTSIDE RECORDS SUMMARY | 2025-03-19 09:57 | XMS_ITS | Encounter Summary ---
Author Organization [facility] Address [address] [place] [address] Care Team Providers Care Beading Machine Operator Name Role Phone Warner Layne MD Primary Care Provider Melissa Tapia MD Primary Care Provider Warner Layne MD Primary Care Provider [phone] Edgar Gillette MD Unavailable [phone] Liz Wick MD Primary Care Provider [phone] Re Agarwal MD Primary Care Provider [phone] Encounter Details Date Type Department Care Team Description 10/13/2020 Orders Only Internal Medicine - [address], [address] [place] [address] Warner Layne MD [address] [place] [address] Social History Tobacco Use Types Packs/Day Years [...] on filedocumented in this encounter Care Teams Beading Machine Operator Relationship Specialty Start Date End Date Warner Layne MD PCP - General Internal Medicine 08/25/19 12/22/20 Melissa Tapia MD PCP - General Internal Medicine 12/23/20 12/26/20 Warner Layne MD PCP - General Internal Medicine 12/27/20 04/08/23 Liz Wick MD [address] [place] [address] [id number] PCP - General Internal Medicine 04/09/23 01/20/24 Re Agarwal MD [address] [place] [address] [id number] PCP - General Internal Medicine 01/21/24 Edgar Gillette MD Dairy Frozen Manager Cardiology 12/02/19 documented as of this encounter
--- OUTSIDE RECORDS SUMMARY | 2025-03-19 09:57 | XMS_ITS | Encounter Summary ---
Author Organization [facility] Address [address] [place] [address] Care Team Providers Care Mechanical Technologist Name Role Phone Warner Layne MD Primary Care Provider Melissa Tapia MD Primary Care Provider [phone] Warner Layne MD Primary Care Provider Edgar Gillette MD Unavailable [phone] Liz Wick MD Primary Care Provider Re Agarwal MD Primary Care Provider Reason for Visit * Reason Comments E-prescribe Rx Request Encounter Details Date Type Department Care Team Description 08/25/2020 Refill Internal Medicine - [address], [address] [place] [address] Warner Layne MD [address] [place] [address] E-prescribe Rx Request Social History Tobacco Use [...] on filedocumented in this encounter Care Teams Mechanical Technologist Relationship Specialty Start Date End Date Warner Layne MD PCP - General Internal Medicine 08/25/19 12/22/20 Melissa Tapia MD PCP - General Internal Medicine 12/23/20 12/26/20 Warner Layne MD PCP - General Internal Medicine 12/27/20 04/08/23 Liz Wick MD [address] [place] [address] PCP - General Internal Medicine 04/09/23 01/20/24 Re Agarwal MD [address] [place] [address] PCP - General Internal Medicine 01/21/24 Edgar Gillette MD Turbine Technician Cardiology 12/02/19 documented as of this encounter
--- OUTSIDE RECORDS SUMMARY | 2025-03-19 09:57 | XMS_ITS | Clinical Summary ---
Author Organization [facility] Address [address] [place] [address] Care Team Providers Care Depositing Machine Operator Name Role Phone Edgar Gillette MD Unavailable [phone] Re Agarwal MD Primary Care Provider [phone] Allergies Active Allergy Reactions Severity Noted Date [...] incontinence 03/14/2017 Overview: 2016- urodynamic studies. Uro DATA SUPPORT ANALYST Fibromyalgia 03/14/2017 Venous insufficiency 03/14/2017 Overview: 11/29/2015 [...] Family History Medical History Relation Name Comments [place] Brother Hypertension Father Bone Cancer, CA D [place] Mother DM, Breast Canc er [place] Breast [...] VACCINE Completed 07/09/2019, 05/17/20 16 Care Teams Depositing Machine Operator Relationship Specialty Start Date End Date Re Agarwal MD [address] [place] [address] PCP - General Internal Medicine 01/21/24 Edgar Gillette MD Recreation Facilities Supervisor Cardiology 12/02/19
--- OUTSIDE RECORDS SUMMARY | 2025-03-19 09:57 | XMS_ITS | Encounter Summary ---
Author Organization [facility] Address [address] [place] [address] Care Team Providers Care Wool Broker Name Role Phone Warner Layne MD Primary Care Provider Melissa Tapia MD Primary Care Provider [phone] Warner Layne MD Primary Care Provider Edgar Gillette MD Unavailable [phone] Liz Wick MD Primary Care Provider Re Agarwal MD Primary Care Provider Encounter Details Date Type Department Care Team Description 05/19/2020 Telephone Vascular Surgery - [place] [address] [facility] [address] [place] [address] Avery Sage MD [facility] [address] [facility] [address] [place] [address] Social History Tobacco Use Types [...] on filedocumented in this encounter Care Teams Wool Broker Relationship Specialty Start Date End Date Warner Layne MD PCP - General Internal Medicine 08/25/19 12/22/20 Melissa Tapia MD PCP - General Internal Medicine 12/23/20 12/26/20 Warner Layne MD PCP - General Internal Medicine 12/27/20 04/08/23 Liz Wick MD [address] [place] [address] PCP - General Internal Medicine 04/09/23 01/20/24 Re Agarwal MD [address] [place] [address] PCP - General Internal Medicine 01/21/24 Edgar Gillette MD Business Objects Developer Cardiology 12/02/19 documented as of this encounter
--- OUTSIDE RECORDS SUMMARY | 2025-03-19 09:57 | XMS_ITS | Encounter Summary ---
Author Organization [facility] Address [address] [place] [address] Care Team Providers Care Safety Fire Boss Name Role Phone Krista Warren MD Primary Care Provider Sparkle evailable Warner Layne MD Primary Care Provider Melissa Tapia MD Primary Care Provider [phone] Warner Layne MD Primary Care Provider Edgar Gillette MD Unavailable [phone] Liz Wick MD Primary Care Provider [phone] Re Agarwal MD Primary Care Provider [phone] Encounter Details Date Type Department Care Team Description 03/26/2019 Orders Only Gastroenterology - [place] [address] [facility] [address] [place] [id number] Rancho Tanner MD Equivocal imaging test findings (Primary Dx); Flank pain Social History Tobacco Use Types [...] documented as of this encounter Results * RENAL FUNCTION PANEL (04/07/2019) 04/07/2019 Rancho Tanner MD LAB AD[facility]A CASTELAN documented in this encounter Visit Diagnoses Diagnosis Equivocal imaging test findings- Primary Other nonspecific (abnormal) findings on radiological and other examinations of body structure Flank pain Abdominal pain, unspecified site documented in this encounter Care Teams Safety Fire Boss Relationship Specialty Start Date End Date Krista Warren MD PCP - General Internal Medicine 10/10/18 Warner Layne MD PCP - General Internal Medicine 08/25/19 12/22/20 Melissa Tapia MD PCP - General Internal Medicine 12/23/20 12/26/20 Warner Layne MD PCP - General Internal Medicine 12/27/20 04/08/23 Liz Wick MD [address] [place] [id number] PCP - General Internal Medicine 04/09/23 01/20/24 Re Agarwal MD [address] [place] [address] PCP - General Internal Medicine 01/21/24 Edgar Gillette MD Electric Organ Inspector And Repairer Cardiology 12/02/19 documented as of this encounter
--- OUTSIDE RECORDS SUMMARY | 2025-03-19 09:57 | XMS_ITS | Encounter Summary ---
Author Organization [facility] Address [address] [place] [address] Care Team Providers Care Recycling Crew Supervisor Name Role Phone Warner Layne MD Primary Care Provider [phone] Edgar Gillette MD Unavailable [phone] Liz Wick MD Primary Care Provider [phone] Re Agarwal MD Primary Care Provider [phone] Reason for Visit * Reason Comments E-prescribe Rx Request Encounter Details Date Type Department Care Team Description 06/19/2021 Refill Internal Medicine - [place] [address] [facility], [address] [place] [address] Warner Layne MD [address] [place] [address] E-prescribe Rx Request Social History Tobacco Use [...] on filedocumented in this encounter Care Teams Recycling Crew Supervisor Relationship Specialty Start Date End Date Warner Layne MD PCP - General Internal Medicine 12/27/20 04/08/23 Liz Wick MD [address] [place] [address] PCP - General Internal Medicine 04/09/23 01/20/24 Re Agarwal MD [address] [place] [address] PCP - General Internal Medicine 01/21/24 Edgar Gillette MD Barrel Liner Cardiology 12/02/19 documented as of this encounter
--- OUTSIDE RECORDS SUMMARY | 2025-03-19 09:57 | XMS_ITS | Encounter Summary ---
Author Organization [facility] Address [address] [place] [address] Care Team Providers Care Talk Show Host Name Role Phone Warner Layne MD Primary Care Provider [phone] Edgar Gillette MD Unavailable [phone] Liz Wick MD Primary Care Provider [phone] Re Agarwal MD Primary Care Provider [phone] Reason for Visit * Reason Comments E-prescribe Rx Request Encounter Details Date Type Department Care Team Description 05/04/2021 Refill Internal Medicine - [place] [address] [facility], [address] [place] [address] Warner Layne MD [address] [place], [place] [id number] E-prescribe Rx Request Social History Tobacco Use [...] on filedocumented in this encounter Care Teams Talk Show Host Relationship Specialty Start Date End Date Warner Layne MD PCP - General Internal Medicine 12/27/20 04/08/23 Liz Wick MD [address] [place] [address] PCP - General Internal Medicine 04/09/23 01/20/24 Re Agarwal MD [address] [place] [address] PCP - General Internal Medicine 01/21/24 Edgar Gillette MD Balloon Tester Cardiology 12/02/19 documented as of this encounter
--- OUTSIDE RECORDS SUMMARY | 2025-03-19 09:57 | XMS_ITS | Clinical Summary ---
Author Organization [facility] Address [address] [facility] [place] [address] Phone Care Team Providers Care Housesmith Name Role Phone Re Agarwal MD Primary [...] low back pain 09/24/2024 Insomnia 09/24/2024 Dementia ([facility] V24, [facility] V28) 01/25/2024 Small vessel disease, cerebrovascular 01/25/2024 Right carpal tunnel syndrome 05/04/2023 Trigger index finger of right hand 05/04/2023 Situational syncope 09/01/2021 Dark stools 08/11/2021 Syncope 08/11/2021 Cough 01/07/2020 Epistaxis 01/07/2020 C2 cervical fracture ([facility] V24, [facility] V28) 08/29/2019 Overview (08/22/2024): After a fall 06/2016. Osteopenia 04/25/2017 Overview (08/22/2024): On recent DEXA 04/25/2017. Prior h/o osteoperosis Cataract 03/14/2017 Chronic left hip pain 03/14/2017 Fibromyalgia 03/14/2017 Hyperlipidemia 03/14/2017 Osteoarthritis 03/14/2017 Overview (08/22/2024): Lumbosacral Spine, Hips, Knees Short-term memory loss 03/14/2017 Overview (08/22/2024): 2008 - plan for Neuroscience referral.? Referral in 2015 Urinary incontinence 03/14/2017 Overview (08/22/2024): 2015- urodynamic studies. Uro COOLING TOWER TECHNICIAN Venous insufficiency 03/14/2017 Overview (08/22/2024): 11/29/2015 Vascular Surgery consult. Compression stockings Essential hypertension, benign 12/22/2016 Gastroesophageal reflux disease 12/22/2016 Severe episode of recurrent major depressive disorder, without psychotic features ([facility] V24, [facility] V28) 12/22/2016 Spondylosis of lumbar region without [...] help her, in the past has seen [facility] and Dr. Azimov, has [...] Patient had MRI lumbar spine 07/04/2024 at [facility] that shows severe degenerative disc disease L2-3 [...] Department Care Team Description 03/12/2025 Telephone Neurosurgery [place] - [address] [place] [address] Allegra Mc [place] Appointment (Received referral from PCP office for consultation. Called Pt and scheduled with PA 03/04/25. Pt was unable to keep appt as she was very ill vomiting that morning. Family called and asked to cancel and reschedule in several days. Called Pt today, 03/12/25 to reschedule. Pt stated she was going to [place] for injection, she believed. She declined making appt at this time. Asked that she call, should she like, in future. ) 03/02/2025 10:45 AM EDT - 03/02/2025 11:59 PM EDT Hospital Encounter Radiology Department - [address] [phone] Leg swelling Discharge Disposition: Home or Self Care 03/02/2025 Telephone Adult [address] [phone] Re Agarwal MD provider call back 02/27/2025 9:30 AM EDT - 02/27/2025 11:59 PM EDT Hospital Encounter XRAY [address] [phone] Pain in both hands; Hand paresthesia Discharge Disposition: Home or Self Care 02/27/2025 8:30 AM EDT Office Visit [address] [phone] Re Agarwal MD Primary hypertension (Primary Dx); Gastroesophageal reflux disease, unspecified whether esophagitis present; History of depression; Chronic midline low back pain without sciatica; Osteoarthritis of lumbar spine, unspecified spinal osteoarthritis complication status; Elevated serum creatinine; Prediabetes; Pain in both hands; Hand paresthesia; Leg swelling; Hyperlipidemia, unspecified hyperlipidemia type; Pedal edema; Memory loss 12/30/2024 11:30 AM EST Office Visit [address] [phone] Re Agarwal MD Essential hypertension, benign (Primary [...] recurrent major depressive disorder, without psychotic features ([facility] V24, [facility] V28) 12/22/2016 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 Urinary incontinence 03/14/2017 2016- urody namic studies. Uro COOLING TOWER TECHNICIAN Venous insufficiency 03/14/2017 11/29/2015 V ascular Surgery consult. Compression stockings Osteoarthritis 03/14/2017 Lumbosacral Spin e, Hips, Knees Osteopenia 04/25/2017 : On recent DEXA 04/25/2017. Prior h/o osteoperosis C2 cervical fracture (CMS/ C V24, [facility] V28) 08/29/2019 After a fall 06/2016. Family [...] Office Visit [facility] [place] - [address] [phone] Re Agarwal MD [address] [place] [address] 06/04/2025 10:30 AM EDT Telemedicine [facility] [place] [facility] [place] [address] [place] [phone] Marce Lemons MD [address] [place] [address] 08/19/2025 1:30 PM EDT Consult Nephrology - [address] [phone] Wilbert Olmstead MD [address] [facility] 200 [place] [address] Health Maintenance Due Date Last Done Comments [...] [place] Reviewed and Electronically Signed By: Bennett Ochao Signed Date: 03/02/2025 11:16 ET Workstation ID: [id number] Transcribed By: Self Edit Transcribed Date: 03/02/2025 [...] Signed Date: 03/02/2025 11:16 ET Workstation ID: [id number] Transcribed By: Self Edit Transcribed Date: 03/02/2025 11:15 ET us Re Agarwal MD CV VASCULAR PROCEDURES Tori l Result * Microalbumin creatinine urine ratio (02/27/2025 10:09 AM EDT) Creatinine, Urine 106.0 mg/dL LAB CHEMISTRY METHOD 02/27/2025 2:26 PM EDT [facility] Microalb, Ur 25.5 0.0 - 29.0 mg/L LAB CHEMISTRY METHOD 02/27/2025 2:26 PM EDT [facility] Microalb/Creat Ratio 24 <30 mg/g creat LAB CHEMISTRY METHOD 02/27/2025 2:26 PM EDT [facility] Urine Urine specimen obtained by clean catch procedure / Unknown Non-blood Collection / Unknown 02/27/2025 10:09 AM EDT 02/27/2025 10:09 AM EDT us Re Agarwal MD LAB URINE ORDERABLES Final Result [facility] [address] [place] [address], [place] [phone] * XR Hand 3+ Views bilat (02/27/2025 [...] Signed Date: 02/27/2025 11:30 ET Workstation ID: [id number] Transcribed By: Self Edit Transcribed Date: 02/27/2025 [...] Signed Date: 02/27/2025 11:30 ET Workstation ID: [id number] Transcribed By: Self Edit Transcribed Date: 02/27/2025 11:28 ET Re Agarwal MD IMG XR PROCEDURES Final Res ult * Thyroid stimulating hormone with reflex to free t4 and free t3 (02/25/2025 12:36 PM EDT) [facility] TSH 2.73 0.40 - 4.00 mcIU/mL LAB CHEMISTRY METHOD 02/25/2025 5:23 PM EDT [facility] Blood Venous blood specimen / Unknown Venipuncture / Unknown 02/25/2025 12:36 PM EDT 02/25/2025 12:36 PM EDT Re Agarwal MD LAB BLOOD ORDERABLES Final Result [facility] [address] [place] [address], [place] [phone] * Lipid panel with reflex to direct LDL (02/25/2025 12:36 PM EDT) Cholesterol 131 0 - 200 mg/dL LAB CHEMISTRY METHOD 02/25/2025 5:02 PM EDT [facility] Triglycerides 110 0 - 150 mg/dL LAB CHEMISTRY METHOD 02/25/2025 5:02 PM EDT [facility] HDL 45 >=40 mg/dL LAB CHEMISTRY METHOD 02/25/2025 5:02 PM EDT [facility] LDL Calculated 64 0 - 100 mg/dL LAB CHEMISTRY METHOD 02/25/2025 5:02 PM EDT [facility] VLDL Cholesterol González 22 mg/dL LAB CHEMISTRY METHOD 02/25/2025 5:02 PM EDT [facility] Non HDL Chol. (LDL+VLDL) 86 <145 mg/dL LAB [facility] Chol/HDL Ratio 2.9 0.0 - 4.4 LAB CHEMISTRY METHOD 02/25/2025 5:02 PM EDT [facility] Blood Venous blood specimen / Unknown Venipuncture / Unknown 02/25/2025 12:36 PM EDT 02/25/2025 12:36 PM EDT Re Agarwal MD LAB BLOOD ORDERABLES Final Result [facility] [address] [place] [address], * Hemoglobin A1c (02/25/2025 12:36 PM EDT) Pathologist [facility] Hemoglobin A1C 5.9 <6.5 % LAB CHEMISTRY METHOD 02/25/2025 8:02 PM EDT [facility] Mean Bld Glu Estim. 123 mg/dL LAB CHEMISTRY METHOD 02/25/2025 8:02 PM EDT [facility] Blood Venous blood specimen / Unknown Venipuncture / Unknown 02/25/2025 12:36 PM EDT 02/25/2025 12:36 PM EDT us Re Agarwal MD LAB BLOOD ORDERABLES Final Result [facility] [address] [place] [address], [place] [phone] * (ABNORMAL) Comprehensive metabolic panel (02/25/2025 12:36 PM EDT) Pathologist [facility] Sodium 143 133 - 145 mmol/L LAB CHEMISTRY METHOD 02/25/2025 5:01 PM [facility] Potassium 4.7 3.5 - 5.5 mmol/L LAB CHEMISTRY METHOD 02/25/2025 5:01 PM [facility] Chloride 107 96 - 110 mmol/L LAB CHEMISTRY METHOD 02/25/2025 5:01 PM [facility] CO2 30 21 - 32 mmol/L LAB CHEMISTRY METHOD 02/25/2025 5:01 PM [facility] Anion Gap 6 3 - 11 LAB CHEMISTRY METHOD 02/25/2025 5:01 PM [facility] Glucose 105(H) 70 - 100 mg/dL LAB CHEMISTRY METHOD 02/25/2025 5:01 PM [facility] BUN 34(H) 5 - 25 mg/dL LAB CHEMISTRY METHOD 02/25/2025 5:01 PM [facility] Creatinine 1.19(H) 0.50 - 1.10 mg/dL LAB CHEMISTRY METHOD 02/25/2025 5:01 PM [facility] eGFR 47(L) >=60 mL/min/1. 73m2 LAB CHEMISTRY METHOD 02/25/2025 5:01 PM [facility] Comment:Calculation based on the??Chronic Kidney Disease Epidemiology Collaboration (CKD-EPI) equation refit??without adjustment for race. BUN/Creatinine Ratio 28.6 LAB CHEMISTRY METHOD 02/25/2025 5:01 PM EDT [facility] Calcium 9.8 8.5 - 10.5 mg/dL LAB CHEMISTRY METHOD 02/25/2025 5:01 PM EDT [facility] AST (SGOT) 15 10 - 42 unit/L LAB CHEMISTRY METHOD 02/25/2025 5:01 PM [facility] ALT (SGPT) 17 10 - 60 unit/L LAB CHE[facility]STRY [facility] Alkaline Phosphatase 68 42 - 121 unit/L LAB CHEMISTRY METHOD [facility]/25/2025 5:[facility] Total Protein 7.1 6.0 - 8.0 g/dL LAB CHEMISTRY METHOD 02/25/2025 5:01 PM [facility] Albumin 4.1 3.2 - 5.0 g/dL LAB CHEMISTRY METHOD 02/25/2025 5:01 PM [facility] Total Bilirubin 0.6 0.0 - 1.4 mg/dL LAB CHEMISTRY METHOD 02/25/2025 5:01 PM [facility] Blood Venous blood specimen / Unknown Venipuncture / Unknown 02/25/2025 12:36 PM EDT 02/25/2025 12:36 PM EDT us Re Agarwal MD LAB BLOOD ORDERABLES Final Result [facility] [address] [place] [address], * DXA BONE DENSITY STUDY 1+ SITS [...] left femoral neck by WHO criteria. [facility] Department of Internal Medicine recommends using [...] schedule based on joseph De La O., [facility] November 23, 2011 for patients [...] left femoral neck by WHO criteria. [facility] Department of Internal Medicine recommendsusing National [...] Documents on File Type Date Recorded Patient Pharmacy Billing Adjudicator Expl anation Health Care Decision (hx) 12/19/2017 [...] (hx) 12/19/2017 AD BURNETT DIRECTIVE Care Teams Housesmith Relationship Specialty Start Date End Date Re Agarwal MD [address] [facility] [place] [address] PCP - General 01/21/24
--- OUTSIDE RECORDS SUMMARY | 2025-03-19 09:57 | XMS_ITS | Encounter Summary ---
Author Organization [facility] Address [address] [place] [address] Care Team Providers Care Ice Carver Name Role Phone Edgar Gillette MD Unavailable [phone] Liz Wick MD Primary Care Provider [phone] Re Agarwal MD Primary Care Provider [phone] Reason for Visit * Reason Comments E-prescribe Rx Request Encounter Details Date Type Department Care Team Description 04/28/2023 Refill Internal Medicine - [address], [address] [place] [address] Warner Layne MD [address] [place] [address] E-prescribe Rx Request Social History Tobacco Use [...] suspected to have Coronavirus/COVID-19? No / Unsure 04/13/2023 11:19 AM EDT documented as of this encounter Miscellaneous Notes * Telephone Encounter - Ayana Cleveland - 04/30/2023 8:26 AM EDT JOSE 04/04/23 NOV 10/16/23 documented in this encounter Plan of Treatment Not on file documented as of this encounter Visit Diagnoses Not on filedocumented in this encounter Care Teams Ice Carver Relationship Specialty Start Date End Date Liz Wick MD [address] [place] [address] PCP - General Internal Medicine 04/09/23 01/20/24 Re Agarwal MD [address] [place] [address] PCP - General Internal Medicine 01/21/24 Edgar Gillette MD Acid Cutter Cardiology 12/02/19 documented as of this encounter
--- OUTSIDE RECORDS SUMMARY | 2025-03-19 09:57 | XMS_ITS | Encounter Summary ---
Author Organization [facility] Address [address] [place] [address] Care Team Providers Care Learning Support Aide Name Role Phone Virgie Concepcion MD Primary Care Provider [phone] Bonnie Florez MD Primary Care Provider Unavail able Krista Warren MD Primary Care Provider Sparkle vailable Warner Layne MD Primary Care Provider [phone] Warner Layne MD Primary Care Provider [phone] Melissa Tapia MD Primary Care Provider Warner Layne MD Primary Care Provider Edgar Gillette MD Unavailable Liz Wick MD Primary Care Provider [phone] Re Agarwal MD Primary Care Provider [phone] Encounter Details Date Type Department Care Team Description 06/13/2016 Hospital Medical Records [address] [place] [address] Ben Cook Social History Tobacco Use Types [...] on filedocumented in this encounter Care Teams Learning Support Aide Relationship Specialty Start Date End Date Virgie Concepcion MD [address] [place] [address] PCP - General 09/04/1999 12/19/16 Bonnie Florez MD [address] [place] [address] PCP - General Internal Medicine 12/20/16 12/11/17 Krista Warren MD [address] [place] [address] PCP - General Internal Medicine 10/10/18 08/24/19 Warner Layne MD [address] [place] [address] PCP - General Internal Medicine 08/25/19 12/22/20 Warner Layne MD [address] [place] [address] PCP - General 12/12/17 10/09/18 Melissa Tapia MD [address] [place] [address] PCP - General Internal Medicine 12/23/20 12/26/20 Warner Layne MD [address] [place] [address] PCP - General Internal Medicine 12/27/20 04/08/23 Liz Wick MD [address] [place] [address] PCP - General Internal Medicine 04/09/23 01/20/24 Re Agarwal MD [address] [place] [address] PCP - General Internal Medicine 01/21/24 Edgar Gillette MD [address] [place] [address] Tuckpointer Cleaner Caulker Cardiology 12/02/19 documented as of this encounter
--- OUTSIDE RECORDS SUMMARY | 2025-03-19 09:57 | XMS_ITS | Encounter Summary ---
Author Organization [facility] Address [address] [place] [address] Care Team Providers Care Taxonomy Teacher Name Role Phone Warner Layne MD Primary Care Provider Melissa Tapia MD Primary Care Provider Warner Layne MD Primary Care Provider [phone] Edgar Gillette MD Unavailable [phone] Liz Wick MD Primary Care Provider [phone] Re Agarwal MD Primary Care Provider Reason for Visit * Reason Comments E-prescribe Rx Request Encounter Details Date Type Department Care Team Description 07/07/2020 Refill Internal Medicine - [address], [address] [place] [address] Warner Layne MD [address] [place] [address] E-prescribe Rx Request Social History Tobacco Use [...] on filedocumented in this encounter Care Teams Taxonomy Teacher Relationship Specialty Start Date End Date Warner Layne MD PCP - General Internal Medicine 08/25/19 12/22/20 Melissa Tapia MD PCP - General Internal Medicine 12/23/20 12/26/20 Warner Layne MD PCP - General Internal Medicine 12/27/20 04/08/23 Liz Wick MD [address] [place] [address] PCP - General Internal Medicine 04/09/23 01/20/24 Re Agarwal MD [address] [place] [address] PCP - General Internal Medicine 01/21/24 Edgar Gillette MD Horse Wrangler Cardiology 12/02/19 documented as of this encounter
--- OUTSIDE RECORDS SUMMARY | 2025-03-19 09:57 | XMS_ITS | Encounter Summary ---
Author Organization [facility] Address [address] [place] [address] Care Team Providers Care Trimmer Sawyer Name Role Phone Warner Layne MD Primary Care Provider [phone] Edgar Gillette MD Unavailable [phone] Liz Wick MD Primary Care Provider [phone] Re Agarwal MD Primary Care Provider [phone] Reason for Referral * EXTERNAL (Priority) - [facility]: Authorized/Booked Specialty Diagnoses / Procedures Referred By Contac t Referred To Contact Cardiology Procedures REFERRAL TO CARDIOLOGY Warner Layne MD [address] [place] [address] [facility] Referral ID Status Reason Start Date Expiration Date V isits Requested Visits Authorized [id number] [facility]: Authorized/B ooked 05/20/2021 05/20/2022 1 1 Reason for Visit * Reason Onset Date Comments Advice 05/20/2021 Provider Call Back 05/20/2021 Encounter Details Date Type Department Care Team Description 05/20/2021 Telephone Adult Medicine [address] [address] Warner Layne MD [address] [place] [address] Advice; Provider Call Back Social History Tobacco [...] on filedocumented in this encounter Care Teams Trimmer Sawyer Relationship Specialty Start Date End Date Warner Layne MD PCP - General Internal Medicine 12/27/20 04/08/23 Liz Wick MD [address] [place] [address] PCP - General Internal Medicine 04/09/23 01/20/24 Re Agarwal MD [address] [place] [address] PCP - General Internal Medicine 01/21/24 Edgar Gillette MD Energy Risk Management Analyst Cardiology 12/02/19 documented as of this encounter
--- OUTSIDE RECORDS SUMMARY | 2025-03-19 09:57 | XMS_ITS | Encounter Summary ---
Author Organization [facility] Address [address] [place] [address] Care Team Providers Care Wrapper Stemmer Operator Name Role Phone Warner Layne MD Primary Care Provider [phone] Melissa Tapia MD Primary Care Provider [phone] Warner Layne MD Primary Care Provider [phone] Edgar Gillette MD Unavailable [phone] Liz Wick MD Primary Care Provider [phone] Re Agarwal MD Primary Care Provider [phone] Reason for Visit * Reason Comments E-prescribe Rx Request Encounter Details Date Type Department Care Team Description 11/10/2020 Refill Internal Medicine - [address], [address] [place] [address] Warner Layne MD [address] [place] [address] E-prescribe Rx Request Social History Tobacco Use [...] on filedocumented in this encounter Care Teams Wrapper Stemmer Operator Relationship Specialty Start Date End Date Warner Layne MD PCP - General Internal Medicine 08/25/19 12/22/20 Melissa Tapia MD PCP - General Internal Medicine 12/23/20 12/26/20 Warner Layne MD PCP - General Internal Medicine 12/27/20 04/08/23 Liz Wick MD [address] [place] [address] [id number] PCP - General Internal Medicine 04/09/23 01/20/24 Re Agarwal MD [address] [place] [address] PCP - General Internal Medicine 01/21/24 Edgar Gillette MD Motor And Generator Brush Maker Cardiology 12/02/19 documented as of this encounter
--- OUTSIDE RECORDS SUMMARY | 2025-03-19 09:57 | XMS_ITS | Encounter Summary ---
Author Organization [facility] Address [address] [place] [address] Care Team Providers Care Forming Tube Selector Name Role Phone Warner Layne MD Primary Care Provider [phone] Melissa Tapia MD Primary Care Provider [phone] Warner Layne MD Primary Care Provider [phone] Edgar Gillette MD Unavailable [phone] Liz Wick MD Primary Care Provider [phone] Re Agarwal MD Primary Care Provider [phone] Encounter Details Date Type Department Care Team Description 01/09/2020 [facility] Medical Records [address] [place] [address] Nargis Celaya Social History Tobacco Use Types [...] filedocumented in this encounter Care Teams Forming Tube Selector Relationship Specialty Start Date End Date Warner Layne MD PCP - General Internal Medicine 08/25/19 12/22/20 Melissa Tapia MD PCP - General Internal Medicine 12/23/20 12/26/20 Warner Layne MD PCP - General Internal Medicine 12/27/20 04/08/23 Liz Wick MD [address] [place] [address] PCP - General Internal Medicine 04/09/23 01/20/24 Re Agarwal MD [address] [place] [address] PCP - General Internal Medicine 01/21/24 Edgar Gillette MD Director [facility] Cardiology 12/02/19 documented as of this encounter
--- OUTSIDE RECORDS SUMMARY | 2025-03-19 09:57 | XMS_ITS | Encounter Summary ---
Author Organization [facility] Address [address] [place] [address] Care Team Providers Care Pharmacy Customer Care Specialist Name Role Phone Warner Layne MD Primary Care Provider [phone] Edgar Gillette MD Unavailable [phone] Liz Wick MD Primary Care Provider [phone] Re Agarwal MD Primary Care Provider [phone] Reason for Visit * Reason Comments E-prescribe Rx Request Encounter Details Date Type Department Care Team Description 03/28/2021 Refill Internal Medicine - [address], [address] [place] [address] Warner Layne MD [address] [place], [place] [id number] E-prescribe Rx Request Social History Tobacco Use [...] on filedocumented in this encounter Care Teams Pharmacy Customer Care Specialist Relationship Specialty Start Date End Date Warner Layne MD PCP - General Internal Medicine 12/27/20 04/08/23 Liz Wick MD [address] [place] [address] PCP - General Internal Medicine 04/09/23 01/20/24 Re Agarwal MD [address] [place] [address] PCP - General Internal Medicine 01/21/24 Edgar Gillette MD Hospital Librarian Cardiology 12/02/19 documented as of this encounter
--- OUTSIDE RECORDS SUMMARY | 2025-03-19 09:57 | XMS_ITS | Encounter Summary ---
Author Organization [facility] Address [address] [place] [address] Care Team Providers Care Nuclear Fuel Processing Technician Name Role Phone Warner Layne MD Primary Care Provider [phone] Edgar Gillette MD Unavailable [phone] Liz Wick MD Primary Care Provider [phone] Re Agarwal MD Primary Care Provider [phone] Reason for Visit * Reason Onset Date Comments Appointment-Internal Referral 02/14/2021 ysiatry Encounter Details Date Type Department Care Team Description 02/14/2021 Telephone Internal Medicine - [place] [address] [facility], [address] [place] [address] Warner Layne MD [address] [place], [place] [phone] Appointment-Internal Referral (Physiatry) Social History Tobacco Use [...] alexandre went to see Dr. Daley at [facility]. No appointment wanted in Physiatry. documented in this encounter Plan of Treatment Not on file documented as of this encounter Visit Diagnoses Not on filedocumented in this encounter Care Teams Nuclear Fuel Processing Technician Relationship Specialty Start Date End Date Warner Layne MD PCP - General Internal Medicine 12/27/20 04/08/23 Liz Wick MD [address] [place] [address] PCP - General Internal Medicine 04/09/23 01/20/24 Re Agarwal MD [address] [place] [address] PCP - General Internal Medicine 01/21/24 Edgar Gillette MD Pet Sitter Cardiology 12/02/19 documented as of this encounter
--- OUTSIDE RECORDS SUMMARY | 2025-03-19 09:57 | XMS_ITS | Encounter Summary ---
Author Organization [facility] Address [address] [place] [address] Care Team Providers Care Customer Associate Name Role Phone Edgar Gillette MD Unavailable [phone] Liz Wick MD Primary Care Provider [phone] Re Agarwal MD Primary Care Provider [phone] Reason for Visit * Reason Onset Date Comments Blood Pressure Elevated 05/17/2023 Encounter Details Date Type Department Care Team Description 05/17/2023 Telephone Adult Medicine [address] [address] Liz Wick MD [address] [place] [address] [id number] Blood Pressure Elevated Social History Tobacco Use [...] AM EDT Pt [place] [facility] [place] and told her it was high ( she has alzhimers and does not recall the datails ) Bp [id number] Pt has no chest pain or SOB, [...] traveled recently to another state outside of [place], [place], [place], [place], [place], [place]? NO o If yes, did you quarantine [...] POS / Plan: BCBS PPO BLUE $10/$40 EKRON [id number] / Product Type: PPO [id number] documented in this encounter Plan of Treatment Not on file documented as of this encounter Visit Diagnoses Not on filedocumented in this encounter Care Teams Customer Associate Relationship Specialty Start Date End Date Liz Wick MD [address] [place] [address] PCP - General Internal Medicine 04/09/23 01/20/24 Re Agarwal MD [address] [place] [address] PCP - General Internal Medicine 01/21/24 Edgar Gillette MD Solid Waste Landfill Technician Cardiology 12/02/19 documented as of this encounter
[2025-03-19 10:40] VITALS: BP 140/76; PULSE 60; RESP 16; O2SAT 100
== END 2025-03-19 10:21 | disposition home or self-care (01) ==
LOC: HO.PMCPRC 09:21
PROVIDERS: PCP Internal Medicine; Visit Provider Internal Medicine
DX: M46.1 Sacroiliitis, not elsewhere classified (principal)
CPT/HCPCS: 27096

== ENCOUNTER 2025-04-03 09:31 | Outpatient (AMB) | payer MEDICARE, SELFPAY ==
[2025-04-03 09:41] VITALS: BP 189/83; PULSE 58; O2SAT 100
--- NOTE | 2025-04-03 09:41 | MHC.OFFVIS ---
Vital Signs 04/03/25 09:41 Weight 144 lb BP 189/83 H Blood Pressure Location Lt brachial Position Sitting Pulse 58 Pulse Source Pulse Oximeter Pulse Oximetry (%) 100 Oxygen Delivery Method Room Air Intake Visit Reasons: s/p right Dx SIJ inj Fast Food Crew Member Required: No Allergies ampicillin Allergy (Severe, Verified 04/03/25 09:42) Unknown penicillin V Allergy (Unknown, Verified 04/03/25 09:42) Unknown Sulfa (Sulfonamide Antibiotics) Allergy (Unknown, Verified 04/03/25 09:42) Unknown Medication List - Last Reconciled 04/03/25 by Jodee Jacques LPN atenolol 25 mg PO DAILY atorvastatin 20 mg PO DAILY pantoprazole mg PO DAILY trazodone 50 mg PO BEDTIME HPI HPI s/p right Dx SIJ inj: Details: History of Present Illness The patient is an 80-year-old female presenting with sacroiliac joint pain for follow-up after a diagnostic sacroiliac joint injection. She reports that the recent injection did provide significant pain relief, with efficacy lasting for one day. Despite this brief improvement, the recurrent nature of the pain continues to affect her mobility and daily activities. Her prior experience with cortisone injection for osteoarthrosis of the lumbar spine yielded a favorable outcome, delaying surgical intervention previously considered necessary. The patient seeks to explore further treatment options for her current condition. Pain Description - Pain onset: Persistent sacroiliac joint pain - Quality: Not detailed - Primary location: Sacroiliac joint - Radiation: Not detailed - Exacerbating factors: None specifically mentioned - Relieving factors: Diagnostic injection provided relief for one day - Impact on activities: Affects mobility, limited ability to walk - Previous intervention: Cortisone injection in the lumbar spine, previously effective Physical Exam - Appears afebrile. - Alert and oriented. - Mood and affect appropriate. - Follows and participates in conversation appropriately. - Respiratory effort is unlabored. Results Pain Management - Affect: Impact on mood not specifically noted - Analgesia: Injection provided only short-term relief; further treatment with cortisone discussed - Adverse Effects: None noted - Activities of Daily Living: Pain affects mobility and walking - Aberrant Drug Related Behaviors: None noted Physical Exam Vital Signs: Last Vital Signs Pulse 58 04/03/25 09:41 BP 189/83 H 04/03/25 09:41 Pulse Ox 100 04/03/25 09:41 Oxygen Delivery Method Room Air 05/30/25 09:41 Assessment & Plan Assessment & Plan (1) Bilateral sacroiliitis: Code(s): M46.1 - Sacroiliitis, not elsewhere classified Category: Medical Plan Plan - Proceed with therapeutic injection at R sacroiliac joint, following insurance authorization. - Schedule treatment for April, coordinate through the front end developer designer. - Monitor for prolonged analgesic effects post-procedure. Patient was informed and verbally consented to the use of an ambient scribe for clinic note documentation during this visit. Discussion Notes I discussed the limited duration of relief from the diagnostic sacroiliac joint injection with the patient, and we agreed to pursue further treatment with a cortisone injection to potentially achieve longer-lasting pain relief. I explained that while the procedural approach remains unchanged, the addition of cortisone should provide enhanced analgesic benefits. The patient was informed about the insurance requirements and agreed to the proposed treatment plan. We confirmed her son, Carlos Golden, as the primary contact for follow-up authorization and scheduling concerns. Patient Instructions - Await contact for the scheduling of cortisone injection. - Note that the injection will occur at the same location as the previous injection. - Ensure availability in April for treatment and follow necessary insurance steps. Coding Level of Care Code Est Pt Level 3 (24961) Diagnoses Bilateral sacroiliitis M46.1
== END 2025-04-03 10:20 | disposition home or self-care (01) ==
LOC: HO.PMC 09:31
PROVIDERS: PCP Internal Medicine; Visit Provider Internal Medicine
DX: M46.1 Sacroiliitis, not elsewhere classified (principal)
CPT/HCPCS: 99213

== ENCOUNTER → 2025-04-03 09:31 | Outpatient (BNVA) | payer MEDICARE, SELFPAY | PROVIDERS: PCP Internal Medicine; Visit Provider Internal Medicine | DX: M46.1 Sacroiliitis, not elsewhere classified (principal) | CPT/HCPCS: 99212 ==

== ENCOUNTER 2025-05-07 06:13 | Outpatient (REF) | payer MEDICARE, SELFPAY ==
--- NOTE | ~2025-05-07 | FL_ITS ---
EXAMINATION: FL GUIDANCE ONLY HISTORY: M46.1 - Sacroiliitis, not elsewhere classified COMPARISON: None available. TECHNIQUE: Fluoroscopy time: 0.1 minutes. Cumulative Dose: 1.65 mGy. DAP: 0.0110 mGym2 Images: 2. FINDINGS: Fluoroscopic spot films of the right hemipelvis demonstrate a needle in the region of the sacroiliac joint. FL/FL guidance in treatment room IMPRESSION: Fluoroscopy during procedure. Please see procedure report for additional information. Electronically signed by: Ben Mejia MD 05/07/2025 03:20 PM EDT
== END 2025-05-07 06:14 | disposition home or self-care (01) ==
LOC: CF 06:13
PROVIDERS: Visit Provider Internal Medicine
DX: M46.1 Sacroiliitis, not elsewhere classified (principal)
CPT/HCPCS: 27096; J2003; J2795; J3300; J3301

== ENCOUNTER 2025-05-07 10:11 | Outpatient (AMB) | payer MEDICARE, SELFPAY ==
--- NOTE | 2025-05-07 10:11 | MHC.OFFVIS ---
Vital Signs 05/07/25 10:12 05/07/25 10:17 Height 5 ft 7 in 5 ft 7 in Weight 144 lb 144 lb BMI 22.6 22.6 BP 171/61 H 153/73 H Blood Pressure Location Lt brachial Rt brachial Position Sitting Sitting Respiration 16 16 Pulse 61 56 Pulse Source Pulse Oximeter Pulse Oximeter Pulse Oximetry (%) 100 100 Oxygen Delivery Method Room Air Room Air Intake Visit Reasons: Right theraputic SIJ inj Allergies ampicillin Allergy (Severe, Verified 04/03/25 09:42) Unknown penicillin V Allergy (Unknown, Verified 04/03/25 09:42) Unknown Sulfa (Sulfonamide Antibiotics) Allergy (Unknown, Verified 04/03/25 09:42) Unknown HPI HPI Right theraputic SIJ inj: Details: Patient presents for scheduled procedure. Denies any recent cough, cold, infection, fever or other significant changes in medical history since last office visit. Physical Exam Vital Signs: Last Vital Signs Pulse 61 05/07/25 10:12 Resp 16 05/07/25 10:12 BP 171/61 H 05/07/25 10:12 Pulse Ox 100 05/07/25 10:12 Oxygen Delivery Method Room Air 05/07/25 10:12 BMI result Body Mass Index 22.6 Office Procedures AMB Joint Injection/Aspiration Joint Injection/Aspiration Details: Therapeutic Sacroiliac Joint Injection, right The procedure, its benefits, and its risks were explained and written informed consent was obtained from the patient. Immediately prior to starting the procedure, a time-out safety check was conducted. The patient's identification, procedure name, procedure site, and procedure laterality were confirmed with the patient. ? Patient was placed prone on the fluoroscopy table and the lumbosacral area was prepped using ChloraPrep and draped with sterile drapein standard fashion. The C-arm was rotated in a contralateral oblique fashion until the medial border of the iliac crest no longer foreshadowed the posterior sacroiliac joint line. The skin and subcutaneous tissue was anesthetized using 1 mL of 0.75% plain lidocaine with 1.5-inch 25-gauge needle in the middle region of the joint line.? A 3.5-inch 22-gauge spinal needle with small bend on the tip was slowly advanced towards the joint line, coaxial to the x-ray beam. Once bony content was obtained, the needle was easily slid into the intra-articular space.? Intra-articular needle position was confirmed using lateral fluoroscopy.? A total volume of 2.5mL of solution containing 40 mg triamcinolone and rest 0.5% of ropivacaine was injected intra-articularly. The stylet was reinserted and needle was removed. The patient tolerated the procedure well. Patient denied any lower extremity weakness or numbness. Patient was observed for 30 min and was discharged after fulfilling the standard discharge criteria. Coding 60450 - Sacroiliac Procedure code (CPT) selection complete Office Meds lidocaine (PF) 10 mg/mL (1 %) injection solution Performing Provider: Delgado Smith MD Performing Location: [facility] [place] [facility] Administered by: Delgado Smith MD on 05/07/25 11:10 Dose Route Admin Location Dispensed Lot Number Expiration Date [facility] Sanding Machine Operator Or Tender 5 mL Infiltration 5 mL Total Dispensed Waste 5 mL 0 % Kenalog 40 mg/mL suspension for injection Performing Provider: Delgado Smith MD Performing Location: [facility] [place] [facility] Administered by: Delgado Smith MD on 05/07/25 11:10 Dose Route Admin Location Dispensed Lot Number Expiration Date [facility] Sanding Machine Operator Or Tender 40 mg intra-articular 1 mL Total Dispensed Waste 1 mL 0 % Assessment & Plan Assessment & Plan (1) Bilateral sacroiliitis: Code(s): M46.1 - Sacroiliitis, not elsewhere classified Category: Medical Plan Patient is status post therapeutic right sacroiliac joint injection. Patient tolerated procedure well and was discharged home in stable condition with discharge instructions. All questions were answered. We will follow-up via telephone or in clinic to assess response to therapy. A follow-up appointment was made during today's visit. Orders: Orders FL guidance in treatment room Today Criselda Warren APRN, BATTERY ENGINEER M46.1 - Sacroiliitis, not elsewhere classified AMB Joint Injection/Aspiration Today Delgado Smith MD M46.1 - Sacroiliitis, not elsewhere classified Coding Level of Care Code Procedure Only Diagnoses Bilateral sacroiliitis M46.1 CPT Codes Coding - Joint 9: 62300 - Sacroiliac ([id number])
[2025-05-07 10:12] VITALS: BP 171/61; PULSE 61; RESP 16; O2SAT 100; BMI 22.6
[2025-05-07 10:17] VITALS: BP 153/73; PULSE 56; RESP 16; O2SAT 100; BMI 22.6
--- OUTSIDE RECORDS SUMMARY | 2025-05-07 10:52 | XMS_ITS | Clinical Summary ---
Author Organization [facility] [place] Address [address] [place] [address] Phone Care Team Providers Care Dredge Captain Name Role Phone Re Agarwal MD Primary Care Provider [phone] Allergies Active Allergy Reactions Criticality Noted Date [...] DAY 90 tablet 1 12/29/19 25 Active amLODIPine (NORVASC) 5 mg tablet TAKE 1 TABLET BY MOUTH 1 TIME EACH DAY. 90 tablet 02/21/20 25 Active pantoprazole (PROTONIX) 40 mg EC tablet TAKE 1 TABLET BY MOUTH EVERY DAY 90 tablet 02/21/20 25 Active hydrALAZINE (APRESOLINE) 25 mg tablet Take 1 tablet (25 mg total) by mouth 3 (three) times a day. 270 each 03/03/20 25 026 Active traZODone (DESYREL) 50 mg tablet TAKE 1 TABLET BY MOUTH AT BEDTIME NEEDED FOR SLEEP. 90 tablet 1 04/22/20 25 Active traZODone (DESYREL) 50 mg tablet Take 1 tablet (50 mg total) by mouth at bedtime as needed for sleep. 30 tablet 2 12/30/19 25 025 Discontinued Active Problems Problem Noted Date Diagnosed Date History of depression 02/27/2025 Elevated serum creatinine 02/27/2025 Prediabetes 02/27/2025 Pedal edema 02/27/2025 Hand paresthesia 02/27/2025 Leg swelling 02/27/2025 Chronic low back pain 09/24/2024 Insomnia 09/24/2024 Dementia ([facility] V24, [facility] V28) 01/25/2024 Small vessel disease, cerebrovascular 01/25/2024 Right carpal tunnel syndrome 05/04/2023 Trigger index finger of right hand 05/04/2023 Situational syncope 09/01/2021 Dark stools 08/11/2021 Syncope 08/11/2021 Cough 01/07/2020 Epistaxis 01/07/2020 C2 cervical fracture ([facility] V24, [facility] V28) 08/29/2019 Overview (08/22/2024): After a fall 06/2016. Osteopenia 04/25/2017 Overview (08/22/2024): On recent DEXA 04/25/2017. Prior h/o osteoperosis Cataract 03/14/2017 Chronic left hip pain 03/14/2017 Fibromyalgia 03/14/2017 Hyperlipidemia 03/14/2017 Osteoarthritis 03/14/2017 Overview (08/22/2024): Lumbosacral Spine, Hips, Knees Short-term memory loss 03/14/2017 Overview (08/22/2024): 2008 - plan for Neuroscience referral.? Referral in 2015 Urinary incontinence 03/14/2017 Overview (08/22/2024): 2016- urodynamic studies. 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 Compression stockings Essential hypertension, benign 12/22/2016 Gastroesophageal reflux disease 12/22/2016 Severe episode of recurrent major depressive disorder, without psychotic features (CMS/HCC V24, CMS/HCC V28) 12/22/2016 Spondylosis of lumbar region without [...] help her, in the past has seen [facility] and Dr. Harry, has [...] Patient had MRI lumbar spine 07/04/2024 at [facility] that shows severe degenerative disc disease L2-3 [...] online, it appears that Dr. Harry and [facility] did not recommend any [...] Department Care Team Description 03/12/2025 Telephone Neurosurgery [place] - [address] [place] [address] Allegra Mc [place] Appointment (Received referral from PCP office for consultation. Called Pt and scheduled with PA 03/04/25. Pt was unable to keep appt as she was very ill vomiting that morning. Family called and asked to cancel and reschedule in several days. Called Pt today, 03/12/25 to reschedule. Pt stated she was going to [place] for injection, she believed. She declined making appt at this time. Asked that she call, should she like, in future. ) 03/02/2025 10:45 AM EDT - 03/02/2025 11:59 PM EDT Hospital Encounter Radiology Department - [address] [phone] Leg swelling Discharge Disposition: Home or Self Care 03/02/2025 Telephone Adult Medicine [address] [phone] Re Agarwal MD provider call back 02/27/2025 9:30 AM EDT - 02/27/2025 11:59 PM EDT Hospital Encounter XRAY [address] [address] Pain in both hands; Hand paresthesia Discharge Disposition: Home or Self Care 02/27/2025 8:30 AM EDT Office Visit Adult Medicine [address] [address] Re Agarwal MD Primary hypertension (Primary Dx); Gastroesophageal reflux disease, unspecified whether esophagitis present; History of depression; Chronic midline low back pain without sciatica; Osteoarthritis of lumbar spine, unspecified spinal osteoarthritis complication status; Elevated serum creatinine; Prediabetes; Pain in both hands; Hand paresthesia; Leg swelling; Hyperlipidemia, unspecified hyperlipidemia type; Pedal edema; Memory loss from Last 3 Months Immunizations Name Administration [...] recurrent major depressive disorder, without psychotic features ([facility]/HCC V24, [facility] V28) 12/22/2016 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 Urinary incontinence 03/14/2017 2016- urody namic studies. 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 Compression stockings Osteoarthritis 03/14/2017 Lumbosacral Spin e, Hips, Knees Osteopenia 04/25/2017 : On recent DEXA 04/25/2017. Prior h/o osteoperosis C2 cervical fracture (CMS/ C V24, [facility] V28) 08/29/2019 After a fall 06/2016. Family [...] 60 02/27/2025 8:20 AM EDT Temperature 36.3 C (97.4 F) 02/27/2025 8:20 AM EDT Respiratory Rate 12 12/30/2024 11:10 AM EST [...] EDT Office Visit [place] [facility] [place] - [place] [address] [place], [place] [phone] Re Agarwal MD [address] [place], [place] 06/04/2025 10:30 AM EDT Telemedicine [facility] for [place] - [place] [address] [place] [phone] Marce Lemons MD [address] [place] [address] 08/19/2025 1:30 PM EDT Consult Nephrology - [address] [phone] Wilbert Olmstead MD [address] [facility] [address] [place] [address] Health Maintenance Due Date Last Done Comments DTaP,Tdap,and Td Vaccines (1 - Tdap) 1964 Zoster Vaccines (1 of 2) 1995 RSV Immunization Adult Patients (1 - 1-dose 75+ series) 2020 Depression Screening 10/14/2022 Falls Risk Assessment 10/14/2022 Medicare Annual Wellness Visit 10/14/2022 Social [...] Signed Date: 03/02/2025 11:16 ET Workstation ID: [id number] Transcribed By: Self Edit Transcribed Date: 03/02/2025 [...] Signed Date: 03/02/2025 11:16 ET Workstation ID: [id number] Transcribed By: Self Edit Transcribed Date: 03/02/2025 11:15 ET Re Agarwal MD CV VASCULAR PROCEDURES Tori l Result * Microalbumin creatinine urine ratio (02/27/2025 10:09 AM EDT) Creatinine, Urine 106.0 mg/dL LAB CHEMISTRY METHOD 02/27/2025 2:26 PM EDT [facility] Microalb, Ur 25.5 0.0 - 29.0 mg/L LAB CHEMISTRY METHOD 02/27/2025 2:26 PM EDT [facility] Microalb/Creat Ratio 24 <30 mg/g creat LAB CHEMISTRY METHOD 02/27/2025 2:26 PM EDT [facility] Urine Urine specimen obtained by clean catch procedure / Unknown Non-blood Collection / Unknown 02/27/2025 10:09 AM EDT 02/27/2025 10:09 AM EDT us Re Agarwal MD LAB URINE ORDERABLES Final Result [facility] [address] [place] [address], * XR Hand 3+ Views bilat (02/27/2025 9:51 AM EDT) Anatomical Region Laterality Modality Upper Extremities, Hand [facility] 02/27/2025 11:2 8 AM EDT Narrative 02/27/2025 11:30 AM EDT Bilateral hands, 3 views of each. History paresthesia. There is no evidence of acute fractures or dislocations. There are are subtle soft tissue calcifications in the regions of the metacarpophalangeal joints of the right second third fourth and fifth [...] Leandra Recio Reviewed and Electronically Signed By: Leadnra Recio Signed Date: 02/27/2025 11:30 ET Workstation ID: [id number] Transcribed By: Self Edit Transcribed Date: 02/27/2025 [...] Signed Date: 02/27/2025 11:30 ET Workstation ID: [id number] Transcribed By: Self Edit Transcribed Date: 02/27/2025 11:28 ET Re Agarwal MD IMG XR PROCEDURES Final Res ult * Thyroid stimulating hormone with reflex to free t4 and free t3 (02/25/2025 12:36 PM EDT) [facility] TSH 2.73 0.40 - 4.00 mcIU/mL LAB CHEMISTRY METHOD 02/25/2025 5:23 PM EDT [facility] Blood Venous blood specimen / Unknown Venipuncture / Unknown 02/25/2025 12:36 PM EDT 02/25/2025 12:36 PM EDT Re Agarwal MD LAB BLOOD ORDERABLES Final Result [facility] [address] [place] [address], [place] [phone] * Lipid panel with reflex to direct LDL (02/25/2025 12:36 PM EDT) [facility] Cholesterol 131 0 - 200 mg/dL LAB CHEMISTRY METHOD 02/25/2025 5:02 PM EDT [facility] Triglycerides 110 0 - 150 mg/dL LAB CHEMISTRY METHOD 02/25/2025 5:02 PM EDT [facility] HDL 45 >=40 mg/dL LAB CHEMISTRY METHOD 02/25/2025 5:02 PM EDT [facility] LDL Calculated 64 0 - 100 mg/dL LAB CHEMISTRY METHOD 02/25/2025 5:02 PM EDT [facility] VLDL Cholesterol González 22 mg/dL LAB CHEMISTRY METHOD 02/25/2025 5:02 PM EDT [facility] Non HDL Chol. (LDL+VLDL) 86 <145 mg/dL LAB CHEMISTRY METHOD 02/25/2025 5:02 PM EDT [facility] Chol/HDL Ratio 2.9 0.0 - 4.4 LAB CHEMISTRY METHOD 02/25/2025 5:02 PM EDT [facility] Blood Venous blood specimen / Unknown Venipuncture / Unknown 02/25/2025 12:36 PM EDT 02/25/2025 12:36 PM EDT Re Agarwal MD LAB BLOOD ORDERABLES Final Result Performing Organization Address City/[facility]/ZIP Co de Phone Number [facility] [address] [place] [address], [place] [phone] * Hemoglobin A1c (02/25/2025 12:36 PM EDT) Hemoglobin A1C 5.9 <6.5 % LAB CHEMISTRY METHOD 02/25/2025 8:02 PM EDT [facility] Mean Bld Glu Estim. 123 mg/dL LAB CHEMISTRY METHOD 02/25/2025 8:02 PM EDT [facility] Blood Venous blood specimen / Unknown Venipuncture / Unknown 02/25/2025 12:36 PM EDT 02/25/2025 12:36 PM EDT Re Agarwal MD LAB BLOOD ORDERABLES Final Result [facility] [address] [place] [address], [place] [phone] * (ABNORMAL) Comprehensive metabolic panel (02/25/2025 12:36 PM EDT) Sodium 143 133 - 145 mmol/L LAB CHEMISTRY METHOD 02/25/2025 5:[address] [facility] Potassium 4.7 3.5 - 5.5 mmol/L LAB CHEMISTRY METHOD 02/25/2025 5:[address] [facility] Chloride 107 96 - 110 mmol/L LAB CHEMISTRY METHOD 02/25/2025 5:[address] [facility] CO2 30 21 - 32 mmol/L LAB CHEMISTRY METHOD 02/25/2025 5:[address] [facility] Anion Gap 6 3 - 11 LAB CHEMISTRY METHOD 02/25/2025 5:[address] [facility] Glucose 105(H) 70 - 100 mg/dL LAB CHEMISTRY METHOD 02/25/2025 5:[address] [facility] BUN 34(H) 5 - 25 mg/dL LAB CHEMISTRY METHOD 02/25/2025 5:[address] [facility] Creatinine 1.19(H) 0.50 - 1.10 mg/dL LAB CHEMISTRY METHOD 02/25/2025 5:[address] [facility] eGFR 47(L) >=60 mL/min/1. 73m2 LAB CHEMISTRY METHOD 02/25/2025 5:[address] [facility] Comment:Calculation based on the Chronic Kidney Disease Epidemiology Collaboration (CKD-EPI) equation refit without adjustment for race. BUN/Creatinine Ratio 28.6 LAB CHEMISTRY METHOD 02/25/2025 5:[address] [facility] Calcium 9.8 8.5 - 10.5 mg/dL LAB CHEMISTRY METHOD 02/25/2025 5:[address] [facility] AST (SGOT) 15 10 - 42 unit/L LAB CHEMISTRY METHOD 02/25/2025 5:[address] [facility] ALT (SGPT) 17 10 - 60 unit/L LAB CHEMISTRY METHOD 02/25/2025 5:[address] [facility] Alkaline Phosphatase 68 42 - 121 unit/L LAB CHEMISTRY METHOD 02/25/2025 5:01 PM EDT [facility] Total Protein 7.1 6.0 - 8.0 g/dL LAB CHEMISTRY METHOD 02/25/2025 5:01 PM EDT [facility] Albumin 4.1 3.2 - 5.0 g/dL LAB CHEMISTRY METHOD 02/25/2025 5:01 PM EDT [facility] Total Bilirubin 0.6 0.0 - 1.4 mg/dL LAB CHEMISTRY METHOD 02/25/2025 5:01 PM EDT [facility] Blood Venous blood specimen / Unknown Venipuncture / Unknown 02/25/2025 12:36 PM EDT 02/25/2025 12:36 PM EDT us Re Agarwal MD LAB BLOOD ORDERABLES Final Result [facility] [address] [place] [address], [place] [phone] * DXA BONE DENSITY STUDY 1+ SITS [...] left femoral neck by WHO criteria. [facility] Department of Internal Medicine recommends using [...] schedule based on joseph De La O., [facility] November 23, 2011 for patients with [...] left femoral neck by WHO criteria. [facility] Department of Internal Medicine recommendsusing National [...] schedule based on joseph De La O., [place] 2011 for patients with osteopenia (based on hip BMD T-score) is as follows: * advanced osteopenia (T scores -2.00 to -2.49), BMD testing every year * moderate osteopenia (T scores -1.50 to -1.99), BMD testing every 5years mild osteopenia or normal BMD (T scores -1.50 and higher), BMD testingevery 15 years Bonnie Florez MD [facility] DXA PROCEDURES Final Res ult from Last 3 Months or Most Recently Relevant to Health Maintenance Insurance [employer] [place] MEDICARE ADVANTAGE Advance Directives Documents on File Type Date Recorded Patient Search Analyst Expl anation Health Care Decision (hx) 12/19/2017 [...] (hx) 12/19/2017 AD BURNETT DIRECTIVE Care Teams Dredge Captain Relationship Specialty Start Date End Date Re Agarwal MD [address] [place] [id number] PCP - General 01/21/24
--- OUTSIDE RECORDS SUMMARY | 2025-05-07 10:52 | XMS_ITS | Clinical Summary ---
Author Organization [facility] Address [address] [facility] [address] [place] [address] Phone Care Team Providers Care Skip Miner Name Role Phone StefanoRe Primary Care Provider [phone] Allergies Active Allergy Reactions Criticality Noted Date [...] 03/14/2017 Overview (05/21/2024): 2016- urodynamic studies. 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 Venous insufficiency 03/14/2017 Overview (05/21/2024): 11/29/2015 Vascular [...] Date Last Done Comments Influenza Vaccine (#1) 2025 0, 07/09/2019, 08/06/2018, Additional history exists Pneumococcal Vaccine: 50+ Years Completed 07/09/2019, 05/17/2016 Hepatitis B Vaccine Aged Out No longe r eligible based on patient's age to complete this topic Insurance [facility] PPO Blue([id number]) [id number] Medicaid [place] [address] [place] [address] [facility] PPO Blue([id number]) [id number] Medicaid [place] Care Teams Skip Miner Relationship Specialty Start Date End Date Re Agarwal PCP - General 02/07/24
--- OUTSIDE RECORDS SUMMARY | 2025-05-07 10:52 | XMS_ITS | Patient Health Record ---
Author Organization [facility] [place] Address [address] [place] [address] Care Team Providers Care Music Therapist [employer] Name Role Phone Roverto OVALLE, Warner Primary Care Provider Raj QuickReae Unavailable [phone] Allergies Allergen (clinical drug ingredient) Drug/Non Drug Allergy documented on EMR Reaction Allergy Type Onset Date Status Substance with sulfonamide structure and antibacterial mechanism of action (substance) Sulfa (uncoded) Unknown Allergy Active acetaminophen Acetaminophen Unknown Drug Allergy Active ibuprofen Advil Unknown Drug Allergy Active Aleve Unknown Drug Allergy Active amoxicillin Amoxicillin Unknown Drug Allergy Act karla aspirin Aspirin Unknown Drug Allergy Active sulfamethoxazole / trimethoprim Bactrim Unknown Drug Allergy Active Flexeril Unknown Drug Allergy Active lidocaine Lidocaine swelling Drug Allergy Active Motrin Unknown Drug Allergy Active acetaminophen Tylenol Unknown Drug Allergy Act karla Reason For Referral No Information Medications Medication SIG (Take, Route, Frequency, Duration) Notes Start Date End Date Status Omeprazole Active Lisinopril Not-Takin g metroNIDAZOLE Not-Ta nini Nortriptyline HCl No t-Taking Ciprofloxacin HCl No t-Taking Multivitamin Active Vitamin B12 Active Vitamin D3 Active Glucosamine Chond Complex/MSM Active Pravastatin Sodium N ot-Taking Lisinopril-hydroCHLOROthia zide Not-Taking Fiber Select Gummies Active Social History Tobacco Use: Social History Observation Description Date Details (start date - stop date) Never Smoker NA - NA Tobacco Use/Smoking Question Answer Notes Are you a: nonsmoker Additional Findings: Tobacco Non-User Current no n-smoker Alcohol Screen Question Answer Notes Did you have a drink containing alcohol in the p ast year? Yes Points 0 Interpretation Negative Tobacco use other than smoking: Question Answer Notes Are you an other tobacco user? No Problems Problem Type SNOMED Code ICD Code Onset Dates Problem Status W/U Status Risk Notes Problem Acquired hammer toe of right foot (2155678776884 105) Other hammer toe(s) (acquired), right foot (M20.41) Active confirmed Problem Acquired hammer toe of left foot (7092895942559 103) Other hammer toe(s) (acquired), left foot (M20.42) Active confirmed Plan Of Treatment Pending Test Test Name Order Date [id number] NAIL, 6 OR MORE 06/10/2019 Insurance Providers Payer Name Payer Address Payer Phone Subscriber Number Group Number Insured Name Patient Relationship to Insured Coverage Start Date Coverage End Date Blue[employer] 65 Medicare Preferred [address] [place] [address] [phone] [id number] Candy Sheldon Self - patient is the insured Medical (General) History Medical History History ICD Code Arthritis Back,Hip,and Knee pain Cataracts Fibromyalgia Headaches Osteoporosis Reflux ( GERD) Chicken pox Surgical History Surgery Date(Month/Year) shoulder surgery 1971 elbows 1968 hand surgery 1974 breast surgery 1978 partial hysterectomy 1968
== END 2025-05-07 11:12 | disposition home or self-care (01) ==
LOC: HO.PMCPRC 10:11
PROVIDERS: PCP Internal Medicine; Visit Provider Internal Medicine
DX: M46.1 Sacroiliitis, not elsewhere classified (principal)
CPT/HCPCS: 27096

== ENCOUNTER 2025-06-03 09:30 | Outpatient (AMB) | payer MEDICARE, SELFPAY ==
--- OUTSIDE RECORDS SUMMARY | 2025-05-29 10:00 | XMS_ITS | Encounter Summary ---
Author Organization [facility] [place] [address] Care Team Providers Care Information Services Tech Name Role Phone Re Agarwal MD Primary Care Provider [phone] Reason for Referral * Consultation (Routine) - Closed Specialty Diagnoses / Procedures Referred By Contac t Referred To Contact Neurology Diagnoses Routine general medical examination at a health care facility Re Agarwal MD [address] [place], [place] [address]k[place] [address] Phone: tel: fax: [facility] - [place] [address] [place] [address] Phone: tel: fax: Referral ID Status Reason Start Date Expiration Date V isits Requested Visits Authorized [id number] Closed Specialty Services Required 05/29/2025 05/29/2026 1 1 * Consultation (Routine) - Closed Specialty Diagnoses / Procedures Referred By Contac t Referred To Contact Ophthalmology Diagnoses Routine general medical examination at a health care facility Re Agarwal MD [address] [place], [place] [address]la[place] [address] Phone: tel: fax: [facility] [address] [facility] [address] [place] [address] Phone: tel: fax: Referral ID Status Reason Start Date Expiration Date V isits Requested Visits Authorized [id number] Closed Specialty Services Required 05/29/2025 05/29/2026 1 1 Reason for Visit * Reason Comments Medicare Annual Wellness Visit Subsequen t Encounter Details Date Type Department Care Team (Late st Contact Info) Description 05/29/2025 10:00 AM EDT Office Visit Adult Medicine [facility] [address] [place] [address] Re Agarwal MD [address] [place] [address] Routine general medical examination at a health care facility (Primary Dx); Insomnia, unspecified type; Hyperlipidemia, unspecified hyperlipidemia type; Primary hypertension; Prediabetes; Elevated serum creatinine; Memory loss Social History Tobacco Use Types Packs/Day Years [...] Sign Reading Time Taken Comments Blood Pressure 114/60 05/29/2025 9:17 AM EDT Pulse 55 05/29/2025 9:17 AM EDT Temperature 36.4 C (97.5 F) 05/29/2025 9:17 AM EDT Respiratory Rate - - Oxygen Saturation - - Inhaled Oxygen Concentration - - Weight 66.2 kg (146 lb) 05/29/2025 9:17 AM EDT Height 162.6 cm (5' 4 ) 05/29/2025 9:17 AM EDT Body Mass Index 25.06 05/29/2025 9:17 AM EDT documented in this encounter Patient Instructions * Attachments The following attachments cannot be sent through Care Everywhere. * Mammogram (Ghanaian) * Colon Cancer: Screening (Ghanaian) * Healthy Eating: At Home: Quick List (Ghanaian) * Physical Activity: Walking (Ghanaian) * Advance Directives (Ghanaian) * Advance Care Planning (Ghanaian) * Healthy Diet: Heart (Ghanaian) * Diet: DASH (Ghanaian) documented in this encounter Progress Notes * Re Agarwal MD - 05/29/2025 10:00 AM EDT Annual Wellness Visit Health Maintenance Due Topic Date Due ??? DTaP,Tdap,and Td Vaccines (1 - Tdap) Never done ??? Zoster Vaccines (1 of 2) Never done ??? RSV Immunization Adult Patients (1 - 1-dose 75+ series) Never done ??? Falls Risk Assessment Never done ??? Social Influencers of Health Screening Never done ??? Medicare Annual Wellness Visit Never done ??? COVID-19 Vaccine (2023- season) 2024 ??? Depression Screening Never done Adult vaccinations: CDC Recommendations Resources for Educating Adult Patients about Vaccines CDC * Re Agarwal MD - 05/29/2025 10:00 AM EDT CHIEF COMPLAINT: Medicare Annual Wellness Visit Subsequent IDENTIFIER: Candy Sheldon is a 80 y.o. old female. HPI: Patient presents today for annual physical exam. History of Present Illness The patient presents for an annual physical exam. She maintains a healthy lifestyle, including regular exercise and a balanced diet with good portions of vegetables. She has been hydrating well with fluids and water intake over the past week. She does not consume excessive salt or seasonings in her meals. She reports no constipation, blood in stool, or dark stool. She reports no vaginal bleeding. She reports no leg swelling or pain. She reports no hearing loss. She has normal bowel and bladder function. She has a history of memory loss but is unsure of what she forgets. She is not currently under the care of a neurologist but has had a normal MRI in the past. She is on amlodipine 5 mg for high bloodpressure, atenolol 25 mg daily for high blood pressure, atorvastatin 20 mg daily for high cholesterol, and trazodone 50 mg as needed for sleep. She is under the care of Dr. Olmstead, a para educator, for h er kidney function, which has shown some improvement. She is up to date with her mammogram and has never had an abnormal mammogram. She does not recall if her colonoscopy was abnormal but was not informed of any lumps or polyps in her colon. She is uncertain about the status of her eye exam. She has no dental issues apart from routine cleaning and does not wear dentures. She has no history of sexually transmitted infections. She is not aware of any f amily history of cancer. She reports no episodes of wandering off and is able to drive herself without any difficulties. Diet: Balanced diet with good portions of vegetables Alcohol: No Tobacco: No Recreational Drugs: No Sleep: Uses trazodone 50 mg as needed for sleep Living Condition: Lives alone FAMILY HISTORY She is not aware of any family history of cancer. Discussed healthy care proxy and MOLST form ROS: The remainder of review of systems is noncontributory. PAST MEDICAL HISTORY: Patient Active Problem List Diagnosis Date Noted History of depression 02/27/2025 Elevated serum creatinine 02/27/2025 Prediabetes 02/27/2025 Pedal edema 02/27/2025 Hand paresthesia 02/27/2025 Leg swelling 02/27/2025 Chronic low back pain 09/24/2024 Insomnia 09/24/2024 Dementia ([facility] V24, [facility] V28) 01/25/2024 Small vessel disease, cerebrovascular 01/25/2024 Right carpal tunnel syndrome 05/04/2023 Trigger index finger of right hand 05/04/2023 Situational syncope 09/01/2021 Dark stools 08/11/2021 Syncope 08/11/2021 Cough 01/07/2020 Epistaxis 01/07/2020 C2 cervical fracture ([facility] V24, [facility] V28) 08/29/2019 Osteopenia 04/25/2017 Cataract 03/14/2017 Chronic left hip pain 03/14/2017 Fibromyalgia 03/14/2017 Hyperlipidemia 03/14/2017 Osteoarthritis 03/14/2017 Short-term memory loss 03/14/2017 Urinary incontinence 03/14/2017 Venous insufficiency 03/14/2017 Essential hypertension, benign 12/22/2016 Gastroesophageal reflux disease 12/22/2016 Severe episode of recurrent major depressive disorder, without psychotic features ([facility] V24, [facility] V28) 12/22/2016 Spondylosis of lumbar [...] Outpatient Medications Marked as Taking for the 05/29/25 encounter (Office Visit) with Re Agarwal MD Medication Sig Dispense Refill acetaminophen (TYLENOL 8 HOUR) 650 mg 8 hr tablet Take 1 Tablet by mouth every 8 hours as needed for Pain. amLODIPine (NORVASC) 5 mg tablet TAKE 1 TABLET BY MOUTH 1 TIME EACH DAY. 90 tablet 0 ascorbic acid (VITAMIN C) 250 MG chewable tablet Take by mouth. atenoloL (TENORMIN) 25 mg tablet TAKE 1 TABLET BY MOUTH EVERY DAY 90 tablet 0 atorvastatin (LIPITOR) 20 mg tablet TAKE 1 TABLET BY MOUTH EVERY DAY 90 tablet 1 cyclobenzaprine (FLEXERIL) 5 mg tablet Take 1 Tablet by mouth daily as needed for Muscle spasms. diclofenac (VOLTAREN) 50 mg EC tablet TAKE 1 TABLET BY MOUTH TWICE A DAY NEEDED FOR PAIN gluc/chondr-msm 7/C/kory/boron (GLUCOSAMINE-CHONDR, BOSWELLIA, ORAL) Take 2 Caps by mouth daily. hydrALAZINE (APRESOLINE) 25 mg tablet Take 1 tablet (25 mg total) by mouth 3 (three) times a day. 270 each 0 lidocaine (LIDODERM) 5 % patch Apply 1 patch topically 1 (one) time each day if needed for mild pain or moderate pain. Apply to painful area 12 hours per day, remove for 12 hours. 30 each 2 MULTIVITAMIN ORAL Take 1 Tab by mouth daily. pantoprazole (PROTONIX) 40 mg EC tablet TAKE 1 TABLET BY MOUTH EVERY DAY 90 tablet 0 traZODone (DESYREL) 50 mg tablet TAKE 1 TABLET BY MOUTH AT BEDTIME NEEDED FOR SLEEP. 90 tablet 1 ALLERGIES: Sulfamethoxazole-trimethoprim, Genaro inhibitors, Acetaminophen, Ampicillin, Aspartame, Clindamycin, Ibuprofen, Nitrofurantoin, Penicillins, Procaine, and Sertraline PHYSICAL EXAM: Blood pressure 114/60, pulse 55, temperature 36.4 ??C (97.5 ??F), height 1.626 m (64 ), weight 66.2kg (146 lb). Body mass index is 25.06 kg/m??. BMI is greater than 25.0 (above the normal range) - see Plan Physical Exam General Appearance: Normal. Vital signs: Within normal limits. HEENT: Left ear: mild cerumen impaction. Right ear: minimal cerumen. Respiratory: Clear to auscultation, no wheezing, rales or rhonchi. Cardiovascular: Regular rate and rhythm, no murmurs, rubs, or gallops. Skin: Warm and dry, no rash. Neurological: Oriented to person, place, and time. LABS/IMAGING: No results found for: WBC , HGB , HCT , MCV Lab Results Component Value Date NA 143 02/25/2025 K 4.7 02/25/2025 CO2 30 02/25/2025 CL 107 02/25/2025 BUN 34 (H) 02/25/2025 ALKPHOS 68 02/25/2025 Lab Results Component Value Date CHOL 131 02/25/2025 LDL 64 01/28/2024 HDL 45 02/25/2025 TRIG 110 02/25/2025 Lab Results Component Value Date TSH 2.73 02/25/2025 Results Labs - Protein in urine test: Normal - Kidney function test: Abnormal but showed some improvement - Cholesterol levels test: Well controlled - Diabetes tests: Prediabetes Imaging - Ultrasound of the kidneys: No structural damages IMPRESSION: 1. Routine general medical examination at a health care facility 2. Insomnia, unspecified type 3. Hyperlipidemia, unspecified hyperlipidemia type 4. Primary hypertension 5. Prediabetes 6. Elevated serum creatinine PLAN: 1. Health maintenance: The patient presented for an evaluation of general health. As part of this visit, we reviewed the following issues, which are considered an essential part of preventative health in this age group: - Breast cancer screening, which includes clinical exam and mammograms annually - mammogram not warranted. May discontinue at age 70 at discretion of patient and provider. - Colon cancer screening (colonoscopy every 10 years/annual FOBT plus flexi sigmoidoscopy every 5 years/double-contrast BE every 5 years/Cologuard every 3 years/Annual FOBT) - AGE 80 - not indicated for routine screening. May discontinue at age 80 at the discretion of patient and provider. - Cervical cancer testing every 1-5 years - AGE 80 - routine screening not indicated. May discontinued at age 65 at the discretion of the patient and provider. - Blood pressure annual screening performed - Cholesterol screening every five years - ordered - Osteoporosis prevention including calcium/vitamin D intake, weight bearing exercise & smokingcessation - Nutritional and exercise counseling - patient advised to pursue at least 30 minutes of exercise most days of the week, limit portion sizes, eat breakfast, and avoid eating after dinner - Screening for Type 2 diabetes mellitus in those with hypertension and/or hyperlipidemia - Prevention of and/or testing for infectious diseases, which may include Chlamydia, Gonorrhea, Syphilis, HIV, Hepatitis C and Tuberculosis - advice about STD prevention provided - Education about skin cancer - Recommendations about immunizations - patient is due for Tdap immunization and is ordered for this - Recommendation of an eye exam for glaucoma every 2-4 years in this age range - patient referred - Screening for substance abuse (including tobacco, alcohol, and recreational drugs) - see Substance & Sexuality section of medical record - Genetic cancer risk screening - NO INDICATION: Hereditary Cancer Syndrome Risk Assessment completed and evaluated. No indication found for genetic testing at this time. - In addition to reviewing these issues, I have reviewed the following sections of the chart: Past Medical History, Social History, and Social History - Did you have a dental problem in the last 6 months? Yes - Did you have a dental visit in the last 12 months? No Assessment & Plan 1. Health maintenance. - Kidney function, previously abnormal, has shown signs of improvement. - Ultrasound of kidneys revealed no structural damage. - Cholesterol levels are well managed; tests indicate prediabetes. - Thyroid function is within normal limits; due for shingles vaccine at any pharmacy; tetanus vaccine administered today, next due in 10 years; colonoscopy after age 75 not recommended routinely unless specific symptoms arise; lab recheck today for A1c levels and kidney function; blood count to be performed outside of annual check-up; referral for eye exam; prescription for earwax removal; referral to neurology for memory loss; recheck B12 level and syphilis study; advised to complete healthcare proxy and MOLST form at convenience. 2. Abnormal kidney function. - Kidney function previously abnormal but showing improvement. - Follows up with Dr. Olmstead, kidney specialist. - Ultrasound of kidneys showed no structural damage. - Lab recheck today to assess current kidney function. 3. Prediabetes. - Tests indicate prediabetes. - Lab recheck today to assess A1c levels. 4. Hypertension. - Currently on Amlodipine 5 mg daily and Atenolol 25 mg daily for high blood pressure. 5. Hypercholesterolemia. - Cholesterol levels well controlled with Atorvastatin 20 mg daily. 6. Insomnia. - Uses Trazodone 50 mg as needed for sleep. Follow-up: She will follow up in 6 months for a medication review and blood pressure check. Orders Placed This Encounter Procedures Tdap Tetanus diptheria acellular pertussis (Boostrix; Adacel) 7yo and older Hemoglobin A1c Standing Status: Future Standing Expiration Date: 11/29/2025 Basic metabolic panel Standing Status: Future Standing Expiration Date: 11/29/2025 CBC and differential Standing Status: Future Standing Expiration Date: 05/29/2026 Order Specific Question: Release to patient Answer: Immediate [1] Re Agarwal MD on 05/29/2025 at 9:38 AM EDT documented in this encounter Plan of Treatment Upcoming Encounters Date Type Department Care Team (Late st Contact Info) Description 06/04/2025 10:30 AM EDT Telemedicine [facility] [place] [address] [place] [id number] Marce Lemons MD [address] [place] [address] 08/19/2025 1:30 PM EDT Consult Nephrology - [place] [address] [place] [address] Wilbert Olmstead MD [address] [address] Scheduled Referrals Name Type Priority Associated Diagnoses Order Schedule Ambulatory referral to Ophthalmology Outpatient Referral Routine Routine general medical examination at a [facility] facility 1 Occurrences starting 05/29/2025 until 05/29/2026 Ambulatory referral to Neurology Outpatient Referral Routine Routine general medical examination at a [facility] facility 1 Occurrences starting 05/29/2025 until 05/29/2026 documented as of this encounter Results * Treponema pallidum antibody with reflex to RPR and particle agglutination (05/29/2025 10:27 AM EDT) [facility] T. Pallidum Antibodies Negative Negative LAB CHEMISTRY METHOD 05/29/2025 3:23 PM EDT [facility] Blood Venous blood specimen / Unknown Venipuncture / Unknown 05/29/2025 10:27 AM EDT 05/29/2025 10:27 AM EDT Re Agarwal MD LAB BLOOD ORDERABLES Final Result Performing Organization Address City/[facility]/ZIP Co de Phone Number [facility] [address] [place] [address], [place] [phone] * Vitamin B12 (05/29/2025 10:27 AM EDT) [facility] Vitamin B-12 790 250 - 900 pcg/mL LAB CHEMISTRY METHOD 05/29/2025 3:00 PM EDT [facility] Blood Venous blood specimen / Unknown Venipuncture / Unknown 05/29/2025 10:27 AM EDT 05/29/2025 10:27 AM EDT Re Agarwal MD LAB BLOOD ORDERABLES Final Result Performing Organization Address City/[facility]/ZIP Co de Phone Number [facility] [address] [place] [address], [place] [phone] * (ABNORMAL) Basic metabolic panel (05/29/2025 10:27 AM EDT) Sodium 143 133 - 145 mmol/L LAB CHEMISTRY METHOD 05/29/2025 2:35 PM [facility] Potassium 4.1 3.5 - 5.5 mmol/L LAB CHEMISTRY METHOD 05/29/2025 2:35 PM [facility] Chloride 112(H) 96 - 110 mmol/L LAB CHEMISTRY METHOD 05/29/2025 2:35 PM [facility] CO2 26 21 - 32 mmol/L LAB CHEMISTRY METHOD 05/29/2025 2:35 PM [facility] Anion Gap 5 3 - 11 LAB CHEMISTRY METHOD 05/29/2025 2:35 PM [facility] Glucose 86 70 - 100 mg/dL LAB CHEMISTRY METHOD 05/29/2025 2:35 PM [facility] BUN 25 5 - 25 mg/dL LAB CHEMISTRY METHOD 05/29/2025 2:35 PM [facility] Creatinine 1.17(H) 0.50 - 1.10 mg/dL LAB CHEMISTRY METHOD 05/29/2025 2:35 PM [facility] eGFR 47(L) >=60 mL/min/1. 73m2 LAB CHEMISTRY METHOD 05/29/2025 2:35 PM [facility] Comment:Calculation based on the Chronic Kidney Disease Epidemiology Collaboration (CKD-EPI) equation refit without adjustment for race. BUN/Creatinine Ratio 21.4 LAB CHEMISTRY METHOD 05/29/2025 2:35 PM [facility] Calcium 10.0 8.5 - 10.5 mg/dL LAB CHEMISTRY METHOD 05/29/2025 2:35 PM [facility] Blood Venous blood specimen / Unknown Venipuncture / Unknown 05/29/2025 10:27 AM EDT 05/29/2025 10:27 AM EDT us Vidur Shaam Agarwal MD LAB BLOOD ORDERABLES Final Result Performing Organization Address City/[facility]/ZIP Co de Phone Number [facility] [address] [place] [address], [place] [phone] * Hemoglobin A1c (05/29/2025 10:27 AM EDT) Hemoglobin A1C 5.9 <6.5 % LAB CHEMISTRY METHOD 05/29/2025 2:58 PM EDT [facility] Mean Bld Glu Estim. 123 mg/dL LAB CHEMISTRY METHOD 05/29/2025 2:58 PM EDT [facility] Blood Venous blood specimen / Unknown Venipuncture / Unknown 05/29/2025 10:27 AM EDT 05/29/2025 10:27 AM EDT Re Agarwal MD LAB BLOOD ORDERABLES Final Result Performing Organization Address City/[facility] Co de Phone Number [facility] [address] [place] [address], [place] [phone] documented in this encounter Visit Diagnoses Diagnosis Routine general medical examination at a health care facility- Primary Insomnia, unspecified type Hyperlipidemia, unspecified hyperlipidemia type Primary hypertension Unspecified essential hypertension Prediabetes Other abnormal glucose Elevated serum creatinine Other nonspecific findings on examination of blood Memory loss documented in this encounter Orders Immunization/Injection Count Last Ordered Date First Ordered Date TD TETANUS DIPTHERIA, PRESER VATIVE FREE (TENIVAC) 7YO AND OLDER 1 05/29/2025 documented in this encounter Additional Health Concerns Assessment Noted Time PHQ-9 Depression Total Score: 0 05/29/20 25 9:30 AM EDT documented as of this encounter Care Teams Information Services Tech Relationship Specialty Start Date End Date Re Agarwal MD [address] [place] [address] [place] [address] PCP - General 01/21/24 documented as of this encounter
--- NOTE | 2025-06-03 09:33 | MHC.OFFVIS ---
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 Indoor Landscape Architect: Indoor Landscape Architect Present Accompanied by: Child Allergies ampicillin Allergy (Severe, Verified 06/03/25 09:37) Unknown penicillin V Allergy (Unknown, Verified 06/03/25 09:37) Unknown Sulfa (Sulfonamide Antibiotics) Allergy (Unknown, Verified 06/03/25 09:37) Unknown Medication List - Last Reconciled 06/03/25 by Jodee Jacques LPN atenolol 25 mg PO DAILY atorvastatin 20 mg PO DAILY pantoprazole mg PO DAILY trazodone 50 mg PO BEDTIME HPI HPI s/p right theraputic SIJ inj: Details: History of Present Illness The patient is an 80-year-old female presenting for follow-up after a right therapeutic sacroiliac joint injection. The patient reports a 50% improvement in pain following the injection, although the pain has recently returned to its previous levels. The pain is primarily located in the sacroiliac joint and lumbar region, likely due to facet degeneration. The patient lives in an elderly facility and lacks assistance for managing a temporary nerve stimulation device, which was discussed as a potential treatment option. Due to logistical challenges, alternative treatments such as facet injections and nerve cauterization were considered. Pain Description - Onset: Pain returned to previous levels after initial 50% improvement post-injection - Quality: Persistent pain in the sacroiliac joint and lumbar region - Exacerbating factors: Lack of long-term relief from injection - Relieving factors: Initial relief from sacroiliac joint injection Physical Exam - Appears afebrile. - Alert and oriented. - Mood and affect appropriate. - Follows and participates in conversation appropriately. - Respiratory effort is unlabored. - Back extension painful and limited. Results Pain Management - Affect: Pain impacts daily activities and requires management - Analgesia: 50% pain relief post-injection, but pain has returned - Activities of Daily Living: Pain management is necessary for daily functioning Physical Exam Vital Signs: Last Vital Signs Pulse 59 06/03/25 09:35 Resp 16 06/03/25 09:35 BP 163/70 H 06/03/25 09:35 Pulse Ox 100 06/03/25 09:35 Oxygen Delivery Method Room Air 06/03/25 09:35 BMI result Body Mass Index 22.1 Assessment & Plan Assessment & Plan (1) Lumbar spondylosis: Code(s): M47.816 - Spondylosis without myelopathy or radiculopathy, lumbar region Category: Medical Plan Plan - Plan for bilateral diagnostic L3-L4-L5 diagnostic MBBs to assess pain relief and determine further treatment options. - Consideration of nerve ablation if diagnostic blocks provide significant relief. - Temporary nerve stimulation device deferred due to logistical challenges and lack of assistance at the place of residence. The patient's pain has been present for more than 3 months, is predominantly axial and more than 6/10 in intensity over average. The ELÍAS score is 54%. History and physical exam findings of increased pain on extension and cervical facet loading indicate facet mediated axial pain. Patient was informed and verbally consented to the use of an ambient scribe for clinic note documentation during this visit. Discussion Notes I discussed with the patient the potential for using a temporary nerve stimulation device to manage her pain, but due to her living situation and lack of assistance, we decided to defer this option. We also discussed the plan for bilateral diagnostic L3-L4 facet joint blocks and the possibility of nerve cauterization if these blocks provide significant relief. Patient Instructions - Complete the questionnaire provided by the nurse for Medicare approval of facet injections. - Follow up by phone to discuss the results of the diagnostic blocks and next steps. Coding Level of Care Code Est Pt Level 4 (41808) Diagnoses Lumbar spondylosis M47.816
[2025-06-03 09:35] VITALS: BP 163/70; PULSE 59; RESP 16; O2SAT 100; BMI 22.1
--- OUTSIDE RECORDS SUMMARY | 2025-06-03 10:02 | XMS_ITS | Clinical Summary ---
Author Organization [facility] Address [address] [facility] [address] [place] [address] Phone Care Team Providers Care Environmental Remediation Consultant Name Role Phone StefanoRe Primary Care Provider [phone] Allergies Active Allergy Reactions Criticality Noted Date [...] 03/14/2017 Overview (05/21/2024): 2016- urodynamic studies. 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
--- OUTSIDE RECORDS SUMMARY | 2025-06-03 10:03 | XMS_ITS | Clinical Summary ---
Author Organization [facility] Address [address] [place] [phone] Phone Care Team Providers Care Radial Drill Press Set Up Operator Name Role Phone Warner Layne MD Primary Care Provider [phone] Warner Layne MD Unavailable Allergies Active Allergy Reactions Criticality Noted Date Comments Genaro Inhibitors 01/07/2020 Acetaminophen 11/16/2017 Raises liver function per pt Ibuprofen 11/16/2017 Penicillins 12/22/2016 Procaine Swelling 08/07/2019 Sulfamethoxazole-Trimethopri m Anaphylaxis High 03/14/2017 Upset stomach Medications triamcinolone acetonide 0.1 % cream Triamcinolone 0.1% cream 80gms with Cerave cream. Apply daily from neck down after showers. Not to be used on the face. 1 Active omeprazole (PRILOSEC) 20 MG capsule 2 Active omega-3 acid ethyl esters (LOVAZA) 1 gram capsule Take by mouth. Ac tive cholecalcifero l (VITAMIN D3) 2,000 unit tablet Take by mouth. Activ e atorvastatin (LIPITOR) 40 MG tablet Take 40 mg by mouth. 1 Active atenolol (TENORMIN) 25 MG tablet 1 Active Active Problems No known active problems Social History Tobacco Use Types Packs/Day Years Used Date Smoking Tobacco: Never Smokeless Tobacco: Never Alcohol Use Standard Drinks/Week Comments Never 0 (1 standard drink = 0.6 oz pur e alcohol) Education Answer Date Recorded Are you interested in more education? Not on yvette e 03/03/2023 Are you concerned about learning? Not on file 03/03/2023 No 03/03/2023 No 03/03/2023 Digital Access Answer Date Recorded No 04/01/2023 No 04/01/2023 No 04/01/2023 Reliable internet access at home? Not on file 04/01/2023 Device with a working camera? Not on file Comments Unknown Sex and Gender Information Value Date Recorded Sex Assigned at Not on file Legal Sex Female 9:07 AM EST Gender Identity Not on file Sexual Orientation Not on file Plan of Treatment Health Maintenance Due Date Last Done Comments Adult Td,Tdap Booster 1945 LIPID PANEL 1945 DEPRESSION SCREENING 1957 ZOSTER VACCINES (1 of 2) 1995 OSTEOPOROSIS SCREENING INITI AL (ONE-TIME) 2010 RSV VACCINE (1 - 1-dose 75+ series) 2020 COVID-19 VACCINE (2 - 2023-2 5 season) 2024 08/04/2021 PNEUMOCOCCAL VACCINES (50+ years) Completed 07/09/2019, 05/17/2016 SMOKING STATUS SCREENING (On ce After 26 Yrs) Completed 12/14/2021 HEPATITIS A VACCINES Aged Out No long er eligible based on patient's age to complete this topic HIB VACCINES Aged Out No longer eligi ble based on patient's age to complete this topic MENINGOCOCCAL VACCINES (ACWY) Aged Out No longer eligible based on patient's age to complete this topic MENINGOCOCCAL VACCINES (B) Aged Out N o longer eligible based on patient's age to complete this topic Medical Devices Not on file Insurance [employer] [place] MEDICARE PPO BLUE REPL[address]EMENT [address] [place] [address] MEDICARE PPO [address] [place] [address] [address]ARE [address] [place] [address] MEDICARE PPO [address] [place] [address] MEDICARE P[address] [place] [address] [address]ARE P[address] [place] [address] MED[address]ARE P[address] [place] [address] [address]ARE P[address] [place] [address] [address]ARE [address] [place] [address] MEDICARE PPO BLUE REPLACEMENT MEDICARE PPO [address] [place] [address] [address]ARE [address] [place] [address] MEDICARE PPO BLUE REPLACEMENT MEDICARE PPO [address] [place] [address] MEDICARE PPO BLUE REPLACEMENT MEDICARE PPO BLUE REPLACEMENT MEDICARE PPO BLUE REPLACEMENT MEDICARE PPO BLUE REPLACEMENT Care Teams Radial Drill Press Set Up Operator Relationship Specialty Start Date End Date Warner Layne MD [address] [address] PCP - General Internal Medicine 11/24/21 Warner Layne MD [address] [facility] [address] [place] [address] Internal Medicine 11/24/21 Additional Source Comments The information contained in this document represents components of the legal health record. It is not the complete legal health record.[facility]
--- OUTSIDE RECORDS SUMMARY | 2025-06-03 10:03 | XMS_ITS ---
Author Name [facility] Organization Unknown Care Team Organization Name Specialty Phone Email Start Date End Da marleni [facility] PERFECTO HENDRICKS Primary Care 09/12/2022 06/23/20 24
--- OUTSIDE RECORDS SUMMARY | 2025-06-03 10:03 | XMS_ITS | Patient Health Record ---
[facility] [place] Address [address] [place] [address] Care Team Providers Care Elocution Teacher Name Role Phone Roverto OVALLE, Warner Primary Care Provider Raj QuickReae Unavailable [phone] Allergies Allergen (clinical drug ingredient) Drug/Non Drug [...] Problem Acquired hammer toe of right foot (0438414660313 105) Other hammer toe(s) (acquired), right foot (M20.41) Active confirmed Problem Acquired hammer toe of left foot (2312824245475 103) Other hammer toe(s) (acquired), left foot (M20.42) Active confirmed Plan Of Treatment Pending Test Test Name Order Date [id number] NAIL, 6 OR MORE 06/10/2019 Insurance Providers Payer Name Payer Address Payer Phone Subscriber Number Group Number Insured Name Patient Relationship to Insured Coverage Start Date Coverage End Date [employer] 65 Medicare Preferred [address] [place] [address] [phone] [id number] Candy Sheldon Self - patient is the insured Medical (General) History Medical History History ICD Code Arthritis Back,Hip,and Knee pain Cataracts Fibromyalgia Headaches Osteoporosis Reflux ( GERD) Chicken pox Surgical History Surgery Date(Month/Year) shoulder surgery 1971 elbows 1968 hand surgery 1974 breast surgery 1978 partial hysterectomy 1968
== END 2025-06-03 10:13 | disposition home or self-care (01) ==
LOC: HO.PMC 09:31
PROVIDERS: PCP Internal Medicine; Visit Provider Internal Medicine
DX: M47.816 Spondylosis without myelopathy or radiculopathy, lumbar region (principal)
CPT/HCPCS: 99214

== ENCOUNTER → 2025-06-03 09:30 | Outpatient (BNVA) | payer MEDICARE, SELFPAY | PROVIDERS: PCP Internal Medicine; Visit Provider Internal Medicine | DX: M47.816 Spondylosis without myelopathy or radiculopathy, lumbar region (principal) | CPT/HCPCS: 99212 ==